=== PATIENT | male | born 1945 | race Caucasian/White ===

== ENCOUNTER 2018-01-28 20:01 | Inpatient (IN) ==
[2018-01-28 20:22] LABS: Basophils # 0.1 K/mcL (0.0-0.2); Basophils % 0.6 %; Eosinophils # 0.4 K/mcL (0.0-0.6); Hematocrit 48.1 % (37.5-50.1); Hemoglobin 16.7 g/dL (12.9-16.9); Immature Granulocytes % 0.3 % (0-4); Lymphocytes # 2.6 K/mcL (0.6-4.6); Lymphocytes % 29.5 %; Mean Corpuscular HGB Conc 34.7 g/dL (31.6-35.5); Mean Corpuscular Volume 89.4 fL (83.0-100.0); Monocytes # 0.8 K/mcL (0.0-1.3); Monocytes % 8.6 %; Platelet Count 263 K/mcL (140-400); Red Blood Count 5.38 M/mcL (4.19-5.50); Red Cell Distribution Width 12.7 % (11.5-14.5)
[2018-01-28 20:27] LABS: Prothrombin Time 11.3 Seconds (9.4-12.1)
[2018-01-28 20:29] LABS: Activated Partial Thrombo Time 32.3 Seconds (26.0-36.0)
[2018-01-28 20:47] LABS: BUN/Creatinine Ratio 16 (6-26); Blood Urea Nitrogen 20 mg/dL (8-23); Calcium 9.9 mg/dL (8.6-10.3); Carbon Dioxide 29 mEq/L (23-29); Chloride 103 mEq/L (98-107); Glucose 104 mg/dL (70-105); Osmolality,Calculated 293 (280-300); Sodium 140 mEq/L (136-145); eGFR For Non-African Americans 56 (> 60)
[2018-01-28 20:48] LABS: Troponin I < 0.03 ng/mL (< 0.04)
--- NOTE | 2018-01-28 21:14 | Emergency Department Note ---
Disposition Clinical Impression: Chest pain Qualifiers: Chest pain type: unspecified Qualified Code(s): R07.9 - Chest pain, unspecified Disposition: Admitted As Inpatient Condition: Good Time of Disposition: 21:23 Chest Pain HPI - General Chief Complaint: ED Chest Pain Stated Complaint: chest pain Time Seen by Provider: 01/28/18 20:07 Source: patient, EMS Limitations: no limitations Vital Signs Reviewed: Yes Nursing Notes Reviewed: Yes - History of Present Illness HPI Narrative: Male patient presenting to emergency department complaining of chest pain that began around 5:30 this evening. He started after he lifted a 5 gallon bucket. He does have associated shortness of breath on exertion. Whenever he tries to walk is when the pain gets worse. It does relieve completely at rest. He has a history of 2 MIs. States this feels like the second [place]. Does have 2 stents placed. He denies any fevers or chills. He did recently have a cardiac workup in expectation of a right knee surgery tomorrow. He describes the pain as a pressure in the center of his chest. Radiates to both shoulders. No associated nausea vomiting or diaphoresis. No rashes. Severity scale (1-10): 9 - Related Data Home Medications Medication Instructions Recorded Confirmed Aspirin [Adult Aspirin Regimen] 81 mg PO DAILY 12/11/17 12/11/17 Previous Rx's Medication Instructions Recorded Cephalexin [Keflex] 500 mg PO QID #28 capsule 12/23/17 Allergies Allergy/AdvReac Type Severity Reaction Status Date / Time niacin Allergy See Verified 12/23/17 16:29 Comments Clnpphq-Ime-Szj Reductase Allergy See Verified 12/23/17 16:29 Inhibitor Comments [Statins] All systems ED: reviewed and negative except as stated. Constitutional: Denies: fever, chills Cardiovascular: Reports: chest pain, dyspnea on exertion. Denies: palpitations , syncope Respiratory: Denies: cough, dyspnea, wheezes Gastrointestinal: Denies: abdominal pain, nausea, vomiting, diarrhea Genitourinary: Denies: urgency, dysuria, frequency, hematuria Musculoskeletal: Denies: back pain, neck pain Neurological: Denies: headache, weakness Chest Pain PMH - Past Medical History Medical history: Reports: CVA, hypertension, myocardial infarction Surgical history: Reports: angioplasty/stent, orthopedic, other Psychiatric history: Reports: anxiety - Social History Smoking Status: Never smoker Alcohol use: Reports: none Drug use: Reports: none Physical Exam - General Limitations: no limitations General appearance: alert, in no apparent distress - Head Head exam: atraumatic, normocephalic, normal inspection - Eye Eye exam: Present: normal appearance, PERRL, EOMI - ENT ENT exam: normal exam, normal oropharynx, mucous membranes moist - Neck Neck exam: Present: normal inspection, full ROM, trachea midline - Chest Chest inspection: Present: normal inspection, symmetric chest wall rise - Respiratory Respiratory exam: Present: normal lung sounds bilaterally. Absent: respiratory distress, accessory muscle use - Cardiovascular Cardiovascular exam: Present: regular rate, normal rhythm, normal heart sounds - Abdominal Exam Abdominal exam: Present: soft, Non-Tender. Absent: tenderness, distention, guarding, rebound, rigidity, organomegaly, Bruno's sign, Rovsing's sign, tenderness at McBurney's Point - Extremities Exam Extremities exam: Present: normal inspection, full ROM, normal capillary refill. Absent: tenderness, pedal edema - Back Exam Back exam: Present: normal inspection, full ROM. Absent: tenderness - Neurological Exam Neurological exam: Present: alert, oriented X3 - Psychiatric Psychiatric exam: Present: normal affect, normal mood - Skin Skin exam: Present: warm, dry, intact, normal color. Absent: rash, cyanosis, diaphoresis Course Course Narrative: Patient has the pain reproduced on very short ambulation. He is also still dyspneic on ambulation. EKG shows no signs of acute ischemia we will admit patient to the hospital for further ACS workup. He did just have a left-sided carotid endarterectomy less than a month ago. - Consultations Consultation #1: Dr Navarrete accepted Pt in stable condition. Time: 21:20 Vital Signs Temperature 98.0 F 01/28/18 20:05 Pulse Rate 82 01/28/18 20:05 Respiratory Rate 15 01/28/18 20:05 Blood Pressure 186/109 01/28/18 20:05 O2 Sat by Pulse Oximetry 99 01/28/18 20:05 Temperature 98.0 F 01/28/18 20:05 Pulse Rate 79 01/28/18 20:57 Respiratory Rate 20 01/28/18 20:57 Blood Pressure 166/91 01/28/18 20:57 O2 Sat by Pulse Oximetry 100 01/28/18 20:57 Oxygen Delivery Oxygen Delivery Nasal Cannula Chest Pain - Medical Records Medical records reviewed: Yes I reviewed the patient's medical records. - Lab Data Lab results reviewed: Yes I reviewed the patient's lab results. Result diagrams: 01/28/18 20:11 01/28/18 20:11 Lab Results 01/28/18 01/28/18 01/28/18 Range/Units 20:11 20:11 20:11 WBC 8.8 (4.3-11.1) K/mcL RBC 5.38 (4.19-5.50) M/mcL Hgb 16.7 (12.9-16.9) g/dL Hct 48.1 (37.5-50.1) % MCV 89.4 (83.0-100.0) fL MCH 31.0 (28.0-33.3) pg MCHC 34.7 (31.6-35.5) g/dL RDW 12.7 (11.5-14.5) % Plt Count 263 (140-400) K/mcL MPV 9.0 L (9.4-12.4) fL Immature Gran % 0.3 (0-4) % Seg Neutrophils % 57.0 % Lymphocytes % 29.5 % Monocytes % 8.6 % Eosinophils % 4.0 % Basophils % 0.6 % Neutrophils # 5.0 (1.6-8.9) K/mcL Lymphocytes # 2.6 (0.6-4.6) K/mcL Monocytes # 0.8 (0.0-1.3) K/mcL Eosinophils # 0.4 (0.0-0.6) K/mcL Basophils # 0.1 (0.0-0.2) K/mcL PT 11.3 (9.4-12.1) Seconds INR 1.0 APTT 32.3 (26.0-36.0) Seconds Sodium (136-145) mEq/L Potassium (3.5-5.1) mEq/L Chloride (98-107) mEq/L Carbon Dioxide (23-29) mEq/L BUN (8-23) mg/dL Creatinine (0.70-1.30) mg/dL Est GFR ( Amer) (> 60) Est GFR (Non-Af Amer) (> 60) BUN/Creatinine Ratio (6-26) Glucose (70-105) mg/dL Calculated Osmolality (280-300) Calcium (8.6-10.3) mg/dL Troponin I (< 0.04) ng/mL B-Natriuretic Peptide 23 (Less than 100) pg/mL 01/28/18 Range/Units 20:11 WBC (4.3-11.1) K/mcL RBC (4.19-5.50) M/mcL Hgb (12.9-16.9) g/dL Hct (37.5-50.1) % MCV (83.0-100.0) fL MCH (28.0-33.3) pg MCHC (31.6-35.5) g/dL RDW (11.5-14.5) % Plt Count (140-400) K/mcL MPV (9.4-12.4) fL Immature Gran % (0-4) % Seg Neutrophils % % Lymphocytes % % Monocytes % % Eosinophils % % Basophils % % Neutrophils # (1.6-8.9) K/mcL Lymphocytes # (0.6-4.6) K/mcL Monocytes # (0.0-1.3) K/mcL Eosinophils # (0.0-0.6) K/mcL Basophils # (0.0-0.2) K/mcL PT (9.4-12.1) Seconds INR APTT (26.0-36.0) Seconds Sodium 140 (136-145) mEq/L Potassium 4.0 (3.5-5.1) mEq/L Chloride 103 (98-107) mEq/L Carbon Dioxide 29 (23-29) mEq/L BUN 20 (8-23) mg/dL Creatinine 1.26 (0.70-1.30) mg/dL Est GFR ( Amer) > 60 (> 60) Est GFR (Non-Af Amer) 56 L (> 60) BUN/Creatinine Ratio 16 (6-26) Glucose 104 (70-105) mg/dL Calculated Osmolality 293 (280-300) Calcium 9.9 (8.6-10.3) mg/dL Troponin I < 0.03 (< 0.04) ng/mL B-Natriuretic Peptide (Less than 100) pg/mL - Radiology Data Radiology results reviewed: Yes I reviewed the patient's radiology results. - EKG Data EKG attestation: Yes I reviewed and interpreted this EKG. EKG results narrative: Normal sinus rhythm at a rate 81. NH interval is 132. QRS is in the phone is 6. QT is 341. QTC is 396. No signs of acute ischemia. Heart Score - Score History: Highly Suspicious EKG: Non Specific repolarisation Disturbance Age: Greater than 65 Risk Factors: Equal/Greater than 3 risk factor or history of atherosclerotic disease Troponin: Less than normal limit HEART Score Total: 7 Attestation Statement - Attestation Attestation: Patient was seen with resident physician. I reviewed the history, physical, assessment and plan, and agree with the findings. I also personally evaluated this patient and had [id number] time with this patient. 72-year-old male presents emergency Department with chest pain onset 5:30 PM. Describes pain is similar to second heart attack pressure sensation in the chest. Largely exertional. He says when he sits still it goes away but even a short distance couple of feet will cause chest pain and shortness of breath. Patient's here for evaluation treatment for that. He has a recent stress test which she said was okay. Of the symptoms are new. He does not typically get chest pain and though he has nitroglycerin he said he never takes them at home. He did take 4 aspirin via ambulance. Review systems as above remainder negative. Physical exam vital signs are stable. ENT is unremarkable. Heart regular rhythm and rate. Lungs clear. Abdomen soft and nontender. Extremities are unremarkable. Neurologically intact. Skin no rashes. Chest wall stable pain is not reproducible. ED course EKG showed no acute ischemic changes. Troponin was negative. Other lab testing was unremarkable. Chest x-ray did not show acute abnormalities either. We spoke with the hospitalist service to arrange for admission for rule out and additional testing as indicated. Hemodynamically the patient remained stable in the emergency department. Agree with resident physician assessment plan.
[2018-01-28] MEDS ORDERED: Nitroglycerin 0.4 MG TAB.SUBL SL STA (23:01)
[2018-01-28] MEDS ORDERED: Acetaminophen 325 MG TABLET PO PRN (23:07)
[2018-01-28] MEDS ORDERED: Naloxone 0.4 MG/ML INJ IVP PRN (23:40)
[2018-01-29] MEDS ORDERED: *HR* Heparin 5,000 UNIT/ML VIAL IVP PRN ×2 (00:01)
[2018-01-29] MEDS ORDERED: *HR* Heparin 5,000 UNIT/ML VIAL IVP ONE (00:01)
[2018-01-29] MEDS ORDERED: Heparin 25,000 UNIT/500 ML D5W 25,000 UNIT/500 ML BAG IVC SCH (00:15)
--- NOTE | 2018-01-29 00:22 | Internal Med History&Physical ---
Date of Encounter: 01/29/18 Time of Encounter: 22:00 Internal Medicine - H&P: HPI Chief complaint: Chest Pain History of present illness: Mr. Sharp is a 72 year old male patient presenting to emergency department complaining of chest pain that began around 5:30 this evening. Symptoms began shortly after carrying a 5 gallon bucket of water. He does have associated shortness of breath on exertion. Whenever he tries to walk is when the pain gets worse. It does relieve completely at rest. He has a history of 2 MIs. States this feels like the second [place]. Does have 2 stents placed. He denies any fevers or chills. He describes the pain as a pressure in the center of his chest. Radiates to both shoulders. No associated nausea vomiting or diaphoresis. No rashes. Past Med Surg Social Fam HX - Past Medical History Medical history: CVA, hypertension, myocardial infarction Additional medical history: Carotid stenosis Psychiatric history: anxiety - Past Surgical History Surgical History: angioplasty/stent, orthopedic, other Additional surgical history: LITHOTRIPSY FOR KIDNEY STONES. ORIF LEFT ANKLE - Social History Smoking Status: Never smoker Smokeless Tobacco Status: No Alcohol use: none Drug use: none - Family History Father Name: Joya Sharp Living Status: Age at : 75 Cause of : colon cancer Hx Family Cardiac Disorders: Yes (CABG) Internal Medicine - H&P: Meds Aspirin [Adult Aspirin Regimen] 81 mg PO DAILY 12/11/17 [History] Multivitamin [Multivitamins] 1 each PO DAILY 01/28/18 [History] [place]-3 Fatty Acids [Fish Oil] 300 mg PO DAILY 01/28/18 [History] Ubidecarenone [Coq10] 50 mg PO DAILY 01/28/18 [History] 3 Allergy/AdvReac Type Severity Reaction Status Date / Time niacin Allergy See Verified 01/29/18 10:24 Comments Ernndob-Bkv-Eaf Reductase Allergy See Verified 01/29/18 10:24 Inhibitor Comments [Statins] All Systems PM: A 10-system review of systems was performed and is negative for pertinent findings except as documented above in the HPI. - Constitutional Exam: General: Alert and oriented 3 lying in bed not in acute distress Skin:Normal color, no rash, no lesions. HEENT:EOM, pupils equal, round and reactive. Cardiovascular:Normal S1 & S2, no rubs, murmurs or gallops. No JVD. Pulse regular. Lungs:Normal breath sounds, no wheezes or crackles. Abdomen:Soft, non-tender, no rigidity. Extremities:No deformity, no edema or tenderness, no joint swelling or clubbing. Neurological:Normal cognition and motor skills. Pulses:Carotid and radial pulses normal +2. Rest of the physical exam is non contributory Internal Med - H&P Results - Labs CBC & Chem 7: 01/29/18 05:02 01/29/18 05:02 Labs: Cardiac Enzymes 01/28/18 Range/Units 23:14 Troponin I 0.16 H* (< 0.04) ng/mL - Assessment and plan (1) Chest pain Current Visit: Yes Status: Acute Assessment and plan: Acute chest pain rule out coronary syndrome. Patient's chest pain similar in nature and quality to previous [place]. He presents with typical chest pain, substernal and radiating to the left arm aggravated with exertion and relieved with nitroglycerin and rest. During the course of his first evening shortly after admission patient began experiencing worsening of his typical chest pain. Stat troponin and EKG was ordered showing a bump in his troponin level from less than 0.03-0.16 as well as EKG changes in the inferior leads specifically 3 and AVF. His symptoms improved after administration of nitroglycerin. Due to concern of ACS will start patient on heparin drip, beta william; transient troponin and place cardiac cardiology consultation for a.m. which has been ordered but not called in. Qualifiers: Chest pain type: unspecified Qualified Code(s): R07.9 - Chest pain, unspecified (2) Hypertension Current Visit: Yes Status: Chronic Qualifiers: Hypertension type: essential hypertension Qualified Code(s): I10 - Essential (primary) hypertension - Time Spent With Patient Total time spent is greater than 50% in coordination of care (as documented) at patient's floor/unit and/or counseling patient: - Constitutional Vitals: Temp Pulse Resp BP Pulse Ox 98.3 F 75 15 137/81 96 01/28/18 23:01 01/28/18 23:38 01/28/18 23:01 01/28/18 23:38 01/28/18 23:01
[2018-01-29 00:59] LABS: Hematocrit 45.2 % (37.5-50.1); Hemoglobin 15.6 g/dL (12.9-16.9); Mean Corpuscular HGB Conc 34.5 g/dL (31.6-35.5); Mean Corpuscular Hemoglobin 30.7 pg (28.0-33.3); Mean Platelet Volume 9.1 fL (9.4-12.4); Platelet Count 236 K/mcL (140-400); Red Blood Count 5.08 M/mcL (4.19-5.50); Red Cell Distribution Width 12.7 % (11.5-14.5)
[2018-01-29 01:04] LABS: Heparin anti-factor XA UFH 0.04 IU/mL (0.30-0.70)
[2018-01-29 01:05] LABS: Prothrombin Time 11.1 Seconds (9.4-12.1)
[2018-01-29] MEDS: Nitroglycerin 0.4 MG TAB.SUBL SL PRN ×5 (01:35→23:43)
[2018-01-29] MEDS: Acetaminophen 325 MG TABLET PO PRN ×2 (01:48→15:22)
[2018-01-29 05:21] LABS: Hematocrit 45.7 % (37.5-50.1); Hemoglobin 16.1 g/dL (12.9-16.9); Mean Corpuscular HGB Conc 35.2 g/dL (31.6-35.5); Mean Corpuscular Hemoglobin 31.2 pg (28.0-33.3); Mean Corpuscular Volume 88.6 fL (83.0-100.0); Mean Platelet Volume 9.1 fL (9.4-12.4); Platelet Count 236 K/mcL (140-400); Red Blood Count 5.16 M/mcL (4.19-5.50); Red Cell Distribution Width 12.5 % (11.5-14.5)
[2018-01-29 05:42] LABS: Alanine Aminotransferase 17 Units/L (7-52); Albumin 4.2 g/dL (3.5-5.7); Albumin/Globulin Ratio 1.8 (1.1-2.2); Alkaline Phosphatase 65 Units/L (34-104); Aspartate Amino Transferase 23 Units/L (13-39); BUN/Creatinine Ratio 20 (6-26); Bilirubin,Total 0.6 mg/dL (0.3-1.0); Blood Urea Nitrogen 20 mg/dL (8-23); Calcium 9.3 mg/dL (8.6-10.3); Carbon Dioxide 23 mEq/L (23-29); Chloride 107 mEq/L (98-107); Globulin 2.4 g/dL (2.4-3.5); Glucose 108 mg/dL (70-105); Osmolality,Calculated 291 (280-300); Sodium 139 mEq/L (136-145); Total Protein 6.6 g/dL (6.4-8.9); eGFR For Non-African Americans > 60 (> 60)
--- NOTE | 2018-01-29 08:27 | Cardiology Consult Note ---
Date of Encounter: 01/29/18 Time of Encounter: 09:30 Assessment and Plan (1) NSTEMI (non-ST elevated myocardial infarction) Current Visit: Yes Status: Acute - RADHA 5, high risk, trop max 0.3, s/p ASA 324, heparin drip - know LAD TWAN x2, accelerating angina with dyspnea - plan invasive strategy and LHC today with possible intevention, no bleeding diathesis, + elective knee surgery - c/w heparin drip - ASA 81 qd, plavix 600mg x1 now then 75mg qd from 821 am - c/w lopressor for now, switch to toprol XL before discharge - repeat TTE for EF and RWMA, then decision on ACEi/ARB - lipid panel, TSH - pt unable to tolerate statin/niacin, will need explore questran, [id number] as outpatient with Dr Ro. - cardiac rehab (2) Carotid stenosis, bilateral Current Visit: No Status: Chronic R-carotid total occlusion, L-CEA 12/2017, will benefit from lipid control (3) Mixed hyperlipidemia Current Visit: No Status: Inactive pt unable to tolerate statin/niacin, will need explore questran and PCSK9i as outpatient with Dr Ro. (4) Hypertension Current Visit: Yes Status: Chronic BP currently ok Qualifiers: Hypertension type: essential hypertension Qualified Code(s): I10 - Essential (primary) hypertension Discussion w patient/family: The assessment and plan as outlined above was discussed with the patient and/or family members who expressed understanding and agreement. All questions were answered. Thank you for involving us in the care of your patient. Please call with any questions. History of Present Illness Consult date: 01/29/18 Requesting physician: Carmelina Woods Consult reason: ACS Chief complaint: CP History of present illness: Mr. 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 CV imaging prior to L-CEA: TTE 06/2017 EF 65% Nuclear stress 06/2017 no ischemia or infarct P/w recurrent accelerating chest pain 3 hours prior to ED visit. CP triggered by lifting bottle, starting from L-shoulder, then lower mid substernal chest pressure 8/10, lasting 5 minutes, improved after rest, associated with dyspnea. Recurred several times later with minimal exertion which prompted ED visit. ASA 81x4 in ambulance. CP at rest recurred in hospital x2 which relieved by NTG. ECG NS TW abn, trop 0->max 0.3, BNP 23. Currently no complaint, no cp. No bleeding problems, elective knee surgery planned. Similar exertional CP episode 1 month ago relieved by rest w/o seeking medical attention. Stated easy fatigue in the past several months with decreased functional status , 6 flight of stairs down to 1-2 with dyspnea. No PND/orthopnea, leg edema or significant weight change. No syncope, no palpitations. Of note, only on ASA 81 at home. Unable to tolerate statins (muscle pain) and niacin (flushing) Past Med Surg Social Fam HX - Past Medical History Attestation: Yes The following information was validated with the patient. Medical history: CVA, hypertension, myocardial infarction (2010, 2012) Additional medical history: Carotid stenosis Psychiatric history: anxiety - Past Surgical History Surgical History: angioplasty/stent (LAD TWAN x2 (length 20mm and 38mm), carotid endarterectomy (L-CEA 12/2017), orthopedic, other Additional surgical history: LITHOTRIPSY FOR KIDNEY STONES. ORIF LEFT ANKLE - Social History Smoking Status: Never smoker Smokeless Tobacco Status: No Alcohol use: none Drug use: none - Family History Father Name: Joya Sharp Living Status: Age at : 75 Cause of : colon cancer Hx Family Cardiac Disorders: Yes (CABG) Medications and Allergies Aspirin [Adult Aspirin Regimen] 81 mg PO DAILY 12/11/17 [History] Multivitamin [Multivitamins] 1 each PO DAILY 01/28/18 [History] [place]-3 Fatty Acids [Fish Oil] 300 mg PO DAILY 01/28/18 [History] Ubidecarenone [Coq10] 50 mg PO DAILY 01/28/18 [History] 3 Allergy/AdvReac Type Severity Reaction Status Date / Time niacin Allergy See Verified 01/29/18 10:24 Comments Aggmhkm-Hlz-Lfi Reductase Allergy See Verified 01/29/18 10:24 Inhibitor Comments [Statins] All Systems Review: The remainder of the systems were reviewed and are negative - EENT Eyes: blurred vision - Cardiovascular Cardiovascular: as per HPI - Musculoskeletal Musculoskeletal: arthralgias (B/L knees) Physical Examination Vital Signs, Last 4 Hours Temp Pulse Resp BP Pulse Ox 01/29/18 07:09 97.8 F 59 16 132/76 97 01/29/18 06:18 97.9 F 77 13 126/79 General: Conversant, No Apparent Distress HEENT: Mucus Membranes Moist Neck: No JVD, Other (right carotid pulse absent) Cardiac: Reg Rate and Rhythm, Normal S1 and S2, No Murmur Lungs: Normal Breath Sounds, No Wheeze, Rales, Rhonchi Neuro: Alert and responsive, No focal deficits noted Abdomen: Soft, Non-Tender Skin: No rashes noted on visualized skin Musculoskeletal: No Chest Wall Tenderness Extremities: No Clubbing, No Cyanosis, No Edema, Normal Pulses Results 01/29/18 05:02 01/29/18 05:02 Lab Results BNP 23 01/28/18 01/29/18 01/29/18 23:14 00:44 00:44 WBC 9.7 Hgb 15.6 Hct 45.2 Plt Count 236 INR 1.0 Sodium Potassium Chloride Carbon Dioxide BUN Creatinine Glucose Calcium Total Bilirubin AST ALT Alkaline Phosphatase Troponin I 0.16 H* 01/29/18 01/29/18 01/29/18 05:02 05:02 05:02 WBC 9.7 Hgb 16.1 Hct 45.7 Plt Count 236 INR Sodium 139 Potassium 4.0 Chloride 107 Carbon Dioxide 23 BUN 20 Creatinine 0.98 Glucose 108 H Calcium 9.3 Total Bilirubin 0.6 AST 23 ALT 17 Alkaline Phosphatase 65 Troponin I 0.26 H* ITS Impressions Chest X-Ray 01/28/18 20:13 IMPRESSION: No acute findings. D/ / Jake Jensen MD / Jake Jensen MD Interpreting Provider: Jake Jensen MD Active Medications Acetaminophen (Tylenol) 650 mg PO Q6HR PRN PRN Reason: Fever/mild pain Stop: 07/30/18 23:08 Last Admin: 01/29/18 01:48 Dose: 650 mg Heparin Sodium (Porcine) (Heparin) 4,000 unit IVP Q6HR PRN PRN Reason: SEE COMMENTS Stop: 07/31/18 00:02 Heparin Sodium (Porcine) (Heparin) 2,000 unit IVP Q6H PRN PRN Reason: SEE COMMENTS Stop: 07/31/18 00:02 Heparin Sodium/Dextrose (Heparin 25,000 Unit/500 Ml D5w) 25,000 unit in 500 mls @ 19.752 mls/hr IVC .Q24H ANMOL; 12 UNIT/KG/HR PRN Reason: Protocol Stop: 07/31/18 00:16 Last Titration: 01/29/18 07:26 Dose: 12 unit/kg/hr, 19.752 mls/hr Metoprolol Tartrate (Lopressor) 25 mg PO Q6HR ANMOL Stop: 07/31/18 06:01 Last Admin: 01/29/18 06:21 Dose: 25 mg Naloxone HCl (Narcan) 0.4 mg IVP Q2MIN PRN PRN Reason: SEE COMMENTS Stop: 07/30/18 23:41 Nitroglycerin (Nitroglycerin) 0.4 mg SL Q5MIN PRN PRN Reason: Chest Pain Stop: 07/31/18 02:31 Last Admin: 01/29/18 01:35 Dose: 0.4 mg Omeprazole (Prilosec) 40 mg PO DAILY@0630 ANMOL PRN Reason: Protocol Stop: 07/31/18 00:31 Last Admin: 01/29/18 06:19 Dose: 40 mg - Imaging and Cardiology Chest Xray: report reviewed Stress Test: report reviewed, image reviewed Echo: report reviewed, image reviewed Cardiac cath: other (patient's PCI card reviewed) - EKG Interpretation EKG results cardiology: personally reviewed, sinus rhythm (NS TW abn) Consult Discharge Plan - Plan Referrals: Jimmy ePnaloza MD [Primary Care Provider] -
[2018-01-29] MEDS: Aspirin Enteric Coated 81 MG Tablet PO SCH (10:42)
[2018-01-29] MEDS ORDERED: ISOVUE-370 200 ML INFUS..BTL IV ONE ×2 (11:19→13:48)
[2018-01-29] MEDS ORDERED: Nitroglycerin 1,000 MCG/10 ML VIAL IV ONE (11:19)
[2018-01-29] MEDS ORDERED: 0.9 % Sodium Chloride 1,000 ML ONE ×2 (11:19)
[2018-01-29] MEDS ORDERED: *HR* Heparin 10,000 UNIT/10 ML VIAL ONE (11:19)
[2018-01-29] MEDS ORDERED: Heparin 1,000 UNITS/500 mL 500 ML ONE (11:19)
[2018-01-29] MEDS ORDERED: Verapamil 5 MG/2 ML VIAL ONE (11:19)
[2018-01-29] MEDS ORDERED: *HR* FentaNYL (PF) 100 MCG/2 ML VIAL ONE (11:44)
[2018-01-29] MEDS ORDERED: *HR* Midazolam HCl 5 MG/5 ML VIAL IVP ONE (11:45)
--- NOTE | 2018-01-29 12:29 | Pre-Sedation Evaluation ---
Pre-sedation evaluation - Pre-sedation checklist Date of procedure: 01/29/18 Procedure: [facility] Recent Vitals: Last Vital Signs Temp 97.6 F 01/29/18 11:25 Pulse 58 01/29/18 11:25 Resp 16 01/29/18 11:25 BP 122/69 01/29/18 11:25 Pulse Ox 97 01/29/18 11:25 H&P (including ROS) documented in medical record: Yes Previous reaction to sedatives/anesthetics: No Dietary Status: NPO after Midnight Airway Assessment: Patient can open mouth completely, TMJ function normal ASA Classification *see protocol: CLASS II-Mild systemic disease Plan of Care: Pt appropriate candidate for procedure/moderate/conscious sedation , Risks/benefits of procedure/sedation discussed w/ patient/family Cardiac Registry (Cardio Only) - Functional Capacity Functional Capacity: >=4 METS with symptoms - Clincal Frailty Scale Clinical Frailty Scale: Managing Well
[2018-01-29] MEDS ORDERED: Tirofiban 5 MG/100 mL 5 MG/100 ML VIAL IV ONE (12:54)
[2018-01-29] MEDS ORDERED: Ondansetron 4 MG/2 ML VIAL IVP PRN (13:16)
[2018-01-29] MEDS ORDERED: *HR* Ticagrelor 90 MG TABLET ONE (13:23)
--- NOTE | 2018-01-29 13:27 | Invasive Diagnostic Lab Proc ---
Name: Jama Sharp Date of Study: 01/29/2018 Date: 1945 Ht: 66.9in Medical Record#: [id number] Age: 72 Wt: 181.88lb Gender: Male BSA: 1.94 Order #: [id number] BMI: 28.58 Physicians Procedure Physician: Tyrell Bauman MD, [facility] Referring MD: Referring MD: Staff Name Position Time In Mercedes Delvalle RT (R) Monitor 12:07 PM AmauryJenny garcia RT (R) Scrub 12:07 PM Desiree Fernandes RN Labor Relations Teacher 12:07 PM Indications Indication Non-Stemi Procedures Performed Procedure L HRT ARTERY/VENTRICLE ANGIO PRQ CARD TWAN STENT W/ANGIO 1 VSL Pre-Procedure Checklist Pt not NPO for procedure and MD aware. Blood Pressure: 132/76 Plan of Care Patient will tolerate the procedure without complications. Adequate level of comfort will be maintained. Hemodynamics will remain stable Patient will recover from procedure without complications. Respiratory function will be maintained. Cardiac rhythm will remain stable. Patient temperature will be maintained. Patient and/or family have verbalized understanding of the procedure. Patient Education Chief Complaint/Reason for Test: Cardiac Cath Developmental Category: Geriatric (65+ years) Developmentally Appropriate for Age: Yes Learning Barriers: None Education Needs: Procedure Education Method: Verbal Information Taught: Cardiac Cath Educational Evaluation: Able to repeat information Intravenous Access Time IV Size Location DC'd Fluid/Drip Rate Units RN 20g 1 /" Patent On Arrival Rt Antecubital Allergies No Known Allergies Jddipia-Eyu-Xdh Reductase Inhibitor niacin Vital Signs Time BP (mmHg) HR (bpm) O2 Sat. RR (bpm) LOC 11:25 AM 132 / 76 59 97 % 16 5 = Fully awake and oriented or at pre-proc level 12:09 PM / % 5 = Fully awake and oriented or at pre-proc level 12:07 PM 135 / 83 62 99 % 23 12:12 PM 123 / 68 64 97 % 23 12:17 PM 114 / 66 64 97 % 16 12:22 PM 114 / 64 60 97 % 42 12:27 PM 102 / 59 64 97 % 17 12:32 PM 105 / 67 64 98 % 19 12:37 PM 93 / 53 69 97 % 7 12:41 PM 92 / 52 65 90 % 17 12:42 PM 102 / 49 62 94 % 17 12:47 PM 103 / 54 60 95 % 16 12:52 PM 109 / 48 61 94 % 29 12:57 PM 100 / 58 59 96 % 17 01:03 PM 127 / 62 65 95 % 20 01:07 PM 125 / 61 61 96 % 20 Procedural Medications Time Medication Dose Units Method Given By 12:09 PM Versed 2 mg Intravenous Desiree Fernandes RN 12:09 PM Fentanyl 50 mcg Intravenous Desiree Fernandes RN 12:32 PM Lidocaine 2% 0.5 ml Subcutaneous Tyrell Bauman MD, FAC 12:33 PM Fentanyl 25 mcg Intravenous Desiree Fernandes RN 12:34 PM Versed 1 mg Intravenous Desiree Fernandes RN 12:34 PM Heparin 2000 units Nitroglycerin 200 mcg Verapamil 2.5 mg Intraarterial Tyrell Bauman MD, [facility] 12:51 PM Oxygen 3 L/min nasal cannula Desiree Fernandes RN 12:55 PM Heparin 2000 units Intravenous Desiree Fernandes RN 12:56 PM Aggrastat Bolus: 42 ml Intravenous Desiree Fernandes RN 12:59 PM Aggrastat 12.5mg/250ml 15 ml Intravenous Desiree Fernandes RN 01:01 PM Nitroglycerin 100 mcg Intracoronary Tyrell Bauman MD 01:06 PM Brilinta 180 mg Orally Desiree Fernandes RN ASA Classification: CLASS II- Mild systemic disease (i.e. well-controlled diabetes, hypertension, asthma, cigarette smoking) Castillo Score Preprocedure Postprocedure Activity 2- Moves 4 extremities sustained head lift Activity 2- Moves 4 extremities sustained head lift Circulation 2- SBP +/= 20 points of pre-anesthetic level Circulation 2- SBP +/= 20 points of pre-anesthetic level Consciousness 2- Awake and alert oriented x 3 Consciousness 2- Awake and alert oriented x 3 O2 Saturation 2- Able to maintain O2 satruation of 92% on room air O2 Saturation 2- Able to maintain O2 satruation of 92% on room air Respiratory 2- Able to deep breathe and cough well Respiratory 2- Able to deep breathe and cough well Total Score 10 Total Score 10 Contrast Agent: Isovue Diagnostic Contrast: 115 ml Total Contrast: 115 ml Fluoro Dose: 3750 mGy Activated Clotting Time Time Seconds to Clot 12:53 PM 231 Procedure Log Time Note Enter By 12:06 PM Recorded ECG: HR=68 Condition=Condition 1 12:06 PM CathStat 12:06 PM Vitals capture started with the following parameters, Patient=Adult, Interval=5 min, Initial Syxesrvz=691 mmHg, Deflation Rate=5 mmHg, Cuff placed on Right Arm 12:07 PM Pt arrived to r and d lab technician 2 at 12:07 tsites 12:07 PM Mercedes Delvalle RT (R) Position: Monitor Time in: 12:07 tsites 12:07 PM Jenny Rebolledo RT (R) Position: Scrub Time in: 12:07 tsites 12:07 PM HR=62 bpm, XGZB=187/83 mmhg, SpO2=99.0 %, Resp=23 B/min, EtCO2=35 mmHg, Comment=NSR 12:07 PM Desiree Fernandes RN Position: Labor Relations Teacher Time in: 12:07 tsites 12:07 PM Patient charges- Angio tray pack, Navilyst 3mm J, Pulse Oximetry and ACIST tubing and transducer tsites 12:07 PM Case Delayed tsites 12:07 PM Hair removed from procedure site in holding area using clippers. Right wrist prepped with Chloraprep by Mercedes Delvalle RT (R), then patient was draped. Skin intact. tsites 12:07 PM Hair removed from procedure site in holding area using clippers. Right groin prepped with Chloraprep by Mercedes Delvalle (R), then patient was draped. Skin intact. tsites 12:07 PM Physician arrived 12:07 tsites 12:07 PM ASA Class CLASS II- Mild systemic disease (i.e. well-controlled diabetes, hypertension, asthma, cigarette smoking) tsites 12:07 PM Meet and greet completed tsites 12:08 PM Sign in performed according to hospital policy. tsites 12:08 PM Procedure start 12:08 tsites 12:09 PM Time: 12:08 Patient comfortable and pain free: Yes tsites 12:09 PM Time: 12:09LOC: 5 = Fully awake and oriented or at pre-proc level tsites 12:09 PM Time: 12:09 Versed 2 mg Intravenous Given by Desiree Fernandes RN tsites 12:09 PM Time: 12:09 Fentanyl 50 mcg Intravenous Given by Desiree Fernandes RN tsites 12:11 PM Pressure channel 1 zeroed. 12:12 PM HR=64 bpm, SCGS=887/68 mmhg, SpO2=97.0 %, Resp=23 B/min, EtCO2=36 mmHg, Comment=NSR 12:17 PM HR=64 bpm, PAAX=970/66 mmhg, SpO2=97.0 %, Resp=16 B/min, EtCO2=35 mmHg, Comment=NSR 12:22 PM HR=60 bpm, GPYN=019/64 mmhg, SpO2=97.0 %, Resp=42 B/min, EtCO2=30 mmHg, Comment=NSR 12:27 PM HR=64 bpm, TERZ=311/59 mmhg, SpO2=97.0 %, Resp=17 B/min, EtCO2=31 mmHg, Comment=NSR 12:32 PM HR=64 bpm, ONIB=415/67 mmhg, SpO2=98.0 %, Resp=19 B/min, EtCO2=30 mmHg, Comment=NSR 12:32 PM Time out performed according to hospital policy [email or web address] 12:32 PM Time: 12:32 0.5 ml Lidocaine 2% to right radial Subcutaneous Given by Tyrell Bauman MD, [facility] [email or web address] 12:33 PM Time: 12:33 Fentanyl 25 mcg Intravenous Given by Desiree Fernandes RN [email or web address] 12:34 PM Time: 12:34 Versed 1 mg Intravenous Given by Desiree Fernandes RN [email or web address] 12:34 PM Access obtained by percutaneous puncture. 6Fr 10cm Terumo Glidesheath sheath placed in right Radial artery. [id number] [email or web address] 12:34 PM Time: 12:34 Patient given 2,000 units Heparin, 200 mcg Nitroglycerin, and 2.5 mg Verapamil Intraarterial by Tyrell Bauman MD, [facility]. This is given to reduce risk of vessel spasm and thrombosis. [email or web address] 12:35 PM 0.035 260cm Navilyst 3mmJ wire [id number] [email or web address] 12:35 PM 5Fr TIG catheter inserted over the wire [facility] [email or web address] 12:36 PM LCA angiography performed in multiple views. [email or web address] 12:36 PM Recorded Pressure: Ao, HR=71, Condition=Condition 1 (Aorta) Ao 52/43/47 12:37 PM HR=69 bpm, NIBP=93/53 mmhg, SpO2=97.0 %, Resp=7 B/min, EtCO2=23 mmHg, Comment=NSR 12:37 PM Recorded Pressure: Ao, HR=71, Condition=Condition 1 (Aorta) Ao 56/44/50 12:38 PM Pressure channel 1 zeroed. 12:38 PM Recorded Pressure: Ao, HR=70, Condition=Condition 1 (Aorta) Ao 77/58/67 12:40 PM Lesion found in Proximal LAD. Pre Stenosis: 50 Pre RADHA Flow: 3: Complete and Brisk Flow/Perfusion [email or web address] 12:40 PM Catheter removed [email or web address] 12:40 PM NIBP STAT measurement started. 12:41 PM 5Fr AR 1 catheter inserted over the wire [id number] [email or web address] 12:41 PM HR=65 bpm, NIBP=92/52 mmhg, SpO2=90.0 %, Resp=17 B/min, EtCO2=35 mmHg, Comment=NSR 12:42 PM Lesion found in Mid LAD. Pre Stenosis: 60 Pre RADHA Flow: 3: Complete and Brisk Flow/Perfusion [email or web address] 12:42 PM Lesion found in Mid Circumflex. Pre Stenosis: 70 Pre RADHA Flow: 3: Complete and Brisk Flow/Perfusion [email or web address] 12:42 PM HR=62 bpm, VZCT=819/49 mmhg, SpO2=94.0 %, Resp=17 B/min, EtCO2=30 mmHg, Comment=NSR 12:42 PM Recorded Pressure: Ao, HR=62, Condition=Condition 1 (Aorta) Ao 63/49/56 12:42 PM Coronary Dominance: right [email or web address] 12:43 PM Lesion found in 1st Marginal. Pre Stenosis: 70 Pre RADHA Flow: 3: Complete and Brisk Flow/Perfusion [email or web address] 12:43 PM Lesion found in Proximal RCA. Pre Stenosis: 50 Pre RADHA Flow: 3: Complete and Brisk Flow/Perfusion [email or web address] 12:43 PM Lesion found in Distal RCA. Pre Stenosis: 80 Pre RADHA Flow: 3: Complete and Brisk Flow/Perfusion [email or web address] 12:44 PM Lesion found in Right PDA. Pre Stenosis: 60 Pre RADHA Flow: 3: Complete and Brisk Flow/Perfusion [email or web address] 12:44 PM Catheter removed [email or web address] 12:44 PM 5Fr Pigtail catheter inserted over the wire [facility] [email or web address] 12:46 PM Recorded Pressure: LV, HR=60, Condition=Condition 1 (Left Ventricle) LV 102/8/11 12:46 PM Catheter selectively placed in left ventricle [email or web address] 12:46 PM Bolus angiogram of left Ventricle complete: 8 ml/sec for a total of 24 mls [email or web address] 12:46 PM Recorded Pressure: LV, HR=61, Condition=Condition 1 (Left Ventricle) LV 101/4/11 12:47 PM HR=60 bpm, NLFH=940/54 mmhg, SpO2=95.0 %, Resp=16 B/min, EtCO2=25 mmHg, Comment=NSR 12:47 PM Recorded Pressure: LV, Ao, HR=59, Condition=Condition 1 (Left Ventricle) LV 88/6/12, (Aorta) Ao 99/56/73 12:48 PM [email or web address] 12[facility]49 PM Inflation device was opened. [email or web address] 12:49 PM .014 Fonda 190cm guide wire across target lesion- successful. reused? No [email or web address] 12:51 PM 6Fr RBR 3.5 Cordis guide catheter was used to cannulate the PCI vessel successfully. reused? No [email or web address] 12:51 PM Time: 12:51 Oxygen on at 3 L/min per nasal cannula by Desiree Fernandes RN [email or web address] 12:52 PM HR=61 bpm, MPIZ=160/48 mmhg, SpO2=94.0 %, Resp=29 B/min, EtCO2=29 mmHg, Comment=NSR 12:53 PM At 12:53 the ACT was 231 seconds. [email or web address] 12:55 PM Time: 12:55 Heparin 2000 units Intravenous Given by Desiree Fernandes RN [email or web address] 12:56 PM Recorded Pressure: Ao, HR=61, Condition=Condition 1 (Aorta) Ao 106/68/84 12:56 PM Time: 12:56 Aggrastat Bolus: 42 ml Intravenous Given by Desiree Fernandes RN [email or web address] 12:57 PM 3.0mm x 17mm Cordis EluNIR drug-eluting stent across target lesion- successful Lot [id number] [email or web address] 12[facility]57 PM HR=59 bpm, LCYT=820/58 mmhg, SpO2=96.0 %, Resp=17 B/min, EtCO2=31 mmHg, Comment=NSR 12:58 PM Stent deployed @ 14 yohannes for 36 seconds [email or web address] 12:59 PM Time: 12:59 Aggrastat 12.5mg/250ml 15 ml Intravenous Given by Desiree Fernandes RN Ruggiero pump [email or web address] 12:59 PM Stent balloon reinflated @ 16 yohannes for 12 seconds [email or web address] 01:00 PM Recorded Pressure: Ao, HR=58, Condition=Condition 1 (Aorta) Ao 125/73/96 01:00 PM Stent delivery system removed intact. [email or web address] 01:01 PM Time: 13:01 Nitroglycerin 100 mcg Intracoronary Given by Tyrell Bauman MD [email or web address] 01:02 PM Guide wire removed intact. [email or web address] 01:03 PM HR=65 bpm, WEBQ=128/62 mmhg, SpO2=95.0 %, Resp=20 B/min, EtCO2=29 mmHg, Comment=NSR 01:04 PM Guide catheter removed intact. [email or web address] 01:06 PM Time: 13:06 Brilinta 180 mg Orally Given by Desiree Fernandes RN [email or web address] 01:07 PM HR=61 bpm, LKUW=035/61 mmhg, SpO2=96.0 %, Resp=20 B/min, EtCO2=30 mmHg, Comment=NSR 01:08 PM Procedure completed at 13:08 01/29/2018 [email or web address] 01:08 PM Did you address RADHA flow and Dominance? Yes [email or web address] 01:09 PM Sign out completed: Radiation Dose 454.02 Gy, 3749.76 cGy/cm2 Fluoro Time: 6.0 Isovue 370 - 200ml contrast 115 ml given by Tyrell Bauman MD, [facility]. Complications: NoneCardiac Rehab Consult needed: YesConfirmed administered medications: Yes [email or web address] 01:09 PM Isovue 370 - 200ml,1 Bottle(s) used. [email or web address] 01:09 PM Arterial sheath pulled, Vasc Band closure device used and was Successful S/N. [email or web address] 01:09 PM 12 ml air in Vasc Band. [email or web address] 01:09 PM Estimated Blood Loss: minimal [email or web address] 01:09 PM Post ECG NSR [email or web address] 01:09 PM Post Blood Pressure 125/61 [email or web address] 01:10 PM Information taught Cardiac Cath, PCI, and Vasc Band [email or web address] 01:10 PM 13:10 Post Pulses Rt Radial 2+ [email or web address] 01:10 PM Education needs Procedure, Plan of Care, and Disease Process [email or web address] 01:10 PM Learning barriers :None [email or web address] 01:10 PM Education Methods Verbal [email or web address] 01:10 PM Education evaluation Able to repeat information [email or web address] 01:10 PM Site status No bleeding/hematoma - Rt Wrist as reported by Jenny Rebolledo RT (R) at 13:10 [email or web address] 01:10 PM Delay to floor No [email or web address] 01:10 PM Family placed in consult room. [email or web address] 01:10 PM Complications: None [email or web address] 01:20 PM Report given to Nurse RN Pt taken to 3B Room #45. 13:19 [email or web address] 01:20 PM Patient out of room: 13:20 [email or web address] Complications Complication None None Hemodynamics Pressures Site Systolic/A Wave Diastolic/V Wave Mean AO 52 43 47 AO 56 44 50 AO 77 58 67 AO 63 49 56 LV 102 8 11 LV 101 4 11 LV 88 6 12 AO 99 56 73 AO 106 68 84 AO 125 73 96 Post Procedure Information Blood Pressure: 125/61 mmHg Rhythm: NSR Post procedural instructions were given Closure Device Time Device Success/Fail 01/29/2018 1:10:00 PM Manual Compression Successful Site Checks Time Location Status Staff Sheath In? Note 01:10 PM Rt Wrist No bleeding/hematoma Jenny Rebolledo RT (R) Pulses Time Site Pre-Procedure Post-Procedure Note 01/29/2018 11:24:00 AM Bilateral radial 2+ 01/29/2018 11:24:00 AM Bilateral DP 2+ 1:10:00 PM Rt Radial 2+ Updated by Mercedes Delvalle, RT(R) on 01/29/2018 1:22:11 PM electronically signed on 01/29/2018 1:22:47 PM with status of Final
[2018-01-29] MEDS ORDERED: Tirofiban 12.5 MG/250ML 12.5 MG/250 ML BAG IVC SCH (13:30)
--- NOTE | 2018-01-29 13:39 | Event Note ---
Date of Encounter: 01/29/18
--- NOTE | 2018-01-29 15:37 | Electrocardiograph Report ---
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
--- NOTE | 2018-01-29 15:38 | Electrocardiograph Report ---
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
[2018-01-29] MEDS ORDERED: *HR* HYDROcodone/Acet 5/325 mg TABLET PO PRN (16:28)
[2018-01-29] MEDS ORDERED: *HR* OxyCODONE Immed Rel 5 MG TABLET PO PRN (17:17)
--- NOTE | 2018-01-29 17:32 | Event Note ---
Date of Encounter: 01/29/18 Time of Encounter: 17:23 Patient was seen and examined by hospitalist earlier this am - Patient has past cardiac hx with hx of CAD [place] TWAN x2 to LAD 2010 IA 2012 w/o PCI HTN CVA TTE ER 65% nuclear stress test 06/2017 no ischemia or infarct - He had CP for approx 3 hrs prior to arriving to the ED Trop elevated 0.[address] T wave abnormalities-cardiology consulted underwent LHC with stent placment. Tolerated procedure well, No bleeding at site
--- NOTE | 2018-01-29 18:18 | Event Note ---
Date of Encounter: 01/29/18 Time of Encounter: 18:13 I was notified per nursing staff that patient has 7/10 CP radiating to L shoulder-EKG obtained which did show no changes- His BP was 200 systolic He was given 2 nitro SL which did decrease his pain- and BP down to 113 systolic A few minutes later He became diaphoretic nausated and BP down 80 systolic-He was examined by Dr Gibson He was given a 500ml bolus - his BP improved Dr Portillo notified per nursing staff - advised to cont with current tx - notify him if CP returns may need to start nitro gtt.
[2018-01-29] MEDS: *HR* Ticagrelor 90 MG TABLET PO SCH (20:35)
[2018-01-30] MEDS: Nitroglycerin 0.4 MG TAB.SUBL SL PRN ×4 (02:40→07:34)
--- NOTE | 2018-01-30 05:38 | Event Note ---
Date of Encounter: 01/30/18 Time of Encounter: 05:34 The patient has continued to have severe episodes of angina through the night that recede with sublingual nitroglycerin but quickly recur with only minimal exertion such as getting up to urinate or even pulling the blanket sheets over his body. It has occurred multiple times throughout the night and associated with very high BP values that go down once the nitroglycerin is given. He states that the frequency and severity are greater now than even before he underwent the PCI. Given the severity and frequency in pain associated with very high BP values, will start and nitroglycerin drip with vitals to be monitored [id number] x 4 then q30 x 2 then hourly as per protocol. Cardiology follow up this morning is advised.
[2018-01-30] MEDS: Acetaminophen 325 MG TABLET PO PRN (06:05)
--- NOTE | 2018-01-30 09:04 | Cardiology Progress Note ---
Date of Encounter: 01/30/18 Time of Encounter: 09:00 Assessment and Plan (1) NSTEMI (non-ST elevated myocardial infarction) Current Visit: Yes Status: Acute - inferolatal. s/p TWAN x1 to distal RCA, LCx and OM1 70%, patent LAD stent, - overnight CP is consistent with angina/spasm with good response to NTG, elevated BP likely triggered by CP. Need at least 2 antianginal meds. Will start imdur 30 qd, c/w lopressor with uptitration per BP and HR and switch to toprol XL before discharge. - C/w ASA+brilinta, brilinta card given to pt and emphasized compliance. - discussed with pt in detail regarding lipid control, pt agrees a trial of questran, will start 4g qd watching tolerance. - TTE ordered - lipid panel, TSH ordered - cardiac rehab consulted - cardiology f/u, possible staged PCI or LCx (2) Hypertension Current Visit: Yes Status: Chronic SBP 120s-130s at home w/o meds per pt. Elevated BP overnight likley triggered by cp and stress/anxiety. Will watch BP/HR on imdur. Qualifiers: Hypertension type: essential hypertension Qualified Code(s): I10 - Essential (primary) hypertension (3) Mixed hyperlipidemia Current Visit: No Status: Inactive pt unable to tolerate statin/niacin, pt agrees with trial of questran 4g qd. Ordered lipid panel and TSH. (4) Carotid stenosis, bilateral Current Visit: No Status: Chronic R-carotid total occlusion, L-CEA 12/2017, will benefit from lipid control Discussion w patient/family: The assessment and plan as outlined above was discussed with the patient and/or family members who expressed understanding and agreement. All questions were answered. Thank you for involving us in the care of your patient. Please call with any questions. Subjective Principal diagnosis: NSTEMI Interval history: Had episodes of L-shoulder pain and chest pressure on mild exertion overnight similar to prior, associated with elevated BP up to 200/100. Rapid CP relief with NTG SL with flushing and BP drop. No dynamic ECG changes c/w prior to PCI ( inf-lat ischemic changes). Trop 0.26. On interview this am, pt has no more cp walking around bed. HR 70s-80s, BP 110s- 130s/70s. Objective Vital Signs, Last 4 Hours Temp Pulse Resp BP Pulse Ox 01/30/18 07:20 98.1 F 84 15 149/77 96 01/30/18 05:44 79 130/77 01/30/18 05:24 77 191/100 General: Conversant, No Apparent Distress HEENT: Mucus Membranes Moist Neck: No JVD, Other (absent R-carotid pulse (known)) Lungs: Normal Breath Sounds, No Wheeze, Rales, Rhonchi Neuro: Alert and responsive Abdomen: Soft, Non-Tender Skin: No rashes noted on visualized skin Extremities: No Edema, Other (R-wrist LHC access no bruise. Mild tenderness.raidal pulse 2+) Results 01/29/18 05:02 01/29/18 05:02 Active Medications Acetaminophen (Tylenol) 650 mg PO Q6HR PRN PRN Reason: Fever/mild pain Stop: 07/30/18 23:08 Last Admin: 01/30/18 06:05 Dose: 650 mg Hydrocodone Bitart/Acetaminophen ([place] 5-325 Mg) 1 tab PO Q6HR PRN PRN Reason: Moderate Pain Stop: 07/31/18 16:29 Aspirin (Aspirin Ec) 81 mg PO DAILY ANMOL Stop: 07/31/18 10:01 Last Admin: 01/29/18 10:42 Dose: 81 mg Nitroglycerin (Nitroglycerin Premix 25 Mg/250 Ml) 25 mg in 250 mls @ 3 mls/hr IVC .Q24H ANMOL; 5 MCG/MIN PRN Reason: Protocol Stop: 08/01/18 05:46 Metoprolol Tartrate (Lopressor) 25 mg PO BID ANMOL Stop: 08/01/18 09:01 Naloxone HCl (Narcan) 0.4 mg IVP Q2MIN PRN PRN Reason: SEE COMMENTS Stop: 07/30/18 23:41 Nitroglycerin (Nitroglycerin) 0.4 mg SL Q5MIN PRN PRN Reason: Chest Pain Stop: 07/31/18 02:31 Last Admin: 01/30/18 07:34 Dose: 0.4 mg Omeprazole (Prilosec) 40 mg PO DAILY@0630 ANMOL PRN Reason: Protocol Stop: 07/31/18 00:31 Last Admin: 01/30/18 06:32 Dose: 40 mg Ondansetron HCl (Zofran) 4 mg IVP Q6HR PRN; Protocol PRN Reason: Nausea And Vomiting Stop: 07/31/18 13:17 Oxycodone HCl (Roxicodone) 10 mg PO Q6HR PRN PRN Reason: Severe Pain Stop: 07/31/18 17:18 Ticagrelor (Brilinta) 90 mg PO BID ANMOL Stop: 07/31/18 21:01 Last Admin: 01/29/18 20:35 Dose: 90 mg - Imaging and Cardiology Echo: pending Cardiac cath: report reviewed (DESx1 to distal RCA. severe 2-v CAD. LM: nl LAD: prox LAD 50%, mid LAD 60%, patent prior LAD stent. LCx 70% mid, 70% 1st OM. RCA 50% prox, 80% distal EF 55%), image reviewed - EKG Interpretation EKG results cardiology: personally reviewed (IMP: consistent with inferior wall VA and inferolateral ischemic changes, similar to prior to PCI. Low voltage II, rS III/F with TWI, mild STD lateral) Consult Discharge Plan - Plan Referrals: Jimmy Penaloza MD [Primary Care Provider] -
[2018-01-30] MEDS: Aspirin Enteric Coated 81 MG Tablet PO SCH (10:28)
[2018-01-30] MEDS: *HR* Ticagrelor 90 MG TABLET PO SCH ×2 (10:28→20:01)
[2018-01-30] MEDS: Nitroglycerin 25 MG/250 ML INFUS..BTL IVC SCH (12:45)
[2018-01-30] MEDS: Isosorbide MONOnitrate (24 HR) 30 MG TAB.ER.24H PO SCH (12:50)
--- NOTE | 2018-01-30 14:45 | Internal Med Progress Note ---
Hospitalist Progress Note - Encounter Date of Encounter: 01/30/18 Time of Encounter: 14:43 - Subjective Interval History: pt seen and examined in the room, he has no chest pain now and did not receive any Nitro since this afternoon. He has no sob, palpitation, or syncope. - Exam Vitals: Temp Pulse Resp BP Pulse Ox 98.3 F 67 15 125/72 96 01/30/18 11:46 01/30/18 11:46 01/30/18 11:46 01/30/18 11:46 01/30/18 11:46 Exam: PHYSICAL EXAMINATION: GENERAL APPEARANCE: The patient is alert, oriented and in no acute distress. HEENT: Head is normocephalic. The sinuses are nontender. Pupils are equal and reactive. The nares are patent. Oropharynx clear without lesions. NECK: Supple without lymphadenopathy. HEART: Regular rate and rhythm. LUNGS: No crackles or wheezes are heard. ABDOMEN: Soft, nontender, nondistended with good bowel sounds heard. Inguinal area is normal. EXTREMITIES: Without cyanosis, clubbing or edema. NEUROLOGICAL: Gross nonfocal. SKIN: Warm and dry without any rash. - Assessment and Plan (1) Hypertension Current Visit: Yes Status: Chronic Assessment and Plan: BP controlled, continue current medication. (2) CAD (coronary artery disease) Current Visit: Yes Status: Acute Assessment and Plan: Patient has history of CAD with LAD stents, presented with non-STEMI, or post TWAN to RCA. Currently on aspirin and a Brilinta. Overnight had a chest pain, responsive to nitro drip. Patient currently has no chest pain, he is off nitro drip. CAD risk factor reduction discussed with patient including BP controlled , lipid medications, and active lifestyle. Continue other medications including metoprolol for CAD. (3) CVA (cerebrovascular accident due to intracerebral hemorrhage) Current Visit: No Status: Chronic Assessment and Plan: Continue medications including aspirin and Brilinta. (4) NSTEMI (non-ST elevated myocardial infarction) Current Visit: Yes Status: Acute Assessment and Plan: 72-year-old male with history of CAD, status post stents to LAD, presented with acute onset of chest pain. Underwent LHC 01/29/2018, showed critical stenosis of RCA, which was stented with TWAN, 70% stenosis of circumflex, and a patent LAD stents. - Patient currently pain-free, he is on aspirin and Brilinta. - Continue medications for CAD including metoprolol. - TTE ED ordered per cardiology. - CAD ricks factor reduction including BP controlled, lipid control, and the lifestyle modification discussed with patient. DVT Prophylaxis: SCDs - Time Spent with Patient Total time spent is greater than 50% in coordination of care (as documented) at patient's floor/unit and/or counseling patient: Greater than 35 minutes Plan of Care Discussed with: patient Internal Medicine: Result - Labs CBC & Chem 7: 01/29/18 05:02 01/29/18 05:02 - ABG Interpretation ABG results: PT/INR, D-dimer PT 11.1 Seconds (9.4-12.1) 01/29/18 00:44 Consult Discharge Plan - Plan Referrals: Jimmy Penaloza MD [Primary Care Provider] - (1) Hypertension Qualifiers: Hypertension type: essential hypertension Qualified Code(s): I10 - Essential (primary) hypertension (2) CAD (coronary artery disease) Qualifiers: Coronary Disease-Associated Artery/Lesion type: [place] artery [place] vs. transplanted heart: [place] heart Associated angina: with unstable angina Qualified Code(s): I25.110 - Atherosclerotic heart disease of [place] coronary artery with unstable angina pectoris (3) CVA (cerebrovascular accident due to intracerebral hemorrhage) Qualifiers: Intracerebral hemorrhage etiology: nontraumatic Cerebral hemorrhage location : cerebral hemisphere, subcortical portion Laterality: right Qualified Code(s) : I61.0 - Nontraumatic intracerebral hemorrhage in hemisphere, subcortical
--- NOTE | 2018-01-30 16:16 | Electrocardiograph Report ---
[place] [address] Test Date: 2018-01-29 Pat Name: Jama Sharp Department: 113 Room: 3B45 Gender: M Ophthalmologist Retina Specialist: : 1945 Requested By: [id number] Order Number: [id number] Reading MD: Naomi Ortez Measurements Intervals [place] Rate: 66 P: 48 SC: 133 QRS: -12 QRSD: 109 T: 33 QT: 401 QTc: 415 Interpretive Statements SINUS RHYTHM BORDERLINE LEFT AXIS DEVIATION IVCD Electronically Signed On 01-30-2018 16:15:19 EDT by Naomi Ortez
--- NOTE | 2018-01-30 16:22 | Electrocardiograph Report ---
[address] [place] [address] Test Date: 2018-01-30 Pat Name: Jama Sharp Department: 113 Room: 3B45 Gender: M Electronic Commerce Specialist: : 1945 Requested By: Haily Elabor Order Number: [id number] Reading MD: Naomi Ortez Measurements Intervals [place] Rate: 82 P: 64 [place]: 126 QRS: -22 QRSD: 110 T: 13 QT: 398 QTc: 437 Interpretive Statements SINUS RHYTHM BORDERLINE LEFT AXIS DEVIATION MODERATE ST DEPRESSION Electronically Signed On 01-30-2018 16:20:18 EDT by Naomi Ortez
[2018-01-31] MEDS: Nitroglycerin 25 MG/250 ML INFUS..BTL IVC SCH (05:25)
[2018-01-31 06:34] LABS: Chol/HDL Ratio 6.6 (0-4.9)
[2018-01-31 06:42] LABS: Thyroid Stimulating Hormone 5.834 mcIU/mL (0.340-5.600)
--- NOTE | 2018-01-31 08:31 | Cardiology Progress Note ---
Date of Encounter: 01/31/18 Time of Encounter: 08:30 Assessment and Plan (1) NSTEMI (non-ST elevated myocardial infarction) Current Visit: Yes Status: Acute A: inferolatal. s/p TWAN x1 to distal RCA - current anatomy: patent LAD stent, distal RCA DESx1, LCx and OM1 70% - no recurrent angina - LVEF normal, no need for ACEI - BP and HR ok P: - c/w ASA+brilinta, brilinta discount card given to pt and emphasized compliance. - c/w imdur 30 as home going - switch lopressor 25 bid to toprol XL 50 qd and as home going - c/w questran 4g qd as home going, will uptitrate in clinic - cardiac rehab consulted - cardiology f/u, possible staged PCI of LCx - cardiology consult will sign off now, call for questions (2) Hypertension Current Visit: Yes Status: Chronic BP ok. No new meds. Qualifiers: Hypertension type: essential hypertension Qualified Code(s): I10 - Essential (primary) hypertension (3) Mixed hyperlipidemia Current Visit: Yes Status: Chronic A:need better ctr, TG 195, LDL 170, HDL 37. unable to tolerate statin and niacin. Tolerating questran 4g qd, normal free T4. P: c/w questran 4g qd (4) Carotid stenosis, bilateral Current Visit: No Status: Chronic R-carotid total occlusion, L-CEA 12/2017, will benefit from lipid control Discussion w patient/family: The assessment and plan as outlined above was discussed with the patient and/or family members who expressed understanding and agreement. All questions were answered. Thank you for involving us in the care of your patient. Please call with any questions. Subjective Principal diagnosis: NSTEMI Interval history: No complaints, wants to go home. No more cp on imdur 30, BP ok, HR 70s, no GI upset to questran. TG 195, LDL 170, HDL 37. nl free T4. Objective Vital Signs, Last 4 Hours Temp Pulse Resp BP Pulse Ox 01/31/18 07:12 97.6 F 71 15 111/65 97 General: Conversant, No Apparent Distress Neck: No JVD, Normal carotid pulses Cardiac: Reg Rate and Rhythm, Normal S1 and S2, No Murmur Lungs: Normal Breath Sounds, No Wheeze, Rales, Rhonchi Neuro: Alert and responsive Abdomen: Soft, Non-Tender Skin: No rashes noted on visualized skin Extremities: No Edema, Normal Pulses Results 01/29/18 05:02 01/29/18 05:02 Lab Results 01/31/18 04:47 TSH 5.834 H Abnormal Labs 01/28/18 01/28/18 01/28/18 20:11 20:11 23:14 MPV 9.0 L Heparin Anti-Xa, Unfract Est GFR (Non-Af Amer) 56 L Glucose Troponin I 0.16 H* Triglycerides Cholesterol LDL Cholesterol, Calc VLDL Cholesterol, Calc HDL Cholesterol Cholesterol/HDL Ratio TSH 01/29/18 01/29/18 01/29/18 00:44 00:44 05:02 MPV 9.1 L Heparin Anti-Xa, Unfract 0.04 L Est GFR (Non-Af Amer) Glucose Troponin I 0.26 H* Triglycerides Cholesterol LDL Cholesterol, Calc VLDL Cholesterol, Calc HDL Cholesterol Cholesterol/HDL Ratio TSH 01/29/18 01/29/18 01/29/18 05:02 05:02 13:52 MPV 9.1 L Heparin Anti-Xa, Unfract 1.11 H* Est GFR (Non-Af Amer) Glucose 108 H Troponin I Triglycerides Cholesterol LDL Cholesterol, Calc VLDL Cholesterol, Calc HDL Cholesterol Cholesterol/HDL Ratio TSH 01/31/18 04:47 MPV Heparin Anti-Xa, Unfract Est GFR (Non-Af Amer) Glucose Troponin I Triglycerides 195 H Cholesterol 246 H LDL Cholesterol, Calc 170 H VLDL Cholesterol, Calc 39 H HDL Cholesterol 37 L Cholesterol/HDL Ratio 6.6 H TSH 5.834 H free T4 0.9 - Imaging and Cardiology Echo: image reviewed (TTE EF 55-60%, mild hypokinesis of basal-mid inferior wall , mild PI.) Other Results: Tele no events Consult Discharge Plan - Plan Referrals: Jimmy Penaloza MD [Primary Care Provider] -
[2018-01-31] MEDS: Isosorbide MONOnitrate (24 HR) 30 MG TAB.ER.24H PO SCH (09:39)
[2018-01-31] MEDS: Aspirin Enteric Coated 81 MG Tablet PO SCH (09:39)
[2018-01-31] MEDS: *HR* Ticagrelor 90 MG TABLET PO SCH (09:39)
[2018-01-31] MEDS ORDERED: Metoprolol XL (24 HR) Succ 50 MG TAB.ER.24H PO SCH (09:45)
[2018-01-31] MEDS ORDERED: Cholestyramine 4 GM POWD.PACK PO SCH (11:00)
[2018-01-31] MEDS: Acetaminophen 325 MG TABLET PO PRN (11:17)
[2018-01-31 11:26] VITALS: BP 133/72
--- NOTE | 2018-01-31 12:12 | Discharge Summary ---
- NOTES TO OUTPATIENT PROVIDER Notes to Outpatient Provider: f/u with PCP within a week,. f/u with cardiology within 2-3 week. Date of Encounter: 01/31/18 Time of Encounter: 12:08 - Discharge Diagnosis (1) Chest pain Priority: Primary Status: Acute Qualifiers: Chest pain type: unspecified Qualified Code(s): R07.9 - Chest pain, unspecified (2) Hypertension Priority: Secondary Status: Chronic Qualifiers: Hypertension type: essential hypertension Qualified Code(s): I10 - Essential (primary) hypertension Hospital course: Mr. Sharp is a 72 year old male is history of CAD status post stent placement presented with acute onset of chest pain. EKG showed inverted T wave in the inferior and lateral leads. Patient underwent left heart 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 on 2017, which showed critical stenosis at distal RCA, which was stented with TWAN, patent LAD stent, LCx and OM1 70%. TTE showed normal EF and mild LVDD. He will be discharged home today, he will continue to take ASA+brilinta, brilinta discount card given to pt and emphasized compliance. continue imdur 30 as home going, continue toprol XL 50 mg daily. continue questran 4g for hyperlipidemia qd, cardiology will uptitrate in clinic. cardiac rehab consulted. Pt will f/u with PCP within a week, f/u with cardiology within 2 weeks. Time spent discussing smoking cessation with patient: more than 10 minutes - Time Spent with Patient Total time spent providing and/or coordinating discharge services: Greater than 30 minutes - Discharge Medications Prescriptions: Cholestyramine 4 gm PO 0700 #30 powd.pack Metoprolol XL (24 HR) Succ [Toprol Xl] 50 mg PO DAILY #30 tab.er.24h Ticagrelor [Brilinta] 90 mg PO BID #60 tablet Home Medications: Aspirin [Adult Aspirin Regimen] 81 mg PO DAILY 12/11/17 [History] Multivitamin [Multivitamins] 1 each PO DAILY 01/28/18 [History] [place]-3 Fatty Acids [Fish Oil] 300 mg PO DAILY 01/28/18 [History] Ubidecarenone [Coq10] 50 mg PO DAILY 01/28/18 [History] Cholestyramine 4 gm PO 0700 #30 powd.pack 01/31/18 [Rx] Isosorbide MONOnitrate (24 HR) [Imdur] 30 mg PO DAILY tab.er.24h 01/31/18 [Rx] Metoprolol XL (24 HR) Succ [Toprol Xl] 50 mg PO DAILY #30 tab.er.24h 01/31/18 [ Rx] Ticagrelor [Brilinta] 90 mg PO BID #60 tablet 01/31/18 [Rx] Allergies/Adverse Reactions: 3 Allergy/AdvReac Type Severity Reaction Status Date / Time niacin Allergy See Verified 01/29/18 10:24 Comments Httkrzm-Sbn-Ljk Reductase Allergy See Verified 01/29/18 10:24 Inhibitor Comments [Statins] Date of admission: 01/29/18 18:18 Primary care physician: Jimmy Penaloza MD Anticipated date of discharge: 01/31/18 - Constitutional Vitals: Temp Pulse Resp BP Pulse Ox 98.0 F 73 15 133/72 98 01/31/18 11:25 01/31/18 11:25 01/31/18 11:25 01/31/18 11:25 01/31/18 11:25 General appearance: Present: cooperative, A&O X 3, answers questions appropriately Exam: PHYSICAL EXAMINATION: GENERAL APPEARANCE: The patient is alert, oriented and in no acute distress. HEENT: Head is normocephalic. The sinuses are nontender. Pupils are equal and reactive. The nares are patent. Oropharynx clear without lesions. NECK: Supple without lymphadenopathy. HEART: Regular rate and rhythm. LUNGS: No crackles or wheezes are heard. ABDOMEN: Soft, nontender, nondistended with good bowel sounds heard. Inguinal area is normal. EXTREMITIES: Without cyanosis, clubbing or edema. NEUROLOGICAL: Gross nonfocal. SKIN: Warm and dry without any rash. - Patient Status Disposition: Home, Self-Care Condition: Good Functional capacity at discharge: independent ambulation Overall status at discharge: patient is back to baseline - Discharge Instructions Follow Up With: Jimmy Penaloza MD [Primary Care Provider] - - Diet and Activity Activity: increase activity as tolerated Diet: low fat, low cholesterol, low salt diet
== END 2018-01-31 13:50 | disposition home or self-care (01) | DRG 247 ==
LOC: EMEROOARM 20:01 → 3BNU 20:01
PROVIDERS: ADMIT Internal Medicine; ATTEND Internal Medicine

== ENCOUNTER 2018-02-01 08:19 | Inpatient (IN) ==
--- NOTE | 2018-02-01 09:10 | Emergency Department Note ---
Disposition Clinical Impression: Elevated troponin Dyspnea Qualifiers: Dyspnea type: unspecified Qualified Code(s): R06.00 - Dyspnea, unspecified Hypertension Qualifiers: Hypertension type: essential hypertension Qualified Code(s): I10 - Essential ( primary) hypertension Disposition: Admitted As Inpatient Condition: Good Chest Pain HPI - General Chief Complaint: ED Chest Pain Stated Complaint: chest pain Time Seen by Provider: 02/01/18 08:22 Source: EMS Mode of arrival: EMS Limitations: no limitations Vital Signs Reviewed: Yes Nursing Notes Reviewed: Yes - History of Present Illness HPI Narrative: 72-year-old male history of CAD most recently was stenting on the of this month for an NSTEMI who presents to the ER via EMS with a complaint of shoulder and back pain. Patient was admitted 3 days ago with chest pain and ended up with an elevated troponin and a left heart catheterization with one stent placed in the RCA. He was discharged on antiplatelets. Reports he has had pain since leaving but most of it is with exertion. States that his blood pressure has been elevated in the colon sides with his pain level. He woke up this morning around 7 AM with abrupt pain. He was noted to be hypertensive over 200 systolic. He took what he says was an extended release nitroglycerin that did not really change his pain for the next half an hour. They called cardiology who encouraged him to come in. At the time of arrival the patient voices no symptoms and feels back to baseline. No complaints. Pt complaint: chest pain Onset (ago): day(s) Duration: intermittent Onset: during exertion Severity: mild Severity scale (1-10): 5 Pain Radiation: LUE Improves with: rest Worsens with: exertion Treatments prior to arrival chest pain: nitroglycerin - Related Data On Oral Contraceptives: No Home Medications Medication Instructions Recorded Confirmed Aspirin [Adult Aspirin Regimen] 81 mg PO DAILY 12/11/17 02/01/18 Multivitamin [Multivitamins] 1 each PO DAILY 01/28/18 02/01/18 [place]-3 Fatty Acids [Fish Oil] 300 mg PO DAILY 01/28/18 02/01/18 Ubidecarenone [Coq10] 50 mg PO DAILY 01/28/18 02/01/18 Previous Rx's Medication Instructions Recorded Cholestyramine 4 gm PO 0700 #30 powd.pack 01/31/18 Isosorbide MONOnitrate (24 HR) 30 mg PO DAILY #30 tab.er.24h 01/31/18 [Imdur] Metoprolol XL (24 HR) Succ [Toprol 50 mg PO DAILY #30 tab.er.24h 01/31/18 Xl] Ticagrelor [Brilinta] 90 mg PO BID #60 tablet 01/31/18 Allergies Allergy/AdvReac Type Severity Reaction Status Date / Time niacin Allergy See Verified 01/29/18 10:24 Comments Jqwfvni-Dfw-Cpk Reductase Allergy See Verified 01/29/18 10:24 Inhibitor Comments [Statins] All systems ED: reviewed and negative except as stated. Constitutional: Denies: fever Cardiovascular: Denies: chest pain Respiratory: Reports: dyspnea Gastrointestinal: Denies: abdominal pain, nausea, vomiting Musculoskeletal: Reports: back pain Chest Pain PMH - Past Medical History Medical history: Reports: CVA, hypertension, myocardial infarction Surgical history: Reports: angioplasty/stent, orthopedic, other Psychiatric history: Reports: no psych history - Social History Smoking Status: Never smoker Alcohol use: Reports: none Drug use: Reports: none Physical Exam - General Limitations: no limitations General appearance: alert, in no apparent distress - Head Head exam: atraumatic, normocephalic - Eye Eye exam: Present: normal appearance - ENT ENT exam: normal exam - Neck Neck exam: Present: normal inspection - Chest Chest inspection: Present: normal inspection, symmetric chest wall rise. Absent : tenderness - Respiratory Respiratory exam: Present: normal lung sounds bilaterally - Cardiovascular Cardiovascular exam: Present: regular rate, normal rhythm, normal heart sounds - Abdominal Exam Abdominal exam: Present: soft, Non-Tender. Absent: tenderness, distention, rigidity - Extremities Exam Extremities exam: Present: normal inspection, full ROM - Expanded Upper Extremity Exam Shoulder exam: Present: normal inspection, full ROM Arm exam: Present: normal inspection, full ROM Elbow exam: Present: normal inspection, full ROM Forearm/Wrist exam: Present: normal inspection, full ROM Hand exam: Present: normal inspection, full ROM - Expanded Lower Extremity Exam Hip/Pelvis exam: Present: normal inspection, full ROM Upper leg exam: Present: normal inspection, full ROM Knee exam: Present: normal inspection, full ROM Lower leg exam: Present: normal inspection, full ROM Ankle exam: Present: normal inspection, full ROM Foot/toe exam: Present: normal inspection, full ROM - Skin Skin exam: Present: warm, dry Course Course Narrative: Patient seen and examined. Vital signs reviewed. Plan for EKG, chest x-ray, labs. He is asymptomatic at this time. - Consultations Consultation #1: I spoke with the commissary production supervisor ring spinner Dr. Ortez. Discussed the patient's history , exam, labs and concerns. Agree to see the patient in consultation. They do not recommend to heparinize at this time. Vital Signs Temperature 98.1 F 02/01/18 08:26 Pulse Rate 93 02/01/18 08:26 Respiratory Rate 12 02/01/18 08:26 Blood Pressure 184/101 02/01/18 08:26 O2 Sat by Pulse Oximetry 99 02/01/18 08:26 Temperature 98.1 F 02/01/18 08:31 Pulse Rate 86 02/01/18 12:18 Respiratory Rate 18 02/01/18 13:07 Blood Pressure 111/81 02/01/18 13:07 O2 Sat by Pulse Oximetry 97 02/01/18 12:18 Oxygen Delivery Oxygen Delivery Room Air Chest Pain - MDM Narrative Medical decision making narrative: 72-year-old male recent stent placement presenting with concerning symptoms. EKG shows lateral ST depressions. He is pain-free at the time of examination. Troponin elevation of unknown significance whether this is trending down or a new ischemic incident. Case discussed with cardiology. No recognition for heparin at this time. Admitted to the hospitalist service with cardiology consultation. - Lab Data Lab results reviewed: Yes I reviewed the patient's lab results. Result diagrams: 02/01/18 08:54 02/01/18 08:54 Lab Results 02/01/18 02/01/18 02/01/18 Range/Units 08:54 08:54 08:54 WBC 8.1 (4.3-11.1) K/mcL RBC 5.29 (4.19-5.50) M/mcL Hgb 16.6 (12.9-16.9) g/dL Hct 46.7 (37.5-50.1) % MCV 88.3 (83.0-100.0) fL MCH 31.4 (28.0-33.3) pg MCHC 35.5 (31.6-35.5) g/dL RDW 12.7 (11.5-14.5) % Plt Count 255 (140-400) K/mcL MPV 9.3 L (9.4-12.4) fL Immature Gran % 0.2 (0-4) % Seg Neutrophils % 67.6 % Lymphocytes % 19.9 % Monocytes % 7.6 % Eosinophils % 4.2 % Basophils % 0.5 % Neutrophils # 5.5 (1.6-8.9) K/mcL Lymphocytes # 1.6 (0.6-4.6) K/mcL Monocytes # 0.6 (0.0-1.3) K/mcL Eosinophils # 0.3 (0.0-0.6) K/mcL Basophils # 0.0 (0.0-0.2) K/mcL PT 11.8 (9.4-12.1) Seconds INR 1.0 APTT 30.1 (26.0-36.0) Seconds Sodium (136-145) mEq/L Potassium (3.5-5.1) mEq/L Chloride (98-107) mEq/L Carbon Dioxide (23-29) mEq/L BUN (8-23) mg/dL Creatinine (0.70-1.30) mg/dL Est GFR ( Amer) (> 60) Est GFR (Non-Af Amer) (> 60) BUN/Creatinine Ratio (6-26) Glucose (70-105) mg/dL Calculated Osmolality (280-300) Calcium (8.6-10.3) mg/dL Troponin I (< 0.04) ng/mL B-Natriuretic Peptide 22 (Less than 100) pg/mL 02/01/18 Range/Units 08:54 WBC (4.3-11.1) K/mcL RBC (4.19-5.50) M/mcL Hgb (12.9-16.9) g/dL Hct (37.5-50.1) % MCV (83.0-100.0) fL MCH (28.0-33.3) pg MCHC (31.6-35.5) g/dL RDW (11.5-14.5) % Plt Count (140-400) K/mcL MPV (9.4-12.4) fL Immature Gran % (0-4) % Seg Neutrophils % % Lymphocytes % % Monocytes % % Eosinophils % % Basophils % % Neutrophils # (1.6-8.9) K/mcL Lymphocytes # (0.6-4.6) K/mcL Monocytes # (0.0-1.3) K/mcL Eosinophils # (0.0-0.6) K/mcL Basophils # (0.0-0.2) K/mcL PT (9.4-12.1) Seconds INR APTT (26.0-36.0) Seconds Sodium 137 (136-145) mEq/L Potassium 3.8 (3.5-5.1) mEq/L Chloride 105 (98-107) mEq/L Carbon Dioxide 22 L (23-29) mEq/L BUN 18 (8-23) mg/dL Creatinine 1.04 (0.70-1.30) mg/dL Est GFR ( Amer) > 60 (> 60) Est GFR (Non-Af Amer) > 60 (> 60) BUN/Creatinine Ratio 17 (6-26) Glucose 119 H (70-105) mg/dL Calculated Osmolality 287 (280-300) Calcium 9.4 (8.6-10.3) mg/dL Troponin I 0.07 H* (< 0.04) ng/mL B-Natriuretic Peptide (Less than 100) pg/mL - Radiology Data Radiology results reviewed: Yes I reviewed the patient's radiology results. Chest X-Ray 02/01/18 08:23 IMPRESSION: No acute findings. D/ / Jake Jensen MD / Jake Jensen MD Interpreting Provider: Jake Jensen MD - EKG Data EKG attestation: Yes I reviewed and interpreted this EKG. EKG results narrative: EKG demonstrates sinus rhythm rate 94 bpm. Left axis deviation. Normal R-wave progression. Normal intervals. ST depressions in leads 4, V5, leads 2. No gross ST elevations. Changes from prior EKG on 01/30/[address] depressions. Heart Score - Score History: Highly Suspicious EKG: Non Specific repolarisation Disturbance Age: Greater than 65 Risk Factors: Equal/Greater than 3 risk factor or history of atherosclerotic disease Troponin: 1-3x normal limit HEART Score Total: 8 S.B.A.R. - S.B.A.R. Situation: Demographics, MOA Background: Presenting Complaint, Relevant PMH, Meds, & Allergies Assessment: Vital Signs, Course and respsone to treatment, Exam Concerns, Patient/Family Expectation, Pertinant Lab Results Recommendation: Barrier(s) to disposition, Recommendation based on pending studies, treatments, or consults Jamal Report Given to: Dr. Erik Berry Repor Time: 12:17 Attestation Statement - Attestation Attestation: I examined this patient and my medical decision-making was reviewed with the Resident Physician, Dr. Herrera. I agree with the documented findings, disposition and treatment plan as described except to the extent set forth below. Patient is 72-year-old white male with history of hypertension and known coronary artery disease and recent non-STEMI who presents to emergency permit today with an episode of left-sided chest discomfort with diaphoresis and nausea this morning around 7 AM. Patient was hospitalized recently on January 29 and underwent left heart catheter with PCI to the right coronary artery. Patient was discharged home on antiplatelets and states that he has been having exertional pain that has been ongoing at home since he was discharged. Patient states this morning he awoke and was having severe pain at rest lasting approximately 20 minutes. Patient states he took his Imdur and after approximately 30-40 minutes did have eventual relief and arrived to the emergency department pain free. Patient is resting comfortably asymptomatic with elevated blood pressure on arrival. They did call their ring spinner and spoke with Dr. Hooper on the phone who recommended he come in for evaluation. I agree with patient's physical exam findings as documented. She was hypertensive on arrival. EKG with negative for any ST elevation but patient does have some lateral ST depression notable from his prior EKG. Patient's lab evaluation shows elevated troponin although decreased from his recent non-STEMI. Case was discussed with cardiology doctors Cornel was commissary production supervisor who accepted patient for admission to the hospital although requesting that we hold heparin at this time.
[2018-02-01 09:24] LABS: Basophils % 0.5 %; Eosinophils # 0.3 K/mcL (0.0-0.6); Eosinophils % 4.2 %; Hematocrit 46.7 % (37.5-50.1); Hemoglobin 16.6 g/dL (12.9-16.9); Immature Granulocytes % 0.2 % (0-4); Lymphocytes # 1.6 K/mcL (0.6-4.6); Lymphocytes % 19.9 %; Mean Corpuscular HGB Conc 35.5 g/dL (31.6-35.5); Mean Corpuscular Hemoglobin 31.4 pg (28.0-33.3); Mean Corpuscular Volume 88.3 fL (83.0-100.0); Mean Platelet Volume 9.3 fL (9.4-12.4); Monocytes # 0.6 K/mcL (0.0-1.3); Monocytes % 7.6 %; Neutrophils # 5.5 K/mcL (1.6-8.9); Platelet Count 255 K/mcL (140-400); Red Blood Count 5.29 M/mcL (4.19-5.50); Red Cell Distribution Width 12.7 % (11.5-14.5); Segmented Neutrophils % 67.6 %
[2018-02-01 09:35] LABS: Prothrombin Time 11.8 Seconds (9.4-12.1)
[2018-02-01 09:38] LABS: Activated Partial Thrombo Time 30.1 Seconds (26.0-36.0)
[2018-02-01 09:46] LABS: BUN/Creatinine Ratio 17 (6-26); Blood Urea Nitrogen 18 mg/dL (8-23); Calcium 9.4 mg/dL (8.6-10.3); Carbon Dioxide 22 mEq/L (23-29); Chloride 105 mEq/L (98-107); Glucose 119 mg/dL (70-105); Osmolality,Calculated 287 (280-300); Potassium 3.8 mEq/L (3.5-5.1); Sodium 137 mEq/L (136-145); eGFR For Non-African Americans > 60 (> 60)
[2018-02-01 09:51] LABS: Troponin I 0.07 ng/mL (< 0.04)
--- NOTE | 2018-02-01 12:20 | Cardiology Consult Note ---
Date of Encounter: 02/01/18 Time of Encounter: 12:13 Assessment and Plan (1) Unstable angina Current Visit: Yes Status: Acute Chest pain concerning for unstable angina. CP increased after last C. Known disease remaining. [facility] 01/30/18 reviewed. LAD stent patent. S/p PCI to the RCA with TWAN. There was 70% stenosis in the LCx artery and OM1 with plan for staged PCI. Denies missed medications. [facility] recommended. R/B/A of [facility] reviewed. He agrees to proceed. Trend troponin. (2) CAD (coronary artery disease) Current Visit: No Status: Acute S/p multiple ME and PCI, most recently 01/30/18. TTE 01/31/18 showed preserved LV function. LVEF 60%. Normal appearing LV wall motion. Mild left ventricular diastolic dysfunction. Normal right ventricular structure and function. Mild tricuspid regurgitation. Mild-moderate pulmonic regurgitation. No pulmonary hypertension. Continue asa, statin, brilinta, and bb. Qualifiers: Coronary Disease-Associated Artery/Lesion type: [place] artery [place] vs. transplanted heart: [place] heart Associated angina: with unstable angina Qualified Code(s): I25.110 - Atherosclerotic heart disease of [place] coronary artery with unstable angina pectoris (3) Hypertension Current Visit: No Status: Chronic Noted elevated b/p. Patient states b/p only elevated when he has a ME. B/p improved. Continue to monitor. Qualifiers: Hypertension type: essential hypertension Qualified Code(s): I10 - Essential (primary) hypertension Discussion w patient/family: The assessment and plan as outlined above was discussed with the patient and/or family members who expressed understanding and agreement. All questions were answered. Thank you for involving us in the care of your patient. Please call with any questions. History of Present Illness Consult date: 02/01/18 Requesting physician: Valentín Herrera Consult reason: Chest pain after recent PCI Chief complaint: Chest pain radiating to left shoulder, fatigue History of present illness: Mr. Sharp is a 72 year old male with past medical history of multiple ME and PCI , recent NSTEMI 01/29/18 with pCI to the RCA, CVA, HTN, HLD, and adrenal insufficiency who presents with persistent chest pain since discharge. He was reported to have chest pain after his LHC that was relieved with NTG SL. He was noted to have elevated b/p at that time. Chest pain occurs with any exertional activity and is relieved with rest. Reports blood pressure 200/90 at home when he had chest pain. He took his imdur with no immediate relief and presented to the ED. B/p now improved with no further medications. He is currently pain free. LHC also revealed patent LAD stent and 70% stenosis in the LCx artery and OM. He was recommended for staged PCI in the out patient setting. Past Med Surg Social Fam HX - Past Medical History Medical history: coronary artery disease, CVA, hypertension, myocardial infarction Additional medical history: Carotid stenosis Psychiatric history: no psych history - Past Surgical History Surgical History: angioplasty/stent, orthopedic, other Additional surgical history: LITHOTRIPSY FOR KIDNEY STONES. ORIF LEFT ANKLE. Carotid Surgery - Social History Smoking Status: Never smoker Smokeless Tobacco Status: No Alcohol use: none Drug use: none - Family History Father Living Status: Hx Family Cardiac Disorders: Yes (CABG) Medications and Allergies Aspirin [Adult Aspirin Regimen] 81 mg PO DAILY 12/11/17 [History] Multivitamin [Multivitamins] 1 each PO DAILY 01/28/18 [History] [place]-3 Fatty Acids [Fish Oil] 300 mg PO DAILY 01/28/18 [History] Ubidecarenone [Coq10] 50 mg PO DAILY 01/28/18 [History] Cholestyramine 4 gm PO 0700 #30 powd.pack 01/31/18 [Rx] Isosorbide MONOnitrate (24 HR) [Imdur] 30 mg PO DAILY #30 tab.er.24h 01/31/18 [ Rx] Metoprolol XL (24 HR) Succ [Toprol Xl] 50 mg PO DAILY #30 tab.er.24h 01/31/18 [ Rx] Ticagrelor [Brilinta] 90 mg PO BID #60 tablet 01/31/18 [Rx] 3 Allergy/AdvReac Type Severity Reaction Status Date / Time niacin Allergy See Verified 01/29/18 10:24 Comments Sxksdpa-Yba-Cxu Reductase Allergy See Verified 01/29/18 10:24 Inhibitor Comments [Statins] All Systems Review: The remainder of the systems were reviewed and are negative Physical Examination Vital Signs, Last 4 Hours Temp Pulse Resp BP Pulse Ox 02/01/18 10:20 89 18 141/84 99 08/23/18 08:31 98.1 F 93 12 184/101 99 02/01/18 08:26 98.1 F 93 12 184/101 99 General: Conversant, No Apparent Distress, Other (pale appearing) HEENT: Atraumatic, Normocephaly, Mucus Membranes Moist Neck: No JVD, Normal carotid pulses Cardiac: Reg Rate and Rhythm, Normal S1 and S2, No Murmur Lungs: Normal Breath Sounds, No Wheeze, Rales, Rhonchi Neuro: Alert and responsive, No focal deficits noted Abdomen: Soft, Non-Tender Skin: No rashes noted on visualized skin Musculoskeletal: No Chest Wall Tenderness Extremities: No Clubbing, No Cyanosis, No Edema, Normal Pulses Results 02/01/18 08:54 02/01/18 08:54 Lab Results 02/01/18 02/01/18 02/01/18 08:54 08:54 08:54 WBC 8.1 Hgb 16.6 Hct 46.7 Plt Count 255 INR 1.0 APTT 30.1 Sodium Potassium Chloride Carbon Dioxide BUN Creatinine Glucose Calcium Troponin I B-Natriuretic Peptide 22 02/01/18 08:54 WBC Hgb Hct Plt Count INR APTT Sodium 137 Potassium 3.8 Chloride 105 Carbon Dioxide 22 L BUN 18 Creatinine 1.04 Glucose 119 H Calcium 9.4 Troponin I 0.07 H* B-Natriuretic Peptide - Imaging and Cardiology Echo: report reviewed Cardiac cath: report reviewed - EKG Interpretation EKG results cardiology: personally reviewed Consult Discharge Plan - Plan Referrals: Jimmy Penaloza MD [Primary Care Provider] -
[2018-02-01] MEDS ORDERED: *HR* Ticagrelor 90 MG TABLET PO SCH (12:30)
[2018-02-01] MEDS ORDERED: Naloxone 0.4 MG/ML INJ IVP PRN (12:55)
--- NOTE | 2018-02-01 13:16 | Internal Med History&Physical ---
<Yobany Harrison P - Last Filed: 02/01/18 13:07> Date of Encounter: 02/01/18 Time of Encounter: 12:20 Internal Medicine - H&P: HPI Admitted From: Home Plans for Post Hospital Care: Home History of present illness: Mr. Sharp is a 72 year old male with past medical history significant for CAD, NSTEMI, and hypertension who presents for sharp stabbing left sided chest pain radiating to his left shoulder and to the center of his back. Was discharged yesterday following NSTEMI and stent placement on 01/29/2018. States he has had pain since yesterday but it became much worse this morning with reported home blood pressure over 200 systolic. Also reports taking nitroglycerin at home without any result. States the pain is worse with exertion and improved with rest. Also states his pain seems to be worse when his blood pressure is elevated. Contacted cardiology group who advised him to come to ER. Upon presentation to the ER, the patient reported feeling improved and back to his baseline. Currently is reporting 0/10 pain. Past Med Surg Social Fam HX - Past Medical History Medical history: coronary artery disease, CVA, hypertension, myocardial infarction Additional medical history: Carotid stenosis Psychiatric history: no psych history - Past Surgical History Surgical History: angioplasty/stent, orthopedic, other Additional surgical history: LITHOTRIPSY FOR KIDNEY STONES. ORIF LEFT ANKLE. Carotid Surgery - Social History Smoking Status: Never smoker Smokeless Tobacco Status: No Alcohol use: none Drug use: none - Family History Father Living Status: Hx Family Cardiac Disorders: Yes (CABG) Internal Medicine - H&P: Meds Aspirin [Adult Aspirin Regimen] 81 mg PO DAILY 12/11/17 [History] Multivitamin [Multivitamins] 1 each PO DAILY 01/28/18 [History] [place]-3 Fatty Acids [Fish Oil] 300 mg PO DAILY 01/28/18 [History] Ubidecarenone [Coq10] 50 mg PO DAILY 01/28/18 [History] Cholestyramine 4 gm PO 0700 #30 powd.pack 01/31/18 [Rx] Isosorbide MONOnitrate (24 HR) [Imdur] 30 mg PO DAILY #30 tab.er.24h 01/31/18 [ Rx] Metoprolol XL (24 HR) Succ [Toprol Xl] 50 mg PO DAILY #30 tab.er.24h 01/31/18 [ Rx] Ticagrelor [Brilinta] 90 mg PO BID #60 tablet 01/31/18 [Rx] 3 Allergy/AdvReac Type Severity Reaction Status Date / Time niacin Allergy See Verified 01/29/18 10:24 Comments Cxefmvo-Pit-Chd Reductase Allergy See Verified 01/29/18 10:24 Inhibitor Comments [Statins] All Systems PM: A 10-system review of systems was performed and is negative for pertinent findings except as documented above in the HPI. - Constitutional Vitals: Temp Pulse Resp BP Pulse Ox 98.1 F 86 17 118/82 97 02/01/18 08:31 02/01/18 12:18 02/01/18 12:18 02/01/18 12:18 02/01/18 12:18 Exam: General: Alert and oriented, in no acute distress. Skin:Normal color, no rash, no lesions. HEENT:EOM, pupils equal, round and reactive. Cardiovascular:Normal S1 & S2, no rubs, murmurs or gallops. No JVD. Pulse regular. Lungs:Normal breath sounds, no wheezes or crackles. Abdomen:Soft, non-tender, no rigidity, hyperactive bowel sounds. Extremities:No deformity, no edema or tenderness, no joint swelling or clubbing. Neurological:Normal cognition and motor skills. Pulses:Carotid and radial pulses normal +2. Rest of the physical exam is non contributory. Internal Med - H&P Results - Labs CBC & Chem 7: 02/01/18 08:54 02/01/18 08:54 - Assessment and plan (1) Chest pain Current Visit: No Status: Acute Assessment and plan: Cardiology consulted. Planning for heart catheterization today. Serial troponins not ordered per cardiology. Continuous quality assurance monitor final. NPO. Qualifiers: Chest pain type: unspecified Qualified Code(s): R07.9 - Chest pain, unspecified (2) Troponin level elevated Current Visit: Yes Status: Acute Assessment and plan: Troponin elevated in ER, but trending down from 01/29/2018. Serial troponins not ordered per cardiology, plan to seed analysis laboratory assistant today. - Time Spent With Patient Total time spent is greater than 50% in coordination of care (as documented) at patient's floor/unit and/or counseling patient: <Miles Valencia - Last Filed: 02/01/18 14:38> Date of Encounter: 02/01/18 Time of Encounter: 14:15 Internal Medicine - H&P: HPI History of present illness: Mr. Sharp is a 72 year old male All Systems PM: A 10-system review of systems was performed and is negative for pertinent findings except as documented above in the HPI. - Constitutional Vitals: Temp Pulse Resp BP Pulse Ox 97.8 F 84 16 106/73 96 02/01/18 14:05 02/01/18 14:05 02/01/18 14:05 02/01/18 14:05 02/01/18 14:05 Internal Med - H&P Results - Labs CBC & Chem 7: 02/01/18 08:54 02/01/18 08:54 - Assessment and plan (1) Chest pain Current Visit: No Status: Acute Qualifiers: Chest pain type: unspecified Qualified Code(s): R07.9 - Chest pain, unspecified (2) Troponin level elevated Current Visit: Yes Status: Acute - Time Spent With Patient Total time spent is greater than 50% in coordination of care (as documented) at patient's floor/unit and/or counseling patient: - Attending Attestation I saw and evaluated this patient and my medical decision-making was reviewed with the Nurse Practitioner. I agree with the documented findings, disposition and treatment plan as described except to any changes set forth below. We independently had [id number] contact with the patient. 72-year-old male patient with recent non-ST elevation CT status post PTCA/drug- eluting stent to the distal RCA 01/29/18 presented to the ER again today with complaints of chest pain that began earlier this morning. Patient took his long -acting Imdur at that time and that slowly relieved the chest pain. He is currently pain-free. He denies any nausea or vomiting. No exertional dyspnea or orthopnea. No PND. On examination, patient is awake and alert. Heart sounds are normal. Breath sounds are normal. Abdomen is soft nontender. EKG shows sinus rhythm with ST segment depression in lateral leads similar in nature to prior EKGs. Troponin 0.07 trending down from recent hospitalization. Chest pain: Precordial chest pain with recent stent. Patient had residual LAD disease with moderate in-stent restenosis from prior procedure. Cardiology consultation. Trend troponins. Patient will be taken to the catheter lab later today. Keep nothing by mouth till then. Coronary artery disease: Continue home medications including aspirin, brilinta, beta william. Patient not on statins due to adverse reaction. Essential hypertension: Controlled. Continue home medications.
[2018-02-01] MEDS ORDERED: *HR* Heparin 10,000 UNIT/10 ML VIAL ONE (14:02)
[2018-02-01] MEDS ORDERED: ISOVUE-370 200 ML INFUS..BTL IV ONE (14:02)
[2018-02-01] MEDS ORDERED: Nitroglycerin 1,000 MCG/10 ML VIAL IV ONE (14:02)
[2018-02-01] MEDS ORDERED: Heparin 1,000 UNITS/500 mL 500 ML ONE (14:02)
[2018-02-01] MEDS ORDERED: 0.9 % Sodium Chloride 1,000 ML ONE ×2 (14:02→14:03)
[2018-02-01] MEDS ORDERED: *HR* Midazolam HCl 2 MG/2 ML VIAL ONE (14:38)
--- NOTE | 2018-02-01 14:42 | Pre-Sedation Evaluation ---
Pre-sedation evaluation - Pre-sedation checklist Date of procedure: 02/01/18 Procedure: [facility] Recent Vitals: Last Vital Signs Temp 97.8 F 02/01/18 14:05 Pulse 84 02/01/18 14:05 Resp 16 02/01/18 14:05 BP 106/73 02/01/18 14:05 Pulse Ox 96 02/01/18 14:05 H&P (including ROS) documented in medical record: Yes Previous reaction to sedatives/anesthetics: No Dietary Status: NPO after Midnight Airway Assessment: Patient can open mouth completely, TMJ function normal Dentition: No loose teeth or bridges Possible difficult airway: No ASA Classification *see protocol: CLASS IV-Severe systemic disease/constant threat to pt's life Plan of Care: Pt appropriate candidate for procedure/moderate/conscious sedation , Risks/benefits of procedure/sedation discussed w/ patient/family, If not NPO; Risk of intake outweiged by necessity to perform procedure Cardiac Registry (Cardio Only) - Functional Capacity Functional Capacity: >=4 METS with symptoms - Clincal Frailty Scale Clinical Frailty Scale: Managing Well
--- NOTE | 2018-02-01 15:51 | Invasive Diagnostic Lab Proc ---
Name: Jama Sharp Date of Study: 02/01/2018 Date: 1945 Ht: 68.1in Medical Record#: [id number] Age: 72 Wt: 177.91lb Gender: Male BSA: 1.95 Order #: [id number] BMI: 26.96 Physicians Procedure Physician: Jonathon Ro DO Referring MD: Referring MD: Staff Name Position Time In Becca Tinoco RN Broadcast Technician 02:38 PM Jenny Rebolledo RT (R) Scrub 02:38 PM Emperatriz Holt RT (R) Scrub 02:38 PM Jenny Rebolledo RT (R) Monitor 02:39 PM Benjie Gomez RN Nurse 02:40 PM Artemio Holt RT (R) RT 02:40 PM Indications Indication Unstable Angina Procedures Performed Procedure L HRT ARTERY/VENTRICLE ANGIO Pre-Procedure Checklist Informed consent is complete signed and on chart. H&P is on chart. ID band is on and ID verified with patient. Patient NPO for procedure The procedure was described for the patient and questions were answered. ECG is on chart. Plan of Care Patient will tolerate the procedure without complications. Adequate level of comfort will be maintained. Hemodynamics will remain stable Patient will recover from procedure without complications. Respiratory function will be maintained. Cardiac rhythm will remain stable. Patient temperature will be maintained. Patient and/or family have verbalized understanding of the procedure. Patient Education Chief Complaint/Reason for Test: Cardiac Cath Developmental Category: Geriatric (65+ years) Developmentally Appropriate for Age: Yes Learning Barriers: None Education Needs: Procedure Education Method: Verbal Information Taught: Cardiac Cath Educational Evaluation: Able to repeat information Intravenous Access Time IV Size Location DC'd Fluid/Drip Rate Units RN 20g 1 /" Patent On Arrival Lt Wrist Allergies No Known Allergies Frtirme-Ztq-Pme Reductase Inhibitor niacin Vital Signs Time BP (mmHg) HR (bpm) O2 Sat. RR (bpm) LOC 118 / 82 86 97 % 15 02:41 PM / % 5 = Fully awake and oriented or at pre-proc level 02:41 PM / % 4 = Oriented but drowsy 02:56 PM / % 4 = Oriented but drowsy 03:12 PM / % 5 = Fully awake and oriented or at pre-proc level 02:42 PM 151 / 111 87 98 % 21 02:47 PM 118 / 79 90 96 % 37 02:53 PM 120 / 75 93 99 % 17 02:57 PM 125 / 87 85 95 % 29 03:02 PM 127 / 79 84 96 % 19 03:07 PM 146 / 88 82 98 % 21 03:12 PM 144 / 89 82 98 % 14 03:17 PM 139 / 83 84 97 % 15 03:22 PM 150 / 107 90 99 % 18 03:27 PM 150 / 89 83 93 % 18 Procedural Medications Time Medication Dose Units Method Given By 02:40 PM Oxygen 2 L/min nasal cannula Becca Tinoco RN 02:42 PM Versed 2 mg Intravenous Becca Tinoco RN 02:53 PM Lidocaine 2% 10 ml Subcutaneous Jonathon Ro DO Castillo Score Preprocedure Postprocedure Activity 2- Moves 4 extremities sustained head lift Activity Circulation 2- SBP +/= 20 points of pre-anesthetic level Circulation Consciousness 2- Awake and alert oriented x 3 Consciousness O2 Saturation 2- Able to maintain O2 satruation of 92% on room air O2 Saturation Respiratory 2- Able to deep breathe and cough well Respiratory Total Score 10 Total Score Contrast Agent: Isovue Diagnostic Contrast: 65 ml Total Contrast: 65 ml Fluoro Dose: 35 mGy Procedure Log Time Note Enter By 02:08 PM CathStat 02:37 PM Pt arrived to petroleum refinery laborer 1 at 14:37 dspell 02:37 PM Case Start 02:37 PM Physician arrived 14:37 ell 02:37 PM Meet and greet completed ell 02:37 PM Sign in performed according to hospital policy. ell 02:37 PM Procedure start 14:37 dspell 02:38 PM Becca Tinoco RN Position: Broadcast Technician Time in: 14:38 02:39 PM Emperatriz Holt RT (R) Position: Scrub Time in: 14:38 dspell 02:39 PM Jenny Rebolledo RT (R) Position: Monitor Time in: 14:39 02:40 PM Patient charges- Angio tray pack, Navilyst 3mm J, Pulse Oximetry and ACIST tubing and transducer dspell 02:40 PM Case Delayed No dspell 02:40 PM Hair removed from procedure site in procedure lab using clippers. Bilateral groin prepped with Chloraprep by Benjie Gomez RN, then patient was draped. Skin intact. dspell 02:40 PM Benjie Gomez RN Position: Nurse Time in: 14:40 02:40 PM Artemio Holt RT (R) Position: Time in: 14:40 :40 PM Time: 14:40 Oxygen on at 2 L/min per nasal cannula by Becca Tinoco RN ell 02:40 PM Time: 14:40 Patient comfortable and pain free: Yes :41 PM Time: 14:41LOC: 5 = Fully awake and oriented or at pre-proc level :41 PM Vitals capture started with the following parameters, Patient=Adult, Interval=5 min, Initial Lgvbqhfk=004 mmHg, Deflation Rate=3 mmHg, Cuff placed on Right Arm 02:42 PM Time: 14:42 Versed 2 mg Intravenous Given by Becca Tinoco RN 02:42 PM HR=87 bpm, AIIK=858/111 mmhg, SpO2=98.0 %, Resp=21 B/min, Comment=NSR 02:44 PM Recorded ECG: HR=78 Condition=Condition 1 02:47 PM HR=90 bpm, TZYS=831/79 mmhg, SpO2=96.0 %, Resp=37 B/min, Comment=NSR 02:50 PM Pressure channel 2 zeroed. 02:51 PM Clinical Presentation: Unstable angina 02:52 PM Time out performed according to hospital policy 02:53 PM HR=93 bpm, NVKE=653/75 mmhg, SpO2=99.0 %, Resp=17 B/min, Comment=NSR 02:53 PM Time: 14:53 10 ml Lidocaine 2% to right groin Subcutaneous Given by Jonathon Ro DO 02:54 PM Micro-Introducer Kit utilized for sheath placement 02:54 PM Access obtained by percutaneous puncture. 6Fr 10cm Terumo [place] sheath placed in right Femoral artery. [id number] 02:55 PM 5Fr FR 4 catheter inserted over the wire DNC 02:55 PM 0.035 145cm Navilyst 3mmJ wire [id number] 02:55 PM Catheter selectively placed in left ventricle 02:56 PM Time: 14:41LOC: 4 = Oriented but drowsy 02:56 PM Recorded Pressure: LV, HR=82, Condition=Condition 1 (Left Ventricle) LV 105/-3/2 02:56 PM Recorded Pressure: LV, Ao, HR=89, Condition=Condition 1 (Left Ventricle) LV 110/-6/-2, (Aorta) Ao 122/66/92 02:56 PM Recorded Pressure: Ao, HR=85, Condition=Condition 1 (Aorta) Ao 115/38/78 02:56 PM Time: 14:40 Patient comfortable and pain free: Yes dspcheryl 02:57 PM HR=85 bpm, TKFJ=896/87 mmhg, SpO2=95.0 %, Resp=29 B/min, Comment=NSR 02:57 PM Bolus angiogram of left Ventricle complete: 10 ml/sec for a total of 10 mls dspell 02:57 PM RCA angiography performed in multiple views. dspell 02:57 PM Catheter removed dspell 02:57 PM 5Fr FL 4 catheter inserted over the wire DNC dspell 02:58 PM LCA angiography performed in multiple views. [email or web address] 03:01 PM Recorded Pressure: Ao, HR=81, Condition=Condition 1 (Aorta) Ao 134/74/99 03:02 PM HR=84 bpm, TKVA=394/79 mmhg, SpO2=96.0 %, Resp=19 B/min, Comment=NSR 03:[address] Jerman flores 03:07 PM HR=82 bpm, RFLL=725/88 mmhg, SpO2=98.0 %, Resp=21 B/min, Comment=NSR 03:12 PM Time: 14:56 Patient comfortable and pain free: Yes sandra 03:12 PM Time: 14:56LOC: 4 = Oriented but drowsy dspcheryl 03:12 PM HR=82 bpm, SCAZ=592/89 mmhg, SpO2=98.0 %, Resp=14 B/min, Comment=NSR 03:[address] Stoll returned the call dspcheryl 03:12 PM Conversation between Interventionalist and CT Surgeon. [email or web address] 03:14 PM Procedure completed at 15:14 02/01/2018 sandra 03:17 PM HR=84 bpm, OIXO=571/83 mmhg, SpO2=97.0 %, Resp=15 B/min, Comment=NSR 03:18 PM Procedure completed at 15:14 02/01/2018 damir 03:18 PM Did you address RADHA flow and Dominance? Yes dspell 03:22 PM HR=90 bpm, ZKAD=400/107 mmhg, SpO2=99.0 %, Resp=18 B/min, Comment=NSR 03:22 PM Sign out completed: Radiation Dose 385.19 mGy, 35.42 Gy/cm2 Fluoro Time: 1.0 Isovue 370 - 200ml contrast 65 ml given by Jonathon Ro DO. Complications: NoneCardiac Rehab Consult needed: YesConfirmed administered medications: Yes 03:23 PM Isovue 370 - 200ml,1 Bottle(s) used. dspell 03:23 PM Arterial sheath pulled using manual compression and V+ Pad for 15 minutes by Becca Tinoco RN dspell 03:24 PM Estimated Blood Loss: minimal dspell:24 PM Post ECG NSR dspell 03:24 PM Recorded ECG: HR=89 Condition=Condition 1 03:25 PM Post Blood Pressure 150/107 dspell:25 PM 15:25 Post Pulses Bilateral DP 2+ dspell: PM Information taught Cardiac Cath and V+ Pad dspell 03: PM Education needs Procedure, Plan of Care, and Responsibilities of Patient in Care dspell 03: PM Learning barriers :None ell: PM Education Methods Verbal : PM Education evaluation Able to repeat information : PM Time: 15:12 Patient comfortable and pain free: Yes dspell:27 PM HR=83 bpm, TSZI=126/89 mmhg, SpO2=93.0 %, Resp=18 B/min, Comment=NSR :27 PM Time: 15:12LOC: 5 = Fully awake and oriented or at pre-proc level dspell:27 PM Family placed in consult room. dspell 03: PM Complications: None dspell:32 PM Lesion found in Proximal RCA. Pre Stenosis: 70 Pre RADHA Flow: 2: Partial Flow/Perfusion (> 1 but < 3) dspellman 03:32 PM Lesion found in Proximal LAD. Pre Stenosis: 70 Pre RADHA Flow: 3: Complete and Brisk Flow/Perfusion dspellman 03:32 PM Lesion found in Mid Circumflex. Pre Stenosis: 70 Pre RADHA Flow: 3: Complete and Brisk Flow/Perfusion dspellman 03:32 PM Lesion found in 2nd Marginal. Pre Stenosis: 70 Pre RADHA Flow: 3: Complete and Brisk Flow/Perfusion dspellman 03:33 PM Lesion found in 2nd Marginal. Pre Stenosis: 99 Pre RADHA Flow: 3: Complete and Brisk Flow/Perfusion dspellman 03:33 PM Right Coronary, Right Posterior Descending Arteries with Right Posterolateral and Acute Marginal branches with 70 % stenosis. If graft is supplying this area, 0 % stenosis dspellman 03:33 PM Mid/Distal Left Anterior Descending Coronary Artery and diagonal branches with 70% stenosis. If graft is supplying this area, 0 % stenosis dspellman 03:34 PM Circumflex, Obtuse Marginal, Left Posterior Descending, and Left Posterolateral Coronary Arteries with 70 % stenosis. If graft is supplying this area, 0 % stenosis dspellman 03:35 PM Site status No bleeding/hematoma - Rt Groin as reported by Becca Tinoco RN at 15:35 dspellman 03:35 PM Opsite applied dspellman 03:35 PM Delay to floor Bed availability dspellman Complications Complication None None Hemodynamics Pressures Site Systolic/A Wave Diastolic/V Wave Mean LV 105 -3 2 LV 110 -6 -2 AO 122 66 92 AO 115 38 78 AO 134 74 99 Post Procedure Information Blood Pressure: 150/107 mmHg Rhythm: NSR Post procedural instructions were given Surgery consult for CABG Closure Device Time Device Success/Fail 02/01/2018 3:28:00 PM Manual Compression Successful Site Checks Time Location Status Staff Sheath In? Note 03:35 PM Rt Groin No bleeding/hematoma Becca Tinoco RN Pulses Time Site Pre-Procedure Post-Procedure Note 3:25:00 PM Bilateral DP 2+ Updated by RT Andrea (R) on 02/01/2018 3:39:15 PM Jenny Rebolledo RT electronically signed on 02/01/2018 3:42:42 PM with status of Final
--- NOTE | 2018-02-01 16:32 | Cardiothoracic Consult Note ---
Date of Encounter: 02/01/18 Time of Encounter: 16:26 Assessment and Plan (1) CAD (coronary artery disease) Current Visit: No Status: Acute The assessment and plan as outlined above was discussed with the patient and/or family members who expressed understanding and agreement. All questions were answered. The patient is a candidate for coronary artery bypass grafting. I will check a carotid duplex as he has had recent carotid surgery. We will stop his Brilinta. He is okay to go on a heparin drip. We will tentatively schedule open heart surgery for next Monday. Risks of surgery include , stroke, myocardial infarction, bleeding, clots around the heart, renal or respiratory failure, acute or chronic graft closure, sternal dehiscence and phrenic nerve injury. He did increased risk of stroke because of his history of previous stroke and carotid disease. The procedure, its risks, benefits and alternatives were explained and he does wish to proceed. Qualifiers: Coronary Disease-Associated Artery/Lesion type: [place] artery [place] vs. transplanted heart: [place] heart Associated angina: with unstable angina Qualified Code(s): I25.110 - Atherosclerotic heart disease of [place] coronary artery with unstable angina pectoris - History of Present Illness History of present illness: Mr. Sharp is a 72 year old male The patient is a 72-year-old gentleman who has a history of 3 myocardial infarctions. He has had stents placed in his LAD in the past. He recently had stents placed in his right coronary artery. He presented today with chest pain and a positive troponin of 0.07. He had received Brilinta yesterday. He is allergic to statins. Echocardiogram revealed no significant valvular disease. He does have mild to moderate pulmonary valve regurgitation, but no pulmonary hypertension. Cardiac catheterization revealed triple-vessel disease. The posterior descending branch of the right coronary artery appears graftable. The LAD is small distal to the stents, but appears able to take a MONTOYA graft. The circumflex coronary artery is 70% block. Obtuse marginal branch #1 has a distal stenosis and may be too small distal to the stenosis for grafting. He should be able to get a graft to the proximal obtuse marginal branch #1 or 2 obtuse marginal branch #2. Past medical history is notable for hypertension. No diabetes. He does have a history of a stroke at age 44 with left-sided symptoms. Carotid duplex in November revealed 100% block of his right carotid artery and an 80-99% block of his left carotid artery. He is status post left carotid endarterectomy in December. He does have a history of kidney stones. He is allergic to statins and niacin. Social history. He lives in [place]. 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 Does not smoke and does not drink. Review of systems is notable for no saphenous vein varicosities or strippings. No recent neurological symptoms. He does have peripheral neuropathy. Past Med Surg Social Fam HX - Past Medical History Medical history: CVA, hypertension, myocardial infarction Additional medical history: Carotid stenosis Psychiatric history: no psych history - Past Surgical History Surgical History: angioplasty/stent, orthopedic, other Additional surgical history: LITHOTRIPSY FOR KIDNEY STONES. ORIF LEFT ANKLE. Carotid Surgery - Social History Smoking Status: Never smoker Smokeless Tobacco Status: No Alcohol use: none Drug use: none - Family History Father Living Status: Hx Family Cardiac Disorders: Yes (CABG) Medications and Allergies Aspirin [Adult Aspirin Regimen] 81 mg PO DAILY 12/11/17 [History] Multivitamin [Multivitamins] 1 each PO DAILY 01/28/18 [History] [place]-3 Fatty Acids [Fish Oil] 300 mg PO DAILY 01/28/18 [History] Ubidecarenone [Coq10] 50 mg PO DAILY 01/28/18 [History] Cholestyramine 4 gm PO 0700 #30 powd.pack 01/31/18 [Rx] Isosorbide MONOnitrate (24 HR) [Imdur] 30 mg PO DAILY #30 tab.er.24h 01/31/18 [ Rx] Metoprolol XL (24 HR) Succ [Toprol Xl] 50 mg PO DAILY #30 tab.er.24h 01/31/18 [ Rx] Ticagrelor [Brilinta] 90 mg PO BID #60 tablet 01/31/18 [Rx] 3 Allergy/AdvReac Type Severity Reaction Status Date / Time niacin Allergy See Verified 01/29/18 10:24 Comments Ymfildp-Cps-Opn Reductase Allergy See Verified 01/29/18 10:24 Inhibitor Comments [Statins] All Systems Review: The remainder of the systems were reviewed and are negative Physical Examination Vital Signs, Last 4 Hours Temp Pulse Resp BP Pulse Ox 02/01/18 14:05 97.8 F 84 16 106/73 96 02/01/18 13:07 18 111/81 Pupils are equal, round and reactive to light and accommodation. No oral lesions. Neck is supple. Trachea in the midline. He is status post left carotid endarterectomy. No bruits. Lungs are clear to percussion and auscultation. Heart is in a regular rate and rhythm. Abdomen is benign. No tenderness, rebound or guarding. He states that he does have gastroesophageal reflux. Extremities without edema. No saphenous vein varicosities or strippings. Cranial nerves, motor and sensory intact. Results 02/01/18 08:54 02/01/18 08:54 Consult Discharge Plan - Plan Referrals: Jimmy Penaloza MD [Primary Care Provider] -
--- NOTE | 2018-02-01 16:32 | Invasive Diagnostic Lab Proc ---
Name: Jama Sharp Date of Study: 02/01/2018 Date: 1945 Ht: 68.1in Medical Record#: [id number] Age: 72 Wt: 177.91lb Gender: Male BSA: 1.95 Order #: [id number] BMI: 26.96 Physicians Procedure Physician: Jonathon Ro DO Referring MD: Referring MD: Staff Name Position Time In Becca Tinoco RN Open Hearth Helper 02:38 PM Jenny Rebolledo RT (R) Scrub 02:38 PM Emperatriz Holt RT (R) Scrub 02:38 PM Jenny Rebolledo RT (R) Monitor 02:39 PM Benjie Gomez RN Nurse 02:40 PM Artemio Holt RT (R) RT 02:40 PM Indications Indication Unstable Angina Procedures Performed Procedure L HRT ARTERY/VENTRICLE ANGIO Pre-Procedure Checklist Informed consent is complete signed and on chart. H&P is on chart. ID band is on and ID verified with patient. Patient NPO for procedure The procedure was described for the patient and questions were answered. Blood Pressure: 118/82 ECG is on chart. Rhythm: NSR Plan of Care Patient will tolerate the procedure without complications. Adequate level of comfort will be maintained. Hemodynamics will remain stable Patient will recover from procedure without complications. Respiratory function will be maintained. Cardiac rhythm will remain stable. Patient temperature will be maintained. Patient and/or family have verbalized understanding of the procedure. Patient Education Chief Complaint/Reason for Test: Cardiac Cath Developmental Category: Geriatric (65+ years) Developmentally Appropriate for Age: Yes Learning Barriers: None Education Needs: Procedure Education Method: Verbal Information Taught: Cardiac Cath Educational Evaluation: Able to repeat information Intravenous Access Time IV Size Location DC'd Fluid/Drip Rate Units RN 02:40 PM 20g 1 1/4" Patent On Arrival Lt Wrist 0.9NaCl 25 ml/hr Becca Tinoco RN Allergies No Known Allergies Ctvlhfi-Udj-Qif Reductase Inhibitor niacin Vital Signs Time BP (mmHg) HR (bpm) O2 Sat. RR (bpm) LOC 118 / 82 86 97 % 15 02:41 PM / % 5 = Fully awake and oriented or at pre-proc level 02:41 PM / % 4 = Oriented but drowsy 02:56 PM / % 4 = Oriented but drowsy 03:12 PM / % 5 = Fully awake and oriented or at pre-proc level 02:42 PM 151 / 111 87 98 % 21 02:47 PM 118 / 79 90 96 % 37 02:53 PM 120 / 75 93 99 % 17 02:57 PM 125 / 87 85 95 % 29 03:02 PM 127 / 79 84 96 % 19 03:07 PM 146 / 88 82 98 % 21 03:12 PM 144 / 89 82 98 % 14 03:17 PM 139 / 83 84 97 % 15 03:22 PM 150 / 107 90 99 % 18 03:27 PM 150 / 89 83 93 % 18 03:44 PM 148 / 91 86 97 % 18 04:00 PM 136 / 80 85 97 % 16 5 = Fully awake and oriented or at pre-proc level 04:15 PM 144 / 102 86 97 % 18 5 = Fully awake and oriented or at pre-proc level Procedural Medications Time Medication Dose Units Method Given By 02:40 PM Oxygen 2 L/min nasal cannula Becca Tinoco RN 02:42 PM Versed 2 mg Intravenous Becca Tinoco RN 02:53 PM Lidocaine 2% 10 ml Subcutaneous Jonathon Ro DO ASA Classification: CLASS II- Mild systemic disease (i.e. well-controlled diabetes, hypertension, asthma, cigarette smoking) Castillo Score Preprocedure Postprocedure Activity 2- Moves 4 extremities sustained head lift Activity 2- Moves 4 extremities sustained head lift Circulation 2- SBP +/= 20 points of pre-anesthetic level Circulation 2- SBP +/= 20 points of pre-anesthetic level Consciousness 2- Awake and alert oriented x 3 Consciousness 2- Awake and alert oriented x 3 O2 Saturation 2- Able to maintain O2 satruation of 92% on room air O2 Saturation 2- Able to maintain O2 satruation of 92% on room air Respiratory 2- Able to deep breathe and cough well Respiratory 2- Able to deep breathe and cough well Total Score 10 Total Score 10 Contrast Agent: Isovue Diagnostic Contrast: 65 ml Total Contrast: 65 ml Fluoro Dose: 35 mGy Procedure Log Time Note Enter By 02:08 PM CathStat 02:37 PM Pt arrived to hospital laboratory technician 1 at 14:37 [facility] 02:37 PM Case Start 02:37 PM [facility] PM Meet and greet completed [facility] 02:37 PM Sign in performed according to hospital policy. dspell 02:37 PM Procedure start 14:37 dspellman 02:38 PM Becca Tinoco RN Position: Open Hearth Helper Time in: 14:38 02:39 PM Emperatriz Holt RT (R) Position: Scrub Time in: 14: 02:39 PM Jenny Rebolledo RT (R) Position: Monitor Time in: 14:39 02:40 PM Patient charges- Angio tray pack, Navilyst 3mm J, Pulse Oximetry and ACIST tubing and transducer 02:40 PM Case Delayed No :40 PM Hair removed from procedure site in procedure lab using clippers. Bilateral groin prepped with Chloraprep by Benjie Gomez RN, then patient was draped. Skin intact. :40 PM Benjie Gomez RN Position: Nurse Time in: : 02:40 PM Artemio Holt RT (R) Position: Time in: ::40 PM Time: 14:40 Oxygen on at 2 L/min per nasal cannula by Becca Tinoco RN :40 PM Time: 14:40 Patient comfortable and pain free: Yes : PM Time: 14:41LOC: 5 = Fully awake and oriented or at pre-proc level :41 PM Vitals capture started with the following parameters, Patient=Adult, Interval=5 min, Initial Kllfeodq=404 mmHg, Deflation Rate=3 mmHg, Cuff placed on Right Arm 02:42 PM Time: 14:42 Versed 2 mg Intravenous Given by Becca Tinoco RN 02:42 PM HR=87 bpm, EDWP=023/111 mmhg, SpO2=98.0 %, Resp=21 B/min, Comment=NSR 02:44 PM Recorded ECG: HR=78 Condition=Condition 1 02:47 PM HR=90 bpm, QHGH=939/79 mmhg, SpO2=96.0 %, Resp=37 B/min, Comment=NSR 02:50 PM Pressure channel 2 zeroed. 02:51 PM Clinical Presentation: Unstable angina 02:52 PM Time out performed according to hospital policy 02:53 PM HR=93 bpm, OAJE=836/75 mmhg, SpO2=99.0 %, Resp=17 B/min, Comment=NSR 02:53 PM Time: 14:53 10 ml Lidocaine 2% to right groin Subcutaneous Given by Jonathon Ro DO 02:54 PM Micro-Introducer Kit utilized for sheath placement dsp 02:54 PM Access obtained by percutaneous puncture. 6Fr 10cm Terumo [place] sheath placed in right Femoral artery. [id number] ell 02:55 PM 5Fr FR 4 catheter inserted over the wire DN :55 PM 0.035 145cm Navilyst 3mmJ wire [id number] 02:55 PM Catheter selectively placed in left ventricle :56 PM Time: 14:41LOC: 4 = Oriented but drowsy dspell:56 PM Recorded Pressure: LV, HR=82, Condition=Condition 1 (Left Ventricle) LV 105/-3/2 02:56 PM Recorded Pressure: LV, Ao, HR=89, Condition=Condition 1 (Left Ventricle) LV 110/-6/-2, (Aorta) Ao 122/66/92 02:56 PM Recorded Pressure: Ao, HR=85, Condition=Condition 1 (Aorta) Ao 115/38/78 02:56 PM Time: 14:40 Patient comfortable and pain free: Yes :57 PM HR=85 bpm, BMCV=339/87 mmhg, SpO2=95.0 %, Resp=29 B/min, Comment=NSR 02:57 PM Bolus angiogram of left Ventricle complete: 10 ml/sec for a total of 10 mls :57 PM RCA angiography performed in multiple views. :57 PM Catheter removed :57 PM 5Fr FL 4 catheter inserted over the wire [facility] 02:58 PM LCA angiography performed in multiple views. 03:01 PM Recorded Pressure: Ao, HR=81, Condition=Condition 1 (Aorta) Ao 134/74/99 03:02 PM HR=84 bpm, UQTL=405/79 mmhg, SpO2=96.0 %, Resp=19 B/min, Comment=NSR 03:[address] Stoll [facility] 03:07 PM HR=82 bpm, UZYG=260/88 mmhg, SpO2=98.0 %, Resp=21 B/min, Comment=NSR 03:12 PM Time: 14:56 Patient comfortable and pain free: Yes dspell 03:12 PM Time: 14:56LOC: 4 = Oriented but drowsy dspell 03:12 PM HR=82 bpm, ZPNJ=175/89 mmhg, SpO2=98.0 %, Resp=14 B/min, Comment=NSR 03:[address] Stoll returned the call dspell 03:12 PM Conversation between Interventionalist and CT Surgeon. dspell 03:14 PM Procedure completed at 15:14 02/01/2018 dspell 03:17 PM HR=84 bpm, VBSU=014/83 mmhg, SpO2=97.0 %, Resp=15 B/min, Comment=NSR 03:18 PM Procedure completed at 15:14 02/01/2018 dspell 03:18 PM Did you address RADHA flow and Dominance? Yes dspell 03:22 PM HR=90 bpm, TSIC=524/107 mmhg, SpO2=99.0 %, Resp=18 B/min, Comment=NSR 03:22 PM Sign out completed: Radiation Dose 385.19 mGy, 35.42 Gy/cm2 Fluoro Time: 1.0 Isovue 370 - 200ml contrast 65 ml given by Jonathon Ro DO. Complications: NoneCardiac Rehab Consult needed: YesConfirmed administered medications: Yes 03:23 PM Isovue 370 - 200ml,1 Bottle(s) used. ell 03:23 PM Arterial sheath pulled using manual compression and V+ Pad for 15 minutes by Becca Tinoco RN ell 03:24 PM Estimated Blood Loss: minimal dspell 03:24 PM Post ECG NSR dspell 03:24 PM Recorded ECG: HR=89 Condition=Condition 1 03:25 PM Post Blood Pressure 150/107 dspell 03:25 PM 15:25 Post Pulses Bilateral DP 2+ dspell 03:26 PM Information taught Cardiac Cath and V+ Pad dspell:26 PM Education needs Procedure, Plan of Care, and Responsibilities of Patient in Care dspell 03:26 PM Learning barriers :None dspell 03:26 PM Education Methods Verbal dspell 03:26 PM Education evaluation Able to repeat information dspell:27 PM Time: 15:12 Patient comfortable and pain free: Yes dspellman 03:27 PM HR=83 bpm, QDCF=140/89 mmhg, SpO2=93.0 %, Resp=18 B/min, Comment=NSR 03:27 PM Time: 15:12LOC: 5 = Fully awake and oriented or at pre-proc level dspell 03:27 PM Family placed in consult room. dspell 03:27 PM Complications: None dspellman 03:32 PM Lesion found in Proximal RCA. Pre Stenosis: 70 Pre RADHA Flow: 2: Partial Flow/Perfusion (> 1 but < 3) dspellman 03:32 PM Lesion found in Proximal LAD. Pre Stenosis: 70 Pre RADHA Flow: 3: Complete and Brisk Flow/Perfusion dspellman 03:32 PM Lesion found in Mid Circumflex. Pre Stenosis: 70 Pre RADHA Flow: 3: Complete and Brisk Flow/Perfusion dspellman 03:32 PM Lesion found in 2nd Marginal. Pre Stenosis: 70 Pre RADHA Flow: 3: Complete and Brisk Flow/Perfusion dspellman 03:33 PM Lesion found in 2nd Marginal. Pre Stenosis: 99 Pre RADHA Flow: 3: Complete and Brisk Flow/Perfusion dspellman 03:33 PM Right Coronary, Right Posterior Descending Arteries with Right Posterolateral and Acute Marginal branches with 70 % stenosis. If graft is supplying this area, 0 % stenosis dspellman 03:33 PM Mid/Distal Left Anterior Descending Coronary Artery and diagonal branches with 70% stenosis. If graft is supplying this area, 0 % stenosis dspellman 03:34 PM Circumflex, Obtuse Marginal, Left Posterior Descending, and Left Posterolateral Coronary Arteries with 70 % stenosis. If graft is supplying this area, 0 % stenosis dspell 03:35 PM Site status No bleeding/hematoma - Rt Groin as reported by Becca Tinoco RN at 15:35 dspell 03:35 PM Opsite applied dspell 03:35 PM Delay to floor Bed availability dspell 03:44 PM Received patient to holding area. Monitors applied, [facility] Stoll at bedside to speak to patient and [facility] 04:20 PM Report given to Gifty CHAVEZ Pt taken to E Room #34. 16:20 [email or web address] 04:23 PM Patient out of room: 16:23 miriam Complications Complication None Hemodynamics Pressures Site Systolic/A Wave Diastolic/V Wave Mean LV 105 -3 2 LV 110 -6 -2 AO 122 66 92 AO 115 38 78 AO 134 74 99 Post Procedure Information Blood Pressure: 150/107 mmHg Rhythm: NSR Post procedural instructions were given Surgery consult for CABG Closure Device Time Device Success/Fail 02/01/2018 3:28:00 PM Manual Compression Successful Site Checks Time Location Status Staff Sheath In? Note 03:35 PM Rt Groin No bleeding/hematoma Becca Tinoco RN 03:43 PM Rt Groin No bleeding/ No Hematoma Emperatriz Holt RT (R) 04:00 PM Rt Groin No bleeding/ No Hematoma Carrie Veronica RN 04:15 PM Rt Groin No bleeding/ No Hematoma Benjie Gomez RN Pulses Time Site Pre-Procedure Post-Procedure Note 3:25:00 PM Bilateral DP 2+ 02/01/2018 3:44:00 PM Bilateral DP 2+ 02/01/2018 4:00:00 PM Bilateral DP 2+ 02/01/2018 4:15:00 PM Bilateral DP 2+ Updated by Carrie Veronica RN on 02/01/2018 4:25:51 PM electronically signed on 02/01/2018 4:26:19 PM with status of Final
[2018-02-01] MEDS: Metoprolol XL (24 HR) Succ 50 MG TAB.ER.24H PO SCH (17:20)
[2018-02-01] MEDS ORDERED: *HR* Heparin 5,000 UNIT/ML VIAL IVP PRN (17:35)
[2018-02-01] MEDS ORDERED: *HR* Heparin 5,000 UNIT/ML VIAL IVP ONE (17:35)
[2018-02-01] MEDS: Aspirin Enteric Coated 81 MG Tablet PO SCH (18:26)
[2018-02-01] MEDS: Heparin 25,000 UNIT/500 ML D5W 25,000 UNIT/500 ML BAG IVC SCH (18:27)
[2018-02-01 18:28] LABS: Hematocrit 46.8 % (37.5-50.1); Hemoglobin 16.3 g/dL (12.9-16.9); Mean Corpuscular HGB Conc 34.8 g/dL (31.6-35.5); Mean Corpuscular Volume 89.1 fL (83.0-100.0); Mean Platelet Volume 9.2 fL (9.4-12.4); Platelet Count 242 K/mcL (140-400); Red Blood Count 5.25 M/mcL (4.19-5.50); Red Cell Distribution Width 12.8 % (11.5-14.5)
[2018-02-01 18:32] LABS: Heparin anti-factor XA UFH 0.01 IU/mL (0.30-0.70)
[2018-02-01 18:33] LABS: INR 1.1; Prothrombin Time 11.9 Seconds (9.4-12.1)
[2018-02-02 00:44] LABS: Basophils # 0.1 K/mcL (0.0-0.2); Basophils % 0.7 %; Eosinophils # 0.3 K/mcL (0.0-0.6); Eosinophils % 4.6 %; Hematocrit 42.5 % (37.5-50.1); Immature Granulocytes % 0.4 % (0-4); Lymphocytes # 2.2 K/mcL (0.6-4.6); Lymphocytes % 29.6 %; Mean Corpuscular HGB Conc 35.3 g/dL (31.6-35.5); Mean Corpuscular Hemoglobin 30.9 pg (28.0-33.3); Mean Corpuscular Volume 87.4 fL (83.0-100.0); Mean Platelet Volume 9.3 fL (9.4-12.4); Monocytes # 0.7 K/mcL (0.0-1.3); Monocytes % 8.9 %; Neutrophils # 4.1 K/mcL (1.6-8.9); Platelet Count 239 K/mcL (140-400); Red Blood Count 4.86 M/mcL (4.19-5.50); Red Cell Distribution Width 13.1 % (11.5-14.5); Segmented Neutrophils % 55.8 %
[2018-02-02 01:01] LABS: BUN/Creatinine Ratio 20 (6-26); Blood Urea Nitrogen 19 mg/dL (8-23); Calcium 9.1 mg/dL (8.6-10.3); Carbon Dioxide 22 mEq/L (23-29); Chloride 107 mEq/L (98-107); Glucose 114 mg/dL (70-105); Osmolality,Calculated 285 (280-300); Potassium 4.2 mEq/L (3.5-5.1); Sodium 136 mEq/L (136-145); eGFR For Non-African Americans > 60 (> 60)
[2018-02-02] MEDS: Cholestyramine 4 GM POWD.PACK PO SCH (08:33)
[2018-02-02] MEDS: Aspirin Enteric Coated 81 MG Tablet PO SCH (08:33)
[2018-02-02] MEDS: Isosorbide MONOnitrate (24 HR) 30 MG TAB.ER.24H PO SCH (08:34)
[2018-02-02] MEDS: Multivit/Ca/Min/Fe/FA 1 TAB TABLET PO SCH (08:34)
[2018-02-02] MEDS: Metoprolol XL (24 HR) Succ 50 MG TAB.ER.24H PO SCH (08:35)
--- NOTE | 2018-02-02 08:49 | Anesthesia Evaluation PreOp ---
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), Other (neuropathy bilateral feet) Other Medical History: Denies Any Significant HX Anesthesia History: No Prior Anesthetic Complications, Past Anesthesia (CEA, ortho) Alcohol Use: none Drug use: none Medications and Allergies Aspirin [Adult Aspirin Regimen] 81 mg PO DAILY 12/11/17 [History] Multivitamin [Multivitamins] 1 each PO DAILY 01/28/18 [History] [place]-3 Fatty Acids [Fish Oil] 300 mg PO DAILY 01/28/18 [History] Ubidecarenone [Coq10] 50 mg PO DAILY 01/28/18 [History] Cholestyramine 4 gm PO 0700 #30 powd.pack 01/31/18 [Rx] Isosorbide MONOnitrate (24 HR) [Imdur] 30 mg PO DAILY #30 tab.er.24h 01/31/18 [ Rx] Metoprolol XL (24 HR) Succ [Toprol Xl] 50 mg PO DAILY #30 tab.er.24h 01/31/18 [ Rx] Ticagrelor [Brilinta] 90 mg PO BID #60 tablet 01/31/18 [Rx] 3 Allergy/AdvReac Type Severity Reaction Status Date / Time niacin Allergy See Verified 01/29/18 10:24 Comments Xakhgzk-Mkw-Rgr Reductase Allergy See Verified 01/29/18 10:24 Inhibitor Comments [Statins] - Meds/Allergy Pre-op Review Medications Reviewed: Yes Allergies Reviewed: Yes Beta Blockers on Current Med List: Yes If Beta Blockers taken, Date/Time (Last Dose taken): today 614 Anesthesia Results - Labs 02/05/18 03:55 02/05/18 03:55 - Imaging EKG: report reviewed (SINUS RHYTHM MODERATE ST DEPRESSION [0.05+ mV ST DEPRESSION] WARNING: DATA QUALITY MAY AFFECT INTERPRETATION) Additional studies: cath: Impressions: There is severe three vessel coronary artery disease. The left ventricle is normal and has normal contractility EF 45% echo: LVEF 60%. Normal appearing LV wall motion. Mild left ventricular diastolic dysfunction. Normal right ventricular structure and function. Mild tricuspid regurgitation. Mild-moderate pulmonic regurgitation. No pulmonary hypertension. 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
[2018-02-02] MEDS ORDERED: (Ubidecarenone [Coq10] 50 MG) PO SCH (09:00)
[2018-02-02] MEDS ORDERED: (Omega-3 Fatty Acids [Fish Oil] 300 MG) PO SCH (09:00)
--- NOTE | 2018-02-02 09:04 | Electrocardiograph Report ---
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
--- NOTE | 2018-02-02 09:10 | Cardiothoracic Progress Note ---
Date of Encounter: 02/02/18 Time of Encounter: 09:09 - Assessment and plan (1) CAD (coronary artery disease) Current Visit: No Status: Acute We will schedule open heart surgery for next Monday. Carotid duplex results are pending. At this point, the patient and his have no questions. Qualifiers: Coronary Disease-Associated Artery/Lesion type: [place] artery [place] vs. transplanted heart: [place] heart Associated angina: with unstable angina Qualified Code(s): I25.110 - Atherosclerotic heart disease of [place] coronary artery with unstable angina pectoris - Subjective Interval history: The patient had some brief episodes of chest pain last night. These were well controlled with long-acting nitrates and a heparin drip. Vital Signs, Last 4 Hours Temp Pulse Resp BP Pulse Ox 02/02/18 06:30 98.5 F 62 16 146/72 97 Clinical Data, last 8 Hours Output, Urine Amount 100 Output, Urine Amount 0 Weight 01/31/18 02/01/18 02/02/18 23:59 23:59 23:59 Weight 80.8 kg 80 kg Lungs are clear to percussion and auscultation. Heart is in a regular rate and rhythm. - Labs 02/02/18 00:27 02/02/18 00:27 Lab Results, Last 24 hours 02/01/18 02/01/18 02/02/18 18:16 18:16 00:27 WBC 7.1 7.3 Hgb 16.3 15.0 Hct 46.8 42.5 Plt Count 242 239 INR 1.1 Sodium Potassium Chloride Carbon Dioxide BUN Creatinine Glucose Calcium 02/02/18 00:27 WBC Hgb Hct Plt Count INR Sodium 136 Potassium 4.2 Chloride 107 Carbon Dioxide 22 L BUN 19 Creatinine 0.96 Glucose 114 H Calcium 9.1 Consult Discharge Plan - Plan Referrals: Jimmy Penaloza MD [Primary Care Provider] -
--- NOTE | 2018-02-02 12:10 | Cardiology Progress Note ---
Date of Encounter: 02/02/18 Time of Encounter: 12:13 Assessment and Plan (1) Unstable angina Current Visit: Yes Status: Acute Chest pain concerning for unstable angina. CP increased after recent LHC with PCI to the RCA. Troponin down from last admit at 0.07. Repeat LHC shows severe three vessel CAD. Cardiothoracic surgery was consulted at recommends CABG after brilinta wash-out. Patient is agreeable to surgery. Reports chest pain with activity but was able to do activity without symptoms this morning. Continue imdur. I will not increase at this time due to dull headache. Continue heparin gtt. Continue Asa and bb. Reports allergy to statin. Blood pressure improved. Last TTE 01/31/18 reviewed with patient. EF 60%. Mild TR. Mild to moderate [place]. No pulmonary hypertension. No complication from right femoral access site. Dressing removed. 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 CT surgery now following. Cardiology will sign off. Please call with questions or concerns. (2) CAD (coronary artery disease) Current Visit: No Status: Acute S/p multiple IL and PCI, most recently 01/30/18. LHC 02/01/18 for unstable angina shows severe three vessel CAD and CABG is now recommended. TTE 01/31/18 showed preserved LV function. LVEF 60%. Normal appearing LV wall motion. Mild left ventricular diastolic dysfunction. Normal right ventricular structure and function. Mild tricuspid regurgitation. Mild-moderate pulmonic regurgitation. No pulmonary hypertension. Continue asa, statin, brilinta, and bb. Qualifiers: Coronary Disease-Associated Artery/Lesion type: [place] artery [place] vs. transplanted heart: [place] heart Associated angina: with unstable angina Qualified Code(s): I25.110 - Atherosclerotic heart disease of [place] coronary artery with unstable angina pectoris (3) Hypertension Current Visit: Yes Status: Chronic Noted elevated b/p. Patient states b/p only elevated when he has a IL. B/p improved. Continue to monitor. Qualifiers: Hypertension type: essential hypertension Qualified Code(s): I10 - Essential (primary) hypertension Discussion w patient/family: The assessment and plan as outlined above was discussed with the patient and/or family members who expressed understanding and agreement. All questions were answered. Thank you for involving us in the care of your patient. Please call with any questions. Subjective Principal diagnosis: recurrent chest pain s/p recent IL and PCI. Severe three vessel CAD Interval history: Mr. Sharp reports having chest pain x2 when ambulating to the bathroom and resolving when he sat down last night. He did give himself a bath and move around his room with no symptoms this morning. Reports headache is improving. Objective Vital Signs, Last 4 Hours Temp Pulse Resp BP Pulse Ox 02/02/18 11:18 97.8 F 72 16 112/78 94 General: Conversant, No Apparent Distress HEENT: Atraumatic, Normocephaly, Mucus Membranes Moist Neck: No JVD, Normal carotid pulses Cardiac: Reg Rate and Rhythm, Normal S1 and S2, No Murmur Lungs: Normal Breath Sounds, No Wheeze, Rales, Rhonchi Neuro: Alert and responsive, No focal deficits noted Abdomen: Soft, Non-Tender Skin: No rashes noted on visualized skin Musculoskeletal: No Chest Wall Tenderness Extremities: No Clubbing, No Cyanosis, No Edema, Normal Pulses, Other (right femoral dressing removed) Results 02/02/18 00:27 02/02/18 00:27 - Imaging and Cardiology Echo: report reviewed Cardiac cath: report reviewed - EKG Interpretation EKG results cardiology: personally reviewed Consult Discharge Plan - Plan Referrals: Jimmy Penaloza MD [Primary Care Provider] -
--- NOTE | 2018-02-02 18:59 | Internal Med Progress Note ---
<Mitchel Kellogg - Last Filed: 02/02/18 18:41> Hospitalist Progress Note - Encounter Date of Encounter: 02/02/18 Time of Encounter: 09:30 - Subjective Interval History: 72 M with PMHx of HTN, OR, CVA, s/p RCA stent on 01/29 for NSTEMI here for recurrent chest pain. Patient had heart cath that showed 3 vessel disease and will likely have CABG on Monday after Brilinta washout. Patient doing well this AM. He had some chest pain overnight and earlier this morning that was relieved with nitro. He also complains of mild SOB on exertion. He denies MESSINA, fevers, chills, abdominal pain, n/v/d, numbness/tingling. - Exam Vitals: Temp Pulse Resp BP Pulse Ox 97.9 F 75 16 103/64 97 02/02/18 15:12 02/02/18 15:12 02/02/18 15:12 02/02/18 15:12 02/02/18 15:12 Exam: Gen: no acute distress, A&O x3 Heart: RRR, no murmurs Lungs: clear to auscultation bilaterally Abdomen: soft, non-tender Extremities: no edema Vascular: pulses +2 throughout all extremities - Assessment and Plan (1) Chest pain Current Visit: No Status: Acute Assessment and Plan: Cardiology consulted Cardiothoracic surgery consulted Heart cath showed 3 vessel disease No serial trops per cards Brilinta was stopped Started on heparin CABG on Monday after Brilinta washout Continuous telemetry monitor (2) Troponin level elevated Current Visit: Yes Status: Acute Assessment and Plan: Decreased from previous visit No serial trops ordered per cardiology DVT Prophylaxis: Heparin - Time Spent with Patient Total time spent is greater than 50% in coordination of care (as documented) at patient's floor/unit and/or counseling patient: 25 - 35 minutes Plan of Care Discussed with: patient Internal Medicine: Result - Labs CBC & Chem 7: 02/02/18 00:27 02/02/18 00:27 - ABG Interpretation ABG results: PT/INR, D-dimer PT 11.9 Seconds (9.4-12.1) 02/01/18 18:16 Consult Discharge Plan - Plan Referrals: Jimmy Penaloza MD [Primary Care Provider] - <Vandana Sinha - Last Filed: 02/03/18 08:30> Hospitalist Progress Note - Encounter Date of Encounter: 02/02/18 - Exam Vitals: Temp Pulse Resp BP Pulse Ox 97.8 F 70 16 136/72 97 02/03/18 06:55 02/03/18 06:55 02/03/18 06:55 02/03/18 06:55 02/03/18 06:55 - Assessment and Plan (1) Chest pain Current Visit: No Status: Acute (2) Troponin level elevated Current Visit: Yes Status: Acute - Time Spent with Patient Total time spent is greater than 50% in coordination of care (as documented) at patient's floor/unit and/or counseling patient: Internal Medicine: Result - Labs CBC & Chem 7: 02/03/18 04:25 02/03/18 04:25 Labs: Short CBC 02/03/18 Range/Units 04:25 WBC 8.2 (4.3-11.1) K/mcL Hgb 14.6 (12.9-16.9) g/dL Hct 42.2 (37.5-50.1) % Plt Count 246 (140-400) K/mcL Neutrophils # 4.8 (1.6-8.9) K/mcL BMP 02/03/18 04:25 Sodium 137 Potassium 4.0 Chloride 106 Carbon Dioxide 20 L BUN 22 Creatinine 1.07 Glucose 184 H Calcium 8.7 - ABG Interpretation ABG results: PT/INR, D-dimer PT 11.9 Seconds (9.4-12.1) 02/01/18 18:16 - Attending Attestation I examined this patient and my medical decision-making was reviewed with the Resident Physician Dr. Kellogg on 02/02/18. I agree with the documented findings, disposition and treatment plan as described except to the extent set forth below. Mr. Shrap is a 72 y/o M with known PMH of multiple OR and PCI, recent NSTEMI with pCI to the RCA, CVA, HTN and HLD admitted here for CP. His LHC showed severe tripple vessel disease. CTS was consulted for CABG. Pt was on Brilinta, so he is scheduled for CABG on Monday after Brilinta wash out. He denied any CP today. No SOB. Gen: A, A< O x3 Chest: Diminished BS B/l <Mitchel Kellogg S - Last Filed: 02/02/18 18:41> (1) Chest pain Qualifiers: Chest pain type: unspecified Qualified Code(s): R07.9 - Chest pain, unspecified <Vandana Sinha - Last Filed: 02/03/18 08:30> (1) Chest pain Qualifiers: Chest pain type: unspecified Qualified Code(s): R07.9 - Chest pain, unspecified
[2018-02-03] MEDS: Nitroglycerin 0.4 MG TAB.SUBL SL PRN ×4 (00:55→09:23)
[2018-02-03] MEDS: Heparin 25,000 UNIT/500 ML D5W 25,000 UNIT/500 ML BAG IVC SCH (04:07)
[2018-02-03 05:08] LABS: Basophils # 0.1 K/mcL (0.0-0.2); Basophils % 0.6 %; Eosinophils # 0.4 K/mcL (0.0-0.6); Eosinophils % 4.9 %; Hematocrit 42.2 % (37.5-50.1); Hemoglobin 14.6 g/dL (12.9-16.9); Immature Granulocytes % 0.4 % (0-4); Lymphocytes # 2.3 K/mcL (0.6-4.6); Lymphocytes % 28.1 %; Mean Corpuscular HGB Conc 34.6 g/dL (31.6-35.5); Mean Corpuscular Volume 89.6 fL (83.0-100.0); Mean Platelet Volume 9.8 fL (9.4-12.4); Monocytes # 0.6 K/mcL (0.0-1.3); Monocytes % 7.8 %; Neutrophils # 4.8 K/mcL (1.6-8.9); Platelet Count 246 K/mcL (140-400); Red Blood Count 4.71 M/mcL (4.19-5.50); Red Cell Distribution Width 12.8 % (11.5-14.5); Segmented Neutrophils % 58.2 %
[2018-02-03 05:29] LABS: BUN/Creatinine Ratio 21 (6-26); Blood Urea Nitrogen 22 mg/dL (8-23); Calcium 8.7 mg/dL (8.6-10.3); Carbon Dioxide 20 mEq/L (23-29); Chloride 106 mEq/L (98-107); Glucose 184 mg/dL (70-105); Osmolality,Calculated 292 (280-300); Sodium 137 mEq/L (136-145); eGFR For Non-African Americans > 60 (> 60)
[2018-02-03] MEDS ORDERED: Nitroglycerin 1 INCH/GM PACKET TP ONE (06:03)
[2018-02-03] MEDS ORDERED: *HR* Metoprolol 5 MG/5 ML VIAL IVP ONE (06:04)
[2018-02-03] MEDS: Cholestyramine 4 GM POWD.PACK PO SCH (06:39)
[2018-02-03] MEDS ORDERED: Nitroprusside 50 MG in D5% in Water 250 ML IVC SCH (08:15)
--- NOTE | 2018-02-03 08:31 | Cardiothoracic Progress Note ---
Date of Encounter: 02/03/18 Time of Encounter: 08:29 - Assessment and plan (1) CAD (coronary artery disease) Current Visit: No Status: Acute I agree with starting a nitroglycerin drip. I will start by mouth Flomax. The patient is scheduled for open heart surgery on Monday to allow his Brilinta to wear off. Qualifiers: Qualified Code(s): I25.110 - Atherosclerotic heart disease of [place] coronary artery with unstable angina pectoris - Subjective Interval history: The patient complains of some brief, shooting chest pains. These are related to motion and coughing and may be secondary to his recent myocardial infarctions. They seem to represent pleurisy or pericarditis. He also complains of some urinary difficulty and requests Flomax. Vital Signs, Last 4 Hours Temp Pulse Resp BP Pulse Ox 02/03/18 06:55 97.8 F 70 16 136/72 97 02/03/18 06:08 144/78 02/03/18 05:55 83 209/108 Clinical Data, last 8 Hours Output, Urine Amount 100 Output, Urine Amount 200 Weight 02/01/18 02/02/18 02/03/18 23:59 23:59 23:59 Weight 81.2 kg Lungs are clear to percussion and auscultation. Heart is in a regular rate and rhythm. - Labs 02/03/18 04:25 02/03/18 04:25 Lab Results, Last 24 hours 02/03/18 02/03/18 04:25 04:25 WBC 8.2 Hgb 14.6 Hct 42.2 Plt Count 246 Sodium 137 Potassium 4.0 Chloride 106 Carbon Dioxide 20 L BUN 22 Creatinine 1.07 Glucose 184 H Calcium 8.7 Consult Discharge Plan - Plan Referrals: Jimmy Penaloza MD [Primary Care Provider] -
[2018-02-03] MEDS: Multivit/Ca/Min/Fe/FA 1 TAB TABLET PO SCH (09:05)
[2018-02-03] MEDS: Isosorbide MONOnitrate (24 HR) 30 MG TAB.ER.24H PO SCH (09:05)
[2018-02-03] MEDS: Aspirin Enteric Coated 81 MG Tablet PO SCH (09:05)
[2018-02-03] MEDS: Metoprolol XL (24 HR) Succ 50 MG TAB.ER.24H PO SCH (09:05)
--- NOTE | 2018-02-03 10:52 | Internal Med Progress Note ---
<Mitchel Kellogg - Last Filed: 02/03/18 17:02> Hospitalist Progress Note - Encounter Date of Encounter: 02/03/18 Time of Encounter: 09:00 - Subjective Interval History: 72 M with PMHx of HTN, NH, CVA, s/p RCA stent on 01/29 for NSTEMI here for recurrent chest pain. Patient had heart cath that showed 3 vessel disease and will likely have CABG on Monday after Brilinta washout. Patient doing well this AM. He had some chest pain overnight and earlier this morning that was relieved with nitro. He also complains of mild SOB on exertion. He denies MESSINA, fevers, chills, abdominal pain, n/v/d, numbness/tingling. - Exam Vitals: Temp Pulse Resp BP Pulse Ox 97.8 F 86 16 119/83 97 02/03/18 06:55 02/03/18 09:29 02/03/18 06:55 02/03/18 09:29 02/03/18 06:55 Exam: Gen: no acute distress, A&O x3 Heart: RRR, no murmurs Lungs: clear to auscultation bilaterally Abdomen: soft, non-tender Extremities: no edema Vascular: pulses +2 throughout all extremities - Assessment and Plan (1) Chest pain Current Visit: No Status: Acute Assessment and Plan: Cardiology consulted - signed off Cardiothoracic surgery consulted Heart cath showed 3 vessel disease No serial trops per cards Brilinta was stopped Started on heparin Started on nitroglycerin drip, hold if BP drops below 100 systolic Started on flomax to decrease urinary frequency CABG on Monday after Brilinta washout Continuous 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 technician (2) Troponin level elevated Current Visit: Yes Status: Acute Assessment and Plan: Decreased from previous visit No serial trops ordered per cardiology DVT Prophylaxis: Heparin - Time Spent with Patient Total time spent is greater than 50% in coordination of care (as documented) at patient's floor/unit and/or counseling patient: less than 15 minutes Plan of Care Discussed with: patient Internal Medicine: Result - Labs CBC & Chem 7: 02/03/18 04:25 02/03/18 04:25 Labs: Short CBC 02/03/18 Range/Units 04:25 WBC 8.2 (4.3-11.1) K/mcL Hgb 14.6 (12.9-16.9) g/dL Hct 42.2 (37.5-50.1) % Plt Count 246 (140-400) K/mcL Neutrophils # 4.8 (1.6-8.9) K/mcL BMP 02/03/18 04:25 Sodium 137 Potassium 4.0 Chloride 106 Carbon Dioxide 20 L BUN 22 Creatinine 1.07 Glucose 184 H Calcium 8.7 - ABG Interpretation ABG results: PT/INR, D-dimer PT 11.9 Seconds (9.4-12.1) 02/01/18 18:16 Consult Discharge Plan - Plan Referrals: Jimmy Penaloza MD [Primary Care Provider] - <Vandana Sinha - Last Filed: 02/03/18 18:44> Hospitalist Progress Note - Encounter Date of Encounter: 02/03/18 - Exam Vitals: Temp Pulse Resp BP Pulse Ox 98.3 F 66 16 126/75 97 02/03/18 15:05 02/03/18 16:02 02/03/18 15:05 02/03/18 18:04 02/03/18 15:05 - Assessment and Plan (1) Chest pain Current Visit: No Status: Acute (2) Troponin level elevated Current Visit: Yes Status: Acute - Time Spent with Patient Total time spent is greater than 50% in coordination of care (as documented) at patient's floor/unit and/or counseling patient: Internal Medicine: Result - Labs CBC & Chem 7: 02/03/18 04:25 02/03/18 04:25 Labs: Short CBC 02/03/18 Range/Units 04:25 WBC 8.2 (4.3-11.1) K/mcL Hgb 14.6 (12.9-16.9) g/dL Hct 42.2 (37.5-50.1) % Plt Count 246 (140-400) K/mcL Neutrophils # 4.8 (1.6-8.9) K/mcL BMP 02/03/18 04:25 Sodium 137 Potassium 4.0 Chloride 106 Carbon Dioxide 20 L BUN 22 Creatinine 1.07 Glucose 184 H Calcium 8.7 Urine 02/03/18 Range/Units 10:45 Urine Color Yellow (Yellow) Urine Clarity Clear (Clear) Urine pH 6.0 (5.0-8.0) pH Units Ur Specific [place] 1.017 (1.010-1.025) Urine Protein Negative (Neg-Trace) mg/dL Urine Glucose (UA) Normal (Normal) mg/dL - ABG Interpretation ABG results: PT/INR, D-dimer PT 11.9 Seconds (9.4-12.1) 02/01/18 18:16 - Attending Attestation I examined this patient and my medical decision-making was reviewed with the Resident Physician Dr. Kellogg. I agree with the documented findings, disposition and treatment plan as described except to the extent set forth below. Mr. Sharp is a 72 y/o M with known PMH of multiple NH and PCI, recent NSTEMI with pCI to the RCA, CVA, HTN and HLD admitted here for CP. His LHC showed severe tripple vessel disease. CTS was consulted for CABG. Pt was on Brilinta, so he is scheduled for CABG on Monday after Brilinta wash out. Pt c/ o CP last night and this morning also had some intermittent chest pain. Gen: A, A< O x3 Chest: Diminished BS B/l Heart: S1S2+ RRR No mumurs a/p 1. Acute CP / Unstable angina 2. Severe triple vessel CAD started him Nitro gtt cont ASA and Heparin gtt hold of Brilinta <Mitchel Kellogg S - Last Filed: 02/03/18 17:02> (1) Chest pain Qualifiers: Chest pain type: unspecified Qualified Code(s): R07.9 - Chest pain, unspecified <Vandana Sinha - Last Filed: 02/03/18 18:44> (1) Chest pain Qualifiers: Chest pain type: unspecified Qualified Code(s): R07.9 - Chest pain, unspecified
[2018-02-03 10:55] LABS: Bilirubin,Urine Negative (Negative); Blood,Urine Negative (Negative); Clarity,Urine Clear (Clear); Color,Urine Yellow (Yellow); Glucose,Urine (UA) Normal (Normal); Ketones,Urine Negative (Negative); Leukocyte Esterase,Urine Negative (Negative); Nitrite,Urine Negative (Negative); Protein,Urine Negative (Neg-Trace); Specific Gravity,Urine 1.017 (1.010-1.025); Urobilinogen,Urine Normal (Normal)
[2018-02-03] MEDS: Nitroglycerin 25 MG/250 ML INFUS..BTL IVC SCH (11:10)
[2018-02-03] MEDS: *HR* Heparin 5,000 UNIT/ML VIAL IVP PRN (16:14)
[2018-02-03 21:40] LABS: Estimated Average Glucose 120 mg/dl; Hemoglobin A1C 5.8 %
[2018-02-03 21:50] LABS: Chol/HDL Ratio 6.2 (0-4.9)
[2018-02-04] MEDS: Nitroglycerin 0.4 MG TAB.SUBL SL PRN (03:31)
[2018-02-04 04:02] LABS: Basophils # 0.1 K/mcL (0.0-0.2); Basophils % 0.8 %; Eosinophils # 0.4 K/mcL (0.0-0.6); Eosinophils % 5.7 %; Hematocrit 38.6 % (37.5-50.1); Hemoglobin 13.4 g/dL (12.9-16.9); Immature Granulocytes % 0.5 % (0-4); Lymphocytes % 30.6 %; Mean Corpuscular HGB Conc 34.7 g/dL (31.6-35.5); Mean Corpuscular Hemoglobin 30.5 pg (28.0-33.3); Mean Corpuscular Volume 87.7 fL (83.0-100.0); Mean Platelet Volume 9.1 fL (9.4-12.4); Monocytes # 0.6 K/mcL (0.0-1.3); Monocytes % 8.6 %; Neutrophils # 3.6 K/mcL (1.6-8.9); Platelet Count 233 K/mcL (140-400); Segmented Neutrophils % 53.8 %
[2018-02-04 04:26] LABS: BUN/Creatinine Ratio 18 (6-26); Blood Urea Nitrogen 18 mg/dL (8-23); Calcium 8.7 mg/dL (8.6-10.3); Carbon Dioxide 22 mEq/L (23-29); Chloride 107 mEq/L (98-107); Glucose 153 mg/dL (70-105); Osmolality,Calculated 289 (280-300); Potassium 3.9 mEq/L (3.5-5.1); Sodium 137 mEq/L (136-145); eGFR For Non-African Americans > 60 (> 60)
[2018-02-04] MEDS ORDERED: *HR* Morphine 2 MG/ML SYRINGE IVP ONE (07:17)
[2018-02-04] MEDS ORDERED: *HR* Labetalol 20 MG/4 ML SYRINGE IVP ONE ×2 (07:42→07:45)
[2018-02-04] MEDS ORDERED: *HR* Labetalol 20 MG/4 ML SYRINGE IVP STA (07:43)
[2018-02-04] MEDS: Cholestyramine 4 GM POWD.PACK PO SCH (08:03)
[2018-02-04] MEDS: Metoprolol XL (24 HR) Succ 50 MG TAB.ER.24H PO SCH (08:12)
[2018-02-04] MEDS: Isosorbide MONOnitrate (24 HR) 30 MG TAB.ER.24H PO SCH (08:12)
[2018-02-04] MEDS: Aspirin Enteric Coated 81 MG Tablet PO SCH (08:12)
[2018-02-04] MEDS: Multivit/Ca/Min/Fe/FA 1 TAB TABLET PO SCH (08:12)
--- NOTE | 2018-02-04 09:07 | Cardiothoracic Progress Note ---
Date of Encounter: 02/04/18 Time of Encounter: 09:05 - Assessment and plan (1) CAD (coronary artery disease) Current Visit: No Status: Acute We will increase the nitroglycerin drip as necessary. He is also on a heparin drip. We will order when necessary morphine. He is scheduled for open heart surgery on Monday to allow his blood thinner to wear off. Qualifiers: Qualified Code(s): I25.110 - Atherosclerotic heart disease of [place] coronary artery with unstable angina pectoris - Subjective Interval history: The patient had an episode of chest pain this morning that was associated with hypertension. EKG was unchanged. He was transferred to [facility] so that we could give him an increased dose of nitroglycerin. He also received morphine. Presently, he is chest pain-free and blood pressure is in the 120s systolic. Vital Signs, Last 4 Hours Temp Pulse Resp BP Pulse Ox 02/04/18 08:28 97.9 F 80 16 116/71 95 02/04/18 08:25 82 240/130 02/04/18 06:45 97.8 F 73 16 207/106 97 02/04/18 05:41 134/88 [place] Flow Rate Oxygen Flow Rate (LPM) 2 Clinical Data, last 8 Hours Output, Urine Amount 250 Output, Urine Amount 100 Output, Urine Amount 100 Weight 02/02/18 02/03/18 02/04/18 23:59 23:59 23:59 Weight 81.3 kg Lungs are clear to percussion and auscultation. Heart is in a normal sinus rhythm. - Labs 02/04/18 03:45 02/04/18 03:45 Lab Results, Last 24 hours 02/04/18 02/04/18 03:45 03:45 WBC 6.6 Hgb 13.4 Hct 38.6 Plt Count 233 Sodium 137 Potassium 3.9 Chloride 107 Carbon Dioxide 22 L BUN 18 Creatinine 1.02 Glucose 153 H Calcium 8.7 Consult Discharge Plan - Plan Referrals: Jimmy Penaloza MD [Primary Care Provider] -
--- NOTE | 2018-02-04 09:08 | Internal Med Progress Note ---
<Mitchel Kellogg S - Last Filed: 02/04/18 11:59> Hospitalist Progress Note - Encounter Date of Encounter: 02/04/18 Time of Encounter: 09:00 - Subjective Interval History: 72 M with PMHx of HTN, [place], CVA, s/p RCA stent on 01/29 for NSTEMI here for recurrent chest pain. Patient had heart cath that showed 3 vessel disease and will likely have CABG on Monday after Brilinta washout. Patient started on nitroglycerin drip and flomax yesterday. He had elevated BP of 240/130 this AM and was given IVP labetalol which dropped his pressure to 126/90. Patient states he has mild chest pain this morning. He also complains of mild SOB on exertion. He denies MESSINA, fevers, chills, abdominal pain, n/v/d, numbness/ tingling. Will be transferred to for continuous BP monitoring and possible nicardipine drip. - Exam Vitals: Temp Pulse Resp BP Pulse Ox 97.9 F 80 16 116/71 95 02/04/18 08:28 02/04/18 08:28 02/04/18 08:28 02/04/18 08:28 02/04/18 08:28 Exam: Gen: no acute distress, A&O x3 Heart: RRR, no murmurs Lungs: clear to auscultation bilaterally Abdomen: soft, non-tender Extremities: no edema Vascular: pulses +2 throughout all extremities - Assessment and Plan (1) Chest pain Current Visit: No Status: Acute Assessment and Plan: Cardiology consulted - signed off Cardiothoracic surgery consulted Heart cath showed 3 vessel disease No serial trops per cards Brilinta was stopped CABG on Monday after Brilinta washout Started on heparin Started on nitroglycerin drip, hold if BP drops below 100 systolic Started on flomax to decrease urinary frequency, has bedside urinal, may place urinary catheter Given IVP labetalol this AM for BP of 240/130, pressures decreased to 126/90 Transferred to for continuous BP monitoring and possible nicardipine drip Continuous radiation monitor (2) Troponin level elevated Current Visit: Yes Status: Acute Assessment and Plan: Decreased from previous visit No serial trops ordered per cardiology DVT Prophylaxis: Heparin - Time Spent with Patient Total time spent is greater than 50% in coordination of care (as documented) at patient's floor/unit and/or counseling patient: less than 15 minutes Plan of Care Discussed with: patient Internal Medicine: Result - Labs CBC & Chem 7: 02/04/18 03:45 02/04/18 03:45 Labs: Short CBC 02/04/18 Range/Units 03:45 WBC 6.6 (4.3-11.1) K/mcL Hgb 13.4 (12.9-16.9) g/dL Hct 38.6 (37.5-50.1) % Plt Count 233 (140-400) K/mcL Neutrophils # 3.6 (1.6-8.9) K/mcL BMP 02/04/18 03:45 Sodium 137 Potassium 3.9 Chloride 107 Carbon Dioxide 22 L BUN 18 Creatinine 1.02 Glucose 153 H Calcium 8.7 Urine 02/03/18 Range/Units 10:45 Urine Color Yellow (Yellow) Urine Clarity Clear (Clear) Urine pH 6.0 (5.0-8.0) pH Units Ur Specific [place] 1.017 (1.010-1.025) Urine Protein Negative (Neg-Trace) mg/dL Urine Glucose (UA) Normal (Normal) mg/dL - ABG Interpretation ABG results: PT/INR, D-dimer PT 11.9 Seconds (9.4-12.1) 02/01/18 18:16 Consult Discharge Plan - Plan Referrals: Jimmy Penaloza MD [Primary Care Provider] - <Vandana Sinha - Last Filed: 02/04/18 12:37> Hospitalist Progress Note - Encounter Date of Encounter: 02/04/18 - Exam Vitals: Temp Pulse Resp BP Pulse Ox 97.9 F 80 16 94/72 92 02/04/18 12:05 02/04/18 12:05 02/04/18 12:05 02/04/18 12:05 02/04/18 12:05 - Assessment and Plan (1) Chest pain Current Visit: No Status: Acute (2) Troponin level elevated Current Visit: Yes Status: Acute - Time Spent with Patient Total time spent is greater than 50% in coordination of care (as documented) at patient's floor/unit and/or counseling patient: Internal Medicine: Result - Labs CBC & Chem 7: 02/04/18 03:45 02/04/18 03:45 Labs: Short CBC 02/04/18 Range/Units 03:45 WBC 6.6 (4.3-11.1) K/mcL Hgb 13.4 (12.9-16.9) g/dL Hct 38.6 (37.5-50.1) % Plt Count 233 (140-400) K/mcL Neutrophils # 3.6 (1.6-8.9) K/mcL BMP 02/04/18 03:45 Sodium 137 Potassium 3.9 Chloride 107 Carbon Dioxide 22 L BUN 18 Creatinine 1.02 Glucose 153 H Calcium 8.7 - ABG Interpretation ABG results: PT/INR, D-dimer PT 11.9 Seconds (9.4-12.1) 02/01/18 18:16 - Attending Attestation I examined this patient and my medical decision-making was reviewed with the Resident Physician Dr. Kellogg. I agree with the documented findings, disposition and treatment plan as described except to the extent set forth below. Mr. Sharp is a 72 y/o M with known PMH of multiple [place] and PCI, recent NSTEMI with pCI to the RCA, CVA, HTN and HLD admitted here for CP. His LHC showed severe tripple vessel disease. CTS was consulted for CABG. Pt was on Brilinta, so he is scheduled for CABG on Monday after Brilinta wash out. Since pt c/o CP y/d, started him on Nitro gtt, now he denied any CP. However this morning his BP went upto 230's, however he denied any CP. Gen: A, A< O x3 Chest: Diminished BS B/l Heart: S1S2+ RRR No mumurs a/p 1. Acute CP / Unstable angina 2. Severe triple vessel CAD 3. Severe HTN Urgency His BP still fluctuating Earlier gave him Labetaolol 20mg IV x 1 dose now his BP dropped down 120 transferred the pt to 2N ( step down unit ) for close monitoring and to provide critical care Held Nicradipine gtt fow now Try to wean him off the Nitro gtt cont ASA and Heparin gtt Cont holding Brilinta <Mitchel Kellogg - Last Filed: 02/04/18 11:59> (1) Chest pain Qualifiers: Chest pain type: unspecified Qualified Code(s): R07.9 - Chest pain, unspecified <Vandana Sinha - Last Filed: 02/04/18 12:37> (1) Chest pain Qualifiers: Chest pain type: unspecified Qualified Code(s): R07.9 - Chest pain, unspecified
[2018-02-04] MEDS: Heparin 25,000 UNIT/500 ML D5W 25,000 UNIT/500 ML BAG IVC SCH ×2 (10:28→10:29)
[2018-02-04] MEDS: niCARdipine 40 MG/200 ML MLS IVC SCH ×3 (12:42→23:45)
[2018-02-05] MEDS: Nitroglycerin 0.4 MG TAB.SUBL SL PRN ×6 (02:07→20:32)
[2018-02-05 04:32] LABS: Basophils # 0.1 K/mcL (0.0-0.2); Basophils % 0.7 %; Eosinophils # 0.4 K/mcL (0.0-0.6); Hematocrit 41.7 % (37.5-50.1); Hemoglobin 14.5 g/dL (12.9-16.9); Immature Granulocytes % 0.3 % (0-4); Lymphocytes # 2.2 K/mcL (0.6-4.6); Lymphocytes % 28.8 %; Mean Corpuscular HGB Conc 34.8 g/dL (31.6-35.5); Mean Corpuscular Hemoglobin 31.4 pg (28.0-33.3); Mean Corpuscular Volume 90.3 fL (83.0-100.0); Mean Platelet Volume 9.6 fL (9.4-12.4); Monocytes # 0.6 K/mcL (0.0-1.3); Monocytes % 7.9 %; Neutrophils # 4.4 K/mcL (1.6-8.9); Platelet Count 246 K/mcL (140-400); Red Blood Count 4.62 M/mcL (4.19-5.50); Segmented Neutrophils % 57.3 %
[2018-02-05 04:55] LABS: BUN/Creatinine Ratio 16 (6-26); Blood Urea Nitrogen 16 mg/dL (8-23); Calcium 8.9 mg/dL (8.6-10.3); Carbon Dioxide 24 mEq/L (23-29); Chloride 104 mEq/L (98-107); Glucose 148 mg/dL (70-105); Osmolality,Calculated 288 (280-300); Potassium 4.2 mEq/L (3.5-5.1); Sodium 137 mEq/L (136-145); eGFR For Non-African Americans > 60 (> 60)
[2018-02-05] MEDS: Nitroglycerin 25 MG/250 ML INFUS..BTL IVC SCH ×2 (07:28→08:38)
--- NOTE | 2018-02-05 09:05 | Internal Med Progress Note ---
Hospitalist Progress Note - Encounter Date of Encounter: 02/05/18 Time of Encounter: 08:40 - Subjective Interval History: 72 M with PMHx of HTN, CT, CVA, s/p RCA stent on 01/29 for NSTEMI here for recurrent chest pain. Patient had heart cath that showed 3 vessel disease and will likely have CABG on Monday after Brilinta washout. Patient started on nitroglycerin drip and flomax yesterday. He had elevated BP of 240/130 this AM and was given IVP labetalol which dropped his pressure to 126/90. Pt given 4 doses sublingual nitro last night, much better today, minimal chest pain with movement. No SOB. Pt BP was elevated 183/98, started on nitro drip BP dropped 137/89. CABG scheduled for Monday02/06/18 745am. - Exam Vitals: Temp Pulse Resp BP Pulse Ox 97.9 F 74 18 183/98 96 02/05/18 06:09 02/05/18 07:31 02/05/18 07:31 02/05/18 07:31 02/05/18 06:09 Exam: Gen: no acute distress, A&O x3 Heart: RRR, no murmurs Lungs: clear to auscultation bilaterally Abdomen: soft, non-tender Extremities: no edema Vascular: pulses +2 throughout all extremities - Assessment and Plan (1) Chest pain Current Visit: No Status: Acute Assessment and Plan: Pt has 3 vessel disease, scheduled for CABG 02/06/18. Brilinta stopped, pt still on heparin. Pt on nitroglycerin drop to maintain BP, on continuous 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eterization technician. DVT Prophylaxis: Heparin - Time Spent with Patient Total time spent is greater than 50% in coordination of care (as documented) at patient's floor/unit and/or counseling patient: less than 15 minutes Plan of Care Discussed with: patient Internal Medicine: Result - Labs CBC & Chem 7: 02/05/18 03:55 02/05/18 03:55 Labs: Short CBC 02/05/18 Range/Units 03:55 WBC 7.6 (4.3-11.1) K/mcL Hgb 14.5 (12.9-16.9) g/dL Hct 41.7 (37.5-50.1) % Plt Count 246 (140-400) K/mcL Neutrophils # 4.4 (1.6-8.9) K/mcL BMP 02/05/18 03:55 Sodium 137 Potassium 4.2 Chloride 104 Carbon Dioxide 24 BUN 16 Creatinine 1.02 Glucose 148 H Calcium 8.9 - ABG Interpretation ABG results: PT/INR, D-dimer PT 11.9 Seconds (9.4-12.1) 02/01/18 18:16 Consult Discharge Plan - Plan Referrals: Jimmy Penaloza MD [Primary Care Provider] - (1) Chest pain Qualifiers: Chest pain type: unspecified Qualified Code(s): R07.9 - Chest pain, unspecified
[2018-02-05] MEDS: Metoprolol XL (24 HR) Succ 50 MG TAB.ER.24H PO SCH (09:09)
[2018-02-05] MEDS: Isosorbide MONOnitrate (24 HR) 30 MG TAB.ER.24H PO SCH (09:09)
[2018-02-05] MEDS: Multivit/Ca/Min/Fe/FA 1 TAB TABLET PO SCH (09:09)
[2018-02-05] MEDS: Aspirin Enteric Coated 81 MG Tablet PO SCH (09:09)
[2018-02-05] MEDS: Chlorhexidine Rinse 15 ML MOUTHWASH MM SCH ×2 (09:09→20:14)
[2018-02-05] MEDS: niCARdipine 40 MG/200 ML MLS IVC SCH (09:10)
[2018-02-05] MEDS: *HR* Morphine 2 MG/ML SYRINGE IVP PRN (09:12)
--- NOTE | 2018-02-05 09:19 | Internal Med Progress Note ---
<aKin Stoll S - Last Filed: 02/05/18 12:10> Hospitalist Progress Note - Encounter Date of Encounter: 02/05/18 Time of Encounter: 09:15 - Subjective Interval History: Pt is seen at the bedside. He has a PMH of HTN, [place], CVA x 1, s/p RCA stent on 01/11- for NSTEMI and then came back for recurrent chest pain. Cath at the readmission showed severe 3 vessel dz with an EF of 45%. He is planned to have CABG tomorrow with Dr Stoll, post Brilennta washout. Pt currently has no complains. He states he has chest pain only with exertion but that the nitro drip is controlling his pain. Pt has no SOB at rest but has SOB on exertion. He denies abd pain, N/V/D, numbness/tingling, edema today. Pt had elevated BP all night systolic in the 150's, controlled with Nicardipine drip. Current BP is 183/98. He denies headache, visual changes, seeing spots, or dizziness. Fluids - none Electrolytes - all WNL Nutrition - cardiac diet, NPO at midnight DVT prophylaxis - on heparin drip as per protocol GI prophylaxis - not indicated - Exam Vitals: Temp Pulse Resp BP Pulse Ox 97.9 F 74 18 183/98 96 02/05/18 06:09 02/05/18 07:31 02/05/18 07:31 02/05/18 07:31 02/05/18 06:09 Exam: Gen: no acute distress, A&O x3 Heart: RRR, no murmurs Lungs: clear to auscultation bilaterally Abdomen: soft, non-tender Extremities: no edema Skin - no open wound - Assessment and Plan (1) Unstable angina Current Visit: Yes Status: Acute Assessment and Plan: The patient was admitted 01/29 for unstable angina -he was brought to the cath lab manager on 01/30 and had an LAD stent, PCI to the RCA and was found to have 70% stenosis The pt went home and came back with recurrent chest pain on the -repeat LHC showed severe three vessel disease with an EF of 45% Currently the patient has no chest pain, no complaints of any N/V/D, no abd pain , no SOB, no numbness/tingling Plan: -NPO at midnight for CABG with Dr Stoll -check PT/INR in the morning -brillenta is held -nitro drip for chest pain, 0.4mg SL nitro q5min for chest pain, nicardipine for BP control -continue heparin as per protocol, until cardiothoracic changes -telemtry monitoring (2) Hypertension Current Visit: Yes Status: Chronic Assessment and Plan: Pt has a hx of HTN -BP this morning was systolic in the 180's -currently BP is 137/89 -difficult to control Plan: -Nitro drip 1.5mls/hr -nitroglycerin 0.4mg SL q5min prn chest pain -nicardipine 25mls/hr -tamsulosin 0.4mg PO daily (3) CAD (coronary artery disease) Current Visit: No Status: Chronic Assessment and Plan: Pt has [place] x3 -PCI to RCA on 01/30, RCA had 70% stenosis -repeat PCI showed severe 3 vessel disease with an EF 45% Pt has multiple risk factors for CAD including HTN, HDL, age, and he is male Plan: -pt is going to go for CABG tomorrow with Dr Stoll -NPO at midnight -brillenta held -encourage modification of risk factors, encourage cardiac diet (4) Hyperlipidemia Current Visit: No Status: Chronic Assessment and Plan: Pt has a hx of chronic HDL TG 190, CHolesterol 243, LDL 166, VLDL 38, HDL 39 -pt is on Cholestyramine Plan: -continue home meds DVT Prophylaxis: Heparin drip as per protocol - Time Spent with Patient Total time spent is greater than 50% in coordination of care (as documented) at patient's floor/unit and/or counseling patient: less than 15 minutes Plan of Care Discussed with: patient Internal Medicine: Result - Labs CBC & Chem 7: 02/05/18 03:55 02/05/18 03:55 Labs: Short CBC 02/05/18 Range/Units 03:55 WBC 7.6 (4.3-11.1) K/mcL Hgb 14.5 (12.9-16.9) g/dL Hct 41.7 (37.5-50.1) % Plt Count 246 (140-400) K/mcL Neutrophils # 4.4 (1.6-8.9) K/mcL BMP 02/05/18 03:55 Sodium 137 Potassium 4.2 Chloride 104 Carbon Dioxide 24 BUN 16 Creatinine 1.02 Glucose 148 H Calcium 8.9 - ABG Interpretation ABG results: PT/INR, D-dimer PT 11.9 Seconds (9.4-12.1) 02/01/18 18:16 Consult Discharge Plan - Plan Referrals: Jimmy Penaloza MD [Primary Care Provider] - <Vandana Sinha - Last Filed: 02/05/18 17:05> Hospitalist Progress Note - Encounter Date of Encounter: 02/05/18 - Exam Vitals: Temp Pulse Resp BP Pulse Ox 98.0 F 75 18 107/73 97 02/05/18 15:51 02/05/18 16:00 02/05/18 15:51 02/05/18 16:00 02/05/18 15:51 - Assessment and Plan (1) Hypertension Current Visit: Yes Status: Chronic (2) CAD (coronary artery disease) Current Visit: No Status: Chronic (3) Unstable angina Current Visit: Yes Status: Acute (4) Hyperlipidemia Current Visit: No Status: Chronic - Time Spent with Patient Total time spent is greater than 50% in coordination of care (as documented) at patient's floor/unit and/or counseling patient: Internal Medicine: Result - Labs CBC & Chem 7: 02/05/18 03:55 02/05/18 03:55 Labs: Short CBC 02/05/18 Range/Units 03:55 WBC 7.6 (4.3-11.1) K/mcL Hgb 14.5 (12.9-16.9) g/dL Hct 41.7 (37.5-50.1) % Plt Count 246 (140-400) K/mcL Neutrophils # 4.4 (1.6-8.9) K/mcL BMP 02/05/18 03:55 Sodium 137 Potassium 4.2 Chloride 104 Carbon Dioxide 24 BUN 16 Creatinine 1.02 Glucose 148 H Calcium 8.9 - ABG Interpretation ABG results: PT/INR, D-dimer PT 11.9 Seconds (9.4-12.1) 02/01/18 18:16 - Attending Attestation I examined this patient and my medical decision-making was reviewed with the Resident Physician Dr. Stoll. I agree with the documented findings, disposition and treatment plan as described except to the extent set forth below. Mr. Sharp is a 72 y/o M with known PMH of multiple [place] and PCI, recent NSTEMI with pCI to the RCA, CVA, HTN and HLD admitted here for CP. His LHC showed severe tripple vessel disease. CTS was consulted for CABG. Pt was on Brilinta, so he is scheduled for CABG on Monday after Brilinta wash out. Pt CP is better today.. Still has some intermittent CP, which leasing into uncontrolled HTN Gen: A, A< O x3 Chest: Diminished BS B/l Heart: S1S2+ RRR No mumurs a/p 1. Acute CP / Unstable angina 2. Severe triple vessel CAD 3. Severe HTN Urgency His BP still fluctuating Try to wean him off the Nitro gtt as he tolerates cont ASA and Heparin gtt Cont holding Brilinta scheduled for CABG in AM <Kain Stoll - Last Filed: 02/05/18 12:10> (2) Hypertension Qualifiers: Hypertension type: essential hypertension Qualified Code(s): I10 - Essential (primary) hypertension (3) CAD (coronary artery disease) Qualifiers: Coronary Disease-Associated Artery/Lesion type: [place] artery [place] vs. transplanted heart: [place] heart Associated angina: with unstable angina Qualified Code(s): I25.110 - Atherosclerotic heart disease of [place] coronary artery with unstable angina pectoris (4) Hyperlipidemia Qualifiers: Hyperlipidemia type: unspecified Qualified Code(s): E78.5 - Hyperlipidemia, unspecified <Vandana Sinha - Last Filed: 02/05/18 17:05> (1) Hypertension Qualifiers: Hypertension type: essential hypertension Qualified Code(s): I10 - Essential (primary) hypertension (2) CAD (coronary artery disease) Qualifiers: Coronary Disease-Associated Artery/Lesion type: [place] artery [place] vs. transplanted heart: [place] heart Associated angina: with unstable angina Qualified Code(s): I25.110 - Atherosclerotic heart disease of [place] coronary artery with unstable angina pectoris (4) Hyperlipidemia Qualifiers: Hyperlipidemia type: unspecified Qualified Code(s): E78.5 - Hyperlipidemia, unspecified
[2018-02-05] MEDS: Cholestyramine 4 GM POWD.PACK PO SCH (09:46)
--- NOTE | 2018-02-05 10:43 | Cardiothoracic Progress Note ---
Date of Encounter: 02/05/18 Time of Encounter: 07:36 - Assessment and plan (1) Chest pain Current Visit: No Status: Acute The patient is scheduled for CABG by Dr. Hao Stoll in the morning. The assessment and plan as outlined above was discussed with the patient and/or family members who expressed understanding and agreement. All questions were answered. Qualifiers: Chest pain type: unspecified Qualified Code(s): R07.9 - Chest pain, unspecified - Subjective Interval history: The patient is resting comfortably in his hospital bed. He had an episode of chest pain yesterday; however, this has resolved. Vital Signs, Last 4 Hours Pulse Resp BP 02/05/18 07:31 74 18 183/98 Oxgyen Flow Rate Oxygen Flow Rate (LPM) 2 Clinical Data, last 8 Hours Output, Urine Amount 100 Output, Urine Amount 200 Output, Urine Amount 350 Weight 02/03/18 02/04/18 02/05/18 23:59 23:59 23:59 Weight 81.3 kg - Physical Examination General: Conversant, No Apparent Distress Neck: No JVD, Normal carotid pulses Cardiac: Reg Rate and Rhythm, Normal S1 and S2, No Murmur Lungs: Normal Breath Sounds, No Wheeze, Rales, Rhonchi Neuro: Alert and responsive, No focal deficits noted Vascular: Normal capillary refill Extremities: No Clubbing, No Cyanosis, No Edema - Labs 02/05/18 03:55 02/05/18 03:55 Lab Results, Last 24 hours 02/05/18 02/05/18 03:55 03:55 WBC 7.6 Hgb 14.5 Hct 41.7 Plt Count 246 Sodium 137 Potassium 4.2 Chloride 104 Carbon Dioxide 24 BUN 16 Creatinine 1.02 Glucose 148 H Calcium 8.9 Consult Discharge Plan - Plan Referrals: Jimmy Penaloza MD [Primary Care Provider] -
[2018-02-05] MEDS: *HR* Heparin 5,000 UNIT/ML VIAL IVP PRN (14:15)
[2018-02-05] MEDS: Heparin 25,000 UNIT/500 ML D5W 25,000 UNIT/500 ML BAG IVC SCH (20:12)
[2018-02-05] MEDS: *HR* LORazepam 0.5 MG TABLET PO PRN (20:31)
[2018-02-06 02:22] LABS: INR 1.1; Prothrombin Time 11.9 Seconds (9.4-12.1)
[2018-02-06] MEDS: *HR* Morphine 2 MG/ML SYRINGE IVP PRN (04:53)
[2018-02-06] MEDS ORDERED: 0.9 % Sodium Chloride 250 ML ONE ×2 (05:13→18:35)
[2018-02-06] MEDS: Nitroglycerin 0.4 MG TAB.SUBL SL PRN (05:15)
[2018-02-06] MEDS: Nitroglycerin 25 MG/250 ML INFUS..BTL IVC SCH ×2 (05:22→19:00)
[2018-02-06] MEDS ORDERED: CeFAZolin Syr 2,000MG/20 ML 2,000 MG/20 ML SYRINGE IVPB ONE (06:00)
[2018-02-06] MEDS ORDERED: Chlorhexidine Rinse 15 ML MOUTHWASH MM SCH (06:00)
[2018-02-06] MEDS: Metoprolol XL (24 HR) Succ 50 MG TAB.ER.24H PO SCH ×2 (06:19→06:20)
[2018-02-06] MEDS ORDERED: Verapamil 5 MG/2 ML VIAL ONE (06:40)
[2018-02-06] MEDS ORDERED: *HR* Etomidate 20 MG/10 ML AMPUL IVP ONE (06:41)
[2018-02-06] MEDS ORDERED: *HR* Rocuronium Bromide 50 MG/5 ML VIAL ONE (06:41)
[2018-02-06] MEDS ORDERED: Famotidine 20 MG/2 ML VIAL ONE (06:41)
[2018-02-06] MEDS ORDERED: Tranexamic Acid 1,000 MG/10 ML VIAL ONE ×2 (06:42→09:28)
[2018-02-06] MEDS ORDERED: Protamine Sulfate 250 MG/25 ML VIAL IVP ONE (06:42)
[2018-02-06] MEDS ORDERED: *HR* Midazolam HCl 5 MG/5 ML VIAL IVP ONE (06:47)
[2018-02-06] MEDS ORDERED: *HR* FentaNYL (PF) 1,000 MCG/20 ML VIAL ONE (06:47)
[2018-02-06] MEDS ORDERED: NiCARdipine 2.5 MG/10 ML Syringe IVPB ONE (06:50)
[2018-02-06] MEDS ORDERED: Nitroglycerin 25 MG/250 ML INFUS..BTL IVC ONE (06:50)
[2018-02-06] MEDS ORDERED: Insulin Human Regular 100 UNIT in 0.9 % Sodium Chloride 100 ML IV PRN (07:45)
[2018-02-06] MEDS ORDERED: Dextrose 50 % in Water (Vial) 30 ML, Sodium Bicarbonate 20 MEQ, Potassium Chloride 15 M... TH ONE (07:45)
[2018-02-06] MEDS ORDERED: Norepinephrine 4 MG in D5% in Water 250 ML IVC PRN (07:45)
[2018-02-06] MEDS ORDERED: Dextrose 50 % in Water (Vial) 30 ML, Sodium Bicarbonate 20 MEQ, Lidocaine 1% 5 ML, Insu... TH ONE ×3 (07:45)
[2018-02-06] MEDS ORDERED: Heparin 15,000 UNIT in 0.9 % Sodium Chloride 500 ML IV ONE (07:45)
--- NOTE | 2018-02-06 08:14 | Internal Med Progress Note ---
<Kain Stoll S - Last Filed: 02/06/18 13:21> Hospitalist Progress Note - Encounter Date of Encounter: 02/06/18 Time of Encounter: 06:35 - Subjective Interval History: Pt is seen at the bedside. He has a PMH of HTN, [place], CVA x 1, s/p RCA stent on 01/11- for NSTEMI and then came back for recurrent chest pain. Cath at the readmission showed severe 3 vessel dz with an EF of 45%. He is planned to have CABG today with Dr Stoll. Pt was being moved to the transfer bed while I was in room. Pt currently has no complains. He states he has chest pain only with exertion but that the nitro drip is controlling his pain. Had one episode of chest pain last night when he got up to bathroom. Pt has no SOB at rest but has SOB on exertion. He denies abd pain, N/V/D, numbness/tingling, edema today. Current BP is 120/81. He denies headache, visual changes, seeing spots, or dizziness. - Exam Vitals: Temp Pulse Resp BP Pulse Ox 97.7 F 71 16 120/81 93 02/06/18 03:30 02/06/18 03:30 02/06/18 03:30 02/06/18 03:30 02/06/18 03:30 Exam: Gen: no acute distress, A&O x3 Heart: RRR, no murmurs Lungs: clear to auscultation bilaterally Abdomen: soft, non-tender Extremities: no edema Skin - no open wound - Assessment and Plan (1) Unstable angina Current Visit: Yes Status: Acute Assessment and Plan: The patient was admitted 01/29 for unstable angina -he was brought to the phlebotomist medical lab assistant on 01/30 and had an LAD stent, PCI to the RCA and was found to have 70% stenosis The pt went home and came back with recurrent chest pain on the -repeat C showed severe three vessel disease with an EF of 45% Currently the patient has no chest pain, no complaints of any N/V/D, no abd pain , no SOB, no numbness/tingling PT 11.9 INR 1.1 Plan: -NPO -CABG today with Dr. Stoll -brillenta is held -nitro drip for chest pain, 0.4mg SL nitro q5min for chest pain, nicardipine for BP control -heparin d/c -telemtry monitoring -pain control as per cardiothoracic sx -check CBC/CMP in AM (2) Hypertension Current Visit: Yes Status: Chronic Assessment and Plan: Pt has a hx of HTN -currently BP is 120/81 -difficult to control Plan: -Nitro drip 1.5mls/hr -nitroglycerin 0.4mg SL q5min prn chest pain -nicardipine 25mls/hr -tamsulosin 0.4mg PO daily (3) CAD (coronary artery disease) Current Visit: No Status: Chronic Assessment and Plan: Pt has [place] x3 -PCI to RCA on 01/30, RCA had 70% stenosis -repeat PCI showed severe 3 vessel disease with an EF 45% Pt has multiple risk factors for CAD including HTN, HDL, age, and he is male Plan: -pt is going to go for CABG today with Dr Stoll -NPO currently -gypsy simeon -encourage modification of risk factors, encourage cardiac diet (4) Hyperlipidemia Current Visit: No Status: Chronic Assessment and Plan: Pt has a hx of chronic HDL TG 190, CHolesterol 243, LDL 166, VLDL 38, HDL 39 -pt is on Cholestyramine Plan: -continue home meds - Time Spent with Patient Total time spent is greater than 50% in coordination of care (as documented) at patient's floor/unit and/or counseling patient: Internal Medicine: Result - Labs CBC & Chem 7: 02/06/18 12:17 02/06/18 12:17 - ABG Interpretation ABG results: PT/INR, D-dimer PT 11.9 Seconds (9.4-12.1) 02/06/18 01:55 Consult Discharge Plan - Plan Referrals: Jimmy Penaloza MD [Primary Care Provider] - <Kishor Lorenzo - Last Filed: 02/06/18 14:01> Hospitalist Progress Note - Encounter Date of Encounter: 02/06/18 - Exam Vitals: Temp Pulse Resp BP Pulse Ox 97.7 F 71 16 120/81 93 02/06/18 03:30 02/06/18 03:30 02/06/18 03:30 02/06/18 03:30 02/06/18 03:30 - Assessment and Plan (1) Hypertension Current Visit: Yes Status: Chronic (2) CAD (coronary artery disease) Current Visit: No Status: Chronic (3) Unstable angina Current Visit: Yes Status: Acute (4) Hyperlipidemia Current Visit: No Status: Chronic - Time Spent with Patient Total time spent is greater than 50% in coordination of care (as documented) at patient's floor/unit and/or counseling patient: Internal Medicine: Result - Labs CBC & Chem 7: 02/06/18 12:17 02/06/18 12:17 Labs: Short CBC 02/06/18 Range/Units 12:17 WBC 12.6 H D (4.3-11.1) K/mcL Hgb 12.2 L D (12.9-16.9) g/dL Hct 34.7 L (37.5-50.1) % Plt Count 100 L D (140-400) K/mcL Neutrophils # 9.7 H (1.6-8.9) K/mcL BMP 02/06/18 12:17 Sodium 139 Potassium 3.4 L Chloride 106 Carbon Dioxide 25 BUN 15 Creatinine 0.97 Glucose 68 L Calcium 8.4 L - ABG Interpretation ABG results: ABG ABG pH 7.47 pH Units (7.32-7.45) H D 02/06/18 12:22 ABG pCO2 32 mmHg (35-45) L 02/06/18 12:22 ABG pO2 102 mmHg (85-104) D 02/06/18 12:22 ABG O2 Saturation 98 % (95-98) 02/06/18 12:22 PT/INR, D-dimer PT 15.2 Seconds (9.4-12.1) H 02/06/18 12:17 - Impressions Impressions Chest X-Ray 02/06/18 11:54 IMPRESSION: 1. Lines, tubes, and support devices as described. 2. Expected postsurgical changes of the chest status post open heart surgery. D/ / 02/06/2018 13:40:08 Shahana Delgado MD / Linda Ashraf Interpreting Provider: Shahana Delgado MD KUB X-Ray 02/06/18 11:54 IMPRESSION: 1. Lines, tubes, and support devices as described. 2. Expected postsurgical changes of the chest status post open heart surgery. D/ / 02/06/2018 13:40:08 Shahana Delgado MD / Linda Ashraf Interpreting Provider: Shahana Delgado MD - Attending Attestation I have seen and examined this pt independently. I have discussed with resident physician Dr Stoll regarding the management plan. Agree with the documentation. <Kain Stoll S - Last Filed: 02/06/18 13:21> (2) Hypertension Qualifiers: Hypertension type: essential hypertension Qualified Code(s): I10 - Essential (primary) hypertension (3) CAD (coronary artery disease) Qualifiers: Coronary Disease-Associated Artery/Lesion type: [place] artery [place] vs. transplanted heart: [place] heart Associated angina: with unstable angina Qualified Code(s): I25.110 - Atherosclerotic heart disease of [place] coronary artery with unstable angina pectoris (4) Hyperlipidemia Qualifiers: Hyperlipidemia type: unspecified Qualified Code(s): E78.5 - Hyperlipidemia, unspecified <Kishor Lorenzo - Last Filed: 02/06/18 14:01> (1) Hypertension Qualifiers: Hypertension type: essential hypertension Qualified Code(s): I10 - Essential (primary) hypertension (2) CAD (coronary artery disease) Qualifiers: Coronary Disease-Associated Artery/Lesion type: [place] artery [place] vs. transplanted heart: [place] heart Associated angina: with unstable angina Qualified Code(s): I25.110 - Atherosclerotic heart disease of [place] coronary artery with unstable angina pectoris (4) Hyperlipidemia Qualifiers: Hyperlipidemia type: unspecified Qualified Code(s): E78.5 - Hyperlipidemia, unspecified
[2018-02-06 08:23] LABS: ABG Base Excess -3 mEq/L (-2 to 3); ABG Chloride 104 mEq/L (98-107); ABG Glucose 111 mg/dL (60-95); ABG HCO3 26 mEq/L (21-27); ABG Ionized Calcium 1.27 mmol/L (1.15-1.35); ABG Oxygen Saturation 100 % (95-98); ABG PCO2 56 mmHg (35-45); ABG PH 7.27 pH Units (7.32-7.45); ABG PO2 354 mmHg (85-104); ABG TCO2 27 mEq/L (20-26)
[2018-02-06] MEDS ORDERED: Lidocaine 2% Syringe 100 MG/5 ML IV ONE (08:40)
[2018-02-06] MEDS ORDERED: Tranexamic Acid 1,000 MG/10 ML VIAL IVPB ONE (08:40)
[2018-02-06] MEDS ORDERED: *HR* Heparin 10,000 UNIT/10 ML VIAL IV ONE (08:40)
[2018-02-06] MEDS ORDERED: *HR* Magnesium Sulfate 2 GM/50 ML PIGGYBACK IVPB ONE (08:40)
[2018-02-06] MEDS ORDERED: *HR* Phenylephrine 10 MG/ML VIAL IVC ONE (08:40)
[2018-02-06] MEDS ORDERED: Sodium Bicarbonate 50 MEQ/50 ML VIAL IVC ONE (08:40)
[2018-02-06] MEDS ORDERED: Albumin Human 25% 25 GM/100 ML IV.SOLN IV ONE (08:40)
[2018-02-06] MEDS ORDERED: Mannitol 25% vial 12.5 GM/50 ML VIAL IVP ONE (08:40)
--- NOTE | 2018-02-06 09:12 | Anesthesia Procedures ---
Date of Encounter: 02/06/18 Time of Encounter: 07:45 Procedures: Anesthesia - Arterial Line Consent obtained: written consent Time out performed: Yes Sedation: Versed (mg): 2 Sedation: Fentanyl (mcg): 100 Local Anesthetic: Lidocaine 1% (1) Amount of Anesthetic used (mls): 1 Size (Gauge): 20 Length (inches): 5 Technique Used: sterile prep, guide wire technique, direct puncture technique Post-Procedure: line taped into place, dry sterile dressing placed Patient tolerated procedure: well, no complications Complications: none Site: Radial R - Central Line Placement Left SC Consent obtained: written consent Time out performed: Yes Patient placed on monitor/pulse ox: Yes Sedation: Versed (mg): 2 Sedation: Fentanyl (mcg): 100 Supplemental Oxygen via Nasal Cannula (L/min): 2 MD prep: mask, gown, gloves Central line prep: Chlorhexidine scrub Local Anesthetic Used: Lidocaine 1% Amount of Anesthetics Used (mls): 5 Ultrasound used for placement: No Technique: Seldinger Lumen Inserted: triple Size / Length: 7 Fr / 16 cm Post procedure: sutured in place, good blood return, all ports aspirated, flushed, capped Patient tolerated procedure: well, no complications Complications: none Comments: Patient had poor peripheral access so required central access for CABG Right IJ Consent obtained: written consent Time out performed: Yes Patient placed on monitor/pulse ox: Yes MD prep: mask, gown, gloves Central line prep: Chlorhexidine scrub Ultrasound used for placement: Yes Technique: Seldinger Lumen Inserted: Introducer Post procedure: sutured in place, good blood return, all ports aspirated, flushed, capped Patient tolerated procedure: well, no complications Complications: none Comments: introducer placed easily, swan placed without arrythmia, wedge approx 56cm
[2018-02-06] MEDS ORDERED: *HR* PHENYLEPHRINE 1,000 MCG/10 ML SYRINGE IVP ONE (09:27)
[2018-02-06 09:28] LABS: ABG Base Excess -3 mEq/L (-2 to 3); ABG Chloride 107 mEq/L (98-107); ABG Glucose 122 mg/dL (60-95); ABG HCO3 22 mEq/L (21-27); ABG Ionized Calcium 1.13 mmol/L (1.15-1.35); ABG Oxygen Saturation 99 % (95-98); ABG PCO2 41 mmHg (35-45); ABG PH 7.34 pH Units (7.32-7.45); ABG PO2 159 mmHg (85-104); ABG TCO2 24 mEq/L (20-26)
[2018-02-06 10:18] LABS: ABG Base Excess 6 mEq/L (-2 to 3); ABG Chloride 97 mEq/L (98-107); ABG Glucose 208 mg/dL (60-95); ABG HCO3 30 mEq/L (21-27); ABG Ionized Calcium 0.88 mmol/L (1.15-1.35); ABG Oxygen Saturation 100 % (95-98); ABG PCO2 39 mmHg (35-45); ABG PO2 542 mmHg (85-104); ABG TCO2 31 mEq/L (20-26)
[2018-02-06 10:57] LABS: ABG Base Excess 2 mEq/L (-2 to 3); ABG Chloride 97 mEq/L (98-107); ABG Glucose 141 mg/dL (60-95); ABG HCO3 27 mEq/L (21-27); ABG Ionized Calcium 0.99 mmol/L (1.15-1.35); ABG Oxygen Saturation 100 % (95-98); ABG PCO2 39 mmHg (35-45); ABG PH 7.44 pH Units (7.32-7.45); ABG PO2 434 mmHg (85-104); ABG TCO2 28 mEq/L (20-26)
[2018-02-06 11:28] LABS: ABG Base Excess -1 mEq/L (-2 to 3); ABG Chloride 103 mEq/L (98-107); ABG Glucose 102 mg/dL (60-95); ABG HCO3 23 mEq/L (21-27); ABG Oxygen Saturation 97 % (95-98); ABG PCO2 37 mmHg (35-45); ABG PH 7.41 pH Units (7.32-7.45); ABG PO2 93 mmHg (85-104); ABG TCO2 24 mEq/L (20-26)
[2018-02-06 11:37] LABS: ABG Chloride 118 mEq/L (98-107); ABG Glucose 132 mg/dL (60-95); ABG Ionized Calcium 0.58 mmol/L (1.15-1.35); ABG PCO2 < 13 mmHg (35-45); ABG PO2 247 mmHg (85-104)
[2018-02-06] MEDS ORDERED: Albumin Human 5% 50.0 GM/1,000 ML VIAL ONE (11:44)
[2018-02-06 11:47] LABS: ABG Chloride 128 mEq/L (98-107); ABG Glucose 41 mg/dL (60-95); ABG Ionized Calcium 0.32 mmol/L (1.15-1.35); ABG PCO2 < 13 mmHg (35-45); ABG PH 7.76 pH Units (7.32-7.45); ABG PO2 248 mmHg (85-104)
[2018-02-06] MEDS ORDERED: Potassium Chloride 40 MEQ/200 ML BAG IVPB PRN (11:54)
[2018-02-06] MEDS ORDERED: Acetaminophen 325 MG TABLET PO PRN (11:54)
[2018-02-06] MEDS ORDERED: *HR* Dextrose 50 % in Water (Syg) 50 ML SYRINGE IVP PRN (11:54)
[2018-02-06] MEDS ORDERED: Ondansetron 4 MG/2 ML VIAL IVP PRN (11:54)
[2018-02-06] MEDS ORDERED: *HR* Promethazine 25 MG/ML VIAL IVP PRN (11:54)
[2018-02-06] MEDS ORDERED: Insulin Regular, Human 100 UNIT/ML IV PRN (11:54)
[2018-02-06] MEDS ORDERED: Norepinephrine 4 MG in D5% in Water 250 ML IVC SCH (12:00)
[2018-02-06] MEDS ORDERED: 0.9 % Sodium Chloride w KCl 20 MEQ/1,000 ML MLS IVC SCH (12:00)
[2018-02-06] MEDS ORDERED: Insulin Human Regular 100 UNIT in 0.9 % Sodium Chloride 100 ML IVC SCH (12:00)
[2018-02-06] MEDS ORDERED: *HR* Dextrose 50 % in Water (Syg) 50 ML SYRINGE ONE (12:12)
[2018-02-06 12:26] LABS: ABG Base Excess 0 mEq/L (-2 to 3); ABG HCO3 23 mEq/L (21-27); ABG Oxygen Saturation 98 % (95-98); ABG PCO2 32 mmHg (35-45); ABG PH 7.47 pH Units (7.32-7.45); ABG PO2 102 mmHg (85-104); ABG TCO2 24 mEq/L (20-26); Blood Gas Modality VC; Blood Gas PEEP 5 cm H2O; Blood Gas Respiration Rate 14; Blood Gas VT 500 cc
[2018-02-06 12:36] LABS: Mean Corpuscular Hemoglobin 31.3 pg (28.0-33.3); Mean Platelet Volume 9.3 fL (9.4-12.4)
[2018-02-06 12:38] LABS: Basophils # 0.1 K/mcL (0.0-0.2); Basophils % 0.4 %; Eosinophils # 0.3 K/mcL (0.0-0.6); Hematocrit 34.7 % (37.5-50.1); Immature Granulocytes % 0.7 % (0-4); Immature Platelets 3.1 % (1.1-6.1); Lymphocytes % 15.5 %; Mean Corpuscular HGB Conc 35.2 g/dL (31.6-35.5); Monocytes # 0.6 K/mcL (0.0-1.3); Monocytes % 4.6 %; Neutrophils # 9.7 K/mcL (1.6-8.9); Platelet Count 100 K/mcL (140-400); Red Cell Distribution Width 12.8 % (11.5-14.5); Segmented Neutrophils % 76.8 %
[2018-02-06 12:41] LABS: INR 1.4
[2018-02-06 12:44] LABS: Activated Partial Thrombo Time 31.9 Seconds (26.0-36.0)
[2018-02-06 12:48] LABS: Hemoglobin 12.2 g/dL (12.9-16.9); Prothrombin Time 15.2 Seconds (9.4-12.1)
[2018-02-06 12:52] LABS: BUN/Creatinine Ratio 15 (6-26); Blood Urea Nitrogen 15 mg/dL (8-23); Calcium 8.4 mg/dL (8.6-10.3); Carbon Dioxide 25 mEq/L (23-29); Chloride 106 mEq/L (98-107); Glucose 68 mg/dL (70-105); Magnesium 2.8 mg/dL (1.6-2.6); Osmolality,Calculated 287 (280-300); Potassium 3.4 mEq/L (3.5-5.1); Sodium 139 mEq/L (136-145); eGFR For Non-African Americans > 60 (> 60)
[2018-02-06] MEDS ORDERED: niCARdipine 40 MG/200 ML MLS IVC ONE (13:02)
--- NOTE | 2018-02-06 14:13 | Operative Note ---
Date of procedure: 02/06/18 Was there an stores assistant present: Yes Public Works Technician: Ramsey Daniel Estimated blood loss (cc): 750 Specimen: none Condition: critical Disposition: ICU Procedure in Detail: Preoperative diagnosis. Coronary artery disease. Postoperative diagnosis. Same. Procedures. Coronary artery bypass grafting 3 with the left internal mammary artery to the LAD and saphenous vein grafts to the posterior descending branch of the right and obtuse marginal branch #1 of the circumflex. Surgeon. Dr. Hao Stoll. 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 He also had an 80-99% occlusion of his left carotid artery and underwent endarterectomy on the left in December of this year. He has had 2 non-ST elevation MIs in the last 2 weeks and has had angioplasty with stents. He was referred for surgery. He was brought to the operating room where he was prepped and draped in standard fashion. The right greater saphenous vein was harvested from below the right knee to the right groin. This was done through 2 small incisions using the scope. These incisions were subsequently closed using a deep layer of 2-0 Vicryl and a 3-0 Vicryl subcuticular stitch. Standard median sternotomy was performed. The left internal mammary artery retractor was inserted and the left internal mammary artery was harvested in standard fashion using the [place] electrocoagulation. Following this, the mammary retractor was removed. The standard sternal lasting machine operator was inserted. Pericardium was opened in the midline and suspended with 2-0 silk stay sutures. A double pursestring of 200 [place] was placed in the aorta for the aortic cannulation site. A pursestring of 20 [place] was placed in the right atrial appendage for the venous uptake. The patient was heparinized. The aorta was cannulated without difficulty. 2 stage venous uptake cannula was inserted through the right atrial appendage. A pursestring of 3-0 silk was placed in the aorta and the cardioplegia needle was inserted through here. The patient was placed on cardial pony bypass and cooled to 34.4 degrees. At this point, the aorta was crossclamped and a liter of antegrade cardioplegia was given. Topical cooling with iced saline slush was also done. Attention was first turned to the posterior descending branch of the right coronary artery. This was dissected free with the [place] blade and opened with the [place] blade and the [place] scissors. This had a lumen of 1- 1/2 mm with mild diffuse disease. A standard end-to-side anastomosis was constructed using the saphenous vein and a 7-0 Prolene. When this was completed , the patient received an additional dose of antegrade cardioplegia. Attention was turned to the circumflex. Obtuse marginal branch #2 was too small for grafting. Obtuse marginal branch #1 had distal disease with a small diffusely diseased vessel in the distal third. The proximal circumflex was dissected free with the [place] blade and opened with a [place] blade and the [place] scissors. This had a lumen of 1-1/2 mm with moderate diffuse disease. A standard end-to-side anastomosis was constructed using the saphenous vein and a 7-0 Prolene. When this was completed, the patient received her last dose of antegrade cardioplegia. Mammary pedicle was harvested. The proximal end was trimmed and brought into the wound. The LAD was dissected free with the [place] blade. Proximally, it had numerous stents. We had to go quite distal and opened with the [place] blade and the [place] scissors. It had a lumen of 1 mm with moderate diffuse disease. A standard end-to-side anastomosis was constructed using the mammary artery and a 7-0 Prolene. When this is completed , the previously placed bulldog clamp was removed and the hemostasis was good. I did place some FloSeal and fibrillar along the anastomosis. Pedicle was tacked the surface of the heart using 2 interrupted 5-0 silk sutures. Cross- clamp was removed and rewarming was begun. Total cross-clamp time was 44 minutes. A side-biting clamp was placed on the aorta and the cardioplegia needle was removed. 2 holes were made in the aorta using the [place] blade and the 4.4 mm aortic punch. 2 proximal anastomoses were constructed in standard fashion using the saphenous veins and 5-0 Prolene's. When this is completed, the side-biting clamp was removed. Grafts were de-aired using #25-gauge needle and the previously placed bulldog clamps were removed. Distal anastomoses were inspected and found to be hemostatic. Proximal anastomoses were marked with a marker from [employer]. A pair of atrial and ventricular pacing wires were left. The patient was initially paced in the AAI mode. A total of 4 chest tubes were left. A 32 right angle chest tube in the left pleural space. A 32 angle chest tube into the pericardial well. A 42 mediastinal chest tube. A 32 right angle chest tube into the right pleural space. The patient was weaned from bypass and decannulated. Hemostasis was good and hemodynamics were good. Pericardium was loosely closed with interrupted 2-0 silk sutures. We did use platelet rich and platelet poor plasma on the sternum and tissues above the sternum. Sternum was closed with #7 sternal wires in simple and figure-of- eight fashion. Fascia was run with #1 Vicryl. Subcutaneous tissues with a 2-0 Vicryl. Skin was closed with 3-0 Vicryl subcuticular stitch. The patient tolerated the procedure well and was returned intensive care unit in satisfactory and stable condition. Total bypass time was 78 minutes. Total cross-clamp time was 44 minutes. He been cooled to 34.4 degrees.
[2018-02-06] MEDS: *HR* FentaNYL (PF) 100 MCG/2 ML VIAL IVP PRN ×3 (15:35→21:18)
[2018-02-06 16:32] LABS: ABG Base Excess -2 mEq/L (-2 to 3); ABG HCO3 22 mEq/L (21-27); ABG Oxygen Saturation 99 % (95-98); ABG PCO2 35 mmHg (35-45); ABG PH 7.41 pH Units (7.32-7.45); ABG PO2 133 mmHg (85-104); ABG TCO2 23 mEq/L (20-26); Blood Gas Modality VC; Blood Gas PEEP 5 cm H2O; Blood Gas Respiration Rate 14; Blood Gas VT 500 cc
[2018-02-06 16:45] LABS: Hematocrit 23.7 % (37.5-50.1)
[2018-02-06 16:48] LABS: Hemoglobin 8.3 g/dL (12.9-16.9)
[2018-02-06 16:54] LABS: BUN/Creatinine Ratio 15 (6-26); Blood Urea Nitrogen 14 mg/dL (8-23); Calcium 7.7 mg/dL (8.6-10.3); Carbon Dioxide 22 mEq/L (23-29); Chloride 108 mEq/L (98-107); Glucose 177 mg/dL (70-105); Osmolality,Calculated 297 (280-300); Potassium 4.1 mEq/L (3.5-5.1); Sodium 141 mEq/L (136-145); eGFR For Non-African Americans > 60 (> 60)
[2018-02-06] MEDS: *HR* OxyCODONE/APAP 5/325 TABLET PO PRN (17:30)
[2018-02-06] MEDS: *HR* LORazepam 0.5 MG TABLET PO PRN (17:30)
[2018-02-06 17:57] LABS: ABG Base Excess -1 mEq/L (-2 to 3); ABG HCO3 23 mEq/L (21-27); ABG Oxygen Saturation 99 % (95-98); ABG PCO2 35 mmHg (35-45); ABG PH 7.43 pH Units (7.32-7.45); ABG PO2 111 mmHg (85-104); ABG TCO2 24 mEq/L (20-26); Blood Gas Modality CPAP/PS; Blood Gas PEEP 5 cm H2O; Blood Gas Pressure Support 8 cm H2O
[2018-02-06] MEDS: 0.9 % Sodium Chloride w KCl 20 MEQ/1,000 ML MLS IVC SCH ×2 (19:00→21:21)
[2018-02-06] MEDS: Heparin 25,000 UNIT/500 ML D5W 25,000 UNIT/500 ML BAG IVC SCH (19:39)
[2018-02-06] MEDS: Cholestyramine 4 GM POWD.PACK PO SCH (19:40)
[2018-02-06] MEDS: Multivit/Ca/Min/Fe/FA 1 TAB TABLET PO SCH (19:41)
[2018-02-06] MEDS: Isosorbide MONOnitrate (24 HR) 30 MG TAB.ER.24H PO SCH (19:41)
[2018-02-06] MEDS: Aspirin Enteric Coated 81 MG Tablet PO SCH (19:41)
[2018-02-06 20:19] LABS: ABG Base Excess -1 mEq/L (-2 to 3); ABG HCO3 23 mEq/L (21-27); ABG Oxygen Saturation 96 % (95-98); ABG PCO2 35 mmHg (35-45); ABG PH 7.42 pH Units (7.32-7.45); ABG PO2 79 mmHg (85-104); ABG TCO2 24 mEq/L (20-26); Blood Gas Modality CPAP/PS; Blood Gas PEEP 5 cm H2O; Blood Gas Pressure Support 5 cm H2O
[2018-02-06] MEDS: Chlorhexidine Rinse 15 ML MOUTHWASH MM SCH (21:20)
[2018-02-06 21:55] LABS: ABG Base Excess -1 mEq/L (-2 to 3); ABG HCO3 24 mEq/L (21-27); ABG Oxygen Saturation 97 % (95-98); ABG PCO2 38 mmHg (35-45); ABG PH 7.41 pH Units (7.32-7.45); ABG PO2 86 mmHg (85-104); ABG TCO2 25 mEq/L (20-26)
[2018-02-07] MEDS: *HR* OxyCODONE/APAP 5/325 TABLET PO PRN ×4 (00:55→20:30)
[2018-02-07] MEDS: *HR* FentaNYL (PF) 100 MCG/2 ML VIAL IVP PRN ×2 (02:06→04:20)
[2018-02-07 03:13] LABS: Basophils % 0.2 %; Hematocrit 34.2 % (37.5-50.1); Hemoglobin 11.8 g/dL (12.9-16.9); Immature Granulocytes % 0.4 % (0-4); Lymphocytes # 0.6 K/mcL (0.6-4.6); Mean Corpuscular HGB Conc 34.5 g/dL (31.6-35.5); Mean Corpuscular Volume 89.8 fL (83.0-100.0); Mean Platelet Volume 9.4 fL (9.4-12.4); Monocytes # 1.1 K/mcL (0.0-1.3); Monocytes % 9.5 %; Neutrophils # 9.7 K/mcL (1.6-8.9); Platelet Count 133 K/mcL (140-400); Red Blood Count 3.81 M/mcL (4.19-5.50); Red Cell Distribution Width 13.8 % (11.5-14.5); Segmented Neutrophils % 84.9 %
[2018-02-07 03:21] LABS: INR 1.2; Prothrombin Time 13.9 Seconds (9.4-12.1)
[2018-02-07 03:24] LABS: Activated Partial Thrombo Time 30.9 Seconds (26.0-36.0)
[2018-02-07 03:45] LABS: BUN/Creatinine Ratio 13 (6-26); Blood Urea Nitrogen 16 mg/dL (8-23); Calcium 7.8 mg/dL (8.6-10.3); Carbon Dioxide 22 mEq/L (23-29); Chloride 111 mEq/L (98-107); Glucose 155 mg/dL (70-105); Osmolality,Calculated 292 (280-300); Potassium 5.1 mEq/L (3.5-5.1); Sodium 139 mEq/L (136-145); eGFR For Non-African Americans 57 (> 60)
[2018-02-07] MEDS: Nitroglycerin 25 MG/250 ML INFUS..BTL IVC SCH (04:23)
[2018-02-07] MEDS: 0.9 % Sodium Chloride w KCl 20 MEQ/1,000 ML MLS IVC SCH (04:24)
--- NOTE | 2018-02-07 07:24 | Cardiothoracic Progress Note ---
Date of Encounter: 02/07/18 Time of Encounter: 07:21 - Assessment and plan (1) CAD (coronary artery disease) Current Visit: No Status: Chronic We will leave the patient in the ICU today. We will leave his Chandler until the chest tubes are out per the patient's request. We will discontinue his IV fluids, arterial line and [place] catheter. Qualifiers: Coronary Disease-Associated Artery/Lesion type: [place] artery [place] vs. transplanted heart: [place] heart Associated angina: with unstable angina Qualified Code(s): I25.110 - Atherosclerotic heart disease of [place] coronary artery with unstable angina pectoris - Subjective Interval history: The patient is extubated and doing well. He has mild to moderate postoperative pain. He is on and off pressors. Vital Signs, Last 4 Hours Pulse Resp BP Pulse Ox 02/07/18 07:00 90 20 110/53 96 02/07/18 06:00 110 20 109/57 96 02/07/18 05:00 98 14 101/56 96 02/07/18 04:00 98 14 141/60 96 02/07/18 03:35 14 127/60 96 Oxgyen Flow Rate Oxygen Flow Rate (LPM) 3 Clinical Data, last 8 Hours Output, Chest Tube Drainage 0 Amount [Mediastinal #4] Output, Chest Tube Drainage 20 Amount [Mediastinal #4] Output, Chest Tube Drainage 5 Amount [Mediastinal #4] Output, Chest Tube Drainage 0 Amount [Mediastinal #4] Output, Chest Tube Drainage 5 Amount [Mediastinal #4] Output, Chest Tube Drainage 5 Amount [Mediastinal #4] Output, Chest Tube Drainage 0 Amount [Mediastinal #4] Output, Chest Tube Drainage 0 Amount [Mediastinal #4] Output, Chest Tube Drainage 0 Amount [Mediastinal #3] Output, Chest Tube Drainage 20 Amount [Mediastinal #3] Output, Chest Tube Drainage 20 Amount [Mediastinal #3] Output, Chest Tube Drainage 0 Amount [Mediastinal #3] Output, Chest Tube Drainage 0 Amount [Mediastinal #3] Output, Chest Tube Drainage 10 Amount [Mediastinal #3] Output, Chest Tube Drainage 0 Amount [Mediastinal #3] Output, Chest Tube Drainage 20 Amount [Mediastinal #3] Output, Chest Tube Drainage 0 Amount [Mediastinal #2] Output, Chest Tube Drainage 10 Amount [Mediastinal #2] Output, Chest Tube Drainage 20 Amount [Mediastinal #2] Output, Chest Tube Drainage 0 Amount [Mediastinal #2] Output, Chest Tube Drainage 10 Amount [Mediastinal #2] Output, Chest Tube Drainage 20 Amount [Mediastinal #2] Output, Chest Tube Drainage 0 Amount [Mediastinal #2] Output, Chest Tube Drainage 10 Amount [Mediastinal #2] Output, Chest Tube Drainage 0 Amount [Mediastinal #1] Output, Chest Tube Drainage 20 Amount [Mediastinal #1] Output, Chest Tube Drainage 20 Amount [Mediastinal #1] Output, Chest Tube Drainage 0 Amount [Mediastinal #1] Output, Chest Tube Drainage 25 Amount [Mediastinal #1] Output, Chest Tube Drainage 20 Amount [Mediastinal #1] Output, Chest Tube Drainage 0 Amount [Mediastinal #1] Output, Chest Tube Drainage 10 Amount [Mediastinal #1] Weight 02/05/18 02/06/18 02/07/18 23:59 23:59 23:59 Weight 82.1 kg Lungs are clear to percussion and auscultation. Heart is in a normal sinus rhythm. All incisions are healing well without signs of infection and the sternum is stable. Chest tube drainage is minimal and there is no air leak. - Labs 02/07/18 03:14 02/07/18 03:14 Lab Results, Last 24 hours 02/06/18 02/06/18 02/06/18 12:17 12:17 12:17 WBC 12.6 H D Hgb 12.2 L D Hct 34.7 L Plt Count 100 L D INR 1.4 APTT 31.9 Sodium 139 Potassium 3.4 L Chloride 106 Carbon Dioxide 25 BUN 15 Creatinine 0.97 Glucose 68 L Calcium 8.4 L Magnesium 2.8 H 02/06/18 02/06/18 02/07/18 16:20 16:20 03:14 WBC 11.4 H Hgb 8.3 L D 11.8 L D Hct 23.7 L 34.2 L Plt Count 133 L INR APTT Sodium 141 Potassium 4.1 Chloride 108 H Carbon Dioxide 22 L BUN 14 Creatinine 0.96 Glucose 177 H Calcium 7.7 L Magnesium 02/07/18 02/07/18 03:14 03:15 WBC Hgb Hct Plt Count INR 1.2 APTT 30.9 Sodium 139 Potassium 5.1 Chloride 111 H Carbon Dioxide 22 L BUN 16 Creatinine 1.25 Glucose 155 H Calcium 7.8 L Magnesium 2.0 - VTE Documentation of Mechanical Device: Graduated compression elastic hosiery Consult Discharge Plan - Plan Referrals: Jimmy Penaloza MD [Primary Care Provider] -
--- NOTE | 2018-02-07 07:38 | Electrocardiograph Report ---
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
[2018-02-07] MEDS: Multivit/Ca/Min/Fe/FA 1 TAB TABLET PO SCH (07:54)
[2018-02-07] MEDS: Metoprolol XL (24 HR) Succ 50 MG TAB.ER.24H PO SCH (07:54)
[2018-02-07] MEDS: Chlorhexidine Rinse 15 ML MOUTHWASH MM SCH (07:54)
[2018-02-07] MEDS: Cholestyramine 4 GM POWD.PACK PO SCH (07:55)
[2018-02-07] MEDS: Aspirin Enteric Coated 81 MG Tablet PO SCH (07:55)
[2018-02-07] MEDS ORDERED: Heparin 1,000 UNITS/500 mL 500 ML ONE (08:17)
--- NOTE | 2018-02-07 09:44 | Internal Med Progress Note ---
<Kain Stoll S - Last Filed: 02/07/18 10:47> Hospitalist Progress Note - Encounter Date of Encounter: 02/07/18 Time of Encounter: 06:50 - Subjective Interval History: Pt is seen at the bedside. He has a PMH of HTN, CT, CVA x 1, s/p RCA stent on 01/11- for NSTEMI and then came back for recurrent chest pain. Cath at the readmission showed severe 3 vessel dz with an EF of 45%. He had CABG yesterday with Dr Stoll, tolerated procedure well. Pt currently has no complains. -states pain is well controlled -dyspnea with deep breathing -chest discomfort secondary to surgery He denies abd pain, N/V/D, numbness/tingling, edema today. Current BP is 137/59 . He denies headache, visual changes, seeing spots, or dizziness. - Exam Vitals: Temp Pulse Resp BP Pulse Ox 100.1 F H 96 16 137/59 96 02/07/18 08:00 02/07/18 09:00 02/07/18 09:00 02/07/18 09:00 02/07/18 09:00 Exam: Gen: no acute distress, A&O x3 Heart: RRR, no murmurs Lungs: clear to auscultation bilaterally Abdomen: soft, non-tender Extremities: no edema Skin - no open wound - Assessment and Plan (1) Unstable angina Current Visit: Yes Status: Acute Assessment and Plan: The patient was admitted 01/29 for unstable angina -he was brought to the [facility] on 01/30 and had an LAD stent, PCI to the RCA and was found to have 70% stenosis The pt went home and came back with recurrent chest pain on the -repeat C showed severe three vessel disease with an EF of 45% Currently the patient has no chest pain, no complaints of any N/V/D, no abd pain , no SOB, no numbness/tingling PT 13.9 INR 1.2 s/p CABG POD #[address] Stoll -tolerated procedure well Plan: -brillenta is held -nitro drip for chest pain, 0.4mg SL nitro q5min for chest pain -Norepinephrine drip as per cardio -heparin d/c -telemtry monitoring -pain control as per cardiothoracic sx -check CBC/CMP in AM -swanz marilin cath and A-line to be removed today (2) Hypertension Current Visit: Yes Status: Suspected Assessment and Plan: Pt has a hx of HTN -currently BP is 137/59 -difficult to control Plan: -Nitro drip 1.5mls/hr -nitroglycerin 0.4mg SL q5min prn chest pain -tamsulosin 0.4mg PO daily (3) CAD (coronary artery disease) Current Visit: No Status: Chronic Assessment and Plan: Pt has CT x3 -PCI to RCA on 01/30, RCA had 70% stenosis -repeat PCI showed severe 3 vessel disease with an EF 45% Pt has multiple risk factors for CAD including HTN, HDL, age, and he is male Plan: -s/p POD #[address] Jerman simeon -encourage modification of risk factors, encourage cardiac diet (4) Hyperlipidemia Current Visit: No Status: Chronic Assessment and Plan: Pt has a hx of chronic HDL TG 190, CHolesterol 243, LDL 166, VLDL 38, HDL 39 -pt is on Cholestyramine Plan: -continue home meds - Time Spent with Patient Total time spent is greater than 50% in coordination of care (as documented) at patient's floor/unit and/or counseling patient: less than 15 minutes Plan of Care Discussed with: patient Internal Medicine: Result - Labs CBC & Chem 7: 02/07/18 03:14 02/07/18 03:14 Labs: Short CBC 02/06/18 02/06/18 02/07/18 Range/Units 12:17 16:20 03:14 WBC 12.6 H D 11.4 H (4.3-11.1) K/mcL Hgb 12.2 L D 8.3 L D 11.8 L D (12.9-16.9) g/dL Hct 34.7 L 23.7 L 34.2 L (37.5-50.1) % Plt Count 100 L D 133 L (140-400) K/mcL Neutrophils # 9.7 H 9.7 H (1.6-8.9) K/mcL BMP 02/06/18 02/06/18 02/07/18 12:17 16:20 03:14 Sodium 139 141 139 Potassium 3.4 L 4.1 5.1 Chloride 106 108 H 111 H Carbon Dioxide 25 22 L 22 L BUN 15 14 16 Creatinine 0.97 0.96 1.25 Glucose 68 L 177 H 155 H Calcium 8.4 L 7.7 L 7.8 L - ABG Interpretation ABG results: ABG ABG pH 7.41 pH Units (7.32-7.45) 02/06/18 21:51 ABG pCO2 38 mmHg (35-45) 02/06/18 21:51 ABG pO2 86 mmHg (85-104) 02/06/18 21:51 ABG O2 Saturation 97 % (95-98) 02/06/18 21:51 PT/INR, D-dimer PT 13.9 Seconds (9.4-12.1) H 02/07/18 03:15 - Impressions Impressions Chest X-Ray 02/06/18 11:54 IMPRESSION: 1. Lines, tubes, and support devices as described. 2. Expected postsurgical changes of the chest status post open heart surgery. D/ / 02/06/2018 13:40:08 Shahana Delgado MD / Linda Ashraf Interpreting Provider: Shahana Delgado MD X-Ray 02/06/18 11:54 IMPRESSION: 1. Lines, tubes, and support devices as described. 2. Expected postsurgical changes of the chest status post open heart surgery. D/ / 02/06/2018 13:40:08 Shahana Delgado MD / Linda Ashraf Interpreting Provider: Shahana Delgado MD Chest X-Ray 02/07/18 04:00 IMPRESSION: 1. Interval extubation. 2. Question of a small left apical pneumothorax with bilateral chest tubes in place. 3. Low lung volumes with bibasilar atelectasis and small left pleural effusion. 4. Improved pulmonary vascular congestion. D/ / 02/07/2018 07:44:15 Ash Stroud MD / [email or web address] Interpreting Provider: Ash Stroud MD - VTE Documentation of Mechanical Device: Graduated compression elastic hosiery Consult Discharge Plan - Plan Referrals: Jimmy Penaloza MD [Primary Care Provider] - <Kishor Lorenzo - Last Filed: 02/07/18 12:54> Hospitalist Progress Note - Encounter Date of Encounter: 02/07/18 - Exam Vitals: Temp Pulse Resp BP Pulse Ox 98.1 F 86 16 121/64 96 02/07/18 12:00 02/07/18 12:00 02/07/18 12:00 02/07/18 12:00 02/07/18 12:00 - Assessment and Plan (1) Hypertension Current Visit: Yes Status: Suspected (2) CAD (coronary artery disease) Current Visit: No Status: Chronic (3) Unstable angina Current Visit: Yes Status: Acute (4) Hyperlipidemia Current Visit: No Status: Chronic - Time Spent with Patient Total time spent is greater than 50% in coordination of care (as documented) at patient's floor/unit and/or counseling patient: Internal Medicine: Result - Labs CBC & Chem 7: 02/07/18 03:14 02/07/18 03:14 Labs: Short CBC 02/06/18 02/06/18 02/07/18 Range/Units 12:17 16:20 03:14 WBC 12.6 H D 11.4 H (4.3-11.1) K/mcL Hgb 12.2 L D 8.3 L D 11.8 L D (12.9-16.9) g/dL Hct 34.7 L 23.7 L 34.2 L (37.5-50.1) % Plt Count 100 L D 133 L (140-400) K/mcL Neutrophils # 9.7 H 9.7 H (1.6-8.9) K/mcL BMP 02/06/18 02/07/18 16:20 03:14 Sodium 141 139 Potassium 4.1 5.1 Chloride 108 H 111 H Carbon Dioxide 22 L 22 L BUN 14 16 Creatinine 0.96 1.25 Glucose 177 H 155 H Calcium 7.7 L 7.8 L - ABG Interpretation ABG results: ABG ABG pH 7.41 pH Units (7.32-7.45) 02/06/18 21:51 ABG pCO2 38 mmHg (35-45) 02/06/18 21:51 ABG pO2 86 mmHg (85-104) 02/06/18 21:51 ABG O2 Saturation 97 % (95-98) 02/06/18 21:51 PT/INR, D-dimer PT 13.9 Seconds (9.4-12.1) H 02/07/18 03:15 - Impressions Impressions Chest X-Ray 02/06/18 11:54 IMPRESSION: 1. Lines, tubes, and support devices as described. 2. Expected postsurgical changes of the chest status post open heart surgery. D/ / 02/06/2018 13:40:08 Shahana Delgado MD / Linda Ashraf Interpreting Provider: Shahana Delgado MD X-Ray 02/06/18 11:54 IMPRESSION: 1. Lines, tubes, and support devices as described. 2. Expected postsurgical changes of the chest status post open heart surgery. D/ / 02/06/2018 13:40:08 Shahana Delgado MD / Linda Ashraf Interpreting Provider: Shahana Delgado MD Chest X-Ray 02/07/18 04:00 IMPRESSION: 1. Interval extubation. 2. Question of a small left apical pneumothorax with bilateral chest tubes in place. 3. Low lung volumes with bibasilar atelectasis and small left pleural effusion. 4. Improved pulmonary vascular congestion. D/ / 02/07/2018 07:44:15 Ash Stroud MD / [email or web address] Interpreting Provider: Ash Stroud MD - Attending Attestation I have seen and examined this patient independently. I have discussed with resident physician Dr. Stoll regarding the management plan. Agree with the documentation. <Kain Stoll S - Last Filed: 02/07/18 10:47> (2) Hypertension Qualifiers: Hypertension type: essential hypertension Qualified Code(s): I10 - Essential (primary) hypertension (3) CAD (coronary artery disease) Qualifiers: Coronary Disease-Associated Artery/Lesion type: [place] artery [place] vs. transplanted heart: [place] heart Associated angina: with unstable angina Qualified Code(s): I25.110 - Atherosclerotic heart disease of [place] coronary artery with unstable angina pectoris (4) Hyperlipidemia Qualifiers: Hyperlipidemia type: unspecified Qualified Code(s): E78.5 - Hyperlipidemia, unspecified <Kishor Lorenzo - Last Filed: 02/07/18 12:54> (1) Hypertension Qualifiers: Hypertension type: essential hypertension Qualified Code(s): I10 - Essential (primary) hypertension (2) CAD (coronary artery disease) Qualifiers: Coronary Disease-Associated Artery/Lesion type: [place] artery [place] vs. transplanted heart: [place] heart Associated angina: with unstable angina Qualified Code(s): I25.110 - Atherosclerotic heart disease of [place] coronary artery with unstable angina pectoris (4) Hyperlipidemia Qualifiers: Hyperlipidemia type: unspecified Qualified Code(s): E78.5 - Hyperlipidemia, unspecified
[2018-02-07] MEDS ORDERED: Dextrose Gel 15 GM/37.5 ML TUBE PO PRN ×4 (12:05→15:09)
[2018-02-07] MEDS ORDERED: D5% in Water 1,000 ML IVC PRN ×2 (12:05→15:09)
[2018-02-07] MEDS ORDERED: Naloxone 0.4 MG/ML INJ IVP PRN (15:09)
[2018-02-07] MEDS ORDERED: Insulin Regular, Human 100 UNIT/ML IV PRN (15:09)
[2018-02-07] MEDS ORDERED: Nitroglycerin 0.4 MG TAB.SUBL SL PRN (15:09)
[2018-02-07] MEDS ORDERED: *HR* Dextrose 50 % in Water (Syg) 50 ML SYRINGE IVP PRN (15:09)
[2018-02-07] MEDS ORDERED: *HR* Promethazine 25 MG/ML VIAL IVP PRN (15:09)
[2018-02-07] MEDS ORDERED: Ondansetron 4 MG/2 ML VIAL IVP PRN (15:09)
[2018-02-07] MEDS: Insulin LISPRO 300 UNITS/3 ML VIAL SQ SCH ×2 (16:09→23:31)
[2018-02-07] MEDS ORDERED: Insulin LISPRO 300 UNITS/3 ML VIAL SQ SCH ×2 (16:30→21:00)
[2018-02-07] MEDS: *HR* Heparin 5,000 UNIT/ML VIAL SQ SCH (18:34)
[2018-02-07] MEDS: Acetaminophen 325 MG TABLET PO PRN (18:48)
[2018-02-07] MEDS: *HR* LORazepam 0.5 MG TABLET PO PRN (20:34)
[2018-02-08] MEDS: *HR* Morphine 2 MG/ML SYRINGE IVP PRN ×6 (00:22→22:25)
[2018-02-08] MEDS: *HR* OxyCODONE/APAP 5/325 TABLET PO PRN ×4 (01:56→19:56)
[2018-02-08] MEDS: *HR* LORazepam 0.5 MG TABLET PO PRN (03:07)
[2018-02-08 03:25] LABS: Basophils % 0.1 %; Eosinophils # 0.1 K/mcL (0.0-0.6); Eosinophils % 0.5 %; Hematocrit 33.7 % (37.5-50.1); Immature Granulocytes % 0.4 % (0-4); Lymphocytes # 1.2 K/mcL (0.6-4.6); Lymphocytes % 8.5 %; Mean Corpuscular HGB Conc 34.1 g/dL (31.6-35.5); Mean Corpuscular Hemoglobin 31.3 pg (28.0-33.3); Mean Corpuscular Volume 91.6 fL (83.0-100.0); Mean Platelet Volume 9.8 fL (9.4-12.4); Monocytes # 1.3 K/mcL (0.0-1.3); Monocytes % 8.9 %; Neutrophils # 11.6 K/mcL (1.6-8.9); Platelet Count 139 K/mcL (140-400); Red Blood Count 3.68 M/mcL (4.19-5.50); Red Cell Distribution Width 13.9 % (11.5-14.5); Segmented Neutrophils % 81.6 %
[2018-02-08 03:26] LABS: Hemoglobin 11.5 g/dL (12.9-16.9)
[2018-02-08 03:53] LABS: Alanine Aminotransferase 16 Units/L (7-52); Albumin 3.7 g/dL (3.5-5.7); Albumin/Globulin Ratio 1.7 (1.1-2.2); Alkaline Phosphatase 52 Units/L (34-104); Aspartate Amino Transferase 56 Units/L (13-39); BUN/Creatinine Ratio 19 (6-26); Bilirubin,Total 0.9 mg/dL (0.3-1.0); Blood Urea Nitrogen 21 mg/dL (8-23); Calcium 8.6 mg/dL (8.6-10.3); Carbon Dioxide 24 mEq/L (23-29); Chloride 108 mEq/L (98-107); Globulin 2.2 g/dL (2.4-3.5); Glucose 155 mg/dL (70-105); Osmolality,Calculated 292 (280-300); Potassium 4.5 mEq/L (3.5-5.1); Sodium 138 mEq/L (136-145); Total Protein 5.9 g/dL (6.4-8.9); eGFR For Non-African Americans > 60 (> 60)
[2018-02-08] MEDS: Cholestyramine 4 GM POWD.PACK PO SCH (06:39)
[2018-02-08] MEDS: *HR* Heparin 5,000 UNIT/ML VIAL SQ SCH ×2 (06:39→16:07)
--- NOTE | 2018-02-08 07:42 | Cardiothoracic Progress Note ---
Date of Encounter: 02/08/18 Time of Encounter: 07:40 - Assessment and plan (1) CAD (coronary artery disease) Current Visit: No Status: Chronic The chest tubes and pacing wires were removed. We will discontinue the [place] catheter. Qualifiers: Coronary Disease-Associated Artery/Lesion type: [place] artery [place] vs. transplanted heart: [place] heart Associated angina: with unstable angina Qualified Code(s): I25.110 - Atherosclerotic heart disease of [place] coronary artery with unstable angina pectoris - Subjective Interval history: The patient has moderate postoperative pain. Vital Signs, Last 4 Hours Temp Pulse Resp BP Pulse Ox 02/08/18 06:52 98.1 F 99 18 129/70 90 02/08/18 04:14 18 93 Oxgyen Flow Rate Oxygen Flow Rate (LPM) 3 Clinical Data, last 8 Hours Output, Chest Tube Drainage 40 Amount [Mediastinal #4] Output, Chest Tube Drainage 30 Amount [Mediastinal #3] Output, Chest Tube Drainage 30 Amount [Mediastinal #2] Output, Chest Tube Drainage 60 Amount [Mediastinal #1] Weight 02/06/18 02/07/18 02/08/18 23:59 23:59 23:59 Weight 82.1 kg Lungs are clear to percussion and auscultation. Heart is in a normal sinus rhythm. All incisions are healing well without signs of infection and the sternum is stable. Chest tube drainage is minimal and there is no air leak. - Labs 02/08/18 03:00 02/08/18 03:00 Lab Results, Last 24 hours 02/08/18 02/08/18 03:00 03:00 WBC 14.2 H Hgb 11.5 L Hct 33.7 L Plt Count 139 L Sodium 138 Potassium 4.5 Chloride 108 H Carbon Dioxide 24 BUN 21 Creatinine 1.13 Glucose 155 H Calcium 8.6 Total Bilirubin 0.9 AST 56 H ALT 16 Alkaline Phosphatase 52 - VTE Documentation of Mechanical Device: Graduated compression elastic hosiery Consult Discharge Plan - Plan Referrals: Jimmy Penaloza MD [Primary Care Provider] - Chela Portillo MD [Partnered Physician] - (Office will call patient at home with follow up appointment) Hao Stoll MD [Partnered Physician] - 03/01/18 1:15 pm
[2018-02-08] MEDS: Aspirin Enteric Coated 81 MG Tablet PO SCH (07:43)
[2018-02-08] MEDS: Multivit/Ca/Min/Fe/FA 1 TAB TABLET PO SCH (07:43)
[2018-02-08] MEDS: Metoprolol XL (24 HR) Succ 50 MG TAB.ER.24H PO SCH (07:44)
[2018-02-08] MEDS: Insulin LISPRO 300 UNITS/3 ML VIAL SQ SCH ×4 (07:44→20:06)
--- NOTE | 2018-02-08 09:19 | Internal Med Progress Note ---
<Nick Dinh U - Last Filed: 02/08/18 11:22> Hospitalist Progress Note - Encounter Date of Encounter: 02/08/18 Time of Encounter: 08:55 - Subjective Interval History: 72 y/o male Pt is seen at the bedside. He has a PMH of HTN, CO, CVA x 1, s/p RCA stent on 01/11- for NSTEMI and then came back for recurrent chest pain. Cath at the readmission showed severe 3 vessel dz with an EF of 45%. He had CABG 02/[address] Stoll, tolerated procedure well. -D/C IV fluids, arterial line, swan surjit cath, yin cath, chest tubes Pt currently has no complains. -no chest pain -no SOB He denies abd pain, N/V/D, numbness/tingling, edema today. Current BP is 129/70 . He denies headache, visual changes, seeing spots, or dizziness. - Exam Vitals: Temp Pulse Resp BP Pulse Ox 98.1 F 99 18 129/70 90 02/08/18 06:52 02/08/18 06:52 02/08/18 07:43 02/08/18 06:52 02/08/18 07:43 Exam: Gen: no acute distress, A&O x3 Heart: RRR, heart beat faint, no murmurs, no chest pain Lungs: clear to auscultation bilaterally, no SOB Abdomen: soft, non-tender, chest tubes removed Extremities: Slight leg swelling - Leg neuropathy diminished (pt is sensitive to gluten, controlling diet better) . Skin - no open wound - Assessment and Plan (1) Unstable angina Current Visit: Yes Status: Resolved Assessment and Plan: The patient was admitted 01/29 for unstable angina -he was brought to the [facility] on 01/30 and had an LAD stent, PCI to the RCA and was found to have 70% stenosis The pt went home and came back with recurrent chest pain on the -repeat C showed severe three vessel disease with an EF of 45% Currently the patient has no chest pain, no complaints of any N/V/D, no abd pain , no SOB, no numbness/tingling PT 13.9 yesterday INR 1.2 yesterday CABG POD #[address] Stoll -tolerated procedure well Plan: -restart brillenta 90 mg PO BID -nitro drip for chest pain d/c -Norepinephrine drip as per cardio d/c -heparin d/c -telemtry monitoring -pain control as per cardiothoracic sx -WBC count 14.2 (H) -check CBC/BMP tomorrow -swanz marilin cath and A-line removed 02/07 -yin cath removed 02/08 (2) Pneumothorax, acute Current Visit: Yes Status: Acute Assessment and Plan: Chest x-ray shows small left apical pneumothorax & bilateral linear atelectasis. -less than 20% Plan: -supportive care since small pneumothorax -oxygen -repeat chest x-ray as per cardiothoracic suggestion (3) Hypertension Current Visit: Yes Status: Suspected Assessment and Plan: Pt has a hx of HTN -currently BP is 129/70 -difficult to control Plan: -Nitro drip 1.5mls/hr D/C -nitroglycerin 0.4mg SL q5min prn chest pain -tamsulosin 0.4mg PO daily -toprol 50 mg PO daily (4) CAD (coronary artery disease) Current Visit: No Status: Chronic Assessment and Plan: Pt has CO x3 -PCI to RCA on 01/30, RCA had 70% stenosis -repeat PCI showed severe 3 vessel disease with an EF 45% Pt has multiple risk factors for CAD including HTN, HDL, age, and he is male Plan: -s/p POD #[address] Stoll -continue home meds: brilinta, toprol, Imdur, cholestyramine, aspirin -encourage modification of risk factors, encourage cardiac diet (5) Chest pain Current Visit: No Status: Acute (6) Hyperlipidemia Current Visit: No Status: Chronic Assessment and Plan: Pt has a hx of chronic HDL TG 190, CHolesterol 243, LDL 166, VLDL 38, HDL 39 as of 02/03 -pt is on Cholestyramine Plan: -continue home meds - Time Spent with Patient Total time spent is greater than 50% in coordination of care (as documented) at patient's floor/unit and/or counseling patient: Plan of Care Discussed with: patient Internal Medicine: Result - Labs CBC & Chem 7: 02/08/18 03:00 02/08/18 03:00 Labs: Short CBC 02/08/18 Range/Units 03:00 WBC 14.2 H (4.3-11.1) K/mcL Hgb 11.5 L (12.9-16.9) g/dL Hct 33.7 L (37.5-50.1) % Plt Count 139 L (140-400) K/mcL Neutrophils # 11.6 H (1.6-8.9) K/mcL BMP 02/08/18 03:00 Sodium 138 Potassium 4.5 Chloride 108 H Carbon Dioxide 24 BUN 21 Creatinine 1.13 Glucose 155 H Calcium 8.6 Liver Function 02/08/18 Range/Units 03:00 Total Bilirubin 0.9 (0.3-1.0) mg/dL AST 56 H (13-39) Units/L ALT 16 (7-52) Units/L Alkaline Phosphatase 52 (34-104) Units/L Albumin 3.7 (3.5-5.7) g/dL - ABG Interpretation ABG results: ABG ABG pH 7.41 pH Units (7.32-7.45) 02/06/18 21:51 ABG pCO2 38 mmHg (35-45) 02/06/18 21:51 ABG pO2 86 mmHg (85-104) 02/06/18 21:51 ABG O2 Saturation 97 % (95-98) 02/06/18 21:51 PT/INR, D-dimer PT 13.9 Seconds (9.4-12.1) H 02/07/18 03:15 - Impressions Impressions Chest X-Ray 02/07/18 04:00 IMPRESSION: 1. Interval extubation. 2. Question of a small left apical pneumothorax with bilateral chest tubes in place. 3. Low lung volumes with bibasilar atelectasis and small left pleural effusion. 4. Improved pulmonary vascular congestion. Results of this examination were communicated to the patient's nurse, Ganga Eisenberg, at 7:17 a.m. on 02/07/2018 by the [facility]. D/ / 02/07/2018 07:44:15 Ash Stroud MD / santosh Interpreting Provider: Ash Stroud MD Chest X-Ray 02/08/18 07:43 IMPRESSION: Interval removal of pulmonary arterial catheter, left subclavian central venous catheter, bilateral chest tubes, and mediastinal drain. Lucency adjacent to trachea likely represents esophageal air. Small left apical pneumothorax. Bilateral linear atelectasis. D/ / Pankaj Tubbs / Pankaj Tubbs Interpreting Provider: Pankaj Tubbs - VTE Documentation of Mechanical Device: Graduated compression elastic hosiery Consult Discharge Plan - Plan Referrals: Jimmy Penaloza MD [Primary Care Provider] - 02/16/18 9:45 am Chela Portillo MD [Partnered Physician] - (Office will call patient at home with follow up appointment) Hao Stoll MD [Partnered Physician] - 03/01/18 1:15 pm <Kishor Lorenzo - Last Filed: 02/08/18 12:01> Hospitalist Progress Note - Encounter Date of Encounter: 02/08/18 - Exam Vitals: Temp Pulse Resp BP Pulse Ox 98.5 F 88 16 111/62 94 02/08/18 09:53 02/08/18 09:53 02/08/18 10:48 02/08/18 09:53 02/08/18 10:48 - Assessment and Plan (1) Hypertension Current Visit: Yes Status: Suspected (2) CAD (coronary artery disease) Current Visit: No Status: Chronic (3) Unstable angina Current Visit: Yes Status: Resolved (4) Hyperlipidemia Current Visit: No Status: Chronic - Time Spent with Patient Total time spent is greater than 50% in coordination of care (as documented) at patient's floor/unit and/or counseling patient: Internal Medicine: Result - Labs CBC & Chem 7: 02/08/18 03:00 02/08/18 03:00 Labs: Short CBC 02/08/18 Range/Units 03:00 WBC 14.2 H (4.3-11.1) K/mcL Hgb 11.5 L (12.9-16.9) g/dL Hct 33.7 L (37.5-50.1) % Plt Count 139 L (140-400) K/mcL Neutrophils # 11.6 H (1.6-8.9) K/mcL BMP 02/08/18 03:00 Sodium 138 Potassium 4.5 Chloride 108 H Carbon Dioxide 24 BUN 21 Creatinine 1.13 Glucose 155 H Calcium 8.6 Liver Function 02/08/18 Range/Units 03:00 Total Bilirubin 0.9 (0.3-1.0) mg/dL AST 56 H (13-39) Units/L ALT 16 (7-52) Units/L Alkaline Phosphatase 52 (34-104) Units/L Albumin 3.7 (3.5-5.7) g/dL - ABG Interpretation ABG results: ABG ABG pH 7.41 pH Units (7.32-7.45) 02/06/18 21:51 ABG pCO2 38 mmHg (35-45) 02/06/18 21:51 ABG pO2 86 mmHg (85-104) 02/06/18 21:51 ABG O2 Saturation 97 % (95-98) 02/06/18 21:51 PT/INR, D-dimer PT 13.9 Seconds (9.4-12.1) H 02/07/18 03:15 - Impressions Impressions Chest X-Ray 02/07/18 04:00 IMPRESSION: 1. Interval extubation. 2. Question of a small left apical pneumothorax with bilateral chest tubes in place. 3. Low lung volumes with bibasilar atelectasis and small left pleural effusion. 4. Improved pulmonary vascular congestion. Results of this examination were communicated to the patient's nurse, Ganga Eisenberg, at 7:17 a.m. on 02/07/2018 by the [facility]. D/ / 02/07/2018 07:44:15 Ash Stroud MD / santosh Interpreting Provider: Ash Stroud MD Chest X-Ray 02/08/18 07:43 IMPRESSION: Interval removal of pulmonary arterial catheter, left subclavian central venous catheter, bilateral chest tubes, and mediastinal drain. Lucency adjacent to trachea likely represents esophageal air. Small left apical pneumothorax. Bilateral linear atelectasis. D/ / Pankaj Tubbs / Pankaj Tubbs Interpreting Provider: Pankaj Tubbs - Attending Attestation I have seen and examined this pt independently. I have discussed with resident physician Dr. Leach and medical student regarding the management plan. Agree with the documentation. <Nick Dinh U - Last Filed: 02/08/18 11:22> (3) Hypertension Qualifiers: Hypertension type: essential hypertension Qualified Code(s): I10 - Essential (primary) hypertension (4) CAD (coronary artery disease) Qualifiers: Coronary Disease-Associated Artery/Lesion type: [place] artery [place] vs. transplanted heart: [place] heart Associated angina: with unstable angina Qualified Code(s): I25.110 - Atherosclerotic heart disease of [place] coronary artery with unstable angina pectoris (5) Chest pain Qualifiers: Chest pain type: unspecified Qualified Code(s): R07.9 - Chest pain, unspecified (6) Hyperlipidemia Qualifiers: Hyperlipidemia type: unspecified Qualified Code(s): E78.5 - Hyperlipidemia, unspecified <Kishor Lorenzo - Last Filed: 02/08/18 12:01> (1) Hypertension Qualifiers: Hypertension type: essential hypertension Qualified Code(s): I10 - Essential (primary) hypertension (2) CAD (coronary artery disease) Qualifiers: Coronary Disease-Associated Artery/Lesion type: [place] artery [place] vs. transplanted heart: [place] heart Associated angina: with unstable angina Qualified Code(s): I25.110 - Atherosclerotic heart disease of [place] coronary artery with unstable angina pectoris (4) Hyperlipidemia Qualifiers: Hyperlipidemia type: unspecified Qualified Code(s): E78.5 - Hyperlipidemia, unspecified
[2018-02-08] MEDS: *HR* Ticagrelor 90 MG TABLET PO SCH ×2 (13:37→19:57)
[2018-02-09] MEDS: *HR* Morphine 2 MG/ML SYRINGE IVP PRN ×3 (03:48→21:52)
[2018-02-09 04:49] LABS: Basophils % 0.1 %; Eosinophils # 0.1 K/mcL (0.0-0.6); Hematocrit 31.8 % (37.5-50.1); Hemoglobin 10.7 g/dL (12.9-16.9); Immature Granulocytes % 0.4 % (0-4); Lymphocytes # 1.1 K/mcL (0.6-4.6); Lymphocytes % 9.3 %; Mean Corpuscular HGB Conc 33.6 g/dL (31.6-35.5); Mean Corpuscular Hemoglobin 31.1 pg (28.0-33.3); Mean Corpuscular Volume 92.4 fL (83.0-100.0); Mean Platelet Volume 10.1 fL (9.4-12.4); Monocytes # 0.9 K/mcL (0.0-1.3); Monocytes % 7.5 %; Neutrophils # 9.8 K/mcL (1.6-8.9); Platelet Count 141 K/mcL (140-400); Red Blood Count 3.44 M/mcL (4.19-5.50); Red Cell Distribution Width 13.8 % (11.5-14.5); Segmented Neutrophils % 81.7 %
[2018-02-09 05:00] LABS: BUN/Creatinine Ratio 22 (6-26); Blood Urea Nitrogen 20 mg/dL (8-23); Calcium 8.6 mg/dL (8.6-10.3); Carbon Dioxide 27 mEq/L (23-29); Chloride 104 mEq/L (98-107); Glucose 137 mg/dL (70-105); Osmolality,Calculated 289 (280-300); Potassium 4.4 mEq/L (3.5-5.1); Sodium 137 mEq/L (136-145); eGFR For Non-African Americans > 60 (> 60)
[2018-02-09] MEDS: *HR* Heparin 5,000 UNIT/ML VIAL SQ SCH ×2 (05:47→16:48)
[2018-02-09] MEDS: Cholestyramine 4 GM POWD.PACK PO SCH (05:49)
[2018-02-09] MEDS: *HR* OxyCODONE/APAP 5/325 TABLET PO PRN (05:52)
--- NOTE | 2018-02-09 06:58 | Cardiothoracic Progress Note ---
Date of Encounter: 02/09/18 Time of Encounter: 06:55 - Assessment and plan (1) CAD (coronary artery disease) Current Visit: No Status: Chronic The patient had a significant stroke at age 44. He will most probably need to be discharged to an extended care facility for further rehabilitation. He is making good progress. Qualifiers: Coronary Disease-Associated Artery/Lesion type: [place] artery [place] vs. transplanted heart: [place] heart Associated angina: with unstable angina Qualified Code(s): I25.110 - Atherosclerotic heart disease of [place] coronary artery with unstable angina pectoris - Subjective Interval history: The patient is beginning to ambulate and has mild postoperative pain. He is urinating without difficulty after removal of his [place] catheter. Vital Signs, Last 4 Hours Temp Pulse Resp BP Pulse Ox 02/09/18 04:16 14 93 02/09/18 03:39 99.5 F 103 19 143/89 93 Oxgyen Flow Rate Oxygen Flow Rate (LPM) 3 Clinical Data, last 8 Hours Output, Urine Amount 150 Weight 02/07/18 02/08/18 02/09/18 23:59 23:59 23:59 Weight 81.6 kg Lungs are clear to percussion and auscultation. Heart is in a normal sinus rhythm. All incisions are healing well without signs of infection and the sternum is stable. Chest x-ray reveals improving atelectasis and no pneumothorax. - Labs 02/09/18 00:01 02/09/18 00:01 Lab Results, Last 24 hours 02/09/18 02/09/18 00:01 00:01 WBC 12.0 H Hgb 10.7 L Hct 31.8 L Plt Count 141 Sodium 137 Potassium 4.4 Chloride 104 Carbon Dioxide 27 BUN 20 Creatinine 0.90 Glucose 137 H Calcium 8.6 - VTE Documentation of Mechanical Device: Graduated compression elastic hosiery Consult Discharge Plan - Plan Referrals: Jimmy Penaloza MD [Primary Care Provider] - 02/16/18 9:45 am Chela Portillo MD [Partnered Physician] - (Office will call patient at home with follow up appointment) Hao Stoll MD [Partnered Physician] - 03/01/18 1:15 pm
[2018-02-09] MEDS: *HR* LORazepam 0.5 MG TABLET PO PRN ×2 (09:23→15:17)
[2018-02-09] MEDS: *HR* Ticagrelor 90 MG TABLET PO SCH ×2 (09:24→21:47)
[2018-02-09] MEDS: Insulin LISPRO 300 UNITS/3 ML VIAL SQ SCH ×4 (09:24→21:45)
[2018-02-09] MEDS: Aspirin Enteric Coated 81 MG Tablet PO SCH (09:24)
[2018-02-09] MEDS: Multivit/Ca/Min/Fe/FA 1 TAB TABLET PO SCH (09:24)
[2018-02-09] MEDS: Metoprolol XL (24 HR) Succ 50 MG TAB.ER.24H PO SCH (09:25)
--- NOTE | 2018-02-09 10:42 | Internal Med Progress Note ---
<Kain Stoll S - Last Filed: 02/09/18 10:40> Hospitalist Progress Note - Encounter Date of Encounter: 02/09/18 Time of Encounter: 08:15 - Subjective Interval History: Pt is seen at the bedside. He has a PMH of HTN, MA, CVA x 1, s/p RCA stent on 01/11- for NSTEMI and then came back for recurrent chest pain. Cath at the readmission showed severe 3 vessel dz with an EF of 45%. He is s/p CABG POD#[address] Stoll, tolerated procedure well. [facility] for [facility]. Pt currently has no complains. -states pain is well controlled -dyspnea with deep breathing -chest discomfort secondary to surgery -feeling very anxious this morning He denies abd pain, N/V/D, numbness/tingling, edema today. Current BP is 125/82 . He denies headache, visual changes, seeing spots, or dizziness. - Exam Vitals: Temp Pulse Resp BP Pulse Ox 98.9 F 100 16 125/82 96 02/09/18 07:14 02/09/18 07:14 02/09/18 08:19 02/09/18 07:14 02/09/18 08:19 Exam: Gen: no acute distress, A&O x3 Heart: RRR, no murmurs Lungs: decreased breath sounds B/L, no wheeze Abdomen: soft, non-tender, chest tubes removed Extremities: no edema B/L Skin - no open wound - Assessment and Plan (1) Unstable angina Current Visit: Yes Status: Resolved Assessment and Plan: The patient was admitted 01/29 for unstable angina -he was brought to the dental lab [facility] on 01/30 and had an LAD stent, PCI to the RCA and was found to have 70% stenosis The pt went home and came back with recurrent chest pain on the -repeat LHC showed severe three vessel disease with an EF of 45% Currently the patient has no chest pain, no complaints of any N/V/D, no abd pain , no SOB, no numbness/tingling -has c/o anxiety CABG POD #[address] Stoll -tolerated procedure well Plan: -restarted brillenta 90 mg PO BID -nitro drip for chest pain d/c -Norepinephrine drip as per cardio d/c -heparin d/c -telemtry monitoring -pain control as per cardiothoracic sx -check CBC/BMP tomorrow -swanz marilin cath and A-line removed 02/07 -yin cath removed 02/08 -chest tubes removed 02/08 -ativan 0.5mg PO TID prn anxiety -when pt is stable for discharge, will go to [facility] (2) Hypertension Current Visit: Yes Status: Suspected Assessment and Plan: PPt has a hx of HTN -currently BP is 125/82 -difficult to control Plan: -Nitro drip 1.5mls/hr D/C -nitroglycerin 0.4mg SL q5min prn chest pain -tamsulosin 0.4mg PO daily -toprol 50 mg PO daily (3) CAD (coronary artery disease) Current Visit: No Status: Chronic Assessment and Plan: Pt has MA x3 -PCI to RCA on 01/30, RCA had 70% stenosis -repeat PCI showed severe 3 vessel disease with an EF 45% Pt has multiple risk factors for CAD including HTN, HDL, age, and he is male Plan: -s/p POD #[address] Stoll -continue home meds: brilinta, toprol, Imdur, cholestyramine, aspirin -encourage modification of risk factors, encourage cardiac diet (4) Hyperlipidemia Current Visit: No Status: Chronic Assessment and Plan: Pt has a hx of chronic HDL TG 190, CHolesterol 243, LDL 166, VLDL 38, HDL 39 -pt is on Cholestyramine Plan: -continue home meds - Time Spent with Patient Total time spent is greater than 50% in coordination of care (as documented) at patient's floor/unit and/or counseling patient: less than 15 minutes Plan of Care Discussed with: patient Internal Medicine: Result - Labs CBC & Chem 7: 02/09/18 00:01 02/09/18 00:01 Labs: Short CBC 02/09/18 Range/Units 00:01 WBC 12.0 H (4.3-11.1) K/mcL Hgb 10.7 L (12.9-16.9) g/dL Hct 31.8 L (37.5-50.1) % Plt Count 141 (140-400) K/mcL Neutrophils # 9.8 H (1.6-8.9) K/mcL BMP 02/09/18 00:01 Sodium 137 Potassium 4.4 Chloride 104 Carbon Dioxide 27 BUN 20 Creatinine 0.90 Glucose 137 H Calcium 8.6 - ABG Interpretation ABG results: ABG ABG pH 7.41 pH Units (7.32-7.45) 02/06/18 21:51 ABG pCO2 38 mmHg (35-45) 02/06/18 21:51 ABG pO2 86 mmHg (85-104) 02/06/18 21:51 ABG O2 Saturation 97 % (95-98) 02/06/18 21:51 PT/INR, D-dimer PT 13.9 Seconds (9.4-12.1) H 02/07/18 03:15 - Impressions Impressions Chest X-Ray 02/09/18 00:01 IMPRESSION: Improved pulmonary expansion with decreased basilar atelectasis. Residual streaky opacities favored to reflect residual atelectasis. Small bilateral effusions persist. D/ / Neil Bae / Neil Bae Interpreting Provider: Neil Bae - VTE Documentation of Mechanical Device: Graduated compression elastic hosiery Consult Discharge Plan - Plan Referrals: Jimmy Penaloza MD [Primary Care Provider] - 02/16/18 9:45 am Chela Portillo MD [Partnered Physician] - (Office will call patient at home with follow up appointment) Hao Stoll MD [Partnered Physician] - 03/01/18 1:15 pm <Kishor Lorenzo - Last Filed: 02/09/18 13:02> Hospitalist Progress Note - Encounter Date of Encounter: 02/09/18 - Exam Vitals: Temp Pulse Resp BP Pulse Ox 98.4 F 103 18 137/89 97 02/09/18 11:00 02/09/18 11:00 02/09/18 11:26 02/09/18 11:00 02/09/18 11:26 - Assessment and Plan (1) Hypertension Current Visit: Yes Status: Suspected (2) CAD (coronary artery disease) Current Visit: No Status: Chronic (3) Unstable angina Current Visit: Yes Status: Resolved (4) Hyperlipidemia Current Visit: No Status: Chronic - Time Spent with Patient Total time spent is greater than 50% in coordination of care (as documented) at patient's floor/unit and/or counseling patient: Internal Medicine: Result - Labs CBC & Chem 7: 02/09/18 00:01 02/09/18 00:01 Labs: Short CBC 02/09/18 Range/Units 00:01 WBC 12.0 H (4.3-11.1) K/mcL Hgb 10.7 L (12.9-16.9) g/dL Hct 31.8 L (37.5-50.1) % Plt Count 141 (140-400) K/mcL Neutrophils # 9.8 H (1.6-8.9) K/mcL BMP 02/09/18 00:01 Sodium 137 Potassium 4.4 Chloride 104 Carbon Dioxide 27 BUN 20 Creatinine 0.90 Glucose 137 H Calcium 8.6 - ABG Interpretation ABG results: ABG ABG pH 7.41 pH Units (7.32-7.45) 02/06/18 21:51 ABG pCO2 38 mmHg (35-45) 02/06/18 21:51 ABG pO2 86 mmHg (85-104) 02/06/18 21:51 ABG O2 Saturation 97 % (95-98) 02/06/18 21:51 PT/INR, D-dimer PT 13.9 Seconds (9.4-12.1) H 02/07/18 03:15 - Impressions Impressions Chest X-Ray 02/09/18 00:01 IMPRESSION: Improved pulmonary expansion with decreased basilar atelectasis. Residual streaky opacities favored to reflect residual atelectasis. Small bilateral effusions persist. D/ / Neil Bae / Neil Bae Interpreting Provider: Neil Bae - Attending Attestation I have seen and examined this pt independently. I have discussed with resident physician Dr Stoll regarding the management plan. Agree with the documentation. <Kain Stoll - Last Filed: 02/09/18 10:40> (2) Hypertension Qualifiers: Hypertension type: essential hypertension Qualified Code(s): I10 - Essential (primary) hypertension (3) CAD (coronary artery disease) Qualifiers: Coronary Disease-Associated Artery/Lesion type: [place] artery [place] vs. transplanted heart: [place] heart Associated angina: with unstable angina Qualified Code(s): I25.110 - Atherosclerotic heart disease of [place] coronary artery with unstable angina pectoris (4) Hyperlipidemia Qualifiers: Hyperlipidemia type: unspecified Qualified Code(s): E78.5 - Hyperlipidemia, unspecified <Kishor Lorenzo - Last Filed: 02/09/18 13:02> (1) Hypertension Qualifiers: Hypertension type: essential hypertension Qualified Code(s): I10 - Essential (primary) hypertension (2) CAD (coronary artery disease) Qualifiers: Coronary Disease-Associated Artery/Lesion type: [place] artery [place] vs. transplanted heart: [place] heart Associated angina: with unstable angina Qualified Code(s): I25.110 - Atherosclerotic heart disease of [place] coronary artery with unstable angina pectoris (4) Hyperlipidemia Qualifiers: Hyperlipidemia type: unspecified Qualified Code(s): E78.5 - Hyperlipidemia, unspecified
[2018-02-10] MEDS: *HR* Morphine 2 MG/ML SYRINGE IVP PRN ×2 (01:09→03:03)
[2018-02-10 01:44] LABS: Basophils % 0.3 %; Eosinophils # 0.3 K/mcL (0.0-0.6); Eosinophils % 2.5 %; Hematocrit 29.9 % (37.5-50.1); Immature Granulocytes % 0.4 % (0-4); Lymphocytes # 1.3 K/mcL (0.6-4.6); Lymphocytes % 12.9 %; Mean Corpuscular HGB Conc 33.4 g/dL (31.6-35.5); Mean Corpuscular Hemoglobin 30.4 pg (28.0-33.3); Mean Corpuscular Volume 90.9 fL (83.0-100.0); Mean Platelet Volume 9.7 fL (9.4-12.4); Monocytes # 0.8 K/mcL (0.0-1.3); Monocytes % 7.8 %; Neutrophils # 7.5 K/mcL (1.6-8.9); Platelet Count 205 K/mcL (140-400); Red Blood Count 3.29 M/mcL (4.19-5.50); Red Cell Distribution Width 13.7 % (11.5-14.5); Segmented Neutrophils % 76.1 %
[2018-02-10 02:02] LABS: Alanine Aminotransferase 14 Units/L (7-52); Albumin 3.4 g/dL (3.5-5.7); Albumin/Globulin Ratio 1.4 (1.1-2.2); Alkaline Phosphatase 59 Units/L (34-104); Aspartate Amino Transferase 30 Units/L (13-39); BUN/Creatinine Ratio 22 (6-26); Bilirubin,Total 0.9 mg/dL (0.3-1.0); Blood Urea Nitrogen 20 mg/dL (8-23); Calcium 8.5 mg/dL (8.6-10.3); Carbon Dioxide 23 mEq/L (23-29); Chloride 105 mEq/L (98-107); Globulin 2.5 g/dL (2.4-3.5); Glucose 125 mg/dL (70-105); Osmolality,Calculated 288 (280-300); Potassium 3.5 mEq/L (3.5-5.1); Sodium 137 mEq/L (136-145); Total Protein 5.9 g/dL (6.4-8.9); eGFR For Non-African Americans > 60 (> 60)
[2018-02-10] MEDS: *HR* OxyCODONE/APAP 5/325 TABLET PO PRN ×3 (04:22→20:46)
[2018-02-10] MEDS: *HR* Heparin 5,000 UNIT/ML VIAL SQ SCH ×2 (06:05→17:19)
[2018-02-10] MEDS: Cholestyramine 4 GM POWD.PACK PO SCH (06:07)
--- NOTE | 2018-02-10 07:14 | Cardiothoracic Progress Note ---
Date of Encounter: 02/10/18 Time of Encounter: 07:12 - Assessment and plan (1) Chest pain Current Visit: No Status: Acute The patient remained hemodynamically stable overnight. He will be discharged to an extended care facility as a bridge to home in the next 2-3 days. The assessment and plan as outlined above was discussed with the patient and/or family members who expressed understanding and agreement. All questions were answered. Qualifiers: Chest pain type: unspecified Qualified Code(s): R07.9 - Chest pain, unspecified - Subjective Procedure(s) Performed: POD#4 S/P CABG3 Interval history: The patient remained hemodynamically stable overnight. He is resting comfortably in his hospital bed. He has no complaints. Vital Signs, Last 4 Hours Temp Pulse Resp BP Pulse Ox 02/10/18 07:04 98.5 F 95 18 113/80 93 02/10/18 03:43 18 97 Oxgyen Flow Rate Oxygen Flow Rate (LPM) 2 Clinical Data, last 8 Hours Output, Urine Amount 120 Output, Urine Amount 150 Output, Urine Amount 200 Weight 02/08/18 02/09/18 02/10/18 23:59 23:59 23:59 Weight 81.6 kg 79.2 kg - Physical Examination General: Conversant, No Apparent Distress Neck: No JVD, Normal carotid pulses Cardiac: Reg Rate and Rhythm, Normal S1 and S2, No Murmur Incision: No signs of infection, Dry/intact dressing Sternum: Stable Lungs: Normal Breath Sounds, No Wheeze, Rales, Rhonchi Neuro: Alert and responsive, No focal deficits noted Vascular: Normal capillary refill Extremities: No Clubbing, No Cyanosis, No Edema - Labs 02/10/18 01:28 02/10/18 01:28 Lab Results, Last 24 hours 02/10/18 02/10/18 01:28 01:28 WBC 9.9 Hgb 10.0 L Hct 29.9 L Plt Count 205 Sodium 137 Potassium 3.5 Chloride 105 Carbon Dioxide 23 BUN 20 Creatinine 0.90 Glucose 125 H Calcium 8.5 L Total Bilirubin 0.9 AST 30 ALT 14 Alkaline Phosphatase 59 - VTE Documentation of Mechanical Device: Graduated compression elastic hosiery Consult Discharge Plan - Plan Referrals: Jimmy Penaloza MD [Primary Care Provider] - 02/16/18 9:45 am Chela Portillo MD [Partnered Physician] - (Office will call patient at home with follow up appointment) Hao Stoll MD [Partnered Physician] - 03/01/18 1:15 pm
[2018-02-10] MEDS: Insulin LISPRO 300 UNITS/3 ML VIAL SQ SCH ×4 (07:31→20:50)
[2018-02-10] MEDS: Metoprolol XL (24 HR) Succ 50 MG TAB.ER.24H PO SCH (08:18)
[2018-02-10] MEDS: Multivit/Ca/Min/Fe/FA 1 TAB TABLET PO SCH (08:18)
[2018-02-10] MEDS: *HR* Ticagrelor 90 MG TABLET PO SCH ×2 (08:19→20:46)
[2018-02-10] MEDS: Aspirin Enteric Coated 81 MG Tablet PO SCH (08:19)
[2018-02-10] MEDS: *HR* LORazepam 0.5 MG TABLET PO PRN (08:23)
--- NOTE | 2018-02-10 08:49 | Internal Med Progress Note ---
<Kain Stoll S - Last Filed: 02/10/18 08:47> Hospitalist Progress Note - Encounter Date of Encounter: 02/10/18 Time of Encounter: 07:50 - Subjective Interval History: Pt is seen at the bedside. He has a PMH of HTN, [place], CVA x 1, s/p RCA stent on 01/11- for NSTEMI and then came back for recurrent chest pain. Cath at the readmission showed severe 3 vessel dz with an EF of 45%. He is s/p CABG POD#[address] Stoll, tolerated procedure well. Pt to go to [facility] when stable for discharge. Pt currently has no complains. -states pain is well controlled -dyspnea with deep breathing -chest discomfort secondary to surgery -anxiety level has decreased He denies abd pain, N/V/D, numbness/tingling, edema today. Current BP is 113/80 . He denies headache, visual changes, seeing spots, or dizziness. - Exam Vitals: Temp Pulse Resp BP Pulse Ox 98.5 F 95 16 113/80 95 02/10/18 07:04 02/10/18 07:04 02/10/18 07:55 02/10/18 07:04 02/10/18 07:55 Exam: Gen: no acute distress, A&O x3 Heart: RRR, no murmurs Lungs: decreased breath sounds B/L, no wheeze Abdomen: soft, non-tender, chest tubes removed Extremities: no edema B/L Skin - no open wound - Assessment and Plan (1) Unstable angina Current Visit: Yes Status: Resolved Assessment and Plan: The patient was admitted 01/29 for unstable angina -he was brought to the veterinary laboratory technician on 01/30 and had an LAD stent, PCI to the RCA and was found to have 70% stenosis The pt went home and came back with recurrent chest pain on the -repeat LHC showed severe three vessel disease with an EF of 45% Currently the patient has no chest pain, no complaints of any N/V/D, no abd pain , no SOB, no numbness/tingling -anxiety has decreased CABG POD #[address] Stoll -tolerated procedure well Plan: -restarted brillenta 90 mg PO BID -nitro drip for chest pain d/c -Norepinephrine drip as per cardio d/c -heparin d/c -telemtry monitoring -pain control as per cardiothoracic sx -check CBC/BMP tomorrow -swanz marilin cath and A-line removed 02/07 -yin cath removed 02/08 -chest tubes removed 02/08 -ativan 0.5mg PO TID prn anxiety -when pt is stable for discharge, will go to ECF (2) Hypertension Current Visit: Yes Status: Suspected Assessment and Plan: PPt has a hx of HTN -currently BP is 113/80 -difficult to control Plan: -Nitro drip 1.5mls/hr D/C -nitroglycerin 0.4mg SL q5min prn chest pain -tamsulosin 0.4mg PO daily -toprol 50 mg PO daily (3) CAD (coronary artery disease) Current Visit: No Status: Chronic Assessment and Plan: Pt has [place] x3 -PCI to RCA on 01/30, RCA had 70% stenosis -repeat PCI showed severe 3 vessel disease with an EF 45% Pt has multiple risk factors for CAD including HTN, HDL, age, and he is male Plan: -s/p POD #[address] Stoll -continue home meds: brilinta, toprol, Imdur, cholestyramine, aspirin -encourage modification of risk factors, encourage cardiac diet (4) Hyperlipidemia Current Visit: No Status: Chronic Assessment and Plan: Pt has a hx of chronic HDL TG 190, CHolesterol 243, LDL 166, VLDL 38, HDL 39 -pt is on Cholestyramine Plan: -continue home meds - Time Spent with Patient Total time spent is greater than 50% in coordination of care (as documented) at patient's floor/unit and/or counseling patient: less than 15 minutes Plan of Care Discussed with: patient Internal Medicine: Result - Labs CBC & Chem 7: 02/10/18 01:28 02/10/18 01:28 Labs: Short CBC 02/10/18 Range/Units 01:28 WBC 9.9 (4.3-11.1) K/mcL Hgb 10.0 L (12.9-16.9) g/dL Hct 29.9 L (37.5-50.1) % Plt Count 205 (140-400) K/mcL Neutrophils # 7.5 (1.6-8.9) K/mcL BMP 02/10/18 01:28 Sodium 137 Potassium 3.5 Chloride 105 Carbon Dioxide 23 BUN 20 Creatinine 0.90 Glucose 125 H Calcium 8.5 L Liver Function 02/10/18 Range/Units 01:28 Total Bilirubin 0.9 (0.3-1.0) mg/dL AST 30 (13-39) Units/L ALT 14 (7-52) Units/L Alkaline Phosphatase 59 (34-104) Units/L Albumin 3.4 L (3.5-5.7) g/dL - ABG Interpretation ABG results: ABG ABG pH 7.41 pH Units (7.32-7.45) 02/06/18 21:51 ABG pCO2 38 mmHg (35-45) 02/06/18 21:51 ABG pO2 86 mmHg (85-104) 02/06/18 21:51 ABG O2 Saturation 97 % (95-98) 02/06/18 21:51 PT/INR, D-dimer PT 13.9 Seconds (9.4-12.1) H 02/07/18 03:15 - VTE Documentation of Mechanical Device: Graduated compression elastic hosiery Consult Discharge Plan - Plan Referrals: Jimmy Penaloza MD [Primary Care Provider] - 02/16/18 9:45 am Chela Portillo MD [Partnered Physician] - (Office will call patient at home with follow up appointment) Hao Stoll MD [Partnered Physician] - 03/01/18 1:15 pm <Kishor Lorenzo - Last Filed: 02/10/18 11:47> Hospitalist Progress Note - Encounter Date of Encounter: 02/10/18 - Exam Vitals: Temp Pulse Resp BP Pulse Ox 98.6 F 96 18 120/62 97 02/10/18 11:26 02/10/18 11:26 02/10/18 11:26 02/10/18 11:26 02/10/18 11:26 - Assessment and Plan (1) Hypertension Current Visit: Yes Status: Suspected (2) CAD (coronary artery disease) Current Visit: No Status: Chronic (3) Unstable angina Current Visit: Yes Status: Resolved (4) Hyperlipidemia Current Visit: No Status: Chronic - Time Spent with Patient Total time spent is greater than 50% in coordination of care (as documented) at patient's floor/unit and/or counseling patient: Internal Medicine: Result - Labs CBC & Chem 7: 02/10/18 01:28 02/10/18 01:28 Labs: Short CBC 02/10/18 Range/Units 01:28 WBC 9.9 (4.3-11.1) K/mcL Hgb 10.0 L (12.9-16.9) g/dL Hct 29.9 L (37.5-50.1) % Plt Count 205 (140-400) K/mcL Neutrophils # 7.5 (1.6-8.9) K/mcL BMP 02/10/18 01:28 Sodium 137 Potassium 3.5 Chloride 105 Carbon Dioxide 23 BUN 20 Creatinine 0.90 Glucose 125 H Calcium 8.5 L Liver Function 02/10/18 Range/Units 01:28 Total Bilirubin 0.9 (0.3-1.0) mg/dL AST 30 (13-39) Units/L ALT 14 (7-52) Units/L Alkaline Phosphatase 59 (34-104) Units/L Albumin 3.4 L (3.5-5.7) g/dL - ABG Interpretation ABG results: ABG ABG pH 7.41 pH Units (7.32-7.45) 02/06/18 21:51 ABG pCO2 38 mmHg (35-45) 02/06/18 21:51 ABG pO2 86 mmHg (85-104) 02/06/18 21:51 ABG O2 Saturation 97 % (95-98) 02/06/18 21:51 PT/INR, D-dimer PT 13.9 Seconds (9.4-12.1) H 02/07/18 03:15 - Attending Attestation I have seen and examined this patient independently. I have discussed with resident physician Dr. Stoll regarding the management. Agree with the documentation. <Kain Stoll - Last Filed: 02/10/18 08:47> (2) Hypertension Qualifiers: Hypertension type: essential hypertension Qualified Code(s): I10 - Essential (primary) hypertension (3) CAD (coronary artery disease) Qualifiers: Coronary Disease-Associated Artery/Lesion type: [place] artery [place] vs. transplanted heart: sam[place] heart Associated angina: with unstable angina Qualified Code(s): I25.110 - Atherosclerotic heart disease of [place] coronary artery with unstable angina pectoris (4) Hyperlipidemia Qualifiers: Hyperlipidemia type: unspecified Qualified Code(s): E78.5 - Hyperlipidemia, unspecified <Kishor Lorenzo - Last Filed: 02/10/18 11:47> (1) Hypertension Qualifiers: Hypertension type: essential hypertension Qualified Code(s): I10 - Essential (primary) hypertension (2) CAD (coronary artery disease) Qualifiers: Coronary Disease-Associated Artery/Lesion type: [place] artery [place] vs. transplanted heart: sam[place] heart Associated angina: with unstable angina Qualified Code(s): I25.110 - Atherosclerotic heart disease of [place] coronary artery with unstable angina pectoris (4) Hyperlipidemia Qualifiers: Hyperlipidemia type: unspecified Qualified Code(s): E78.5 - Hyperlipidemia, unspecified
[2018-02-10] MEDS ORDERED: GI Cocktail 40 ML EACH PO PRN ×2 (09:26→10:02)
[2018-02-10] MEDS ORDERED: Pantoprazole 40 MG VIAL IVP SCH (09:30)
[2018-02-10] MEDS ORDERED: Menthol 9.1 MG LOZENGE PO PRN (15:35)
[2018-02-10] MEDS: Acetaminophen 325 MG TABLET PO PRN (22:56)
--- NOTE | 2018-02-11 07:20 | Cardiothoracic Progress Note ---
Date of Encounter: 02/11/18 Time of Encounter: 07:18 - Assessment and plan (1) Chest pain Current Visit: No Status: Acute The patient remained hemodynamically stable overnight. The patient was ambulating in the hallways yesterday without difficulty. He will be discharged to an extended care facility tomorrow morning as a bridge to home. The assessment and plan as outlined above was discussed with the patient and/or family members who expressed understanding and agreement. All questions were answered. Qualifiers: Chest pain type: unspecified Qualified Code(s): R07.9 - Chest pain, unspecified - Subjective Procedure(s) Performed: POD#5 S/P CABG3 Interval history: The patient remained hemodynamically stable overnight. He is resting comfortably in his hospital bed. He was able to walk in the hallways 3 times yesterday without difficulty. He has no complaints. Vital Signs, Last 4 Hours Temp Pulse Resp BP Pulse Ox 02/11/18 04:06 97.9 F 98 18 120/58 97 Oxgyen Flow Rate Oxygen Flow Rate (LPM) 2 Clinical Data, last 8 Hours Output, Urine Amount 0 Output, Urine Amount 200 Output, Urine Amount 100 Weight 02/09/18 02/10/18 02/11/18 23:59 23:59 23:59 Weight 81.6 kg 79.2 kg - Physical Examination General: Conversant, No Apparent Distress Neck: No JVD, Normal carotid pulses Cardiac: Reg Rate and Rhythm, Normal S1 and S2, No Murmur Incision: No signs of infection, Dry/intact dressing Sternum: Stable Lungs: Normal Breath Sounds, No Wheeze, Rales, Rhonchi Neuro: Alert and responsive, No focal deficits noted Vascular: Normal capillary refill Extremities: No Clubbing, No Cyanosis, No Edema - Labs 02/10/18 01:28 02/10/18 01:28 - VTE Documentation of Mechanical Device: Graduated compression elastic hosiery Consult Discharge Plan - Plan Referrals: Jimmy Penaloza MD [Primary Care Provider] - 02/16/18 9:45 am Chela Portillo MD [Partnered Physician] - (Office will call patient at home with follow up appointment) Hao Stoll MD [Partnered Physician] - 03/01/18 1:15 pm
[2018-02-11] MEDS: *HR* Ticagrelor 90 MG TABLET PO SCH ×2 (07:44→20:34)
[2018-02-11] MEDS: *HR* OxyCODONE/APAP 5/325 TABLET PO PRN ×3 (07:44→21:41)
[2018-02-11] MEDS: Multivit/Ca/Min/Fe/FA 1 TAB TABLET PO SCH (07:44)
[2018-02-11] MEDS: Aspirin Enteric Coated 81 MG Tablet PO SCH (07:44)
[2018-02-11] MEDS: Cholestyramine 4 GM POWD.PACK PO SCH (07:45)
[2018-02-11] MEDS: Metoprolol XL (24 HR) Succ 50 MG TAB.ER.24H PO SCH (07:45)
[2018-02-11] MEDS: *HR* Heparin 5,000 UNIT/ML VIAL SQ SCH ×2 (08:00→17:31)
[2018-02-11] MEDS: *HR* Morphine 2 MG/ML SYRINGE IVP PRN ×2 (08:09→10:18)
[2018-02-11] MEDS: Insulin LISPRO 300 UNITS/3 ML VIAL SQ SCH ×4 (08:21→20:46)
--- NOTE | 2018-02-11 08:28 | Internal Med Progress Note ---
<Kain Stoll S - Last Filed: 02/11/18 08:26> Hospitalist Progress Note - Encounter Date of Encounter: 02/11/18 Time of Encounter: 07:55 - Subjective Interval History: Pt is seen at the bedside. He has a PMH of HTN, [place], CVA x 1, s/p RCA stent on 01/11- for NSTEMI and then came back for recurrent chest pain. Cath at the readmission showed severe 3 vessel dz with an EF of 45%. He is s/p CABG POD#[address] Stoll, tolerated procedure well. Pt to go to [facility] when stable for discharge, most likely tomorrow. Pt currently has no complains. -states pain is well controlled -dyspnea with deep breathing -chest discomfort secondary to surgery -anxiety level has decreased He denies abd pain, N/V/D, numbness/tingling, edema today. Current BP is 115/66 . He denies headache, visual changes, seeing spots, or dizziness. - Exam Vitals: Temp Pulse Resp BP Pulse Ox 97.9 F 103 18 115/66 95 02/11/18 07:47 02/11/18 07:47 02/11/18 07:47 02/11/18 07:47 02/11/18 07:47 Exam: Gen: no acute distress, A&O x3 Heart: RRR, no murmurs Lungs: decreased breath sounds B/L, no wheeze Abdomen: soft, non-tender, chest tubes removed Extremities: no edema B/L Skin - no open wound - Assessment and Plan (1) Unstable angina Current Visit: Yes Status: Resolved Assessment and Plan: The patient was admitted 01/29 for unstable angina -he was brought to the 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eterization technician on 01/30 and had an LAD stent, PCI to the RCA and was found to have 70% stenosis The pt went home and came back with recurrent chest pain on the -repeat C showed severe three vessel disease with an EF of 45% Currently the patient has no chest pain, no complaints of any N/V/D, no abd pain , no SOB, no numbness/tingling -anxiety has decreased CABG POD #[address] Stoll -tolerated procedure well Plan: -restarted brillenta 90 mg PO BID -nitro drip for chest pain d/c -Norepinephrine drip as per cardio d/c -heparin d/c -telemtry monitoring -pain control as per cardiothoracic sx -swanz marilin cath and A-line removed 02/07 -yin cath removed 02/08 -chest tubes removed 02/08 -ativan 0.5mg PO TID prn anxiety -pt most likely discharged tomorrow, pending placement at ECF. Possibly monday as tomorrow is holiday (2) Hyperlipidemia Current Visit: No Status: Chronic Assessment and Plan: Pt has a hx of chronic HDL TG 190, CHolesterol 243, LDL 166, VLDL 38, HDL 39 -pt is on Cholestyramine Plan: -continue home meds (3) Hypertension Current Visit: Yes Status: Suspected Assessment and Plan: PPt has a hx of HTN -currently BP is 113/80 -difficult to control Plan: -Nitro drip 1.5mls/hr D/C -nitroglycerin 0.4mg SL q5min prn chest pain -tamsulosin 0.4mg PO daily -toprol 50 mg PO daily (4) CAD (coronary artery disease) Current Visit: No Status: Chronic Assessment and Plan: Pt has [place] x3 -PCI to RCA on 01/30, RCA had 70% stenosis -repeat PCI showed severe 3 vessel disease with an EF 45% Pt has multiple risk factors for CAD including HTN, HDL, age, and he is male Plan: -s/p POD #[address] Stoll -continue home meds: brilinta, toprol, Imdur, cholestyramine, aspirin -encourage modification of risk factors, encourage cardiac diet (5) GERD (gastroesophageal reflux disease) Current Visit: Yes Status: Chronic Assessment and Plan: Pt has c/o GERD -GI cocktail 40mL PO prn -Prilosec 20mg PO BID, pt requests this be given at 0630AM - Time Spent with Patient Total time spent is greater than 50% in coordination of care (as documented) at patient's floor/unit and/or counseling patient: less than 15 minutes Plan of Care Discussed with: patient Internal Medicine: Result - Labs CBC & Chem 7: 02/10/18 01:28 02/10/18 01:28 - ABG Interpretation ABG results: ABG ABG pH 7.41 pH Units (7.32-7.45) 02/06/18 21:51 ABG pCO2 38 mmHg (35-45) 02/06/18 21:51 ABG pO2 86 mmHg (85-104) 02/06/18 21:51 ABG O2 Saturation 97 % (95-98) 02/06/18 21:51 PT/INR, D-dimer PT 13.9 Seconds (9.4-12.1) H 02/07/18 03:15 - VTE Documentation of Mechanical Device: Graduated compression elastic hosiery Consult Discharge Plan - Plan Referrals: Jimmy Penaloza MD [Primary Care Provider] - 02/16/18 9:45 am Chela Portillo MD [Partnered Physician] - (Office will call patient at home with follow up appointment) Hao Stoll MD [Partnered Physician] - 03/01/18 1:15 pm <Kishor Lorenzo - Last Filed: 02/11/18 12:26> Hospitalist Progress Note - Encounter Date of Encounter: 02/11/18 - Exam Vitals: Temp Pulse Resp BP Pulse Ox 98.7 F 96 16 122/72 100 02/11/18 11:23 02/11/18 11:23 02/11/18 12:10 02/11/18 11:23 02/11/18 12:10 - Assessment and Plan (1) Hypertension Current Visit: Yes Status: Suspected (2) CAD (coronary artery disease) Current Visit: No Status: Chronic (3) Unstable angina Current Visit: Yes Status: Resolved (4) Hyperlipidemia Current Visit: No Status: Chronic (5) GERD (gastroesophageal reflux disease) Current Visit: Yes Status: Chronic - Time Spent with Patient Total time spent is greater than 50% in coordination of care (as documented) at patient's floor/unit and/or counseling patient: Internal Medicine: Result - Labs CBC & Chem 7: 02/10/18 01:28 02/10/18 01:28 - ABG Interpretation ABG results: ABG ABG pH 7.41 pH Units (7.32-7.45) 02/06/18 21:51 ABG pCO2 38 mmHg (35-45) 02/06/18 21:51 ABG pO2 86 mmHg (85-104) 02/06/18 21:51 ABG O2 Saturation 97 % (95-98) 02/06/18 21:51 PT/INR, D-dimer PT 13.9 Seconds (9.4-12.1) H 02/07/18 03:15 - Attending Attestation I have seen and examined this patient independently. I have discussed with resident physician Dr. Stoll regarding the management plan. Agree with the documentation. <Kain Stoll - Last Filed: 02/11/18 08:26> (2) Hyperlipidemia Qualifiers: Hyperlipidemia type: unspecified Qualified Code(s): E78.5 - Hyperlipidemia, unspecified (3) Hypertension Qualifiers: Hypertension type: essential hypertension Qualified Code(s): I10 - Essential (primary) hypertension (4) CAD (coronary artery disease) Qualifiers: Coronary Disease-Associated Artery/Lesion type: [place] artery [place] vs. transplanted heart: [place] heart Associated angina: with unstable angina Qualified Code(s): I25.110 - Atherosclerotic heart disease of [place] coronary artery with unstable angina pectoris (5) GERD (gastroesophageal reflux disease) Qualifiers: Esophagitis presence: esophagitis presence not specified Qualified Code(s): K21.9 - Gastro-esophageal reflux disease without esophagitis <Kishor Lorenzo - Last Filed: 02/11/18 12:26> (1) Hypertension Qualifiers: Hypertension type: essential hypertension Qualified Code(s): I10 - Essential (primary) hypertension (2) CAD (coronary artery disease) Qualifiers: Coronary Disease-Associated Artery/Lesion type: [place] artery [place] vs. transplanted heart: [place] heart Associated angina: with unstable angina Qualified Code(s): I25.110 - Atherosclerotic heart disease of [place] coronary artery with unstable angina pectoris (4) Hyperlipidemia Qualifiers: Hyperlipidemia type: unspecified Qualified Code(s): E78.5 - Hyperlipidemia, unspecified (5) GERD (gastroesophageal reflux disease) Qualifiers: Esophagitis presence: esophagitis presence not specified Qualified Code(s): K21.9 - Gastro-esophageal reflux disease without esophagitis
[2018-02-11] MEDS: GI Cocktail 40 ML EACH PO SCH (10:06)
--- NOTE | 2018-02-11 15:40 | Electrocardiograph Report ---
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
[2018-02-12] MEDS: *HR* Morphine 2 MG/ML SYRINGE IVP PRN (02:46)
[2018-02-12] MEDS: Cholestyramine 4 GM POWD.PACK PO SCH (06:26)
[2018-02-12] MEDS: *HR* Heparin 5,000 UNIT/ML VIAL SQ SCH (06:26)
[2018-02-12 07:14] VITALS: BP 130/85
--- NOTE | 2018-02-12 07:53 | Discharge Summary ---
Date of Encounter: 02/12/18 Time of Encounter: 07:49 - Discharge Diagnosis (1) Chest pain Priority: Primary Status: Acute Qualifiers: Chest pain type: unspecified Qualified Code(s): R07.9 - Chest pain, unspecified - Hospital Course Hospital course: Mr. Sharp is a 72 year old hypertensive man with known CAD and known cerebrovascular disease who recently underwent PCI with RCA stent placement. He redeveloped substernal chest pain and had elevated troponin I levels. He underwent 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eterization was found to have severe 3 vessel CAD. He was recommended for CABG; however, was on Brilinta for his previous CVA. This was stopped for 5 days prior to CABG. The patient underwent CABG 3 on 02/06/2018. His postoperative course was uncomplicated. The patient was ambulating in the hallways without difficulty. He was discharged to an inpatient rehabilitation unit as a bridge to home on POD #6. - Time Spent with Patient Total time spent providing and/or coordinating discharge services: - Discharge Medications Prescriptions: OxyCODONE/APAP 5/325 [Percocet 5/325 MG] 1 each PO Q4HR PRN 7 Days #42 tablet PRN Reason: Severe Pain Home Medications: Aspirin [Adult Aspirin Regimen] 81 mg PO DAILY 12/11/17 [History] Multivitamin [Multivitamins] 1 each PO DAILY 01/28/18 [History] Amma-3 Fatty Acids [Fish Oil] 300 mg PO DAILY 01/28/18 [History] Ubidecarenone [Coq10] 50 mg PO DAILY 01/28/18 [History] Cholestyramine 4 gm PO 0700 #30 powd.pack 01/31/18 [Rx] Metoprolol XL (24 HR) Succ [Toprol Xl] 50 mg PO DAILY #30 tab.er.24h 01/31/18 [ Rx] Ticagrelor [Brilinta] 90 mg PO BID #60 tablet 01/31/18 [Rx] OxyCODONE/APAP 5/325 [Percocet 5/325 MG] 1 each PO Q4HR PRN 7 Days #42 tablet [Rx] Allergies/Adverse Reactions: 3 Allergy/AdvReac Type Severity Reaction Status Date / Time niacin Allergy See Verified 01/29/18 10:24 Comments Ekysmkf-Ceh-Qau Reductase Allergy See Verified 01/29/18 10:24 Inhibitor Comments [Statins] Date of admission: 02/02/18 08:46 Primary care physician: Jimmy Penaloza MD Consults: 02/06/18 11:54 Consult to Cardiac Rehabilitation-Phase1 [CONS] Routine Comment: Reason for Consult: Post open heart Call Completed: Yes Consult to Press Operator Meat [CONS] Routine Reason for SW Consult: open heart 02/07/18 15:09 Consult for Pharmacy Education [CONS] Routine Reason for Consult: Post-Op Heart Call Completed: Yes Consult to Occupational Therapy [CONS] Routine Comment: Evaluate, develop and implement POC Reason for Consult: Post-Op Heart Does patient have active BEDREST order?: No Is patient medically & hemodynamically stable?: Yes Patient assessed for mobility or mobilized this visit?: Yes Consult to Physical Therapy [CONS] Routine Comment: Evaluate, develop and implement POC Reason for Consult: Post open heart Does patient have active BEDREST order?: No Is patient medically & hemodynamically stable?: Yes Patient assessed for mobility or mobilized this visit?: Yes Procedure(s) Performed: 1. Cardiac catheterization performed 02/01/2018. 2. CABG 3 (MONTOYA to LAD, SVG to OM1, SVG to PDA) performed 02/06/2018. 3. Endoscopic vein harvesting, greater saphenous vein from right lower extremity performed 02/06/2018. Discharging clinician: Bryant Mason Anticipated date of discharge: 02/12/18 Physical Examination Vital Signs, Last 4 Hours Temp Pulse Resp BP Pulse Ox 02/12/18 07:35 20 98 02/12/18 07:07 98.3 F 96 20 130/85 97 General: Conversant, No Apparent Distress HEENT: Atraumatic, Normocephaly, Trachea midline Neck: No JVD, Normal carotid pulses Cardiac: Reg Rate and Rhythm, Normal S1 and S2, No Murmur Lungs: Normal Breath Sounds, No Wheeze, Rales, Rhonchi Neuro: Alert and responsive, No focal deficits noted Vascular: Normal capillary refill Abdomen: Soft, Non-tender Extremities: No Clubbing, No Cyanosis, No Edema - Patient Status Disposition: Transfer Inpatient Rehab Fac Condition: Good Functional capacity at discharge: independent ambulation Overall status at discharge: patient is progressing back to baseline - Discharge Instructions Follow Up With: Jimmy Penaloza MD [Primary Care Provider] - 02/16/18 9:45 am Chela Portillo MD [Partnered Physician] - (Office will call patient at home with follow up appointment) Hao Stoll MD [Partnered Physician] - 03/01/18 1:15 pm - Diet and Activity Activity: sternal precautions, no driving for four weeks, no lifting greater than 10 pounds for eight weeks Diet: low fat, low cholesterol [facility] Aspirin Cont/Prescribed at DC: Yes Beta [place] Cont/Prescribed at DC: Yes Statin Cont/Prescribed at DC: No Contraindication No Statin at DC: Drug Allergy to All Antithromobic Medications RAVEN/ARB Cont/Prescribed at DC: Not indicated (LVEF greater than 50%) - VTE Documentation of Mechanical Device: Graduated compression elastic hosiery
[2018-02-12] MEDS: *HR* Ticagrelor 90 MG TABLET PO SCH (07:54)
[2018-02-12] MEDS: Aspirin Enteric Coated 81 MG Tablet PO SCH (07:54)
[2018-02-12] MEDS: Metoprolol XL (24 HR) Succ 50 MG TAB.ER.24H PO SCH (07:54)
[2018-02-12] MEDS: Multivit/Ca/Min/Fe/FA 1 TAB TABLET PO SCH (07:54)
[2018-02-12] MEDS: Insulin LISPRO 300 UNITS/3 ML VIAL SQ SCH (07:59)
--- NOTE | 2018-02-12 08:01 | Physician Discharge Referral ---
ExtendedCare Referral Info Transfer To: [facility] Inpatient Rehabilitation Unit Provider in Charge: Hao Stoll MD Provider in Charge after Transfer: PCP Institutional Level of Care: Skilled - Diagnosis (1) Chest pain Priority: Primary Status: Acute - Transfer Medications Prescriptions: OxyCODONE/APAP 5/325 [Percocet 5/325 MG] 1 each PO Q4HR PRN 7 Days #42 tablet PRN Reason: Severe Pain Home Medications: Aspirin [Adult Aspirin Regimen] 81 mg PO DAILY 12/11/17 [History] Multivitamin [Multivitamins] 1 each PO DAILY 01/28/18 [History] [place]-3 Fatty Acids [Fish Oil] 300 mg PO DAILY 01/28/18 [History] Ubidecarenone [Coq10] 50 mg PO DAILY 01/28/18 [History] Cholestyramine 4 gm PO 0700 #30 powd.pack 01/31/18 [Rx] Metoprolol XL (24 HR) Succ [Toprol Xl] 50 mg PO DAILY #30 tab.er.24h 01/31/18 [ Rx] Ticagrelor [Brilinta] 90 mg PO BID #60 tablet 01/31/18 [Rx] OxyCODONE/APAP 5/325 [Percocet 5/325 MG] 1 each PO Q4HR PRN 7 Days #42 tablet [Rx] Allergies/Adverse Reactions: 3 Allergy/AdvReac Type Severity Reaction Status Date / Time niacin Allergy See Verified 01/29/18 10:24 Comments Zuifulp-Gte-Usf Reductase Allergy See Verified 01/29/18 10:24 Inhibitor Comments [Statins] - Respiratory Orders Smoking Cessation: Smoking cessation has been advised. For more information, call the [place] Tobacco Quit Line at 7-744-DSVX-NOW. - Ancillary Orders May use pressure relief devices daily prn - Advance Directives Code Status: Full Code - Mobility Orders Ambulate - Rehabiliation Orders Rehab Potential: Good Rehab Orders: Sternal Precautions, ROM Exercises, Evaluation for Physical Therapy, Evaluation for Occupational Therapy - Treatments Skin tear care topically daily PRN per policy, May check for fecal impaction rectally daily PRN, Fleet enema rectally every other day PRN cleansing purposes - Diet Orders Cardiac CERTIFICATION: I certify that the transfer of the above named patient to an Extended Care Facility is necessary for the continuing treatment of the diagnosis listed. The above information is true and accurate reflection of patient's current condition. Confidential - Redisclosure prohibited without a patient's written consent.
--- NOTE | 2018-02-12 09:02 | Internal Med Progress Note ---
<Kain Stoll S - Last Filed: 02/12/18 09:00> Hospitalist Progress Note - Encounter Date of Encounter: 02/12/18 Time of Encounter: 08:00 - Subjective Interval History: Pt is seen at the bedside. He has a PMH of HTN, NV, CVA x 1, s/p RCA stent on 01/11- for NSTEMI and then came back for recurrent chest pain. Cath at the readmission showed severe 3 vessel dz with an EF of 45%. He is s/p CABG POD#[address] Stoll, tolerated procedure well. Pt to go to ECF when stable for discharge, most likely tomorrow. Pt currently has no complains. -states pain is well controlled -dyspnea with deep breathing -chest discomfort secondary to surgery -anxiety level has decreased He denies abd pain, N/V/D, numbness/tingling, edema today. Current BP is 130/85. He denies headache, visual changes, seeing spots, or dizziness. Pt to be discharged to ECF today as per cardiothoracic surgery - Exam Vitals: Temp Pulse Resp BP Pulse Ox 98.3 F 96 20 130/85 98 02/12/18 07:07 02/12/18 07:07 02/12/18 07:35 02/12/18 07:07 02/12/18 07:35 Exam: Gen: no acute distress, A&O x3 Heart: RRR, no murmurs Lungs: decreased breath sounds B/L, no wheeze Abdomen: soft, non-tender, chest tubes removed Extremities: no edema B/L Skin - no open wound - Assessment and Plan (1) Unstable angina Status: Resolved Assessment and Plan: The patient was admitted 01/29 for unstable angina -he was brought to the label stamper on 01/30 and had an LAD stent, PCI to the RCA and was found to have 70% stenosis The pt went home and came back with recurrent chest pain on the -repeat LHC showed severe three vessel disease with an EF of 45% Currently the patient has no chest pain, no complaints of any N/V/D, no abd pain , no SOB, no numbness/tingling -anxiety has decreased CABG POD #[address] Stoll -tolerated procedure well Plan: -restarted brillenta 90 mg PO BID -nitro drip for chest pain d/c -Norepinephrine drip as per cardio d/c -heparin d/c -telemtry monitoring -pain control as per cardiothoracic sx -swanz marilin cath and A-line removed 02/07 -yin cath removed 02/08 -chest tubes removed 02/08 -ativan 0.5mg PO TID prn anxiety -pt most d/c today paperwork as per cardiothoracic surgery completed. (2) Hyperlipidemia Status: Chronic Assessment and Plan: Pt has a hx of chronic HDL TG 190, CHolesterol 243, LDL 166, VLDL 38, HDL 39 -pt is on Cholestyramine Plan: -continue home meds (3) Hypertension Status: Suspected Assessment and Plan: PPt has a hx of HTN -currently BP is 130/85 -difficult to control Plan: -Nitro drip 1.5mls/hr D/C -nitroglycerin 0.4mg SL q5min prn chest pain -tamsulosin 0.4mg PO daily -toprol 50 mg PO daily (4) CAD (coronary artery disease) Status: Chronic Assessment and Plan: Pt has NV x3 -PCI to RCA on 01/30, RCA had 70% stenosis -repeat PCI showed severe 3 vessel disease with an EF 45% Pt has multiple risk factors for CAD including HTN, HDL, age, and he is male Plan: -s/p POD #[address] Stoll; discharge today to [facility] -continue home meds: brilinta, toprol, Imdur, cholestyramine, aspirin -encourage modification of risk factors, encourage cardiac diet (5) GERD (gastroesophageal reflux disease) Status: Chronic Assessment and Plan: Pt has c/o GERD -GI cocktail 40mL PO prn -Prilosec 20mg PO BID, pt requests this be given at 0630AM - Time Spent with Patient Total time spent is greater than 50% in coordination of care (as documented) at patient's floor/unit and/or counseling patient: less than 15 minutes Plan of Care Discussed with: patient Internal Medicine: Result - Labs CBC & Chem 7: 02/10/18 01:28 02/10/18 01:28 - ABG Interpretation ABG results: ABG ABG pH 7.41 pH Units (7.32-7.45) 02/06/18 21:51 ABG pCO2 38 mmHg (35-45) 02/06/18 21:51 ABG pO2 86 mmHg (85-104) 02/06/18 21:51 ABG O2 Saturation 97 % (95-98) 02/06/18 21:51 PT/INR, D-dimer PT 13.9 Seconds (9.4-12.1) H 02/07/18 03:15 - Impressions Impressions Chest X-Ray 02/11/18 09:48 IMPRESSION: Minimal left basilar airspace disease, improved since 02/09/2018. Interval development mild subsegmental right mid lung atelectasis. D/ / Annie Aaron Cha, MD / Annie Aaron Cha, MD Interpreting Provider: Annie Aaron Cha, MD - VTE Documentation of Mechanical Device: Graduated compression elastic hosiery - AMI Reason for No Statin at DC: Drug Allergy to All Antithromobic Medications Consult Discharge Plan - Plan Instructions: Oxycodone/Acetaminophen (By mouth), Coronary Artery Bypass Graft (DC), Sternal Precautions (GEN) Referrals: Jimmy Penaloza MD [Primary Care Provider] - 02/16/18 9:45 am Chela Portillo MD [Partnered Physician] - (Office will call patient at home with follow up appointment) Hao Stoll MD [Partnered Physician] - 03/01/18 1:15 pm Prescriptions: OxyCODONE/APAP 5/325 [Percocet 5/325 MG] 1 each PO Q4HR PRN 7 Days #42 tablet PRN Reason: Severe Pain <Kishor Lorenzo - Last Filed: 02/12/18 11:52> Hospitalist Progress Note - Encounter Date of Encounter: 02/12/18 - Exam Vitals: Temp Pulse Resp BP Pulse Ox 98.3 F 96 20 130/85 98 02/12/18 07:07 02/12/18 07:07 02/12/18 07:35 02/12/18 07:07 02/12/18 07:35 - Assessment and Plan (1) Hypertension Status: Suspected (2) CAD (coronary artery disease) Status: Chronic (3) Unstable angina Status: Resolved (4) Hyperlipidemia Status: Chronic (5) GERD (gastroesophageal reflux disease) Status: Chronic - Time Spent with Patient Total time spent is greater than 50% in coordination of care (as documented) at patient's floor/unit and/or counseling patient: Internal Medicine: Result - Labs CBC & Chem 7: 02/10/18 01:28 02/10/18 01:28 - ABG Interpretation ABG results: ABG ABG pH 7.41 pH Units (7.32-7.45) 02/06/18 21:51 ABG pCO2 38 mmHg (35-45) 02/06/18 21:51 ABG pO2 86 mmHg (85-104) 02/06/18 21:51 ABG O2 Saturation 97 % (95-98) 02/06/18 21:51 PT/INR, D-dimer PT 13.9 Seconds (9.4-12.1) H 02/07/18 03:15 - Impressions Impressions Chest X-Ray 02/11/18 09:48 IMPRESSION: Minimal left basilar airspace disease, improved since 02/09/2018. Interval development mild subsegmental right mid lung atelectasis. D/ / Annie Aaron Cha, MD / Annie Aaron Cha, MD Interpreting Provider: Annie Aaron Cha, MD - Attending Attestation I have seen and examined this patient independently. I have discussed with resident physician Dr. Stoll regarding the management plan. Agree with the documentation. <Kain Stoll S - Last Filed: 02/12/18 09:00> (2) Hyperlipidemia Qualifiers: Hyperlipidemia type: unspecified Qualified Code(s): E78.5 - Hyperlipidemia, unspecified (3) Hypertension Qualifiers: Hypertension type: essential hypertension Qualified Code(s): I10 - Essential (primary) hypertension (4) CAD (coronary artery disease) Qualifiers: Coronary Disease-Associated Artery/Lesion type: [place] artery [place] vs. transplanted heart: [place] heart Associated angina: with unstable angina Qualified Code(s): I25.110 - Atherosclerotic heart disease of [place] coronary artery with unstable angina pectoris (5) GERD (gastroesophageal reflux disease) Qualifiers: Esophagitis presence: esophagitis presence not specified Qualified Code(s): K21.9 - Gastro-esophageal reflux disease without esophagitis <Kishor Lorenzo - Last Filed: 02/12/18 11:52> (1) Hypertension Qualifiers: Hypertension type: essential hypertension Qualified Code(s): I10 - Essential (primary) hypertension (2) CAD (coronary artery disease) Qualifiers: Coronary Disease-Associated Artery/Lesion type: [place] artery [place] vs. transplanted heart: [place] heart Associated angina: with unstable angina Qualified Code(s): I25.110 - Atherosclerotic heart disease of [place] coronary artery with unstable angina pectoris (4) Hyperlipidemia Qualifiers: Hyperlipidemia type: unspecified Qualified Code(s): E78.5 - Hyperlipidemia, unspecified (5) GERD (gastroesophageal reflux disease) Qualifiers: Esophagitis presence: esophagitis presence not specified Qualified Code(s): K21.9 - Gastro-esophageal reflux disease without esophagitis
[2018-02-12] MEDS: *HR* OxyCODONE/APAP 5/325 TABLET PO PRN (09:18)
[2018-02-12] MEDS: GI Cocktail 40 ML EACH PO SCH (09:48)
== END 2018-02-12 09:50 | DRG 234 ==
LOC: EMEROOARM 08:19 → 3BNU 08:19 → 2NENU 16:27 → SUATTDRO 02-02 08:46 → 2NNU 02-04 07:56 → ICNU 02-06 09:00 → 2NNU 02-07 17:35
PROVIDERS: ADMIT Family Medicine; ATTEND Internal Medicine

== ENCOUNTER 2018-03-03 02:49 | Inpatient (IN) ==
[2018-03-03 03:45] LABS: Basophils # 0.1 K/mcL (0.0-0.2); Basophils % 0.7 %; Eosinophils # 0.7 K/mcL (0.0-0.6); Eosinophils % 5.7 %; Hematocrit 44.1 % (37.5-50.1); Hemoglobin 14.7 g/dL (12.9-16.9); Immature Granulocytes % 0.4 % (0-4); Lymphocytes # 1.8 K/mcL (0.6-4.6); Lymphocytes % 15.1 %; Mean Corpuscular HGB Conc 33.3 g/dL (31.6-35.5); Mean Corpuscular Hemoglobin 29.8 pg (28.0-33.3); Mean Corpuscular Volume 89.3 fL (83.0-100.0); Mean Platelet Volume 8.9 fL (9.4-12.4); Monocytes # 0.8 K/mcL (0.0-1.3); Monocytes % 6.4 %; Neutrophils # 8.6 K/mcL (1.6-8.9); Platelet Count 417 K/mcL (140-400); Red Blood Count 4.94 M/mcL (4.19-5.50); Red Cell Distribution Width 13.2 % (11.5-14.5); Segmented Neutrophils % 71.7 %
[2018-03-03 03:51] LABS: INR 1.1; Prothrombin Time 12.5 Seconds (9.4-12.1)
[2018-03-03 03:55] LABS: Activated Partial Thrombo Time 32.4 Seconds (26.0-36.0)
[2018-03-03 03:57] LABS: BUN/Creatinine Ratio 16 (6-26); Blood Urea Nitrogen 17 mg/dL (8-23); Calcium 9.9 mg/dL (8.6-10.3); Carbon Dioxide 21 mEq/L (23-29); Chloride 103 mEq/L (98-107); Glucose 128 mg/dL (70-105); Osmolality,Calculated 287 (280-300); Potassium 3.8 mEq/L (3.5-5.1); Sodium 137 mEq/L (136-145); eGFR For Non-African Americans > 60 (> 60)
[2018-03-03 03:59] LABS: Troponin I 0.04 ng/mL (< 0.04)
[2018-03-03] MEDS ORDERED: Aspirin 81 MG TAB.CHEW PO ONE (04:02)
[2018-03-03] MEDS ORDERED: Nitroglycerin 0.4 MG TAB.SUBL SL PRN (04:02)
[2018-03-03] MEDS ORDERED: 0.9 % Sodium Chloride 1,000 ML ONE ×3 (04:30→11:45)
--- NOTE | 2018-03-03 04:31 | Emergency Department Note ---
Disposition Clinical Impression: Elevated troponin, CAD (coronary artery disease) Chest pain Qualifiers: Chest pain type: unspecified Qualified Code(s): R07.9 - Chest pain, unspecified Disposition: Admitted As Inpatient Condition: Good Referrals: Jimmy Penaloza MD [Primary Care Provider] - Forms: ED Satisfaction Letter Time of Disposition: 06:56 Chest Pain HPI - General Chief Complaint: ED Chest Pain Stated Complaint: Chest pain Time Seen by Provider: 03/03/18 03:06 Source: patient, EMS Mode of arrival: ambulatory Limitations: no limitations Vital Signs Reviewed: Yes Nursing Notes Reviewed: Yes - History of Present Illness HPI Narrative: 72-year-old male presented to the emergency department with chest pain. He did have a stent placed approximately 3 weeks ago and then underwent triple bypass surgery here by Dr. Stoll. Patient was stable after that he was started on Plavix as well as Coreg and takes a daily baby aspirin. He said that this morning he was constipated he got up and started begin having 6 out of 10 chest pain is located in the left side of the chest pain radiating up into the jaw. Says it did feels semi-similar to his previous heart attack. He said he was mildly nauseous but did not vomit. He describes a dull ache. Patient otherwise has no complaints. He said he was mildly short of breath but was still able to catch his breath. Severity scale (1-10): 5 - Related Data Home Medications Medication Instructions Recorded Confirmed Aspirin [Adult Aspirin Regimen] 81 mg PO DAILY 12/11/17 02/12/18 Multivitamin [Multivitamins] 1 each PO DAILY 01/28/18 02/12/18 [place]-3 Fatty Acids [Fish Oil] 300 mg PO DAILY 01/28/18 02/12/18 Ubidecarenone [Coq10] 50 mg PO DAILY 01/28/18 02/12/18 Previous Rx's Medication Instructions Recorded Cholestyramine 4 gm PO 0700 #30 powd.pack 01/31/18 Metoprolol XL (24 HR) Succ [Toprol 50 mg PO DAILY #30 tab.er.24h 01/31/18 Xl] Ticagrelor [Brilinta] 90 mg PO BID #60 tablet 01/31/18 OxyCODONE/APAP 5/325 [Percocet 1 each PO Q4HR PRN 7 Days #42 02/12/18 5/325 MG] tablet ALPRAZolam [Xanax 0.5 MG Tablet] 0.5 mg PO Q6H PRN 3 Days #12 tablet 02/16/18 Allergies Allergy/AdvReac Type Severity Reaction Status Date / Time niacin Allergy See Verified 03/03/18 02:58 Comments Hcdjvka-Lhx-Ebg Reductase Allergy See Verified 03/03/18 02:58 Inhibitor Comments [Statins] All systems ED: reviewed and negative except as stated. Review of Systems: As Per HPI Constitutional: Denies: fever, chills, weakness, weight change Eyes: Denies: eye pain, eye discharge, vision change ENT ED: Denies: ear pain, throat pain, dental pain, hearing loss, epistaxis, congestion, dysphagia Cardiovascular: Reports: chest pain. Denies: palpitations, dyspnea on exertion , edema, syncope Respiratory: Reports: dyspnea. Denies: cough, wheezes, hemoptysis, stridor Gastrointestinal: Reports: constipation. Denies: abdominal pain, nausea, vomiting, diarrhea, hematemesis, melena, hematochezia Genitourinary: Denies: urgency, dysuria, frequency, hematuria Musculoskeletal: Denies: back pain, neck pain, arthralgia, myalgia Integumentary: Denies: rash, abrasion, lesions Neurological: Denies: headache, weakness, numbness, paresthesias, confusion, abnormal gait, vertigo Psychiatric: Denies: anxiety, depression, suicidal thoughts, homicidal thoughts , auditory hallucinations, visual hallucinations Endocrine: Denies: fatigue Hematological/Lymphatic: Denies: easy bleeding, easy bruising Allergic/Immunologic: Denies: facial swelling, urticaria Chest Pain PMH - Past Medical History Medical history: Reports: CVA, hypertension, myocardial infarction Surgical history: Reports: angioplasty/stent, colostomy, orthopedic, other Psychiatric history: Reports: no psych history - Social History Smoking Status: Never smoker Alcohol use: Reports: none Drug use: Reports: none Physical Exam - General Limitations: no limitations General appearance: alert - Head Head exam: atraumatic, normocephalic, normal inspection - Eye Eye exam: Present: normal appearance, PERRL, EOMI - ENT ENT exam: normal exam, normal oropharynx, mucous membranes moist - Neck Neck exam: Present: normal inspection, full ROM, trachea midline - Chest Chest inspection: Present: normal inspection, symmetric chest wall rise - Respiratory Respiratory exam: Present: normal lung sounds bilaterally - Cardiovascular Cardiovascular exam: Present: regular rate, normal rhythm, normal heart sounds - Abdominal Exam Abdominal exam: Present: soft, Non-Tender, normal bowel sounds. Absent: tenderness, distention, guarding, rebound, rigidity - Extremities Exam Extremities exam: Present: normal inspection, full ROM. Absent: tenderness, pedal edema - Expanded Lower Extremity Exam Neurovascular/Tendon exam: Absent: motor deficit, sensory deficit, tendon deficit - Neurological Exam Neurological exam: Present: alert, oriented X3 - Skin Skin exam: Present: warm, dry, intact, normal color Course Course Narrative: 72-year-old male presents to the emergency department for chest pain. We will do normal chest pain workup including CBC, BMP, troponin as well as coags. We will also give patient nitroglycerin and aspirin. We will get chest x-ray and EKG. Patient's disposition most likely his admission due to cardiac history - Reevaluation(s) Reevaluation #1: Patient was reevaluated after the nitroglycerin his blood pressure did drop in the 60 systolic we did give him IV fluid bolus. That time we did recheck a EKG EKG did have some changes where there was elevations of ST segments in leads V1 and V2 at this time I did consult with the on-call oral surgery assistant sent him pictures. I spoke with Dr. Conley who looked at the images and said that we need to get a stat troponin and heparinize the patient and if the troponin comes back elevated contact him as he may do a catheterization today. Otherwise patient needs to be admitted and followed by cardiology. Time: 04:40 - Consultations Consultation #1: Spoke again with the on-call oral surgery assistant Dr. Conley I sent him a picture EKG told in the elevation of the troponin to 0.13 he says that he would not do catheterization at this time as he does not believe is a STEMI as he would expect more increase in the troponin after 2-1/2 hours. He said he will come down and see the patient within the next half hour but did recommend admission and cardiology would follow he continued the recommendation for heparinization and to control the patient's pain with nitroglycerin. Time: 06:51 Consultation #2: Spoke with the hospice doctor Melia agreed to admit the patient to their service. They did agree accept the patient to their service. Time: 06:52 Vital Signs Temperature 98.3 F 03/03/18 02:53 Pulse Rate 91 03/03/18 02:53 Respiratory Rate 18 03/03/18 02:53 Blood Pressure 181/106 03/03/18 02:53 O2 Sat by Pulse Oximetry 100 03/03/18 02:53 Temperature 98.3 F 03/03/18 02:53 Pulse Rate 89 03/03/18 05:45 Respiratory Rate 16 03/03/18 05:45 Blood Pressure 141/81 03/03/18 05:45 O2 Sat by Pulse Oximetry 98 03/03/18 05:45 Oxygen Delivery Oxygen Delivery Room Air Chest Pain - MDM Narrative Medical decision making narrative: 72-year-old male presents to the emergency department with chest pain. He does have history of triple bypass as well as heart catheterization done 3 weeks ago. Patient's did have one dose of sublingual nitroglycerin after that his blood pressure did drop as he was 60 systolic he did get an IV fluid bolus. We did repeat an EKG at that time we did notice ST elevation so we did consult the oral surgery assistant who looked at it and said that he wanted us to heparinize the patient and to repeat troponin at that time. Repeat troponin came back elevated from 0.04 to 0.13. Patient's chest pain did decrease to 2 out of 10. They said when he moves the chest pain does get worse up to a 4 to 5. We did heparinize the patient and started patient on a low-dose nitroglycerin drip to control his chest pain. Sausage Canner was reconsult it after the elevation in the troponin he said at this time he does not believe this is a STEMI and does not want to take patient to the Foiling Machine Operator he said he will come see him within the next half hour and to continue with the original plan heparinization and controlling chest pain and recommended admission and they will follow in the hospital. Chest x-ray no changes. All other labs had no acute changes. Patient is admitted to the hospitalist in stable condition at this time on a nitroglycerin drip as well as heparin drip. Cardiology consult was placed by cardiology was not called as the oral surgery assistant was contacted. Chest X-Ray 03/03/18 03:34 IMPRESSION: 1. No acute cardiopulmonary disease. D/ / Eliel Alvarez MD / Eliel Alvarez MD Interpreting Provider: Eliel Alvarez MD - Medical Records Medical records reviewed: Yes I reviewed the patient's medical records. - Lab Data Lab results reviewed: Yes I reviewed the patient's lab results. Result diagrams: 03/03/18 03:25 03/03/18 03:25 Lab Results 03/03/18 03/03/18 03/03/18 Range/Units 03:25 03:25 03:25 WBC 12.0 H (4.3-11.1) K/mcL RBC 4.94 (4.19-5.50) M/mcL Hgb 14.7 (12.9-16.9) g/dL Hct 44.1 (37.5-50.1) % MCV 89.3 (83.0-100.0) fL MCH 29.8 (28.0-33.3) pg MCHC 33.3 (31.6-35.5) g/dL RDW 13.2 (11.5-14.5) % Plt Count 417 H (140-400) K/mcL MPV 8.9 L (9.4-12.4) fL Immature Gran % 0.4 (0-4) % Seg Neutrophils % 71.7 % Lymphocytes % 15.1 % Monocytes % 6.4 % Eosinophils % 5.7 % Basophils % 0.7 % Neutrophils # 8.6 (1.6-8.9) K/mcL Lymphocytes # 1.8 (0.6-4.6) K/mcL Monocytes # 0.8 (0.0-1.3) K/mcL Eosinophils # 0.7 H (0.0-0.6) K/mcL Basophils # 0.1 (0.0-0.2) K/mcL PT 12.5 H (9.4-12.1) Seconds INR 1.1 APTT 32.4 (26.0-36.0) Seconds Heparin Anti-Xa, Unfract (0.30-0.70) IU/mL Sodium 137 (136-145) mEq/L Potassium 3.8 (3.5-5.1) mEq/L Chloride 103 (98-107) mEq/L Carbon Dioxide 21 L (23-29) mEq/L BUN 17 (8-23) mg/dL Creatinine 1.05 (0.70-1.30) mg/dL Est GFR ( Amer) > 60 (> 60) Est GFR (Non-Af Amer) > 60 (> 60) BUN/Creatinine Ratio 16 (6-26) Glucose 128 H (70-105) mg/dL Calculated Osmolality 287 (280-300) Calcium 9.9 (8.6-10.3) mg/dL Troponin I 0.04 H* (< 0.04) ng/mL 03/03/18 03/03/18 Range/Units 05:58 05:58 WBC (4.3-11.1) K/mcL RBC (4.19-5.50) M/mcL Hgb (12.9-16.9) g/dL Hct (37.5-50.1) % MCV (83.0-100.0) fL MCH (28.0-33.3) pg MCHC (31.6-35.5) g/dL RDW (11.5-14.5) % Plt Count (140-400) K/mcL MPV (9.4-12.4) fL Immature Gran % (0-4) % Seg Neutrophils % % Lymphocytes % % Monocytes % % Eosinophils % % Basophils % % Neutrophils # (1.6-8.9) K/mcL Lymphocytes # (0.6-4.6) K/mcL Monocytes # (0.0-1.3) K/mcL Eosinophils # (0.0-0.6) K/mcL Basophils # (0.0-0.2) K/mcL PT 12.4 H (9.4-12.1) Seconds INR 1.1 APTT (26.0-36.0) Seconds Heparin Anti-Xa, Unfract 0.05 L (0.30-0.70) IU/mL Sodium (136-145) mEq/L Potassium (3.5-5.1) mEq/L Chloride (98-107) mEq/L Carbon Dioxide (23-29) mEq/L BUN (8-23) mg/dL Creatinine (0.70-1.30) mg/dL Est GFR ( Amer) (> 60) Est GFR (Non-Af Amer) (> 60) BUN/Creatinine Ratio (6-26) Glucose (70-105) mg/dL Calculated Osmolality (280-300) Calcium (8.6-10.3) mg/dL Troponin I 0.13 H* (< 0.04) ng/mL - Radiology Data Radiology results reviewed: Yes I reviewed the patient's radiology results. - EKG Data EKG attestation: Yes I reviewed and interpreted this EKG. EKG results narrative: EKG #1 done at 0 254 review by myself and the attending shows sinus rhythm at a rate of 91, MD interval 141, QRS 90, QTC 404 normal axis. There is no acute ST changes no acute T-wave changes no other signs of ischemia. No heart block, hypertrophy, heart strain. No WPW/B[place]ada/HOCM. When compared with old EKG done 02/06/18 there is no acute changes. EKG #2 done at 0 431 review myself and attending shows sinus rhythm at a rate of 80, MD interval 141, QRS 95, QTC [address] elevations in leads V1 and V2 with reciprocal changes in V4 and V5 and V6. Otherwise no signs of ischemia and no changes from earlier EKG. EKG #3 EKG done at 0636 review myself and attending shows sinus rhythm at a rate of 97, irritable 141, QRS 96, QTC 437 normal axis. No acute T-wave changes there is lessening of the ST elevation in V1 and V2. No other signs of ischemia. No other changes when compared with earlier Heart Score - Score History: Moderately Suspicious EKG: Non Specific repolarisation Disturbance Age: Greater than 65 Risk Factors: Equal/Greater than 3 risk factor or history of atherosclerotic disease Troponin: 1-3x normal limit HEART Score Total: 7 Attestation Statement - Attestation Attestation: I examined this patient and my medical decision-making was reviewed with the Resident Physician. I agree with the documented findings, disposition and treatment plan as described except to the extent set forth below. Patient with multiple risk factors. Presented with chest pain. Recent triple bypass performed here [facility]. Also has history of stent placement. Heart score is 7. We did repeat an EKG after the patient received sublingual nitroglycerin and had subsequent hypotension which is resolved with IV fluids which showed some elevation in V1 and V2. This was not a STEMI at this point however we did alert the on-call oral surgery assistant upon noticing EKG changes. This was present with concurrent elevated troponin at 0.04. Aspirin has been administered, heparinization was started. Interventional cardiology recommending taking the patient the Foiling Machine Operator if second troponin is elevated. Second troponin was subsequently elevated in the oral surgery assistant was immediately notified. The patient will be taken to the Foiling Machine Operator for definitive management. This was a NSTEMI. After subsequent conversations with the interventional cardiologists he has decided that the troponin elevation is not as dramatic as one would expect at this point and as such she would like to evaluate the patient prior to any interventional interventions.
[2018-03-03] MEDS ORDERED: 0.9 % Sodium Chloride 1,000 ML IVC ONE (04:42)
[2018-03-03] MEDS ORDERED: *HR* Heparin 5,000 UNIT/ML VIAL IVP PRN ×2 (04:59)
[2018-03-03] MEDS ORDERED: *HR* Heparin 5,000 UNIT/ML VIAL IVP ONE (04:59)
[2018-03-03] MEDS ORDERED: Heparin 25,000 UNIT/500 ML D5W 25,000 UNIT/500 ML BAG IVC SCH (05:00)
[2018-03-03 06:15] LABS: Heparin anti-factor XA UFH 0.05 IU/mL (0.30-0.70)
[2018-03-03 06:16] LABS: INR 1.1; Prothrombin Time 12.4 Seconds (9.4-12.1)
[2018-03-03] MEDS ORDERED: Nitroglycerin 25 MG/250 ML INFUS..BTL IVC SCH (06:45)
--- NOTE | 2018-03-03 08:08 | Internal Med History&Physical ---
Date of Encounter: 03/03/18 Time of Encounter: 08:05 Internal Medicine - H&P: HPI Admitted From: Home History of present illness: Mr. Sharp is a 72 year old male past medical history of hypertension, hyperlipidemia, CVA, carotid stenosis status post surgery, GERD and coronary artery disease status post CABG on 02/06/18 for triple-vessel disease came with complaint of abdominal discomfort that started around 10:30 after he took Xanax. Patient said he was also trying to adjust to temperature in his room which involved minimal exertion. He event to bathroom as she felt constipated. After returning from bathroom he is abdominal discomfort was relieved however he started having chest discomfort in the center of his chest which was nonradiating. Was about 8/10 in intensity at the maximum, sharp as well as heaviness sensation. He had some nausea and one episode of vomiting. Denied any palpitation, lightheadedness, sweating or any back pain. He decided to come to the ER as he did not relieved. He had chest pain the whole time which was about few hours. Denied any associated shortness of breath. As per patient his blood pressure had been high before the night. He is compliant with all his medication. He does have a recent history of cough and phlegm and was started on Augmentin for bronchitis. On initial evaluation in ER patient had no EKG changes but had mild elevation in troponin of 0.4. He was given nitroglycerin. His blood pressure on presentation was 181/106. However after receiving nitroglycerin patient blood pressure did drop to lowest of 60/40. Repeat EKG was done with some EKG changes concerning of ST elevation as well as his troponin increased to 0.13, however manager of recruiting did not think it was STEMI given not significant increase in troponin and could be explained by the drop in blood pressure. He was started on heparin for treatment of NSTEMI. He received 1 L normal saline bolus. He was started on nitroglycerin drip for chest pain control. On interview patient did not have any chest pain, shortness of breath, abdominal pain, back pain, nausea, vomiting, sweating or palpitation. Denies any diarrhea or urinary complaints. Current vitals include blood pressure of 158/92, HR 100, RR 16, saturating 100% on room air. Past Med Surg Social Fam HX - Past Medical History Medical history: CVA, hypertension, myocardial infarction Additional medical history: Carotid stenosis Psychiatric history: no psych history - Past Surgical History Surgical History: angioplasty/stent, colostomy, orthopedic, other Additional surgical history: LITHOTRIPSY FOR KIDNEY STONES. ORIF LEFT ANKLE. Carotid Surgery. Triple bypass Feb 06, 2018 - Social History Smoking Status: Never smoker Smokeless Tobacco Status: No Alcohol use: none Drug use: none - Family History Father Living Status: Hx Family Cardiac Disorders: Yes (CABG) Internal Medicine - H&P: Meds Aspirin [Adult Aspirin Regimen] 81 mg PO DAILY 12/11/17 [History] Multivitamin [Multivitamins] 1 each PO DAILY 01/28/18 [History] [place]-3 Fatty Acids [Fish Oil] 300 mg PO DAILY 01/28/18 [History] Ubidecarenone [Coq10] 50 mg PO DAILY 01/28/18 [History] Cholestyramine 4 gm PO 0700 #30 powd.pack 01/31/18 [Rx] OxyCODONE/APAP 5/325 [Percocet 5/325 MG] 1 each PO Q4HR PRN 7 Days #42 tablet [Rx] ALPRAZolam [Xanax 0.5 MG Tablet] 0.5 mg PO Q6H PRN 3 Days #12 tablet 02/16/18 [ Rx] Amoxicillin/Clavulanate [Augmentin] 875 mg PO BIDWM 03/03/18 [History] Carvedilol [Coreg] 6.25 mg PO DAILY 03/03/18 [History] Clopidogrel [Plavix] 75 mg PO DAILY 03/03/18 [History] 3 Allergy/AdvReac Type Severity Reaction Status Date / Time niacin Allergy See Verified 03/03/18 02:58 Comments Devuayv-Pzm-Hoq Reductase Allergy See Verified 03/03/18 02:58 Inhibitor Comments [Statins] All Systems PM: A 10-system review of systems was performed and is negative for pertinent findings except as documented above in the HPI. - Constitutional Vitals: Temp Pulse Resp BP Pulse Ox 98.3 F 94 16 163/84 99 03/03/18 02:53 03/03/18 07:00 03/03/18 07:00 03/03/18 07:00 03/03/18 07:00 Exam: Constitutional: Vitals as noted. Conversant. No Apparent Distress. Well grommed. Normal BMI. Eyes exam: Sclera white, conjunctiva clear, no lid lag, PEARLA. ENT exam: Grossly normal hearing. Nasophargeal and Oropharyngeal exam unremarkable. Moist mucus membranes. No JVD, carotid bruit, no cervical lymphadenopathy. no thyromegaly or mass. Respiratory exam: Clear to auscultation bilaterally. No accessory muscle use, rales, rhonchi or wheezes Cardiovascular exam: RRR, +S1, +S2. no murmur, gallop, rubs. No chest wall tenderness, [place] scar noted on chest from recent surgery which is almost healed GI/Abdominal exam: Soft, Non-tender, Non-distended, normal bowel sounds, soft, no peritoneal signs. no orgenomegaly or mass appreciated. no hernia. Musculoskeletal exam: full ROM, no atrophy or deformity noted. no edema or cynosis, warm, pulses palpable 2/4 and symmetrical in UE/LE. no calf tenderness. Neurological exam: AO X3, CN II-XII grossly intact, grossly normal motor and sensory exam. no focal deficits. Skin exam: No skin rash, leseions or ulcers noted. no purpura or ecchymosis. Pych: Good insight and judgement. Intact memory. AOx3. Anxious affect Internal Med - H&P Results - Labs CBC & Chem 7: 03/03/18 03:25 03/03/18 03:25 - Assessment and plan (1) NSTEMI (non-ST elevated myocardial infarction) Current Visit: No Status: Acute Assessment and plan: Chest pain and elevated troponin likely from NSTEMI - Patient started on heparin drip. will continue. - Recently had stenting on 02/01/18 followed by CABG on 02/06/18 for triple- vessel disease(MONTOYA to LAD, SVG to PDA, SVG to OM1) - We will continue home Coreg 6.25 daily, aspirin 81 mg daily, Plavix 75 mg daily. Patient not on statin because of allergy history. - Achieve better blood pressure control as well as heart rate control with IV metoprolol prn. We will discuss with cardiology about increasing beta william dosage. - Cardiology following. (2) Chest pain Current Visit: Yes Status: Acute Assessment and plan: As above Qualifiers: Chest pain type: unspecified Qualified Code(s): R07.9 - Chest pain, unspecified (3) Elevated troponin Current Visit: Yes Status: Acute Assessment and plan: as above (4) CAD (coronary artery disease) Current Visit: Yes Status: Chronic Assessment and plan: as above Qualifiers: Coronary Disease-Associated Artery/Lesion type: [place] artery [place] vs. transplanted heart: [place] heart Associated angina: angina presence unspecified Qualified Code(s): I25.10 - Atherosclerotic heart disease of [place] coronary artery without angina pectoris (5) Hyperlipidemia Current Visit: No Status: Chronic Assessment and plan: - Not on statin because of severe myopathy history from all studies that were tried - Not on niacin due to severe flushing - Continue cholestyramine Qualifiers: Hyperlipidemia type: unspecified Qualified Code(s): E78.5 - Hyperlipidemia , unspecified (6) Hypertension Current Visit: No Status: Suspected Assessment and plan: - Continue home Coreg - Currently blood pressure mildly elevated. Consider IV labetalol if needed. Qualifiers: Hypertension type: essential hypertension Qualified Code(s): I10 - Essential (primary) hypertension (7) Bronchitis Current Visit: Yes Status: Acute Assessment and plan: - Continue Augmentin to finish course to Monday - Time Spent With Patient Total time spent is greater than 50% in coordination of care (as documented) at patient's floor/unit and/or counseling patient:
[2018-03-03] MEDS ORDERED: ALPRAZolam 0.5 MG TABLET PO PRN (08:49)
[2018-03-03] MEDS ORDERED: *HR* OxyCODONE/APAP 5/325 TABLET PO PRN (08:49)
[2018-03-03] MEDS ORDERED: *HR* Metoprolol 5 MG/5 ML VIAL IVP ONE (09:07)
[2018-03-03] MEDS ORDERED: *HR* Labetalol 20 MG/4 ML SYRINGE IVP ONE (09:29)
--- NOTE | 2018-03-03 09:56 | Cardiology Consult Note ---
<Deniz Charlton - Last Filed: 03/03/18 10:53> Date of Encounter: 03/03/18 Time of Encounter: 09:55 Assessment and Plan (1) Elevated troponin Current Visit: Yes Status: Acute Per Cardiology: Peak troponin 0.26 prior to bypass last month. Current troponins noted to be 0.04 and 0.13. Has another troponin pendin-- resulted at 0.24. Discussed and reviewed with Dr. Griffin and Dr. Conley, plan for [facility] if patient and family agreeable. I had multiple lengthy discussions with patient and family regarding further ischemic evaluation, at this point he is evaluating his options. (2) CAD (coronary artery disease) Current Visit: Yes Status: Chronic Per Cardiology: History of catheterization and stenting January 2018 and repeat catheterization January 2018 with subsequent CABG [address] Stoll-- Coronary artery bypass grafting 3 with the left internal mammary artery to the LAD and saphenous vein grafts to the posterior descending branch of the right and obtuse marginal branch #1 of the circumflex. On aspirin, Plavix, beta william, IV heparin drip, IV nitroglycerin drip. Has past intolerance to statins. Currently chest pain-free. Echo January 2018: Impressions: LVEF 60%. Normal appearing LV wall motion. Mild left ventricular diastolic dysfunction. Normal right ventricular structure and function. Mild tricuspid regurgitation. Mild-moderate pulmonic regurgitation. No pulmonary hypertension. Left Ventricular Wall Motion: Rest Echo Findings All wall segments showed normal motion. Qualifiers: Coronary Disease-Associated Artery/Lesion type: [place] artery [place] vs. transplanted heart: [place] heart Associated angina: angina presence unspecified Qualified Code(s): I25.10 - Atherosclerotic heart disease of [place] coronary artery without angina pectoris Discussion w patient/family: The assessment and plan as outlined above was discussed with the patient and/or family members who expressed understanding and agreement. All questions were answered. Thank you for involving us in the care of your patient. Please call with any questions. History of Present Illness Consult date: 03/03/18 Requesting physician: Chin Frazier Consult reason: Elevated Trop Chief complaint: CP History of present illness: Previous medical records reviewed: "Mr. Sharp is a 72 year old male past medical history of hypertension, hyperlipidemia, CVA, carotid stenosis status post surgery, GERD and coronary artery disease status post CABG on 02/06/18 for triple-vessel disease came with complaint of abdominal discomfort that started around 10:30 after he took Xanax. Patient said he was also trying to adjust to temperature in his room which involved minimal exertion. He event to bathroom as she felt constipated. After returning from bathroom he is abdominal discomfort was relieved however he started having chest discomfort in the center of his chest which was nonradiating. Was about 8/10 in intensity at the maximum, sharp as well as heaviness sensation. He had some nausea and one episode of vomiting. Denied any palpitation, lightheadedness, sweating or any back pain. He decided to come to the ER as he did not relieved. He had chest pain the whole time which was about few hours. Denied any associated shortness of breath. As per patient his blood pressure had been high before the night. He is compliant with all his medication. He does have a recent history of cough and phlegm and was started on Augmentin for bronchitis. On initial evaluation in ER patient had no EKG changes but had mild elevation in troponin of 0.4. He was given nitroglycerin. His blood pressure on presentation was 181/106. However after receiving nitroglycerin patient blood pressure did drop to lowest of 60/40. Repeat EKG was done with some EKG changes concerning of ST elevation as well as his troponin increased to 0.13, however entertainment manager did not think it was STEMI given not significant increase in troponin and could be explained by the drop in blood pressure. He was started on heparin for treatment of NSTEMI. He received 1 L normal saline bolus. He was started on nitroglycerin drip for chest pain control. On interview patient did not have any chest pain, shortness of breath, abdominal pain, back pain, nausea, vomiting, sweating or palpitation. Denies any diarrhea or urinary complaints. Current vitals include blood pressure of 158/92, HR 100, RR 16, saturating 100% on room air". Cardiology consult for troponin elevation. Patient seen with family at bedside. He reports had recent left CVA December 2017. Reports recent stenting January 2018. Reports repeat catheterization January 2018 with subsequent bypass surgery. He reports since surgery continues to deal with midsternal chest soreness. Reports also being treated by PCP with antibiotics for sinus drainage. He reports ongoing intermittent issues with constipation since surgery. He reports yesterday evening developed mid sternal chest pressure and burning sensation. The reportedly called the squad and prior to arrival he did have an episode of nausea with vomiting. Currently chest pain-free. He denies any palpitations or dizziness. Denies any active bleeding or blood loss. Reports had Brilinta stopped by his primary entertainment manager switched to Plavix due to concerns of short of breath. Past Med Surg Social Fam HX - Past Medical History Attestation: Yes The following information was validated with the patient. Source: patient, old records reviewed Medical history: CVA, hypertension, myocardial infarction Additional medical history: Carotid stenosis Psychiatric history: no psych history - Past Surgical History Surgical History: angioplasty/stent, colostomy, orthopedic, other Additional surgical history: LITHOTRIPSY FOR KIDNEY STONES. ORIF LEFT ANKLE. Carotid Surgery. Triple bypass Feb 06, 2018 - Social History Smoking Status: Never smoker Smokeless Tobacco Status: No Alcohol use: none Drug use: none - Family History Father Living Status: Hx Family Cardiac Disorders: Yes (CABG) Medications and Allergies Aspirin [Adult Aspirin Regimen] 81 mg PO DAILY 12/11/17 [History] Multivitamin [Multivitamins] 1 each PO DAILY 01/28/18 [History] [place]-3 Fatty Acids [Fish Oil] 300 mg PO DAILY 01/28/18 [History] Ubidecarenone [Coq10] 50 mg PO DAILY 01/28/18 [History] Cholestyramine 4 gm PO 0700 #30 powd.pack 01/31/18 [Rx] OxyCODONE/APAP 5/325 [Percocet 5/325 MG] 1 each PO Q4HR PRN 7 Days #42 tablet [Rx] ALPRAZolam [Xanax 0.5 MG Tablet] 0.5 mg PO Q6H PRN 3 Days #12 tablet 02/16/18 [ Rx] Amoxicillin/Clavulanate [Augmentin] 875 mg PO BIDWM 03/03/18 [History] Carvedilol [Coreg] 6.25 mg PO DAILY 03/03/18 [History] Clopidogrel [Plavix] 75 mg PO DAILY 03/03/18 [History] 3 Allergy/AdvReac Type Severity Reaction Status Date / Time niacin Allergy See Verified 03/03/18 02:58 Comments Ookhivr-Mer-Bvo Reductase Allergy See Verified 03/03/18 02:58 Inhibitor Comments [Statins] All Systems Review: The remainder of the systems were reviewed and are negative - Constitutional Constitutional: fatigue - Cardiovascular Cardiovascular: as per HPI, chest pain at rest, dyspnea on exertion - Gastrointestinal Gastrointestinal: abdominal pain, constipation - Integumentary Integumentary: other (Mid sternal incision site soreness) Physical Examination Vital Signs, Last 4 Hours Temp Pulse Resp BP Pulse Ox 03/03/18 09:03 97.7 F 94 15 158/91 97 03/03/18 08:06 20 158/92 03/03/18 07:00 94 16 163/84 99 General: Conversant, No Apparent Distress HEENT: Atraumatic, Normocephaly, Mucus Membranes Moist Neck: No JVD, Normal carotid pulses Cardiac: Reg Rate and Rhythm, Normal S1 and S2, No Murmur Lungs: Normal Breath Sounds, No Wheeze, Rales, Rhonchi Neuro: Alert and responsive, No focal deficits noted Abdomen: Soft, Non-Tender Skin: No rashes noted on visualized skin, Other (Midsternal incision site well approximated, no erythema, no drainage, sternum stable) Musculoskeletal: No Chest Wall Tenderness Extremities: No Clubbing, No Cyanosis, No Edema, Normal Pulses Results 03/03/18 03:25 03/03/18 03:25 Laboratory Tests 01/29/18 03/03/18 03/03/18 05:02 03:25 03:25 WBC 12.0 H Hgb 14.7 Hct 44.1 INR 1.1 Creatinine Est GFR (Non-Af Amer) Troponin I 0.26 H* 03/03/18 03/03/18 03:25 05:58 WBC Hgb Hct INR Creatinine 1.05 Est GFR (Non-Af Amer) > 60 Troponin I 0.04 H* 0.13 H* ITS Impressions Chest X-Ray 03/03/18 03:34 IMPRESSION: 1. No acute cardiopulmonary disease. D/ / Eliel Alvarez MD / Eliel Alvarez MD Interpreting Provider: Eliel Alvarez MD Active Medications Alprazolam (Xanax) 0.5 mg PO Q6H PRN; Protocol PRN Reason: Anxiety Stop: 09/02/18 08:50 Amoxicillin/Clavulanate Potassium (Augmentin) 875 mg PO BIDWM [facility] Stop: 03/05/18 17:01 Aspirin (Aspirin Ec) 81 mg PO DAILY [facility] Stop: 09/02/18 09:01 Carvedilol (Coreg) 6.25 mg PO DAILY ANMOL PRN Reason: Protocol Stop: 09/02/18 09:01 Cholestyramine Resin (Cholestyramine) 4 gm PO 0700 [facility] Stop: 09/03/18 07:01 Clopidogrel Bisulfate (Plavix) 75 mg PO DAILY [facility] Stop: 09/02/18 09:01 Heparin Sodium (Porcine) (Heparin) 4,000 unit IVP Q6HR PRN PRN Reason: SEE COMMENTS Stop: 09/02/18 05:00 Heparin Sodium (Porcine) (Heparin) 2,000 unit IVP Q6H PRN PRN Reason: SEE COMMENTS Stop: 09/02/18 05:00 Heparin Sodium/Dextrose (Heparin 25,000 Unit/500 Ml D5w) 25,000 unit in 500 mls @ 18.3 mls/hr IVC .Q24H ANMOL; 12 UNIT/KG/HR PRN Reason: Protocol Stop: 09/02/18 05:01 Last Admin: 03/03/18 06:46 Dose: 12 unit/kg/hr, 18.3 mls/hr Nitroglycerin (Nitroglycerin Premix 25 Mg/250 Ml) 25 mg in 250 mls @ 3 mls/hr IVC .Q24H ANMOL; 5 MCG/MIN PRN Reason: Protocol Stop: 09/02/18 06:46 Last Admin: 03/03/18 07:07 Dose: 5 mcg/min, 3 mls/hr Multivitamins/Calcium (Thera M Plus) 1 tab PO DAILY [facility] Stop: 09/02/18 09:01 Nitroglycerin (Nitroglycerin) 0.4 mg SL Q5MIN PRN PRN Reason: Chest Pain Stop: 09/02/18 04:03 Last Admin: 03/03/18 04:23 Dose: 0.4 mg Oxycodone/Acetaminophen (Percocet 5/325) 1 each PO Q4HR PRN PRN Reason: Severe Pain Stop: 09/02/18 08:50 Pharmacy Profile Note (Patient Taking Own Medication) 1 each PO DAILY [facility] Stop: 09/02/18 09:01 Pharmacy Profile Note (Patient Taking Own Medication) 1 each PO DAILY ANMOL Stop: 09/02/18 09:01 - Imaging and Cardiology Echo: report reviewed Cardiac cath: report reviewed - EKG Interpretation EKG results cardiology: personally reviewed (Comparable to baseline), normal ECG , sinus rhythm Consult Discharge Plan - Plan Referrals: Jimmy Penaloza MD [Primary Care Provider] - <EliasMonday A - Last Filed: 03/03/18 17:01> Date of Encounter: 03/03/18 - Attending Attestation I have interviewed and examined the patient [id number] and agree with the documentation and plan of care as outlined above. Assessment and Plan Discussion w patient/family: The assessment and plan as outlined above was discussed with the patient and/or family members who expressed understanding and agreement. All questions were answered. Thank you for involving us in the care of your patient. Please call with any questions. History of Present Illness History of present illness: Mr. Sharp is a 72 year old male All Systems Review: The remainder of the systems were reviewed and are negative Physical Examination Vital Signs, Last 4 Hours Temp Pulse Resp BP Pulse Ox 03/03/18 15:29 97.9 F 89 15 119/75 96 03/03/18 15:23 83 119/75 03/03/18 14:50 89 121/75 03/03/18 14:30 97.9 F 87 16 118/82 96 03/03/18 14:00 98.1 F 86 15 128/89 100 03/03/18 13:30 97.3 F L 86 126/89 100 Results 03/03/18 03:25 03/03/18 03:25
[2018-03-03] MEDS: Aspirin Enteric Coated 81 MG Tablet PO SCH (10:08)
[2018-03-03] MEDS: Multivit/Ca/Min/Fe/FA 1 TAB TABLET PO SCH (10:36)
[2018-03-03] MEDS: (Ubidecarenone [Coq10] 50 MG) PO SCH (10:43)
[2018-03-03] MEDS: (Omega-3 Fatty Acids [Fish Oil] 300 MG) PO SCH (10:43)
--- NOTE | 2018-03-03 11:06 | Pre-Sedation Evaluation ---
Pre-sedation evaluation - Pre-sedation checklist Date of procedure: 03/03/18 Procedure: c Recent Vitals: Last Vital Signs Temp 97.7 F 03/03/18 09:03 Pulse 94 03/03/18 09:03 Resp 15 03/03/18 09:03 BP 119/85 03/03/18 10:38 Pulse Ox 97 03/03/18 09:03 H&P (including ROS) documented in medical record: Yes Previous reaction to sedatives/anesthetics: No Dietary Status: NPO after Midnight Dentition: No loose teeth or bridges ASA Classification *see protocol: CLASS II-Mild systemic disease Cardiac Registry (Cardio Only) - Functional Capacity Functional Capacity: < 4 METS - Clincal Frailty Scale Clinical Frailty Scale: Mildly Frail
--- NOTE | 2018-03-03 11:16 | Event Note ---
Date of Encounter: 03/03/18 Time of Encounter: 11:15 - Cardiology Event Note Patient and family agreeable to left heart catheterization.
[2018-03-03] MEDS ORDERED: *HR* Heparin 10,000 UNIT/10 ML VIAL ONE (11:18)
[2018-03-03] MEDS ORDERED: Heparin 1,000 UNITS/500 mL 500 ML ONE (11:18)
[2018-03-03] MEDS ORDERED: ISOVUE-370 200 ML INFUS..BTL IV ONE (11:18)
[2018-03-03] MEDS ORDERED: Nitroglycerin 1,000 MCG/10 ML VIAL IV ONE (11:19)
[2018-03-03] MEDS ORDERED: *HR* Midazolam HCl 2 MG/2 ML VIAL ONE (11:44)
[2018-03-03] MEDS ORDERED: *HR* FentaNYL (PF) 100 MCG/2 ML VIAL ONE (11:44)
[2018-03-03] MEDS ORDERED: Tirofiban 12.5 MG/250ML 12.5 MG/250 ML BAG ONE (12:16)
[2018-03-03] MEDS ORDERED: Tirofiban 12.5 MG/250ML 12.5 MG/250 ML BAG IVC SCH (13:00)
--- NOTE | 2018-03-03 13:09 | Invasive Diagnostic Lab Proc ---
Name: Jama Sharp Date of Study: 03/03/2018 Date: 1945 Ht: 68.1in Medical Record#: [id number] Age: 72 Wt: 160.94lb Gender: Male BSA: 1.87 Order #: [id number] BMI: 24.39 Physicians Procedure Physician: Clara Conley MD Referring MD: Jimmy Penaloza MD Referring MD: Staff Name Position Time In Sites, Emperatriz RT (R) Monitor 11:55 AM Mercedes Delvalle RT (R) Scrub 11:56 AM Anshul Nelson RN Network Communications Engineer 11:56 AM Indications Indication Non-Stemi Procedures Performed Procedure L HRT ART/GRFT ANGIO PRQ CARD TWAN STENT W/ANGIO 1 VSL Pre-Procedure Checklist Informed consent is complete signed and on chart. H&P is on chart. ID band is on and ID verified with patient. Patient NPO for procedure The procedure was described for the patient and questions were answered. Blood Pressure: 119/85 ECG is on chart. Rhythm: NSR Plan of Care Patient will tolerate the procedure without complications. Adequate level of comfort will be maintained. Hemodynamics will remain stable Patient will recover from procedure without complications. Respiratory function will be maintained. Cardiac rhythm will remain stable. Patient temperature will be maintained. Patient and/or family have verbalized understanding of the procedure. Patient Education Chief Complaint/Reason for Test: Cardiac Cath Developmental Category: Geriatric (65+ years) Developmentally Appropriate for Age: Yes Learning Barriers: None Education Needs: Procedure Education Method: Verbal Information Taught: Cardiac Cath Educational Evaluation: Able to repeat information Intravenous Access Time IV Size Location DC'd Fluid/Drip Rate Units RN 11:34 AM 20g 1 1/4" Patent On Arrival Right forearm 0.9NaCl 25 ml/hr Anshul Nelson RN Allergies Kustyky-Dya-Oil Reductase Inhibitor niacin Vital Signs Time BP (mmHg) HR (bpm) O2 Sat. RR (bpm) LOC 11:31 AM 119 / 85 94 97 % 15 5 = Fully awake and oriented or at pre-proc level 11:56 AM / % 5 = Fully awake and oriented or at pre-proc level 11:52 AM 140 / 93 97 100 % 7 11:57 AM 119 / 77 90 100 % 14 12:02 PM 111 / 81 92 99 % 24 12:07 PM 126 / 69 85 100 % 32 12:13 PM 116 / 71 85 99 % 24 12:19 PM 146 / 94 86 99 % 23 12:23 PM 154 / 103 86 98 % 22 12:28 PM 168 / 105 86 98 % 21 12:33 PM 122 / 79 85 94 % 27 12:38 PM 119 / 85 84 96 % 27 12:43 PM 121 / 79 85 93 % 23 12:48 PM 89 / 64 89 96 % 19 Procedural Medications Time Medication Dose Units Method Given By 11:56 AM Oxygen 2 L/min nasal cannula Anshul Nelson RN 11:58 AM Versed 1 mg Intravenous Anshul Nelson RN 11:58 AM Fentanyl 50 mcg Intravenous Anshul Nelson RN 12:00 PM Lidocaine 2% 10 ml Subcutaneous Clara Conley MD 12:21 PM Aggrastat Bolus: 37.5 ml Intravenous Anshul Nelson RN 12:21 PM Aggrastat 12.5mg/250ml 13 ml Intravenous Anshul Nelson RN 12:21 PM Heparin 3000 units Intravenous Anshul Nelson RN 12:26 PM Fentanyl 25 mcg Intravenous Anshul Nelson RN 12:30 PM Nitroglycerin 200 mcg IntracoronRocky Padilla MD 12:31 PM Nitroglycerin 100 mcg IntracoronRocky Padilla MD 12:40 PM Nitroglycerin 200 mcg Intracoronary Rocky Conley MD 12:45 PM Nitroglycerin 100 mcg IntracoronRocky Padilla MD 12:47 PM Plavix 150 mg Orally Anshul Nelson RN ASA Classification: CLASS II- Mild systemic disease (i.e. well-controlled diabetes, hypertension, asthma, cigarette smoking) Castillo Score Preprocedure Postprocedure Activity 2- Moves 4 extremities sustained head lift Activity 2- Moves 4 extremities sustained head lift Circulation 2- SBP +/= 20 points of pre-anesthetic level Circulation 2- SBP +/= 20 points of pre-anesthetic level Consciousness 2- Awake and alert oriented x 3 Consciousness 2- Awake and alert oriented x 3 O2 Saturation 2- Able to maintain O2 satruation of 92% on room air O2 Saturation 2- Able to maintain O2 satruation of 92% on room air Respiratory 2- Able to deep breathe and cough well Respiratory 2- Able to deep breathe and cough well Total Score 10 Total Score 10 Contrast Agent: Isovue Diagnostic Contrast: 234 ml Total Contrast: 234 ml Fluoro Dose: 76756 mGy Activated Clotting Time Time Seconds to Clot 12:21 PM 161 Procedure Log Time Note Enter By 11:23 AM CathStat 11:52 AM Case Start 11:52 AM Vitals capture started with the following parameters, Patient=Adult, Interval=5 min, Initial Lgxmoxpb=889 mmHg, Deflation Rate=5 mmHg, Cuff placed on Right Arm 11:52 AM HR=97 bpm, NIPE=136/93 mmhg, RjW2=734.0 %, Resp=7 B/min 11:53 AM Recorded ECG: HR=96 Condition=Condition 1 11:55 AM Pt arrived to industrial laborer 2 at 11:55 csmith 11:55 AM Physician arrived 11:55 [facility] 11:55 AM Meet and greet completed csmith 11:55 AM Sign in performed according to hospital policy. csmith 11:55 AM Procedure start 11: [facility] 11:55 AM Emperatriz Garcia RT (R) Position: Monitor [facility] in: :55 [facility] 11:56 AM Mercedes Delvalle RT (R) Position: Scrub Time in: :56 [facility] 11:56 AM Anshul Nelson RN Position: Network Communications Engineer Time in: :56 [facility] 11:56 AM Patient charges- Angio tray pack, Navilyst 3mm J, Pulse Oximetry and ACIST tubing and transducer csmith 11:56 AM Case Delayed No [facility] : AM Time: :56 Oxygen on at 2 L/min per nasal cannula by Anshul Nelson RN [facility] 11:56 AM Time: :56 Patient comfortable and pain free: Yes [facility] 11:56 AM Time: :56LOC: 5 = Fully awake and oriented or at pre-proc level csmith 11:56 AM Clinical Presentation: Unstable angina csmith 11:57 AM HR=90 bpm, UAIV=859/77 mmhg, XqA0=009.0 %, Resp=14 B/min 11:58 AM Time: :58 Versed 1 mg Intravenous Given by Anshul Nelson RN [facility] 11:59 AM Time: :58 Fentanyl 50 mcg Intravenous Given by Anshul Nelson RN [facility] 12:00 PM Time out performed according to hospital policy [facility] 12:00 PM Time: 12:00 10 ml Lidocaine 2% to right groin Subcutaneous Given by Clara Conley MD [facility] 12:01 PM Access obtained by percutaneous puncture. 5Fr 10cm Micro puncture sheath placed in right Femoral artery. [id number] tsites 12:01 PM 3cc of contrast injected into rt fem artery tsites 12:02 PM Sheath exchanged for a 6 Fr 11 cm Terumo Wellpinit sheath [id number] tsites 12:02 PM 5Fr FR 4 catheter inserted over the wire DNC tsites 12:02 PM 0.035 145cm Navilyst 3mmJ wire [id number] tsites 12:02 PM HR=92 bpm, DAXR=634/81 mmhg, SpO2=99.0 %, Resp=24 B/min 12:03 PM SVG to the RPDA angio performed in multiple views. tsites 12:04 PM Recorded Pressure: Ao, HR=86, Condition=Condition 1 (Aorta) Ao 94/70/82 12:05 PM SVG to the 1st Diagonal angio performed in multiple views. tsites 12:06 PM RCA angiography performed in multiple views. tsites 12:07 PM HR=85 bpm, QJPH=393/69 mmhg, WiK9=992 %, Resp=32 B/min 12:10 PM NIBP STAT measurement started. 12:12 PM Left CORY to the LAD angio performed in multiple views. tsites 12:12 PM Vitals capture stopped. 12:12 PM Vitals capture started with the following parameters, Patient=Adult, Interval=5 min, Initial Auyddlrc=251 mmHg, Deflation Rate=5 mmHg, Cuff placed on Right Arm 12:12 PM wire reinserted catheter removed tsites 12:13 PM 5Fr FL 4 catheter inserted over the wire DN tsites 12:13 PM HR=85 bpm, VOSI=704/71 mmhg, SpO2=99 %, Resp=24 B/min 12:16 PM Recorded Pressure: LV, HR=86, Condition=Condition 1 (Left Ventricle) LV 105/14/-5 12:16 PM LCA angiography performed in multiple views. tsites 12:16 PM wire reinserted catheter removed tsites 12:17 PM 5Fr Pigtail catheter inserted over the wire DN tsites 12:17 PM Catheter selectively placed in left ventricle tsites 12:17 PM Bolus angiogram of left Ventricle complete: 10 ml/sec for a total of 30 mls tsites 12:17 PM Recorded Pressure: LV, Ao, HR=87, Condition=Condition 1 (Left Ventricle) LV 95/27/29, (Aorta) Ao 105/77/92 12:18 PM wire reinserted catheter removed tsites 12:18 PM PCI Status Urgent tsites 12:18 PM 6Fr XB LAD 3.5 Runway guide catheter was used to cannulate the PCI vessel successfully. reused? No tsites 12:18 PM Inflation device was opened. tsites 12:19 PM HR=86 bpm, DDEF=310/94 mmhg, SpO2=99.0 %, Resp=23 B/min 12:19 PM Lesion found in distal LADPre Stenosis: 90 Pre RADHA Flow: 2: Partial Flow/Perfusion (> 1 but < 3) tsites 12:19 PM ACT drawn tsites 12:21 PM Time: 12:21 Aggrastat Bolus: 37.5 ml Intravenous Given by Anshul Nelson RN Ruggiero pump tsites 12: PM Time: 12:21 Aggrastat 12.5mg/250ml 13 ml Intravenous Given by Anshul Nelson RN Ruggiero pump tsites 12: PM At 12:21 the ACT was 161 seconds. tsites 12:22 PM Time: 12:21 Heparin 3000 units Intravenous Given by Anshul Nelson RN tsites 12:22 PM .014 BMW Gentry 182cm guide wire across target lesion- successful. reused? No tsites 12:23 PM HR=86 bpm, MWXB=358/103 mmhg, SpO2=98.0 %, Resp=22 B/min 12:24 PM 2.0 mm x 8 mm Emerge Monorail balloon across target lesion- successful. reused? No tsites 12:24 PM Balloon inflated @ 6 yohannes for 8 seconds tsites 12:24 PM Balloon inflated @ 6 yohannes for 8 seconds tsites 12:24 PM Balloon inflated @ 6 yohannes for 7 seconds tsites 12:25 PM Recorded ECG: HR=84 Condition=Condition 1 12:25 PM Balloon catheter removed intact. tsites 12: PM Time: 12: Fentanyl 25 mcg Intravenous Given by Anshul Nelson RN tsites 12:27 PM 2.25mm x 16mm Synergy drug-eluting stent across target lesion- successful Lot #[id number] tsites 12:28 PM Stent deployed @ 8 yohannes for 16 seconds tsites 12:28 PM Stent balloon reinflated @ 9 yohannes for 5 seconds tsites 12:28 PM HR=86 bpm, ICLT=395/105 mmhg, SpO2=98.0 %, Resp=21 B/min 12:28 PM Stent balloon reinflated @ 11 yohannes for 8 seconds tsites 12:29 PM Stent balloon reinflated @ 14 yohannes for 14 seconds tsites 12:30 PM Time: 12:30 Nitroglycerin 200 mcg Intracoronary Given by Rocky Conley MD tsites 12:31 PM Recorded Pressure: Ao, HR=86, Condition=Condition 1 (Aorta) Ao 141/66/96 12:31 PM Time: 12:31 Nitroglycerin 100 mcg Intracoronary Given by Rocky Conley MD tsites 12:31 PM Stent delivery system removed intact. tsites 12:33 PM HR=85 bpm, GOVV=220/79 mmhg, SpO2=94 %, Resp=27 B/min 12:33 PM 2.0x8 emerge balloon reinserted tsites 12:34 PM Balloon inflated @ 8 yohannes for 12 seconds tsites 12:35 PM Balloon inflated @ 10 yohannes for 5 seconds tsites 12:35 PM Balloon inflated @ 12 yohannes for 3 seconds tsites 12:37 PM Balloon catheter removed intact. tsites 12:37 PM 3.0 mm x 12mm NC Emerge balloon across target lesion- successful. reused? No tsites 12:38 PM Balloon inflated @ 18 yohannes for 12 seconds tsites 12:38 PM Balloon inflated @ 18 yohannes for 5 seconds tsites 12:38 PM Lesion found in Mid LAD. Pre Stenosis: 50 Pre RADHA Flow: 2: Partial Flow/Perfusion (> 1 but < 3) tsites 12:38 PM HR=84 bpm, WCCW=883/85 mmhg, SpO2=96 %, Resp=27 B/min 12:39 PM Balloon inflated @ 18 yohannes for 6 seconds tsites 12:39 PM Balloon inflated @ 18 yohannes for 9 seconds tsites 12:40 PM Balloon catheter removed intact. tsites 12:40 PM Time: 12:40 Nitroglycerin 200 mcg Intracoronary Given by Rocky Conley MD tsites 12:42 PM Guide wire removed intact. tsites 12:43 PM HR=85 bpm, WWZM=749/79 mmhg, SpO2=93 %, Resp=23 B/min 12:45 PM Time: 12:45 Nitroglycerin 100 mcg Intracoronary Given by Rocky Conley MD tsites 12:46 PM Guide catheter removed intact. tsites 12:47 PM Time: 12:47 Plavix 150 mg Orally Given by Anshul Nelson RN tsites 12:48 PM Procedure completed at 12:48 03/03/2018 tsites 12:48 PM Did you address RADHA flow and Dominance? Yes tsites 12:48 PM Coronary Dominance: right tsites 12:48 PM Mid/Distal Left Anterior Descending Coronary Artery and diagonal branches with 90% stenosis. If graft is supplying this area, 0 % stenosis tsites 12:48 PM HR=89 bpm, NIBP=89/64 mmhg, SpO2=96 %, Resp=19 B/min 12:48 PM Procedure completed at 12:48 03/03/2018 tsites 12:48 PM Did you address RADHA flow and Dominance? Yes tsites 12:49 PM Sign out completed: Radiation Dose 980 mGy, 07103 cGy/cm2 Fluoro Time: 14.2 Isovue 370 - 200ml contrast 234 ml given by Clara Conley MD. Complications: NoneCardiac Rehab Consult needed: YesConfirmed administered medications: No tsites 12:49 PM Isovue 370 - 200ml,2 Bottle(s) used. tsites 12:50 PM Arterial sheath pulled, Angio-seal closure device used and was Successful [id number] S/N. tsites 12:51 PM Estimated Blood Loss: less than 20cc tsites 12:51 PM Post ECG NSR tsites 12:51 PM Post Blood Pressure 121/79 tsites 12:51 PM 12:51 Post Pulses Bilateral DP & PT 1+ tsites 12:52 PM Information taught Cardiac Cath, PCI, and Angioseal tsites 12:52 PM Education needs Procedure, Plan of Care, and Responsibilities of Patient in Care tsites 12:52 PM Learning barriers :None tsites 12:52 PM Education Methods Verbal tsites 12:52 PM Education evaluation Able to repeat information tsites 12:52 PM Site status No bleeding/hematoma - Rt Groin as reported by Mercedes Delvalle RT (R) at 12:52 tsites 12:52 PM Opsite applied tsites 12:52 PM Plavix, Effient or Brilinta given Yes tsites 12:52 PM Delay to floor No tsites 12:52 PM Patient out of room: 12:52 tsites 12:52 PM Family placed in consult room. tsites 12:53 PM Report given to bunny CHAVEZ Pt taken to E Room #17. 12:52 tsites 12:55 PM Lesion found in Proximal RCA. Pre Stenosis: 25 Pre RADHA Flow: tsites 12:55 PM Lesion found in Distal RCA. Pre Stenosis: 70 Pre RADHA Flow: tsites 12:56 PM Lesion found in Mid Circumflex. Pre Stenosis: 70 Pre RADHA Flow: tsites 12:56 PM Lesion found in 1st Marginal. Pre Stenosis: 70 Pre RADHA Flow: tsites 12:56 PM Lesion found in Right PDA. Pre Stenosis: 100 Pre RADHA Flow: tsites 12:56 PM Circumflex, Obtuse Marginal, Left Posterior Descending, and Left Posterolateral Coronary Arteries with 70 % stenosis. If graft is supplying this area, 0 % stenosis tsites 12:56 PM Right Coronary, Right Posterior Descending Arteries with Right Posterolateral and Acute Marginal branches with 100 % stenosis. If graft is supplying this area, 0 % stenosis tsites Complications Complication None Hemodynamics Pressures Site Systolic/A Wave Diastolic/V Wave Mean AO 94 70 82 LV 105 14 -5 LV 95 27 29 AO 105 77 92 AO 141 66 96 Post Procedure Information Blood Pressure: 121/79 mmHg Rhythm: NSR Post procedural instructions were given Closure Device Time Device Success/Fail 03/03/2018 12:57:00 PM Angio-Seal VIP Successful Site Checks Time Location Status Staff Sheath In? Note 12:52 PM Rt Groin No bleeding/hematoma Mercedes Delvalle RT (R) Pulses Time Site Pre-Procedure Post-Procedure Note 03/03/2018 11:55:00 AM Bilateral DP & PT 1+ 12:51:00 PM Bilateral DP & PT 1+ Updated by Emperatrizmayra Garcia RT (R) on 03/03/2018 1:00:32 PM Emperatriz Garcia RT electronically signed on 03/03/2018 1:01:08 PM with status of Final
[2018-03-03] MEDS ORDERED: Acetaminophen 325 MG TABLET PO PRN (14:45)
[2018-03-03 17:07] LABS: Bilirubin,Urine Negative (Negative); Blood,Urine Large (Negative); Clarity,Urine Cloudy (Clear); Color,Urine Yellow (Yellow); Glucose,Urine (UA) Normal (Normal); Ketones,Urine Negative (Negative); Leukocyte Esterase,Urine Negative (Negative); Nitrite,Urine Negative (Negative); Protein,Urine Negative (Neg-Trace); Specific Gravity,Urine > 1.030 (1.010-1.025); Urobilinogen,Urine Normal (Normal)
[2018-03-03 17:09] LABS: Bacteria,Urine None Seen per hpf (None-Few); Hyaline Casts,Urine None Seen per lpf (None-Few); RBC,Urine TNTC per hpf (0-3); Squamous Epithelial Cell,Urine None Seen per lpf (None-Few); WBC,Urine 0-3 per hpf (0-3)
[2018-03-03] MEDS ORDERED: MOM Conc 10 ML UD.LIQ PO PRN (17:16)
[2018-03-03] MEDS ORDERED: Ondansetron 4 MG/2 ML VIAL IVP PRN (17:17)
[2018-03-03] MEDS: Sennosides/Docusate Sodium TABLET PO SCH (20:21)
[2018-03-04 04:11] LABS: Basophils # 0.1 K/mcL (0.0-0.2); Basophils % 0.5 %; Eosinophils # 0.4 K/mcL (0.0-0.6); Eosinophils % 4.3 %; Hematocrit 38.9 % (37.5-50.1); Hemoglobin 13.3 g/dL (12.9-16.9); Immature Granulocytes % 0.2 % (0-4); Lymphocytes # 1.9 K/mcL (0.6-4.6); Lymphocytes % 21.1 %; Mean Corpuscular HGB Conc 34.2 g/dL (31.6-35.5); Mean Corpuscular Hemoglobin 30.2 pg (28.0-33.3); Mean Corpuscular Volume 88.2 fL (83.0-100.0); Mean Platelet Volume 9.1 fL (9.4-12.4); Monocytes # 0.8 K/mcL (0.0-1.3); Monocytes % 8.6 %; Platelet Count 329 K/mcL (140-400); Red Blood Count 4.41 M/mcL (4.19-5.50); Red Cell Distribution Width 13.4 % (11.5-14.5); Segmented Neutrophils % 65.3 %
[2018-03-04 04:29] LABS: BUN/Creatinine Ratio 14 (6-26); Blood Urea Nitrogen 13 mg/dL (8-23); Calcium 9.2 mg/dL (8.6-10.3); Carbon Dioxide 23 mEq/L (23-29); Chloride 107 mEq/L (98-107); Glucose 113 mg/dL (70-105); Osmolality,Calculated 285 (280-300); Potassium 4.1 mEq/L (3.5-5.1); Sodium 137 mEq/L (136-145); eGFR For Non-African Americans > 60 (> 60)
--- NOTE | 2018-03-04 05:45 | Event Note ---
Date of Encounter: 03/04/18 Time of Encounter: 05:21 Patient's nurse called to notify me regarding this patient. He started to have chest pain that he states is similar to the pain he had prior to having his LHC yesterday. Patient also has recent history of CABG a few weeks ago. Troponins have been trending down, at 4am they were 0.10 down from 0.23 yesterday. He took 1 dose of oxycodone and his pain has resolved. EKG was ordered and it showed T wave changes in V4-V6 that was not there previously. I suspect this is related to his heart cath procedure, I contacted the plant specialist Dr. Conley and notified him of my concerns. He indicated that the EKG change was likely related to the procedure, and with the chest pain now resolved, and decreasing troponin, nothing more needs to be done at this time. Cardiology will round on the patient later in the AM.
[2018-03-04] MEDS: Cholestyramine 4 GM POWD.PACK PO SCH (06:00)
--- NOTE | 2018-03-04 08:35 | Cardiology Progress Note ---
Date of Encounter: 03/04/18 Time of Encounter: 08:35 Assessment and Plan (1) Elevated troponin Current Visit: Yes Status: Acute Per Cardiology: Peak troponin 0.24. Suspect NSTEMI. S/p [facility]: Impressions: There is severe one vessel coronary artery disease. There is moderate to severe segmental LV Dysfunction EF 35% Patient had successful PTCA/Drug-Eluting Stent placement in the distal LAD. S/P CABG 2 of 3 patent bypass grafts. Patient had successful PTCA in the mid LAD. Lesion Findings/Interventions * Left Main Coronary Artery The LMCA is angiographically free of disease. * Left Anterior Descending There is a 12 mm long, 50% stenosis in the Mid LAD. The lesion has a RADHA flow of 2 and has no thrombus present. An intervention was performed on the Mid LAD with a final stenosis of 25%. There were no lesion complications. The final RADHA flow was 3. There is a 16 mm long, 90% stenosis in the Distal LAD. The lesion has a RADHA flow of 2 and has no thrombus present. An intervention was performed on the Distal LAD with a final stenosis of 0%. There were no lesion complications. The final RADHA flow was 3. * Circumflex There is a 70% stenosis in the Mid Circumflex. There is a 70% stenosis in the 1st Marginal. * Right Coronary Artery There is a 25% stenosis in the Proximal RCA. There is a 70% stenosis in the Distal RCA. There is a 100% stenosis in the Right PDA. Additional Findings: Grafts * The saphenous vein graft to the Right PDA is patent. RADHA flow is . * The saphenous vein graft to the 1st Marginal is patent. RADHA flow is . * The left internal mammary graft to the Mid LAD is atretic . On asa, plavix, BB. Intolerant to statins. Echo pending. Currently chest pain- free. Recommend ambulate hallway today. We will continue to follow and monitor. (2) CAD (coronary artery disease) Current Visit: Yes Status: Chronic Per Cardiology: History of catheterization and stenting January 2018 and repeat catheterization January 2018 with subsequent CABG [address] Stoll-- Coronary artery bypass grafting 3 with the left internal mammary artery to the LAD and saphenous vein grafts to the posterior descending branch of the right and obtuse marginal branch #1 of the circumflex. . Qualifiers: Coronary Disease-Associated Artery/Lesion type: [place] artery [place] vs. transplanted heart: [place] heart Associated angina: angina presence unspecified Qualified Code(s): I25.10 - Atherosclerotic heart disease of [place] coronary artery without angina pectoris Discussion w patient/family: The assessment and plan as outlined above was discussed with the patient and/or family members who expressed understanding and agreement. All questions were answered. Thank you for involving us in the care of your patient. Please call with any questions. Subjective Principal diagnosis: NSTEMI, CAD Interval history: Patient denies any chest pain. Reports had some back discomfort this morning with walking to the bathroom currently resolved. Denies any concerns from his right great site. Per nursing staff, patient with hematuria, however not new and already being valuated in outpatient setting by urology. Objective Vital Signs, Last 4 Hours Temp Pulse Resp BP Pulse Ox 03/04/18 06:09 98.2 F 90 15 132/91 95 General: Conversant, No Apparent Distress HEENT: Atraumatic, Normocephaly, Mucus Membranes Moist Neck: No JVD, Normal carotid pulses Cardiac: Reg Rate and Rhythm, Normal S1 and S2, No Murmur Lungs: Normal Breath Sounds, No Wheeze, Rales, Rhonchi Neuro: Alert and responsive, No focal deficits noted Abdomen: Soft, Non-Tender Skin: No rashes noted on visualized skin, Other (Right groin site was intact, no hematoma, no ecchymosis, no bleeding, right PT and DP pulses 1+ palpable) Musculoskeletal: No Chest Wall Tenderness Extremities: No Clubbing, No Cyanosis, No Edema, Normal Pulses Results 03/04/18 04:00 03/04/18 04:00 Lab Results Laboratory Tests 03/03/18 03/03/18 03/03/18 03:25 05:58 09:19 Creatinine Est GFR (Non-Af Amer) Troponin I 0.04 H* 0.13 H* 0.24 H* 03/03/18 03/04/18 03/04/18 10:03 04:00 04:00 Creatinine 0.92 Est GFR (Non-Af Amer) > 60 Troponin I 0.23 H* 0.10 H* Active Medications Acetaminophen (Tylenol) 650 mg PO Q6HR PRN PRN Reason: Analgesia Stop: 09/02/18 14:46 Alprazolam (Xanax) 0.5 mg PO Q6H PRN; Protocol PRN Reason: Anxiety Stop: 09/02/18 08:50 Amoxicillin/Clavulanate Potassium (Augmentin) 875 mg PO BIDWM [facility] Stop: 03/05/18 17:01 Last Admin: 03/03/18 15:17 Dose: 875 mg Aspirin (Aspirin Ec) 81 mg PO DAILY [facility] Stop: 09/02/18 09:01 Last Admin: 03/03/18 10:08 Dose: Not Given Carvedilol (Coreg) 6.25 mg PO DAILY [facility] PRN Reason: Protocol Stop: 09/02/18 09:01 Last Admin: 03/03/18 10:36 Dose: 6.25 mg Cholestyramine Resin (Cholestyramine) 4 gm PO 0700 [facility] Stop: 09/03/18 07:01 Last Admin: 03/04/18 06:00 Dose: 4 gm Clopidogrel Bisulfate (Plavix) 75 mg PO DAILY [facility] Stop: 09/02/18 09:01 Last Admin: 03/03/18 10:36 Dose: 75 mg Guaifenesin (Robitussin/Dm) 10 ml PO Q6HR PRN PRN Reason: Cough Stop: 09/02/18 14:48 Last Admin: 03/04/18 05:19 Dose: 10 ml Heparin Sodium (Porcine) (Heparin) 4,000 unit IVP Q6HR PRN PRN Reason: SEE COMMENTS Stop: 09/02/18 05:00 Heparin Sodium (Porcine) (Heparin) 2,000 unit IVP Q6H PRN PRN Reason: SEE COMMENTS Stop: 09/02/18 05:00 Hydroxyzine HCl (Hydroxyzine) 10 mg PO HS PRN PRN Reason: Insomnia Stop: 09/02/18 14:47 Magnesium Hydroxide (Milk Of Magnesia Conc) 10 ml PO DAILY PRN PRN Reason: Constipation Stop: 09/02/18 17:17 Last Admin: 03/03/18 20:21 Dose: 10 ml Multivitamins/Calcium (Thera M Plus) 1 tab PO DAILY [facility] Stop: 09/02/18 09:01 Last Admin: 03/03/18 10:36 Dose: 1 tab Nitroglycerin (Nitroglycerin) 0.4 mg SL Q5MIN PRN PRN Reason: Chest Pain Stop: 09/02/18 04:03 Last Admin: 03/03/18 04:23 Dose: 0.4 mg Ondansetron HCl (Zofran) 4 mg IVP Q6HR PRN; Protocol PRN Reason: Nausea/Vomiting Stop: 09/02/18 17:18 Oxycodone/Acetaminophen (Percocet 5/325) 1 each PO Q4HR PRN PRN Reason: Severe Pain Stop: 09/02/18 08:50 Last Admin: 03/04/18 04:59 Dose: 1 each Pharmacy Profile Note (Patient Taking Own Medication) 1 each PO DAILY [facility] Stop: 09/02/18 09:01 Last Admin: 03/03/18 10:43 Dose: Not Given Pharmacy Profile Note (Patient Taking Own Medication) 1 each PO DAILY [facility] Stop: 09/02/18 09:01 Last Admin: 03/03/18 10:43 Dose: Not Given Senna/Docusate Sodium (Senna Plus) 1 each PO DAILY AN[facility]OL PRN Reason: Protocol Stop: 03/09/18 21:01 Last Admin: 03/03/18 20:21 Dose: 1 each - Imaging and Cardiology Echo: pending Cardiac cath: report reviewed Consult Discharge Plan - Plan Referrals: Jimmy Penaloza MD [Primary Care Provider] -
[2018-03-04] MEDS: Aspirin Enteric Coated 81 MG Tablet PO SCH (08:48)
[2018-03-04] MEDS: Sennosides/Docusate Sodium TABLET PO SCH (08:49)
[2018-03-04] MEDS: (Omega-3 Fatty Acids [Fish Oil] 300 MG) PO SCH (08:50)
[2018-03-04] MEDS: (Ubidecarenone [Coq10] 50 MG) PO SCH (08:50)
[2018-03-04] MEDS: Multivit/Ca/Min/Fe/FA 1 TAB TABLET PO SCH (08:53)
--- NOTE | 2018-03-04 11:06 | Internal Med Progress Note ---
Hospitalist Progress Note - Encounter Date of Encounter: 03/04/18 Time of Encounter: 11:02 - Subjective Interval History: Patient seen and evaluated at bedside, denies chest pain, shortness of breath. No abdominal pain, nausea or vomiting. Reports that he has chronic hematuria for which he is scheduled to have a CT of the abdomen and pelvis as an outpatient. - Exam Vitals: Temp Pulse Resp BP Pulse Ox 98.2 F 90 15 132/91 95 03/04/18 06:09 03/04/18 06:03/04/18 06:09 03/04/18 06:09 03/04/18 06:09 Exam: General: Alert and oriented 4. Not in acute distress. Skin: Midsternal healed postsurgical scar. HEENT: EOM, pupils equal, round and reactive. Cardiovascular: RRR, Normal S1 & S2, no rubs, murmurs or gallops. JVD about 6cm. Lungs: Clear breath sounds auscultation bilaterally, no wheezes or crackles. Abdomen:Soft, non-tender, no rigidity. Extremities: no edema or tenderness, no joint swelling or clubbing. Neurological: Normal cognition and motor skills. CN II-XII intact. Rest of the physical exam is non contributory - Assessment and Plan (1) NSTEMI (non-ST elevated myocardial infarction) Current Visit: No Status: Acute Assessment and Plan: S/P [facility] Impressions: There is severe one vessel coronary artery disease. There is moderate to severe segmental LV Dysfunction EF 35% Patient had successful PTCA/Drug-Eluting Stent placement in the distal LAD. S/P CABG 2 of 3 patent bypass grafts. Patient had successful PTCA in the mid LAD. Plan continue medical therapy. Patient on Aspirin, Plavix, chlestyramine and beta william will start patient on a low dose Aces inhibitor Will continue to follow cardiology recommendations patient to remain in the hospital for close observation for 24 more hours. (2) Hypertension Current Visit: No Status: Suspected Assessment and Plan: Blood pressure well controlled Plan: continue BP control with carvedilol 6.25mg PO daily. Started on low dose lisinopril 2.5mg/PO daily (3) CAD (coronary artery disease) Current Visit: Yes Status: Chronic Assessment and Plan: Continue aspirin and Plavix (4) Hyperlipidemia Current Visit: No Status: Chronic Assessment and Plan: On cholestyramine. Allergic to statins. (5) Bronchitis Current Visit: Yes Status: Acute Assessment and Plan: Resolving. Denies productive cough. Continue Augmentin for 1 more day. (6) Hematuria Current Visit: Yes Status: Acute Assessment and Plan: Microscopic. Patient is scheduled for outpatient work up. DVT Prophylaxis: On chemical and mechanical DVT prophylaxis. - Summary of Assessment and Plan Summary of Assessment and Plan: Patient to remain in the hospital for close observation status post [facility] - Time Spent with Patient Total time spent is greater than 50% in coordination of care (as documented) at patient's floor/unit and/or counseling patient: 25 - 35 minutes Plan of Care Discussed with: patient (the family and nurse.) Internal Medicine: Result - Labs CBC & Chem 7: 03/04/18 04:00 03/04/18 04:00 Labs: Short CBC 03/04/18 Range/Units 04:00 WBC 9.2 (4.3-11.1) K/mcL Hgb 13.3 (12.9-16.9) g/dL Hct 38.9 (37.5-50.1) % Plt Count 329 (140-400) K/mcL Neutrophils # 6.0 (1.6-8.9) K/mcL BMP 03/04/18 04:00 Sodium 137 Potassium 4.1 Chloride 107 Carbon Dioxide 23 BUN 13 Creatinine 0.92 Glucose 113 H Calcium 9.2 Cardiac Enzymes 03/04/18 Range/Units 04:00 Troponin I 0.10 H* (< 0.04) ng/mL Urine 03/03/18 Range/Units 16:54 Urine Color Yellow (Yellow) Urine Clarity Cloudy A (Clear) Urine pH 6.0 (5.0-8.0) pH Units Ur Specific [place] > 1.030 H (1.010-1.025) Urine Protein Negative (Neg-Trace) mg/dL Urine Glucose (UA) Normal (Normal) mg/dL - ABG Interpretation ABG results: PT/INR, D-dimer PT 12.4 Seconds (9.4-12.1) H 03/03/18 05:58 Consult Discharge Plan - Plan Referrals: Jimmy Penaloza MD [Primary Care Provider] - (2) Hypertension Qualifiers: Hypertension type: essential hypertension Qualified Code(s): I10 - Essential (primary) hypertension (3) CAD (coronary artery disease) Qualifiers: Coronary Disease-Associated Artery/Lesion type: [place] artery [place] vs. transplanted heart: [place] heart Associated angina: angina presence unspecified Qualified Code(s): I25.10 - Atherosclerotic heart disease of [place] coronary artery without angina pectoris (4) Hyperlipidemia Qualifiers: Hyperlipidemia type: unspecified Qualified Code(s): E78.5 - Hyperlipidemia, unspecified (6) Hematuria Qualifiers: Hematuria type: unspecified type Qualified Code(s): R31.9 - Hematuria, unspecified
[2018-03-05 06:20] LABS: Basophils # 0.1 K/mcL (0.0-0.2); Basophils % 0.5 %; Eosinophils # 0.6 K/mcL (0.0-0.6); Eosinophils % 6.2 %; Hematocrit 39.2 % (37.5-50.1); Immature Granulocytes % 0.3 % (0-4); Lymphocytes # 1.8 K/mcL (0.6-4.6); Lymphocytes % 17.6 %; Mean Corpuscular HGB Conc 33.2 g/dL (31.6-35.5); Mean Corpuscular Hemoglobin 29.7 pg (28.0-33.3); Mean Corpuscular Volume 89.7 fL (83.0-100.0); Mean Platelet Volume 9.2 fL (9.4-12.4); Monocytes # 0.9 K/mcL (0.0-1.3); Monocytes % 8.4 %; Neutrophils # 6.8 K/mcL (1.6-8.9); Platelet Count 326 K/mcL (140-400); Red Blood Count 4.37 M/mcL (4.19-5.50); Red Cell Distribution Width 13.5 % (11.5-14.5)
[2018-03-05] MEDS: Cholestyramine 4 GM POWD.PACK PO SCH (06:31)
[2018-03-05 06:32] LABS: BUN/Creatinine Ratio 13 (6-26); Blood Urea Nitrogen 14 mg/dL (8-23); Calcium 9.1 mg/dL (8.6-10.3); Carbon Dioxide 23 mEq/L (23-29); Chloride 107 mEq/L (98-107); Glucose 118 mg/dL (70-105); Magnesium 2.2 mg/dL (1.6-2.6); Osmolality,Calculated 288 (280-300); Phosphorous 3.6 mg/dL (2.7-4.5); Potassium 4.2 mEq/L (3.5-5.1); Sodium 138 mEq/L (136-145); eGFR For Non-African Americans > 60 (> 60)
[2018-03-05 07:39] VITALS: BP 122/77
--- NOTE | 2018-03-05 08:23 | Cardiology Progress Note ---
Date of Encounter: 03/05/18 Time of Encounter: 08:25 Assessment and Plan (1) Elevated troponin Current Visit: Yes Status: Acute Per Cardiology: Peak troponin 0.24. NSTEMI. S/p [facility]: Impressions: There is severe one vessel coronary artery disease. There is moderate to severe segmental LV Dysfunction EF 35% Patient had successful PTCA/Drug-Eluting Stent placement in the distal LAD. S/P CABG 2 of 3 patent bypass grafts. Patient had successful PTCA in the mid LAD. Lesion Findings/Interventions * Left Main Coronary Artery The LMCA is angiographically free of disease. * Left Anterior Descending There is a 12 mm long, 50% stenosis in the Mid LAD. The lesion has a RADHA flow of 2 and has no thrombus present. An intervention was performed on the Mid LAD with a final stenosis of 25%. There were no lesion complications. The final RADHA flow was 3. There is a 16 mm long, 90% stenosis in the Distal LAD. The lesion has a RADHA flow of 2 and has no thrombus present. An intervention was performed on the Distal LAD with a final stenosis of 0%. There were no lesion complications. The final RADHA flow was 3. * Circumflex There is a 70% stenosis in the Mid Circumflex. There is a 70% stenosis in the 1st Marginal. * Right Coronary Artery There is a 25% stenosis in the Proximal RCA. There is a 70% stenosis in the Distal RCA. There is a 100% stenosis in the Right PDA. Additional Findings: Grafts * The saphenous vein graft to the Right PDA is patent. RADHA flow is . * The saphenous vein graft to the 1st Marginal is patent. RADHA flow is . * The left internal mammary graft to the Mid LAD is atretic . On asa, plavix, BB. Intolerant to statins. Echo showed EF "41-46%". Currently chest pain-free. Cardiology signoff, reconsult as needed, follow-up arranged, discussed with primary service. All questions answered. (2) CAD (coronary artery disease) Current Visit: Yes Status: Chronic Per Cardiology: History of catheterization and stenting January 2018 and repeat catheterization January 2018 with subsequent CABG [address] Stoll-- Coronary artery bypass grafting 3 with the left internal mammary artery to the LAD and saphenous vein grafts to the posterior descending branch of the right and obtuse marginal branch #1 of the circumflex. . Qualifiers: Coronary Disease-Associated Artery/Lesion type: [place] artery [place] vs. transplanted heart: [place] heart Associated angina: angina presence unspecified Qualified Code(s): I25.10 - Atherosclerotic heart disease of [place] coronary artery without angina pectoris Discussion w patient/family: The assessment and plan as outlined above was discussed with the patient and/or family members who expressed understanding and agreement. All questions were answered. Thank you for involving us in the care of your patient. Please call with any questions. Subjective Principal diagnosis: NSTEMI, CAD Interval history: Patient seen with at bedside. He denies any new concerns or complaints today. Denies any chest pain. Anxious to go home. Seen with primary service at bedside with discharge pending. Objective Vital Signs, Last 4 Hours Temp Pulse Resp BP Pulse Ox 03/05/18 07:37 98.1 F 86 17 122/77 97 General: Conversant, No Apparent Distress HEENT: Atraumatic, Normocephaly, Mucus Membranes Moist Neck: No JVD, Normal carotid pulses Cardiac: Reg Rate and Rhythm, Normal S1 and S2, No Murmur Lungs: Normal Breath Sounds, No Wheeze, Rales, Rhonchi Neuro: Alert and responsive, No focal deficits noted Abdomen: Soft, Non-Tender Skin: No rashes noted on visualized skin Musculoskeletal: No Chest Wall Tenderness Extremities: No Clubbing, No Cyanosis, No Edema, Normal Pulses Results 03/05/18 05:55 03/05/18 05:55 Lab Results Laboratory Tests 03/03/18 03/03/18 03/03/18 03:25 05:58 09:19 Hgb Hct Creatinine Est GFR (Non-Af Amer) Magnesium Troponin I 0.04 H* 0.13 H* 0.24 H* 03/03/18 03/04/18 03/05/18 10:03 04:00 05:55 Hgb 13.0 Hct 39.2 Creatinine Est GFR (Non-Af Amer) Magnesium Troponin I 0.23 H* 0.10 H* 03/05/18 05:55 Hgb Hct Creatinine 1.05 Est GFR (Non-Af Amer) > 60 Magnesium 2.2 Troponin I Impressions Echocardiogram Limited Views 03/04/18 12:54 Impressions: Normal LV chamber size, wall thickness and function. LVEF 41-46%. Segmental wall motion abnormalities in the LAD distribution No evidence of mechanical complications of ACS Normal right ventricular structure and function. Left Ventricular Wall Motion: Rest Echo Findings The apical inferior, apical anterior, apical septal, mid inferior septal, basal inferior septal, mid anterior septal and basal anterior septal shi were hypokinetic. The apex wall was akinetic. All other wall segments showed normal motion. Findings: Study Quality * Technically adequate exam. ECG Findings * Normal sinus rhythm. Left Ventricle * Normal LV chamber size, wall thickness and function. * Mild-moderate left ventricular systolic dysfunction. * LVEF 41-46%. Right Ventricle * Normal right ventricular structure and function. Left Atrium * Normal left atrial size. Right Atrium * Normal right atrial size. Pericardium * The pericardium appears normal. Mitral Valve * Normal mitral valve structure. Tricuspid Valve * Normal tricuspid valve structure. Interatrial Septum * No evidence of PFO by color Doppler. Aortic Valve * Normal aortic valve structure. Pulmonic Valve * Pulmonic valve not well visualized. Active Medications Acetaminophen (Tylenol) 650 mg PO Q6HR PRN PRN Reason: Analgesia Stop: 09/02/18 14:46 Last Admin: 03/04/18 18:53 Dose: 650 mg Alprazolam (Xanax) 0.5 mg PO Q6H PRN; Protocol PRN Reason: Anxiety Stop: 09/02/18 08:50 Amoxicillin/Clavulanate Potassium (Augmentin) 875 mg PO BIDWM [facility] Stop: 03/05/18 17:01 Last Admin: 03/04/18 16:57 Dose: 875 mg Aspirin (Aspirin Ec) 81 mg PO DAILY [facility] Stop: 09/02/18 09:01 Last Admin: 03/04/18 08:48 Dose: 81 mg Carvedilol (Coreg) 6.25 mg PO DAILY [facility] PRN Reason: Protocol Stop: 09/02/18 09:01 Last Admin: 03/04/18 08:49 Dose: 6.25 mg Cholestyramine Resin (Cholestyramine) 4 gm PO 0700 [facility] Stop: 09/03/18 07:01 Last Admin: 03/05/18 06:31 Dose: 4 gm Clopidogrel Bisulfate (Plavix) 75 mg PO DAILY [facility] Stop: 09/02/18 09:01 Last Admin: 03/04/18 08:49 Dose: 75 mg Guaifenesin (Robitussin/Dm) 10 ml PO Q6HR PRN PRN Reason: Cough Stop: 09/02/18 14:48 Last Admin: 03/04/18 05:19 Dose: 10 ml Heparin Sodium (Porcine) (Heparin) 4,000 unit IVP Q6HR PRN PRN Reason: SEE COMMENTS Stop: 09/02/18 05:00 Heparin Sodium (Porcine) (Heparin) 2,000 unit IVP Q6H PRN PRN Reason: SEE COMMENTS Stop: 09/02/18 05:00 Hydroxyzine HCl (Hydroxyzine) 10 mg PO HS PRN PRN Reason: Insomnia Stop: 09/02/18 14:47 Lisinopril (Zestril) 2.5 mg PO BID [facility] PRN Reason: Protocol Stop: 09/03/18 21:01 Last Admin: 03/04/18 22:35 Dose: 2.5 mg Magnesium Hydroxide (Milk Of Magnesia Conc) 10 ml PO DAILY PRN PRN Reason: Constipation Stop: 09/02/18 17:17 Last Admin: 03/03/18 20:21 Dose: 10 ml Multivitamins/Calcium (Thera M Plus) 1 tab PO DAILY [facility] Stop: 09/02/18 09:01 Last Admin: 03/04/18 08:53 Dose: Not Given Nitroglycerin (Nitroglycerin) 0.4 mg SL Q5MIN PRN PRN Reason: Chest Pain Stop: 09/02/18 04:03 Last Admin: 03/03/18 04:23 Dose: 0.4 mg Ondansetron HCl (Zofran) 4 mg IVP Q6HR PRN; Protocol PRN Reason: Nausea/Vomiting Stop: 09/02/18 17:18 Last Admin: 03/04/18 12:31 Dose: 4 mg Oxycodone/Acetaminophen (Percocet 5/325) 1 each PO Q4HR PRN PRN Reason: Severe Pain Stop: 09/02/18 08:50 Last Admin: 03/04/18 04:59 Dose: 1 each Pharmacy Profile Note (Patient Taking Own Medication) 1 each PO DAILY [facility] Stop: 09/02/18 09:01 Last Admin: 03/04/18 08:50 Dose: Not Given Pharmacy Profile Note (Patient Taking Own Medication) 1 each PO DAILY [facility] Stop: 09/02/18 09:01 Last Admin: 09/23/18 08:50 Dose: Not Given Senna/Docusate Sodium (Senna Plus) 1 each PO DAILY [facility] PRN Reason: Protocol Stop: 03/09/18 21:01 Last Admin: 03/04/18 08:49 Dose: 1 each - Imaging and Cardiology Echo: report reviewed Cardiac cath: report reviewed Consult Discharge Plan - Plan Referrals: Jimmy Penaloza MD [Primary Care Provider] - 03/12/18 1:15 pm
[2018-03-05] MEDS: (Omega-3 Fatty Acids [Fish Oil] 300 MG) PO SCH (08:30)
[2018-03-05] MEDS: (Ubidecarenone [Coq10] 50 MG) PO SCH (08:30)
[2018-03-05] MEDS: Aspirin Enteric Coated 81 MG Tablet PO SCH (08:32)
[2018-03-05] MEDS: Multivit/Ca/Min/Fe/FA 1 TAB TABLET PO SCH (08:32)
[2018-03-05] MEDS: Sennosides/Docusate Sodium TABLET PO SCH (08:33)
--- NOTE | 2018-03-05 09:44 | Discharge Summary ---
- NOTES TO OUTPATIENT PROVIDER Notes to Outpatient Provider: Follow-up with your efficiency clerk within a week of hospital discharge. Orders not resulted at time of discharge: Pending orders 03/03/18 12:54 ECG 12 lead ECG [ECG] Routine 03/04/18 04:53 EKG [ECG 12 lead ECG] [ECG] Stat 03/04/18 07:00 ECG 12 lead ECG [ECG] Routine Date of Encounter: 03/05/18 Time of Encounter: 09:42 - Discharge Diagnosis (1) NSTEMI (non-ST elevated myocardial infarction) Priority: Primary Status: Resolved (2) Hypertension Priority: Secondary Status: Suspected Qualifiers: Hypertension type: essential hypertension Qualified Code(s): I10 - Essential (primary) hypertension (3) CAD (coronary artery disease) Priority: Secondary Status: Chronic Qualifiers: Coronary Disease-Associated Artery/Lesion type: [place] artery [place] vs. transplanted heart: [place] heart Associated angina: angina presence unspecified Qualified Code(s): I25.10 - Atherosclerotic heart disease of [place] coronary artery without angina pectoris (4) Hyperlipidemia Priority: Secondary Status: Chronic Qualifiers: Hyperlipidemia type: unspecified Qualified Code(s): E78.5 - Hyperlipidemia , unspecified (5) Bronchitis Priority: Secondary Status: Resolved (6) Hematuria Priority: Secondary Status: Chronic Qualifiers: Hematuria type: unspecified type Qualified Code(s): R31.9 - Hematuria, unspecified Hospital course: Mr. Sharp is a 72 year old male past medical history of hypertension, hyperlipidemia, CVA, carotid stenosis status post surgery, GERD and coronary artery disease status post CABG on 02/06/18 for triple-vessel disease came with complaint of abdominal discomfort that started around 10:30 after he took Xanax. On these admission patient was diagnosed with a non-STEMI, underwent a left heart cardiac which reported severe 1 vessel coronary artery disease, moderate to severe segmental LV dysfunction with ejection fraction 35%. Patient had successful PTCA dose Rossy stent placement in the distal LAD. Successful PTCA in the mid LAD. Cardiology recommended optimal medical therapy. Patient discharged home on a beta william aspirin and Plavix. Not on an RAVEN inhibitor due to cough. Patient is clinically is stable to be discharged home. - Time Spent with Patient Total time spent providing and/or coordinating discharge services: Greater than 30 minutes - Discharge Medications Home Medications: Aspirin [Adult Aspirin Regimen] 81 mg PO DAILY 12/11/17 [History] Multivitamin [Multivitamins] 1 each PO DAILY 01/28/18 [History] [place]-3 Fatty Acids [Fish Oil] 300 mg PO DAILY 01/28/18 [History] Ubidecarenone [Coq10] 50 mg PO DAILY 01/28/18 [History] Cholestyramine 4 gm PO 0700 #30 powd.pack 01/31/18 [Rx] OxyCODONE/APAP 5/325 [Percocet 5/325 MG] 1 each PO Q4HR PRN 7 Days #42 tablet [Rx] ALPRAZolam [Xanax 0.5 MG Tablet] 0.5 mg PO Q6H PRN 3 Days #12 tablet 02/16/18 [ Rx] Carvedilol [Coreg] 6.25 mg PO DAILY 03/03/18 [History] Clopidogrel [Plavix] 75 mg PO DAILY 03/03/18 [History] Beclomethasone Dip 40mcg REDIH [Qvar 40 Mcg Redihaler] 1 puff IH BID 03/05/18 [ History] Allergies/Adverse Reactions: 3 Allergy/AdvReac Type Severity Reaction Status Date / Time niacin Allergy See Verified 03/03/18 02:58 Comments Hrmqncy-Jss-Wrn Reductase Allergy See Verified 03/03/18 02:58 Inhibitor Comments [Statins] lorazepam [From Ativan] AdvReac Hallucinati Verified 03/03/18 19:42 ng Date of admission: 03/03/18 12:53 Primary care physician: Jimmy Penaloza MD Consults: 03/03/18 12:54 Consult to Cardiac Rehabilitation-Phase1 [CONS] Routine Comment: Reason for Consult: AMI Call Completed: Yes Consult to Nurse Navigator [CONS] Routine Comment: - Constitutional Vitals: Temp Pulse Resp BP Pulse Ox 98.1 F 86 17 122/77 97 03/05/18 07:37 03/05/18 07:37 03/05/18 07:37 03/05/18 07:37 03/05/18 07:37 Exam: General: Alert and oriented 4. Not in acute distress. Skin: Midsternal healed postsurgical scar. Cardiovascular: RRR, Normal S1 & S2, no rubs, murmurs or gallops. JVD about 6cm. Lungs: Clear breath sounds auscultation bilaterally, no wheezes or crackles. Abdomen:Soft, non-tender, no rigidity. Extremities: no edema or tenderness. Neurological: Normal cognitio. CN II-XII intact. Rest of the physical exam is non contributory - Patient Status Disposition: Home, Self-Care Condition: Good Functional capacity at discharge: independent ambulation Overall status at discharge: patient is back to baseline - Discharge Instructions Follow Up With: Jimmy Penaloza MD [Primary Care Provider] - 03/12/18 1:15 pm - Diet and Activity Activity: resume usual activities as tolerated Diet: advance to your usual diet
--- NOTE | 2018-03-05 09:53 | Event Note ---
Date of Encounter: 03/05/18 Time of Encounter: 09:49 Had a conversation with the patient at bedside. He was making false accusations about conversations with we did not have yesterday regarding some of his medications. During my evaluation yesterday, his was and a one of his sisters were in the room. His denied the patient accusations. I believe this accusations come up as patient was mad this morning when I went to evaluate him, because he was not "allow to have a good night sleep" and when he was about to fall sleep again the nurse woke him up this morning to give him "unnecessary medications".
--- NOTE | 2018-03-05 17:26 | Electrocardiograph Report ---
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
--- NOTE | 2018-03-05 17:46 | Electrocardiograph Report ---
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
== END 2018-03-05 12:14 | disposition home or self-care (01) | DRG 247 ==
LOC: EMEROOARM 02:49 → 2NENU 02:49 → SUATTDRO 12:53
PROVIDERS: ADMIT Family Medicine; ATTEND Internal Medicine

== ENCOUNTER 2018-03-06 06:04 | Observation (INO) ==
[2018-03-06] MEDS ORDERED: 0.9 % Sodium Chloride 1,000 ML IVC ONE (06:23)
[2018-03-06] MEDS ORDERED: Ondansetron 4 MG/2 ML VIAL IVP ONE (06:23)
[2018-03-06] MEDS ORDERED: Hyoscyamine 0.5 MG/ML MLS IVP ONE (06:31)
[2018-03-06 06:44] LABS: Basophils # 0.1 K/mcL (0.0-0.2); Basophils % 0.5 %; Eosinophils # 0.8 K/mcL (0.0-0.6); Eosinophils % 6.1 %; Hematocrit 43.5 % (37.5-50.1); Hemoglobin 14.3 g/dL (12.9-16.9); Immature Granulocytes % 0.3 % (0-4); Lymphocytes # 2.4 K/mcL (0.6-4.6); Lymphocytes % 17.8 %; Mean Corpuscular HGB Conc 32.9 g/dL (31.6-35.5); Mean Corpuscular Hemoglobin 29.9 pg (28.0-33.3); Mean Corpuscular Volume 90.8 fL (83.0-100.0); Mean Platelet Volume 9.4 fL (9.4-12.4); Neutrophils # 9.3 K/mcL (1.6-8.9); Platelet Count 406 K/mcL (140-400); Red Blood Count 4.79 M/mcL (4.19-5.50); Red Cell Distribution Width 13.4 % (11.5-14.5); Segmented Neutrophils % 68.3 %
--- NOTE | 2018-03-06 06:53 | Emergency Department Note ---
Disposition Clinical Impression: Ureterolithiasis Chest pain Qualifiers: Chest pain type: unspecified Qualified Code(s): R07.9 - Chest pain, unspecified Disposition: Admitted As Inpatient Abdominal Pain HPI - General Chief Complaint: ED Abdominal Pain Stated Complaint: "Right Flank Pain/Hx of Kidney Stones" Time Seen by Provider: 03/06/18 06:18 Source: patient, family Mode of arrival: private vehicle Limitations: no limitations Nursing Notes Reviewed: Yes Vital Signs Reviewed: Yes - History of Present Illness Pt Subjective Complaint: abdominal pain Onset (ago): hour(s) Consistency: constant Location: RLQ Pain Severity: severe Pain Scale: 10 Quality: stabbing, sharp Radiation: none Migration to: other (right groin) Improves with: nothing Worsens with: nothing Context: history of similar episodes Associated symptoms: Reports: nausea, constipation. Denies: vomiting, diarrhea , fever, chills, dysuria, hematemesis, hematochezia, melena, hematuria, anorexia , syncope Treatments prior to arrival: none - Related Data Home Medications Medication Instructions Recorded Confirmed Aspirin [Adult Aspirin Regimen] 81 mg PO DAILY 12/11/17 03/06/18 Multivitamin [Multivitamins] 1 each PO DAILY 01/28/18 03/06/18 [place]-3 Fatty Acids [Fish Oil] 300 mg PO DAILY 01/28/18 03/06/18 Ubidecarenone [Coq10] 50 mg PO DAILY 01/28/18 03/06/18 Carvedilol [Coreg] 6.25 mg PO DAILY 03/03/18 03/06/18 Clopidogrel [Plavix] 75 mg PO DAILY 03/03/18 03/06/18 Beclomethasone Dip 40mcg REDIH 1 puff IH BID 03/05/18 03/06/18 [Qvar 40 Mcg Redihaler] Previous Rx's Medication Instructions Recorded Cholestyramine 4 gm PO 0700 #30 powd.pack 01/31/18 OxyCODONE/APAP 5/325 [Percocet 1 each PO Q4HR PRN 7 Days #42 02/12/18 5/325 MG] tablet ALPRAZolam [Xanax 0.5 MG Tablet] 0.5 mg PO Q6H PRN 3 Days #12 tablet 02/16/18 Allergies Allergy/AdvReac Type Severity Reaction Status Date / Time niacin Allergy See Verified 03/06/18 06:15 Comments Hjcrcuq-Xhp-Eyy Reductase Allergy See Verified 03/06/18 06:15 Inhibitor Comments [Statins] lorazepam [From Ativan] AdvReac Hallucinati Verified 03/06/18 06:15 ng All systems ED: reviewed and negative except as stated. Review of Systems: As Per HPI Constitutional: Denies: fever, chills, weakness Cardiovascular: Denies: chest pain, palpitations, dyspnea on exertion, orthopnea , edema, syncope Respiratory: Denies: cough, dyspnea Gastrointestinal: Reports: as per HPI, abdominal pain, nausea, constipation ( patient states that he has taken percocet recently and that always causes constipation in him). Denies: vomiting, diarrhea, hematemesis, melena, hematochezia Genitourinary: Reports: hematuria. Denies: urgency, dysuria, frequency, discharge, testicular pain, testicular mass, genital lesions Musculoskeletal: Denies: back pain, neck pain, joint swelling, arthralgia, myalgia Integumentary: Denies: rash Neurological: Denies: weakness, numbness, paresthesias, confusion, vertigo Hematological/Lymphatic: Denies: easy bleeding, easy bruising, lymphadenopathy Abdominal Pain PMH - Past Medical History Medical history: Reports: CVA, hypertension, kidney stones, myocardial infarction Reports: kidney stone Male Surgical History: Reports: other Psychiatric history: Reports: no psych history - Social History Smoking status: Never smoker Alcohol use: Reports: none Drug use: Reports: none Physical Exam - General Limitations: no limitations General appearance: alert, in no apparent distress - Head Head exam: atraumatic, normocephalic, normal inspection - Eye Eye exam: Present: normal appearance, PERRL. Absent: scleral icterus, conjunctival injection, periorbital swelling - ENT ENT exam: mucous membranes dry - Neck Neck exam: Present: normal inspection, full ROM, trachea midline. Absent: tenderness, meningismus, lymphadenopathy - Chest Chest inspection: Present: normal inspection - Respiratory Respiratory exam: Absent: respiratory distress - Cardiovascular Cardiovascular exam: Present: regular rate, normal rhythm, normal heart sounds - Abdominal Exam Abdominal exam: Present: soft, Non-Tender. Absent: distention, guarding, rebound, rigidity, ascites, mass, pulsatile mass - Extremities Exam Extremities exam: Present: normal capillary refill - Back Exam Back exam: Present: normal inspection. Absent: CVA tenderness (R), CVA tenderness (L) - Neurological Exam Neurological exam: Present: alert, oriented X3, CN II-XII intact, normal gait - Psychiatric Psychiatric exam: Present: normal affect, normal mood - Skin Skin exam: Present: warm, dry, intact, normal color Course Course Narrative: Patient presents from home with his for evaluation of right lower quadrant abdominal pain. He actually points more to the right groin as the site of pain. He states that it feels similar to when he has had kidney stones in the past. He has required lithotripsy in the past. He has not established with a urologist here. He has had nausea but no vomiting, no fever or chills. No urinary retention. He has had recent constipation second to taking pain medication. He was recently discharged from here after an episode of chest pain. He had triple bypass done February 06 of this year at this facility. Meds, fluids and labs ordered. CT will be ordered as well. Case discussed with Dr. Willard. He has had [id number]-[id number] time with the patient , is familiar with the patient, and agrees with the assessment and plan. - Reevaluation(s) Reevaluation #1: Patient stated to the nurse that his right lower quadrant pain was not improved and now he is having chest pain. An EKG was ordered. EKG shows [address] depression anteriorly, otherwise normal. EKG was reviewed by Dr. Willard as well. Time: 07:38 Reevaluation #2: Chest pain was alleviated by the morphine. Kidney stone pain. Also significantly improved. After approximately 90 minutes, the chest pain returned. Patient's blood pressure also increased. He is currently 190/100. Current patient condition discussed with Dr. Willard. He recommends starting a nitroglycerin drip as the patient is unable to tolerate sublingual nitroglycerin. He also recommends admission to the hospitalist. - Consultations Consultation #1: Case discussed with Dr. Calvert. He states that he will see the patient on the floor. Time: 09:44 Consultation #2: Case discussed with Dr. Hooper. He will see the patient on the floor. Time: 10:00 Vital Signs Temperature 98.1 F 03/06/18 06:12 Pulse Rate 86 03/06/18 06:12 Respiratory Rate 16 03/06/18 06:12 Blood Pressure 193/94 03/06/18 06:12 O2 Sat by Pulse Oximetry 99 03/06/18 06:12 Temperature 98.1 F 03/06/18 06:12 Pulse Rate 90 03/06/18 11:26 Respiratory Rate 16 03/06/18 11:26 Blood Pressure 148/93 03/06/18 11:26 O2 Sat by Pulse Oximetry 95 03/06/18 11:26 Oxygen Delivery Oxygen Delivery Room Air Abdominal Pain - Medical Records Medical records reviewed: Yes I reviewed the patient's medical records. - Lab Data Lab results reviewed: Yes I reviewed the patient's lab results. Lab results narrative: Laboratory Last Values WBC 13.7 K/mcL (4.3-11.1) H 03/06/18 06:23 RBC 4.79 M/mcL (4.19-5.50) 03/06/18 06:23 Hgb 14.3 g/dL (12.9-16.9) 03/06/18 06:23 Hct 43.5 % (37.5-50.1) 03/06/18 06:23 MCV 90.8 fL (83.0-100.0) 03/06/18 06:23 MCH 29.9 pg (28.0-33.3) 03/06/18 06:23 MCHC 32.9 g/dL (31.6-35.5) 03/06/18 06:23 RDW 13.4 % (11.5-14.5) 03/06/18 06:23 Plt Count 406 K/mcL (140-400) H 03/06/18 06:23 MPV 9.4 fL (9.4-12.4) 03/06/18 06:23 Immature Gran % 0.3 % (0-4) 03/06/18 06:23 Seg Neutrophils % 68.3 % 03/06/18 06:23 Lymphocytes % 17.8 % 03/06/18 06:23 Monocytes % 7.0 % 03/06/18 06:23 Eosinophils % 6.1 % 03/06/18 06:23 Basophils % 0.5 % 03/06/18 06:23 Neutrophils # 9.3 K/mcL (1.6-8.9) H 03/06/18 06:23 Lymphocytes # 2.4 K/mcL (0.6-4.6) 03/06/18 06:23 Monocytes # 1.0 K/mcL (0.0-1.3) 03/06/18 06:23 Eosinophils # 0.8 K/mcL (0.0-0.6) H 03/06/18 06:23 Basophils # 0.1 K/mcL (0.0-0.2) 03/06/18 06:23 Specimen Rejected Hemolyzed 03/06/18 06:25 Result diagrams: 03/06/18 06:23 03/06/18 08:21 - Radiology Data Radiology results reviewed: Yes I reviewed the patient's radiology results. - EKG Data EKG attestation: Yes I reviewed and interpreted this EKG. EKG shows normal: sinus rhythm Rate: normal Rhythm: NSR [place]/QRS: normal ST segment depression in: v6 When compared to previous EKG there are: no significant changes (Not significantly different from 03/[address] Willard) Interpretation: unchanged when compared to prior tracing (date) (Not significantly different from 03/[address] Willard), nonspecific ST-T wave changes Attestation Statement - Attestation Attestation: I examined this patient and my medical decision-making was reviewed with the Resident Physician. I agree with the documented findings, disposition and treatment plan as described except to the extent set forth below. Kidney stone , obstructive uropathy, elevated troponin in the setting of known CAD. We will admit for further management cardiac consultation as well as urology consultation.
[2018-03-06] MEDS ORDERED: *HR* Morphine 2 MG/ML SYRINGE IVP ONE ×2 (07:36→09:31)
[2018-03-06 09:05] LABS: BUN/Creatinine Ratio 14 (6-26); Blood Urea Nitrogen 17 mg/dL (8-23); Calcium 9.2 mg/dL (8.6-10.3); Carbon Dioxide 19 mEq/L (23-29); Chloride 104 mEq/L (98-107); Glucose 147 mg/dL (70-105); Osmolality,Calculated 284 (280-300); Potassium 4.3 mEq/L (3.5-5.1); Sodium 135 mEq/L (136-145); eGFR For Non-African Americans 57 (> 60)
[2018-03-06 09:13] LABS: Troponin I 0.04 ng/mL (< 0.04)
[2018-03-06 09:16] LABS: Bilirubin,Urine Negative (Negative); Blood,Urine Large (Negative); Clarity,Urine Clear (Clear); Color,Urine Yellow (Yellow); Glucose,Urine (UA) Normal (Normal); Ketones,Urine Trace mg/dL (Negative); Leukocyte Esterase,Urine Negative (Negative); Nitrite,Urine Negative (Negative); Protein,Urine Trace mg/dL (Neg-Trace); Urobilinogen,Urine Normal (Normal)
[2018-03-06 09:19] LABS: Hyaline Casts,Urine None Seen per lpf (None-Few); Squamous Epithelial Cell,Urine None Seen per lpf (None-Few); WBC,Urine 0-3 per hpf (0-3)
[2018-03-06] MEDS ORDERED: Nitroglycerin 25 MG/250 ML INFUS..BTL IVC SCH (10:00)
[2018-03-06 10:01] LABS: Mucus,Urine Moderate (Few); RBC,Urine 50-100 per hpf (0-3)
[2018-03-06 10:02] LABS: Bacteria,Urine Few per hpf (None-Few)
[2018-03-06] MEDS ORDERED: Aspirin 325 MG TABLET PO ONE (10:04)
[2018-03-06] MEDS ORDERED: Naloxone 0.4 MG/ML INJ IVP PRN (10:21)
[2018-03-06] MEDS ORDERED: ALPRAZolam 0.5 MG TABLET PO PRN (10:43)
[2018-03-06] MEDS ORDERED: *HR* OxyCODONE/APAP 5/325 TABLET PO PRN (10:43)
--- NOTE | 2018-03-06 10:57 | Internal Med History&Physical ---
Date of Encounter: 03/06/18 Time of Encounter: 10:52 Internal Medicine - H&P: HPI Chief complaint: Abdominal Pain Admitted From: Home Plans for Post Hospital Care: Home History of present illness: Mr. Sharp is a 72 year old male with past history of recent CABG who presented to the emergency department chief complaint of acute right-sided abdominal pain. Patient states that he was awoken from sleep this morning with severe right-sided abdominal pain that radiated to his back. Patient states that he had associated nausea. Patient presented to the emergency department had CAT scan of his abdomen performed which revealed a 7 mm obstructing calculus causing right hydroureternphrosis with perinephric stranding. Patient was given analgesics and antiemetics which improved his pain and nausea. During the patient's emergency department the patient developed chest pain that he states is very total of his recent chest pain. The patient recently has had multiple PCI's with stent placements and recent CABG and was just sent home yesterday. Patient states that morphine relieved his chest pain and currently he denies chest pain, palpitations, nausea, vomiting, diarrhea, melena, hematochezia, blurry vision, double vision, headache. Emergency department provider spoke to urologist and science education professor who will see the patient on the floor. Past Med Surg Social Fam HX - Past Medical History Medical history: CVA, hypertension, kidney stones, myocardial infarction Additional medical history: Carotid stenosis Psychiatric history: no psych history - Past Surgical History Surgical History: angioplasty/stent, colostomy, orthopedic, other Additional surgical history: LITHOTRIPSY. ORIF LEFT ANKLE. Carotid Surgery. Triple bypass Feb 06, 2018. cardiac stents - Social History Smoking Status: Never smoker Smokeless Tobacco Status: No Alcohol use: none Drug use: none - Family History Father Living Status: Hx Family Cardiac Disorders: Yes (CABG) Internal Medicine - H&P: Meds Aspirin [Adult Aspirin Regimen] 81 mg PO DAILY 12/11/17 [History] Multivitamin [Multivitamins] 1 each PO DAILY 01/28/18 [History] [place]-3 Fatty Acids [Fish Oil] 300 mg PO DAILY 01/28/18 [History] Ubidecarenone [Coq10] 50 mg PO DAILY 01/28/18 [History] Cholestyramine 4 gm PO 0700 #30 powd.pack 01/31/18 [Rx] OxyCODONE/APAP 5/325 [Percocet 5/325 MG] 1 each PO Q4HR PRN 7 Days #42 tablet [Rx] ALPRAZolam [Xanax 0.5 MG Tablet] 0.5 mg PO Q6H PRN 3 Days #12 tablet 02/16/18 [ Rx] Carvedilol [Coreg] 6.25 mg PO DAILY 03/03/18 [History] Clopidogrel [Plavix] 75 mg PO DAILY 03/03/18 [History] Beclomethasone Dip 40mcg REDIH [Qvar 40 Mcg Redihaler] 1 puff IH BID 03/05/18 [ History] 3 Allergy/AdvReac Type Severity Reaction Status Date / Time niacin Allergy See Verified 03/06/18 06:15 Comments Qwlugzv-Jey-Kfz Reductase Allergy See Verified 03/06/18 06:15 Inhibitor Comments [Statins] lorazepam [From Ativan] AdvReac Hallucinati Verified 03/06/18 06:15 ng All Systems PM: A 10-system review of systems was performed and is negative for pertinent findings except as documented above in the HPI. Review of systems: 10 point review of systems is otherwise negative other than described in history of present illness - Constitutional Vitals: Temp Pulse Resp BP Pulse Ox 98.1 F 93 22 174/95 98 03/06/18 06:12 03/06/18 09:41 03/06/18 09:41 03/06/18 09:41 03/06/18 09:41 Exam: Constitutional: Mild discomfort due to intermittent abdominal pain Psych: AAO x 3 HEENT: NCAT, EOMI Neck: supple, no JVD Cardio: regular rate and rhythm, +s1s2, no murmurs/rubs/gallops, no JVD Chest: well healing mid sterum incision with no surrounding erythema Resp: clear to ascultation bilaterally, no wheezes/rales/ronchi Abd: soft, non tender/non distended, positive bowel sounds, no gaurding/reboud/ ridgitity Extremities: no clubbing/cyanosis/edema appreciated Neuro: no focal deficits appreciated Lymph: no cervical adenopahty apprecitated Internal Med - H&P Results - Labs CBC & Chem 7: 03/06/18 06:23 03/06/18 08:21 - Assessment and plan (1) Abdominal pain Current Visit: Yes Status: Acute Assessment and plan: -acute abdominal pain due to right sided 7mm obstructing nephrolithiasis causing hydroureternephrosis -some perinephric stranding likely reactive; no wbc or bacteria in urine -no need for current antibiotics -analgesia -urology consulted; contacted by ED provider -matthew for now Qualifiers: Abdominal location: right lower quadrant Qualified Code(s): R10.31 - Right lower quadrant pain (2) Hydronephrosis with obstructing calculus Current Visit: Yes Status: Acute Assessment and plan: -as above -analgesia -urology consulted (3) Chest pain Current Visit: Yes Status: Acute Assessment and plan: -episode of chest pain in ED typical of his recent chest pain -relieved by morphine -currently chest pain free -troponin 0.04 but improved from 2 days prior -hold off on heparin gtt unless troponins rise -cardiology consulted; contacted by ED provider -josseline clark -no significant change in ECG from 2 days prior Qualifiers: Chest pain type: unspecified Qualified Code(s): R07.9 - Chest pain, unspecified (4) CAD (coronary artery disease) Current Visit: Yes Status: Chronic Assessment and plan: -significant CAD with recent CABG and multiple PCIs with ICM -continue current meds -cardiology recs Qualifiers: Coronary Disease-Associated Artery/Lesion type: [place] artery [place] vs. transplanted heart: [place] heart Associated angina: angina presence unspecified Qualified Code(s): I25.10 - Atherosclerotic heart disease of [place] coronary artery without angina pectoris (5) Leukocytosis Current Visit: Yes Status: Acute Assessment and plan: -likely reactive due to obstructing nephrolithiasis -monitor Qualifiers: Leukocytosis type: unspecified Qualified Code(s): D72.829 - Elevated white blood cell count, unspecified (6) Thrombocytosis Current Visit: Yes Status: Acute Assessment and plan: -Likely reactive due to obstructing nephrolithiasis -monitor (7) HTN (hypertension) Current Visit: Yes Status: Acute Assessment and plan: -continue coreg -recently taken off RAVEN inhibitor due to cough -will not allow myself to start any new medications; only wants new meds through cardiology Qualifiers: Hypertension type: essential hypertension Qualified Code(s): I10 - Essential (primary) hypertension (8) HLD (hyperlipidemia) Current Visit: Yes Status: Acute Assessment and plan: -intolerant of statin -continue cholestyramine Qualifiers: Hyperlipidemia type: mixed hyperlipidemia Qualified Code(s): E78.2 - Mixed hyperlipidemia (9) DVT prophylaxis Current Visit: Yes Status: Acute Assessment and plan: -hep sq - Time Spent With Patient Total time spent is greater than 50% in coordination of care (as documented) at patient's floor/unit and/or counseling patient: Greater than 35 minutes
--- NOTE | 2018-03-06 11:14 | Cardiology Consult Note ---
Date of Encounter: 03/06/18 Time of Encounter: 11:15 Assessment and Plan (1) Hydronephrosis with obstructing calculus Current Visit: Yes Status: Acute Per Cardiology: Pending urology evaluation. Suspect cause of his pain and discomfort as well as elevated blood pressures. (2) Elevated troponin Current Visit: No Status: Acute Per Cardiology: Just seen this past weekend for recent non-STEMI with peak troponin 0.24. S/p [facility]: Impressions: There is severe one vessel coronary artery disease. There is moderate to severe segmental LV Dysfunction EF 35% Patient had successful PTCA/Drug-Eluting Stent placement in the distal LAD. S/P CABG 2 of 3 patent bypass grafts. Patient had successful PTCA in the mid LAD. Lesion Findings/Interventions * Left Main Coronary Artery The LMCA is angiographically free of disease. * Left Anterior Descending There is a 12 mm long, 50% stenosis in the Mid LAD. The lesion has a RADHA flow of 2 and has no thrombus present. An intervention was performed on the Mid LAD with a final stenosis of 25%. There were no lesion complications. The final RADHA flow was 3. There is a 16 mm long, 90% stenosis in the Distal LAD. The lesion has a RADHA flow of 2 and has no thrombus present. An intervention was performed on the Distal LAD with a final stenosis of 0%. There were no lesion complications. The final RADHA flow was 3. * Circumflex There is a 70% stenosis in the Mid Circumflex. There is a 70% stenosis in the 1st Marginal. * Right Coronary Artery There is a 25% stenosis in the Proximal RCA. There is a 70% stenosis in the Distal RCA. There is a 100% stenosis in the Right PDA. Additional Findings: Grafts * The saphenous vein graft to the Right PDA is patent. RADHA flow is . * The saphenous vein graft to the 1st Marginal is patent. RADHA flow is . * The left internal mammary graft to the Mid LAD is atretic . Troponin now noted to be 0.04, suspect downward trend from recent event. Do not recommend cycling of the other troponins this time unless clinical condition changes. Discontinue IV nitroglycerin glycerin drip. Recommend resume home asa, plavix, BB. Past past intolerance to statins. Echo from a few days ago EF "41-46%". Currently chest pain-free. Cardiology will signoff, re- consult as needed, follow-up already arranged, discussed with primary service. All questions answered. Patient must remain on aspirin and Plavix for at least 1 year. (3) CAD (coronary artery disease) Current Visit: Yes Status: Chronic Per Cardiology: History of catheterization and stenting January 2018 and repeat catheterization January 2018 with subsequent CABG [address] Stoll-- Coronary artery bypass grafting 3 with the left internal mammary artery to the LAD and saphenous vein grafts to the posterior descending branch of the right and obtuse marginal branch #1 of the circumflex. Recent cath as above. Discussion w patient/family: The assessment and plan as outlined above was discussed with the patient and/or family members who expressed understanding and agreement. All questions were answered. Thank you for involving us in the care of your patient. Please call with any questions. History of Present Illness Consult date: 03/06/18 Requesting physician: Nico Mccartney Consult reason: CP Chief complaint: Right sided/back pain History of present illness: The relevant past mental history of hypertension, hyperlipidemia, CVA, PAD with CVA, GERD, CAD with recent stenting and CABG. Just seen by cardiology this past weekend and underwent repeat catheterization with subsequent stenting. Patient signed off on yesterday and subsequently discharged home by primary service. Patient apparently developed acute onset of right-sided flank/abdominal pain. Cardiology now consult for surgery chest pressure and severe pain with hypertension and troponin elevation. Patient seen his at bedside. He reports right-sided abdominal back pain. He does report some chest pressure relieved with Percocet. Currently chest pain -free. Reports still somewhat anxious regarding his right-sided discomfort. He denies any palpitations. Denies any dizziness, syncope, falls. Reports compliance with medications. Has not been seen by urology. Past Med Surg Social Fam HX - Past Medical History Attestation: Yes The following information was validated with the patient. Source: patient, old records reviewed, obtained from family Medical history: CVA, hypertension, kidney stones, myocardial infarction Additional medical history: Carotid stenosis Psychiatric history: no psych history - Past Surgical History Surgical History: angioplasty/stent, colostomy, orthopedic, other Additional surgical history: LITHOTRIPSY. ORIF LEFT ANKLE. Carotid Surgery. Triple bypass Feb 06, 2018. cardiac stents - Social History Smoking Status: Never smoker Smokeless Tobacco Status: No Alcohol use: none Drug use: none - Family History Father Living Status: Hx Family Cardiac Disorders: Yes (CABG) Medications and Allergies Aspirin [Adult Aspirin Regimen] 81 mg PO DAILY 12/11/17 [History] Multivitamin [Multivitamins] 1 each PO DAILY 01/28/18 [History] [place]-3 Fatty Acids [Fish Oil] 300 mg PO DAILY 01/28/18 [History] Ubidecarenone [Coq10] 50 mg PO DAILY 01/28/18 [History] Cholestyramine 4 gm PO 0700 #30 powd.pack 01/31/18 [Rx] OxyCODONE/APAP 5/325 [Percocet 5/325 MG] 1 each PO Q4HR PRN 7 Days #42 tablet [Rx] ALPRAZolam [Xanax 0.5 MG Tablet] 0.5 mg PO Q6H PRN 3 Days #12 tablet 02/16/18 [ Rx] Carvedilol [Coreg] 6.25 mg PO DAILY 03/03/18 [History] Clopidogrel [Plavix] 75 mg PO DAILY 03/03/18 [History] Beclomethasone Dip 40mcg REDIH [Qvar 40 Mcg Redihaler] 1 puff IH BID 03/05/18 [ History] 3 Allergy/AdvReac Type Severity Reaction Status Date / Time niacin Allergy See Verified 03/06/18 06:15 Comments Akoodoj-Bub-Ehr Reductase Allergy See Verified 03/06/18 06:15 Inhibitor Comments [Statins] lorazepam [From Ativan] AdvReac Hallucinati Verified 03/06/18 06:15 ng All Systems Review: The remainder of the systems were reviewed and are negative - Cardiovascular Cardiovascular: as per HPI, chest pain at rest - Gastrointestinal Gastrointestinal: abdominal pain Physical Examination Vital Signs, Last 4 Hours Resp BP 03/06/18 10:50 16 161/95 Selected Entries 03/06/18 07:19 03/06/18 08:06 Pulse Rate 100 Blood Pressure 178/95 O2 Sat by Pulse Oximetry 100 Oxygen Delivery Method Room Air General: Conversant, No Apparent Distress HEENT: Atraumatic, Normocephaly, Mucus Membranes Moist Neck: No JVD, Normal carotid pulses Cardiac: Reg Rate and Rhythm, Normal S1 and S2, No Murmur Lungs: Normal Breath Sounds, No Wheeze, Rales, Rhonchi Neuro: Alert and responsive, No focal deficits noted Abdomen: Soft, Non-Tender, Other (Right flank pain and discomfort to palpation) Skin: No rashes noted on visualized skin Musculoskeletal: No Chest Wall Tenderness Extremities: No Clubbing, No Cyanosis, No Edema, Normal Pulses Results 03/06/18 06:23 03/06/18 08:21 Laboratory Tests 03/06/18 08:21 Creatinine 1.24 Est GFR (Non-Af Amer) 57 L Troponin I 0.04 H* ITS Impressions Abdomen/Pelvis CT 03/06/18 07:35 IMPRESSION: 1. Mild-moderate right hydroureteronephrosis due to an obstructing 7 mm calculus at the ureteropelvic junction. D/ / 03/06/2018 08:39:54 Bernard Delatorre MD / Linda Ashraf Interpreting Provider: Bernard Delatorre MD Active Medications Alprazolam (Xanax) 0.5 mg PO Q6H PRN; Protocol PRN Reason: Anxiety Stop: 09/05/18 10:44 Aspirin (Aspirin Ec) 81 mg PO DAILY ANMOL Stop: 09/05/18 10:46 Carvedilol (Coreg) 6.25 mg PO DAILY ANMOL PRN Reason: Protocol Stop: 09/05/18 10:46 Cholestyramine Resin (Cholestyramine) 4 gm PO 0700 [facility] Stop: 09/06/18 07:01 Clopidogrel Bisulfate (Plavix) 75 mg PO DAILY [facility] Stop: 09/05/18 10:46 Heparin Sodium (Porcine) (Heparin) 5,000 unit SQ Q8HCO [facility] Stop: 09/05/18 14:01 Nitroglycerin (Nitroglycerin Premix 25 Mg/250 Ml) 25 mg in 250 mls @ 3 mls/hr IVC .Q24H ANMOL; 5 MCG/MIN PRN Reason: Protocol Stop: 09/05/18 10:01 Last Admin: 03/06/18 10:37 Dose: 5 mcg/min, 3 mls/hr Naloxone HCl (Narcan) 0.4 mg IVP Q2MIN PRN PRN Reason: SEE COMMENTS Stop: 09/05/18 10:22 Non-Formulary Medication (Beclomethasone Dip 40mcg Redih) 1 puff IH BID [facility] Stop: 09/05/18 21:01 Oxycodone/Acetaminophen (Percocet 5/325) 1 each PO Q4HR PRN PRN Reason: Severe Pain Stop: 09/05/18 10:44 - Imaging and Cardiology Echo: report reviewed Cardiac cath: report reviewed - EKG Interpretation EKG results cardiology: personally reviewed (Comparable to baseline ECG), other (Signs rhythm on telemetry) Consult Discharge Plan - Plan Referrals: Jimmy Penaloza MD [Primary Care Provider] -
[2018-03-06] MEDS: Aspirin Enteric Coated 81 MG Tablet PO SCH (12:04)
[2018-03-06] MEDS: *HR* Heparin 5,000 UNIT/ML VIAL SQ SCH ×2 (12:10→19:49)
[2018-03-06] MEDS ORDERED: Acetaminophen 325 MG TABLET PO PRN (12:42)
--- NOTE | 2018-03-06 12:42 | Urology - Consult Note ---
<Trinity Mchugh N - Last Filed: 03/06/18 12:40> Date of Encounter: 03/06/18 Time of Encounter: 12:40 - Assessment and Plan (1) Hydronephrosis with obstructing calculus Current Visit: Yes Status: Acute Assessment and plan: Patient is a 72 year old male who presents with a history of right proximal 7mm ureteral stone. Discussed need for cardiac clearance and anesthesia evaluation. Discussed risks and benefits of right ureterscopic stone extracton, with or without holmium laser lithotripsy, basket retrieval, and right ureteral stent placement. Patient verbalized understanding, consent has been signed, and he is aware stone extraction may require more than one procedure. Patient will continue with cardiac diet and remain NPO after midnight. Urology CN:HPI Consult date: 03/06/18 Reason for consult Urology: Other (right UPJ stone) History of present illness: Patient is a 72 year old male who presents with right flank pain and nausea. Patient recently underwent catheterization and stenting January 2018 and repeat catheterization January 2018 with subsequent CABG January 2018. Patient has longstanding history of renal stones and underwent ESWL in the past. Patient states his last stone was approximately 10 years ago. Patient denies known family history of renal stones. Patient reports right flank pain that is currently under control, nausea, and gross hematuria. Patient denies fever, chills, chest pain, dyspnea, diaphoresis. Past Med Surg Social Fam HX - Past Medical History Medical history: CVA, hypertension, kidney stones, myocardial infarction Additional medical history: Carotid stenosis Psychiatric history: no psych history - Past Surgical History Surgical History: angioplasty/stent, colostomy, orthopedic, other Additional surgical history: LITHOTRIPSY. ORIF LEFT ANKLE. Carotid Surgery. Triple bypass Feb 06, 2018. cardiac stents - Social History Smoking Status: Never smoker Smokeless Tobacco Status: No Alcohol use: none Drug use: none - Family History Father Living Status: Hx Family Cardiac Disorders: Yes (CABG) Medications and Allergies Aspirin [Adult Aspirin Regimen] 81 mg PO DAILY 12/11/17 [History] Multivitamin [Multivitamins] 1 each PO DAILY 01/28/18 [History] [place]-3 Fatty Acids [Fish Oil] 300 mg PO DAILY 01/28/18 [History] Ubidecarenone [Coq10] 50 mg PO DAILY 01/28/18 [History] Cholestyramine 4 gm PO 0700 #30 powd.pack 01/31/18 [Rx] OxyCODONE/APAP 5/325 [Percocet 5/325 MG] 1 each PO Q4HR PRN 7 Days #42 tablet [Rx] ALPRAZolam [Xanax 0.5 MG Tablet] 0.5 mg PO Q6H PRN 3 Days #12 tablet 02/16/18 [ Rx] Carvedilol [Coreg] 6.25 mg PO DAILY 03/03/18 [History] Clopidogrel [Plavix] 75 mg PO DAILY 03/03/18 [History] Beclomethasone Dip 40mcg REDIH [Qvar 40 Mcg Redihaler] 1 puff IH BID 03/05/18 [ History] 3 Allergy/AdvReac Type Severity Reaction Status Date / Time niacin Allergy See Verified 03/06/18 06:15 Comments Smlzshw-Tpv-Ola Reductase Allergy See Verified 03/06/18 06:15 Inhibitor Comments [Statins] lorazepam [From Ativan] AdvReac Hallucinati Verified 03/06/18 06:15 ng Review of Systems - Constitutional no chills, no fatigue, no fever(s) - EENT Nose, mouth and throat: no dizziness, no headache(s) - Cardiovascular no chest pain, no diaphoresis, no dyspnea - Gastrointestinal abdominal pain, nausea, no vomiting - Genitourinary flank pain, hematuria, no difficulty urinating, no dysuria, no urinary frequency , no urinary hesitancy, no urinary urgency - Musculoskeletal back pain, no muscle weakness - Integumentary no rash, no swelling - Neurological no confusion, no syncope - Psychiatric no anxiety, no confusion - Hematologic/Lymphatic easy bleeding, easy bruising - Allergic/Immunologic no throat swelling, no wheezing Exam Initial Vital Signs Temp Pulse Resp BP Pulse Ox 98.1 F 86 16 193/94 99 03/06/18 06:12 03/06/18 06:12 03/06/18 06:12 03/06/18 06:12 03/06/18 06:12 - General physical appearance Present: well developed, no distress, no pain - Eyes Present: PERRL, normal ocular movement - ENT Present: normal nares, no hearing loss, no congestion - Neck Present: no masses, trachea midline - Respiratory Present: normal respiratory effort - Cardiovascular Cardiovascular exam IM: RRR - Abdomen Abdomen: Present: soft, non tender, surgical scars. Absent: guarding, distended - Integumentary Present: no rash, no abnormal pigmentation - Neurologic Present: normal coordination. Absent: disoriented - Musculoskeletal Present: other (no pedal edema ) Urology Results - Labs 03/06/18 06:23 03/06/18 08:21 Abnormal lab results WBC 13.7 K/mcL (4.3-11.1) H 03/06/18 06:23 Plt Count 406 K/mcL (140-400) H 03/06/18 06:23 Neutrophils # 9.3 K/mcL (1.6-8.9) H 03/06/18 06:23 Eosinophils # 0.8 K/mcL (0.0-0.6) H 03/06/18 06:23 Sodium 135 mEq/L (136-145) L 03/06/18 08:21 Carbon Dioxide 19 mEq/L (23-29) L 03/06/18 08:21 Est GFR (Non-Af Amer) 57 (> 60) L 03/06/18 08:21 Glucose 147 mg/dL (70-105) H 03/06/18 08:21 Troponin I 0.04 ng/mL (< 0.04) H* 03/06/18 08:21 Urine Ketones Trace mg/dL (Negative) H 03/06/18 09:25 Urine Blood Large (Negative) H 03/06/18 09:25 Urine Microscopic RBC 50-100 per hpf (0-3) H 03/06/18 09:25 Urine Mucus Moderate (Few) H 03/06/18 09:25 All other labs normal. - Imaging CT scan - abdomen: report reviewed, image reviewed CT scan - pelvis: report reviewed, image reviewed Consult Discharge Plan - Plan Referrals: Jimmy Penaloza MD [Primary Care Provider] - <Romero Calvert - Last Filed: 03/06/18 20:14> Date of Encounter: 03/06/18 - Assessment and Plan (1) Hydronephrosis with obstructing calculus Current Visit: Yes Status: Acute Assessment and plan: Patient seen in conjunction with physician assistant terminal manager. Plan to proceed with a ureteroscopic stone extraction tomorrow was discussed with the patient earlier. Patient expressed concern regarding his anticoagulation and unstable heart disease. I discussed that it is appropriate to perform a ureteroscopic stone extraction while on anticoagulation. This is his only surgical option because he is unable to stop anticoagulation. His unstable heart disease is somewhat of a concern however there are limited options except for trial of passage. We discussed that the stone is larger and proximal which will make it more difficult to spontaneously pass. He reports that he has passed multiple stones in the past and may wish to hold off on the stone extraction and manage as an outpatient. He will assess his pain overnight and make a decision in the morning. We will evaluate the patient in the morning. He has tentatively been scheduled for stone extraction. I failed outpatient management is reasonable because he is not septic or experiencing significant renal insufficiency. Exam Initial Vital Signs Temp Pulse Resp BP Pulse Ox 98.1 F 86 16 193/94 99 03/06/18 06:12 03/06/18 06:12 03/06/18 06:12 03/06/18 06:12 03/06/18 06:12 Urology Results - Labs 03/06/18 06:23 03/06/18 08:21 Abnormal lab results WBC 13.7 K/mcL (4.3-11.1) H 03/06/18 06:23 Plt Count 406 K/mcL (140-400) H 03/06/18 06:23 Neutrophils # 9.3 K/mcL (1.6-8.9) H 03/06/18 06:23 Eosinophils # 0.8 K/mcL (0.0-0.6) H 03/06/18 06:23 Sodium 135 mEq/L (136-145) L 03/06/18 08:21 Carbon Dioxide 19 mEq/L (23-29) L 03/06/18 08:21 Est GFR (Non-Af Amer) 57 (> 60) L 03/06/18 08:21 Glucose 147 mg/dL (70-105) H 03/06/18 08:21 Troponin I 0.04 ng/mL (< 0.04) H* 03/06/18 08:21 Urine Ketones Trace mg/dL (Negative) H 03/06/18 09:25 Urine Blood Large (Negative) H 03/06/18 09:25 Urine Microscopic RBC 50-100 per hpf (0-3) H 03/06/18 09:25 Urine Mucus Moderate (Few) H 03/06/18 09:25 All other labs normal.
[2018-03-06] MEDS: Beclomethasone 40mcg REDIHALER IH SCH (19:26)
[2018-03-07] MEDS: *HR* Heparin 5,000 UNIT/ML VIAL SQ SCH ×3 (05:10→21:03)
[2018-03-07 06:37] LABS: Hematocrit 37.3 % (37.5-50.1); Immature Granulocytes % 0.4 % (0-4); Lymphocytes % 17.7 %; Mean Corpuscular HGB Conc 33.2 g/dL (31.6-35.5); Mean Corpuscular Volume 90.3 fL (83.0-100.0); Mean Platelet Volume 9.3 fL (9.4-12.4); Platelet Count 306 K/mcL (140-400); Red Blood Count 4.13 M/mcL (4.19-5.50); Red Cell Distribution Width 13.5 % (11.5-14.5); Segmented Neutrophils % 69.1 %
[2018-03-07 06:38] LABS: Basophils # 0.1 K/mcL (0.0-0.2); Basophils % 0.6 %; Eosinophils # 0.4 K/mcL (0.0-0.6); Eosinophils % 4.8 %; Lymphocytes # 1.5 K/mcL (0.6-4.6); Monocytes # 0.6 K/mcL (0.0-1.3); Monocytes % 7.4 %; Neutrophils # 5.9 K/mcL (1.6-8.9)
[2018-03-07 06:41] LABS: Hemoglobin 12.4 g/dL (12.9-16.9)
[2018-03-07 06:54] LABS: BUN/Creatinine Ratio 16 (6-26); Blood Urea Nitrogen 17 mg/dL (8-23); Carbon Dioxide 21 mEq/L (23-29); Chloride 109 mEq/L (98-107); Glucose 108 mg/dL (70-105); Magnesium 2.3 mg/dL (1.6-2.6); Osmolality,Calculated 292 (280-300); Phosphorous 3.4 mg/dL (2.7-4.5); Potassium 4.5 mEq/L (3.5-5.1); Sodium 140 mEq/L (136-145); eGFR For Non-African Americans > 60 (> 60)
[2018-03-07] MEDS ORDERED: Cholestyramine 4 GM POWD.PACK PO SCH (07:00)
--- NOTE | 2018-03-07 07:41 | Urology Progress Note ---
Date of Encounter: 03/07/18 Time of Encounter: 07:39 - Assessment and Plan (1) Hydronephrosis with obstructing calculus Current Visit: Yes Status: Acute Assessment and plan: after discussion this AM he now is leaning towards proceeding with the stone extraction. will have anesthesia assess. pt understands the procedure and risk of bleeding, injury to urinary tract, stricture, inability to reach stone and extraction which would require staged procedure. Progress Note Narrative: minimal pain. some brief chest pain but feels OK Objective Initial Vital Signs Temp Pulse Resp BP Pulse Ox 98.1 F 86 16 193/94 99 03/06/18 06:12 03/06/18 06:12 03/06/18 06:12 03/06/18 06:12 03/06/18 06:12 - General physical appearance Present: no distress - Labs 03/07/18 05:51 03/07/18 05:51 Diabetes panel 03/07/18 Range/Units 05:51 Sodium 140 (136-145) mEq/L Potassium 4.5 (3.5-5.1) mEq/L Chloride 109 H (98-107) mEq/L Carbon Dioxide 21 L (23-29) mEq/L BUN 17 (8-23) mg/dL Creatinine 1.05 (0.70-1.30) mg/dL Glucose 108 H (70-105) mg/dL Calcium 9.0 (8.6-10.3) mg/dL Calcium panel 03/07/18 Range/Units 05:51 Calcium 9.0 (8.6-10.3) mg/dL Phosphorus 3.4 (2.7-4.5) mg/dL Pituitary panel 03/07/18 Range/Units 05:51 Sodium 140 (136-145) mEq/L Potassium 4.5 (3.5-5.1) mEq/L Chloride 109 H (98-107) mEq/L Carbon Dioxide 21 L (23-29) mEq/L BUN 17 (8-23) mg/dL Creatinine 1.05 (0.70-1.30) mg/dL Glucose 108 H (70-105) mg/dL Calcium 9.0 (8.6-10.3) mg/dL Adrenal panel 03/07/18 Range/Units 05:51 Sodium 140 (136-145) mEq/L Potassium 4.5 (3.5-5.1) mEq/L Chloride 109 H (98-107) mEq/L Carbon Dioxide 21 L (23-29) mEq/L BUN 17 (8-23) mg/dL Creatinine 1.05 (0.70-1.30) mg/dL Glucose 108 H (70-105) mg/dL Calcium 9.0 (8.6-10.3) mg/dL Consult Discharge Plan - Plan Referrals: Jimmy Penaloza MD [Primary Care Provider] -
[2018-03-07] MEDS: Aspirin Enteric Coated 81 MG Tablet PO SCH (08:07)
--- NOTE | 2018-03-07 09:19 | Anesthesia Evaluation PreOp ---
Date of Encounter: 03/07/18 Time of Encounter: 09:17 - Past History Planned Operation: right USE Cardiac History: ID, HTN, Hyperlipidemia, Cardiac Surgery (triple CABG 01-27), Cardiac Stent (recent NSTEMI with stent placed distal LAD) Pulmonary History: Denies Any Significant HX HOME HEALTH OCCUPATIONAL THERAPIST History: Other (neuropathy feet) Other Medical History: Denies Any Significant HX Anesthesia History: No Prior Anesthetic Complications, Past Anesthesia Alcohol Use: none Drug use: none Medications and Allergies Aspirin [Adult Aspirin Regimen] 81 mg PO DAILY 12/11/17 [History] Multivitamin [Multivitamins] 1 each PO DAILY 01/28/18 [History] [place]-3 Fatty Acids [Fish Oil] 300 mg PO DAILY 01/28/18 [History] Ubidecarenone [Coq10] 50 mg PO DAILY 01/28/18 [History] Cholestyramine 4 gm PO 0700 #30 powd.pack 01/31/18 [Rx] OxyCODONE/APAP 5/325 [Percocet 5/325 MG] 1 each PO Q4HR PRN 7 Days #42 tablet [Rx] ALPRAZolam [Xanax 0.5 MG Tablet] 0.5 mg PO Q6H PRN 3 Days #12 tablet 02/16/18 [ Rx] Carvedilol [Coreg] 6.25 mg PO DAILY 03/03/18 [History] Clopidogrel [Plavix] 75 mg PO DAILY 03/03/18 [History] Beclomethasone Dip 40mcg REDIH [Qvar 40 Mcg Redihaler] 1 puff IH BID 03/05/18 [ History] 3 Allergy/AdvReac Type Severity Reaction Status Date / Time niacin Allergy See Verified 03/06/18 06:15 Comments Eylcsql-Bld-Kaa Reductase Allergy See Verified 03/06/18 06:15 Inhibitor Comments [Statins] lorazepam [From Ativan] AdvReac Hallucinati Verified 03/06/18 06:15 ng - Meds/Allergy Pre-op Review Medications Reviewed: Yes Allergies Reviewed: Yes Beta Blockers on Current Med List: Yes If Beta Blockers taken, Date/Time (Last Dose taken): today 806 Anesthesia Results - Labs 03/07/18 05:51 03/07/18 05:51 - Imaging EKG: report reviewed (SINUS RHYTHM ST DEVIATION AND MODERATE T-WAVE ABNORMALITY , CONSIDER ANTEROLATERAL ISCHEMIA ST DEVIATION AND MODERATE T-WAVE ABNORMALITY, CONSIDER INFERIOR ISCHEMIA) Additional studies: echo 03-04-18: Impressions: Normal LV chamber size, wall thickness and function. LVEF 41-46%. Segmental wall motion abnormalities in the LAD distribution No evidence of mechanical complications of ACS Normal right ventricular structure and function. cath 03-03-18: Indications: Non-Stemi ACS <= 24 hrs Impressions: There is severe one vessel coronary artery disease. There is moderate to severe segmental LV Dysfunction EF 35% Patient had successful PTCA/Drug-Eluting Stent placement in the distal LAD. S/P CABG 2 of 3 patent bypass grafts. Patient had successful PTCA in the mid LAD. Anesthesia Exam Selected Entries 03/07/18 08:13 Temperature 97.8 F Pulse Rate 92 Respiratory Rate 16 Blood Pressure 138/74 O2 Sat by Pulse Oximetry 98 Oxygen Delivery Method Room Air Weight: 75kg NPO (# of Hours): 8 - HEENT Pupil (Motor): EOMI Mallampati: III Teeth: Normal Oral Opening: Less than or equal to 3 - HOME HEALTH OCCUPATIONAL THERAPIST LOC: Oriented HOME HEALTH OCCUPATIONAL THERAPIST Motor: Normal RUE, Normal LUE, Normal RLE, Normal LLE, Normal Face HOME HEALTH OCCUPATIONAL THERAPIST Sensory: Normal: RUE, LUE, RLE, LLE, Face - Cardiac Rhythm: Regular Murmur: None - Pulmonary Breath Sounds: bilateral Clear Respiratory Effort: Symmetrical Anesthesia Assess/Plan ASA Score: 4 Modified Newton Scale for Level of Consciousness: Cooperative, oriented, and tranquil Anesthetic Plan: General Monitoring Plan: Standard Monitors Recovery Plan: PACU (agrees to GA)
[2018-03-07] MEDS ORDERED: Ondansetron 4 MG/2 ML VIAL ONE (10:19)
[2018-03-07] MEDS ORDERED: *HR* FentaNYL (PF) 100 MCG/2 ML VIAL ONE (10:19)
[2018-03-07] MEDS ORDERED: *HR* Propofol 200 MG/20 ML VIAL IVP ONE (10:19)
[2018-03-07] MEDS ORDERED: Dexamethasone 4 MG/ML VIAL ONE (10:19)
[2018-03-07] MEDS ORDERED: Lidocaine -MPF 2% 2 ML VIAL ONE (10:19)
[2018-03-07] MEDS ORDERED: Isovue-300 50 ML VIAL IVP ONE (11:51)
[2018-03-07] MEDS ORDERED: ceFAZolin 2,000 MG in Water for inj. (sterile) 20 ML 10 ML IVP ONE (12:10)
[2018-03-07] MEDS ORDERED: Acetaminophen IV 1,000 MG/100 ML INFUS..BTL IVPB ONE (13:38)
[2018-03-07] MEDS ORDERED: *HR* Promethazine 25 MG/ML VIAL ONE (13:40)
--- NOTE | 2018-03-07 13:42 | Operative Note ---
Date of procedure: 03/07/18 Pre-op diagnosis: right 7 mm proximal ureteral stone Post-op diagnosis: same Procedure: Right ureteroscopic stone extraction with holmium laser Right retrograde pyelogram Right ureteral stent placement Anesthesia: GETA Surgeon: Romero Calvert Was there an assistant credit manager present: No Estimated blood loss (cc): 0 Specimen: stone fragments Condition: stable Disposition: PACU Procedure in Detail: PROCEDURE IN DETAIL: Patient was taken back to the operating room, positioned supine on the operating table. Anesthesia was applied without complication. They were moved into dorsal lithotomy. Careful attention was maintained to cushion all pressure points for patient's safety. They were prepped and draped in sterile fashion. Time-out was performed with the proper patient and procedure. A 21-Sudanese rigid cystoscope was inserted into the bladder without difficulty. Systematic examination of bladder revealed no abnormalities. The ureteral orifice was cannulated using a 5-Sudanese ureteral Catheter and a retrograde pyelogram was performed using Isovue. A filling defect was identified which corresponded to the stone. At that point, a zip wire was placed through the 5-Sudanese and confirmed in the renal pelvis with fluoroscopy. An 8-10 dilator was then placed over the zip wire to passively dilate the ureteral orifice. I was unable to place the flexible ureteroscope over the zip wire. I then proceeded to place an 11 x 13 access sheath which did pass without resistance. I was able to guide the flexible ureteroscope up to the level of the stone.. At that point, the stone was encountered and I felt that it required fragmentation for safe extraction. A 200 micron holmium laser fiber on a setting of 8 and 800 was used to fragment the stone into multiple pieces. The fragments were individually basketed out of the ureter with a 1.9 tipless basket. All stone in the ureter was removed. There were a few minute fragments in the upper pole system after the laser lithotripsy but these were all less than 1 mm and unable to be grasped with the basket. A 4.8 x 26 ureteral stent was placed over the zip wire under fluoroscopy without complication. The stone fragments were sent for specimen. No string was left attached to the stent. Minimal bleeding was seen during the procedure despite his Plavix.
[2018-03-07] MEDS: *HR* Promethazine 25 MG/ML VIAL IVP PRN ×2 (13:43→13:52)
[2018-03-07] MEDS: *HR* Labetalol 20 MG/4 ML SYRINGE IVP PRN ×4 (13:44→14:33)
--- NOTE | 2018-03-07 14:10 | Event Note ---
Date of Encounter: 03/07/18 Time of Encounter: 14:08 The kidney stone was successfully extracted. Stent is in place without a string attached. Patient should expect increased urgency, frequency, burning on urination, light to moderate blood in the urine. Patient can be discharged today if doing well. My office will arrange an outpatient cystoscopy and stent removal.
[2018-03-07] MEDS ORDERED: *HR* Promethazine 25 MG/ML VIAL IVP ONE (14:29)
--- NOTE | 2018-03-07 14:56 | Anesthesia Evaluation Post Op ---
Date of Encounter: 03/07/18 Time of Encounter: 14:53 - Vital Signs Vital Signs: Vital Signs/O2 Sat, Most Current Temp Pulse Resp BP Pulse Ox 98.9 F 90 16 151/97 98 03/07/18 14:48 03/07/18 14:48 03/07/18 14:48 03/07/18 14:48 03/07/18 14:48 - Lungs Lungs: Clear Ascult./Percussion - Airway Airway: Non-obstructed - Cardiovascular Regular Rate - Mental Status Mental Status: Alert & Oriented, Answers Appropriately - Pain Pain Scale: 5 Pain Scale used: Numeric (1 - 10) - Nausea Vomiting Nausea Vomiting: Responds to treatment with IV Meds - Hydration Hydration: Ice chips, Able to void Notes: 03/07/18 14:55 Pt has fully recovered from anesthesia. BP now stable after labetolol and hydralazine. VSS. Neuro exam intact. - Discharge PostOp Status: Transfer Patient to floor
[2018-03-07] MEDS ORDERED: ALPRAZolam 0.5 MG TABLET PO PRN (15:07)
[2018-03-07] MEDS ORDERED: Acetaminophen 325 MG TABLET PO PRN (15:07)
[2018-03-07] MEDS ORDERED: *HR* OxyCODONE/APAP 5/325 TABLET PO PRN ×2 (15:07→16:45)
[2018-03-07] MEDS ORDERED: Naloxone 0.4 MG/ML INJ IVP PRN (15:07)
[2018-03-07] MEDS: Beclomethasone 40mcg REDIHALER IH SCH ×2 (16:04→23:19)
--- NOTE | 2018-03-07 16:51 | Internal Med Progress Note ---
Hospitalist Progress Note - Encounter Date of Encounter: 03/07/18 Time of Encounter: 16:30 - Subjective Interval History: Mr. Sharp is a 72 year old male with past history of recent CABG who presented to the emergency department chief complaint of acute right-sided abdominal pain. Patient states that he was awoken from sleep this morning with severe right-sided abdominal pain that radiated to his back. Patient states that he had associated nausea. Patient presented to the emergency department had CAT scan of his abdomen performed which revealed a 7 mm obstructing calculus causing right hydroureternphrosis with perinephric stranding. Patient was given analgesics and antiemetics which improved his pain and nausea. During the patient's emergency department the patient developed chest pain that he states is very total of his recent chest pain. The patient recently has had multiple PCI's with stent placements and recent CABG and was just sent home yesterday. Patient states that morphine relieved his chest pain and currently he denies chest pain, palpitations, nausea, vomiting, diarrhea, melena, hematochezia, blurry vision, double vision, headache. Emergency department provider spoke to urologist and 911 emergency dispatcher who will see the patient on the floor. 03/07: Pt returned from OR. Complaining of intense pain right flank and is aksing for more pain meds. States pain is so bad his breahting is labored. No CP, No N/V/D. Also stating he has to urinate immediately. - Exam Vitals: Temp Pulse Resp BP Pulse Ox 98.9 F 90 16 151/97 98 03/07/18 14:48 03/07/18 14:48 03/07/18 14:48 03/07/18 14:48 03/07/18 14:48 Exam: Constitutional: Mild discomfort due to intermittent abdominal pain Psych: AAO x 3, anxious, uncomfortable HEENT: NCAT, EOMI Neck: supple, no JVD Cardio: regular rate and rhythm, +s1s2, no murmurs/rubs/gallops, no JVD Chest: well healing mid sterum incision with no surrounding erythema Resp: clear to ascultation bilaterally, no wheezes/rales/ronchi Abd: soft, non tender/non distended, positive bowel sounds, no gaurding/reboud/ ridgitity. Right flank discomfort per pt (I did not palpate as just back from procedure) Extremities: no clubbing/cyanosis/edema appreciated Neuro: no focal deficits appreciated - Assessment and Plan (1) CAD (coronary artery disease) Current Visit: Yes Status: Chronic Assessment and Plan: -significant CAD with recent CABG and multiple PCIs with ICM -continue current meds -cardiology recs 03/07: Cardiology eval noted, following their reccs (2) Chest pain Current Visit: Yes Status: Acute Assessment and Plan: -episode of chest pain in ED typical of his recent chest pain -relieved by morphine -currently chest pain free -troponin 0.04 but improved from 2 days prior -hold off on heparin gtt unless troponins rise -cardiology consulted; contacted by ED provider -josseline clark -no significant change in ECG from 2 days prior 03/07: no further CP, reccs as per cardiology (3) Abdominal pain Current Visit: Yes Status: Acute Assessment and Plan: -acute abdominal pain due to right sided 7mm obstructing nephrolithiasis causing hydroureternephrosis -some perinephric stranding likely reactive; no wbc or bacteria in urine -no need for current antibiotics -analgesia -urology consulted; contacted by ED provider -npo for now 03/07: s/p right uretral stone extraction (4) Hydronephrosis with obstructing calculus Current Visit: Yes Status: Acute Assessment and Plan: -as above -analgesia -urology consulted 03/07: Post op, see urology notes (5) Leukocytosis Current Visit: Yes Status: Acute Assessment and Plan: -likely reactive due to obstructing nephrolithiasis -monitor 03/07: Improved today (6) Thrombocytosis Current Visit: Yes Status: Acute Assessment and Plan: -Likely reactive due to obstructing nephrolithiasis -monitor 03/07: plts now nml (7) HTN (hypertension) Current Visit: Yes Status: Acute Assessment and Plan: -continue coreg -recently taken off RAVEN inhibitor due to cough -will not allow myself to start any new medications; only wants new meds through cardiology 03/07: continue current rx, Present BP elev likely due to pain/discomfort (8) HLD (hyperlipidemia) Current Visit: Yes Status: Acute Assessment and Plan: -intolerant of statin -continue cholestyramine (9) DVT prophylaxis Current Visit: Yes Status: Acute Assessment and Plan: -hep sq - Time Spent with Patient Total time spent is greater than 50% in coordination of care (as documented) at patient's floor/unit and/or counseling patient: 25 - 35 minutes Plan of Care Discussed with: patient Internal Medicine: Result - Labs CBC & Chem 7: 03/07/18 05:51 03/07/18 05:51 Labs: Short CBC 03/07/18 Range/Units 05:51 WBC 8.5 (4.3-11.1) K/mcL Hgb 12.4 L D (12.9-16.9) g/dL Hct 37.3 L (37.5-50.1) % Plt Count 306 (140-400) K/mcL Neutrophils # 5.9 (1.6-8.9) K/mcL BMP 03/07/18 05:51 Sodium 140 Potassium 4.5 Chloride 109 H Carbon Dioxide 21 L BUN 17 Creatinine 1.05 Glucose 108 H Calcium 9.0 - Impressions Impressions Retrograde Pyelogram 03/07/18 12:20 IMPRESSION: Intraprocedural fluoroscopic spot images as above. See separate procedure report for more information. D/ / Tushar Peterson / Tushar Peterson Interpreting Provider: Tushar Peterson Consult Discharge Plan - Plan Referrals: Jimmy Penaloza MD [Primary Care Provider] - (1) CAD (coronary artery disease) Qualifiers: Coronary Disease-Associated Artery/Lesion type: [place] artery [place] vs. transplanted heart: [place] heart Associated angina: angina presence unspecified Qualified Code(s): I25.10 - Atherosclerotic heart disease of [place] coronary artery without angina pectoris (2) Chest pain Qualifiers: Chest pain type: unspecified Qualified Code(s): R07.9 - Chest pain, unspecified (3) Abdominal pain Qualifiers: Abdominal location: right lower quadrant Qualified Code(s): R10.31 - Right lower quadrant pain (5) Leukocytosis Qualifiers: Leukocytosis type: unspecified Qualified Code(s): D72.829 - Elevated white blood cell count, unspecified (7) HTN (hypertension) Qualifiers: Hypertension type: essential hypertension Qualified Code(s): I10 - Essential (primary) hypertension (8) HLD (hyperlipidemia) Qualifiers: Hyperlipidemia type: mixed hyperlipidemia Qualified Code(s): E78.2 - Mixed hyperlipidemia
[2018-03-07] MEDS: 0.9 % Sodium Chloride 1,000 ML IVC SCH (18:38)
[2018-03-07] MEDS: Ondansetron 4 MG/2 ML VIAL IVP PRN (18:41)
[2018-03-08] MEDS: 0.9 % Sodium Chloride 1,000 ML IVC SCH (03:23)
[2018-03-08] MEDS: Ondansetron 4 MG/2 ML VIAL IVP PRN ×2 (03:23→11:37)
[2018-03-08] MEDS: *HR* Heparin 5,000 UNIT/ML VIAL SQ SCH (06:17)
[2018-03-08] MEDS ORDERED: Cholestyramine 4 GM POWD.PACK PO SCH (07:00)
[2018-03-08 07:03] VITALS: BP 166/96
[2018-03-08] MEDS: Beclomethasone 40mcg REDIHALER IH SCH (07:36)
--- NOTE | 2018-03-08 08:00 | Urology Progress Note ---
Date of Encounter: 03/08/18 Time of Encounter: 07:58 - Assessment and Plan (1) Hydronephrosis with obstructing calculus Current Visit: Yes Status: Resolved Assessment and plan: my office will schedule cystoscopy and stent removal and contact patient. ok with discharge per standpoint. Progress Note Subjective: feels better Narrative: some stent discomfort but feels better. Objective Initial Vital Signs Temp Pulse Resp BP Pulse Ox 98.1 F 86 16 193/94 99 03/06/18 06:12 03/06/18 06:12 03/06/18 06:12 03/06/18 06:12 03/06/18 06:12 - General physical appearance Present: no distress - Labs 03/07/18 05:51 03/07/18 05:51 Consult Discharge Plan - Plan Referrals: Jimmy Penaloza MD [Primary Care Provider] -
[2018-03-08] MEDS ORDERED: Aspirin Enteric Coated 81 MG Tablet PO SCH (09:00)
--- NOTE | 2018-03-08 10:13 | Discharge Summary ---
<Cristian Cordova - Last Filed: 03/08/18 13:52> Orders not resulted at time of discharge: Pending orders 03/07/18 13:07 Calculi (stone) Analysis Routine Surgical Pathology [PTH] Routine 03/07/18 13:33 EKG [ECG 12 lead ECG] [ECG] Stat Date of Encounter: 03/08/18 - Discharge Diagnosis (1) CAD (coronary artery disease) Status: Chronic Qualifiers: Coronary Disease-Associated Artery/Lesion type: [place] artery [place] vs. transplanted heart: [place] heart Associated angina: angina presence unspecified Qualified Code(s): I25.10 - Atherosclerotic heart disease of [place] coronary artery without angina pectoris (2) Chest pain Status: Acute Qualifiers: Chest pain type: unspecified Qualified Code(s): R07.9 - Chest pain, unspecified (3) Hydronephrosis with obstructing calculus Status: Resolved (4) Leukocytosis Status: Acute Qualifiers: Leukocytosis type: unspecified Qualified Code(s): D72.829 - Elevated white blood cell count, unspecified (5) Thrombocytosis Status: Acute (6) HTN (hypertension) Status: Acute Qualifiers: Hypertension type: essential hypertension Qualified Code(s): I10 - Essential (primary) hypertension (7) HLD (hyperlipidemia) Status: Acute Qualifiers: Hyperlipidemia type: mixed hyperlipidemia Qualified Code(s): E78.2 - Mixed hyperlipidemia Hospital course: Mr. Sharp is a 72 year old male - Time Spent with Patient Total time spent providing and/or coordinating discharge services: - Discharge Medications Prescriptions: OxyCODONE/APAP 5/325 [Percocet 5/325 MG] 1 each PO Q6HR PRN 4 Days #20 tablet PRN Reason: Severe Pain Ondansetron HCl [Zofran] 4 mg PO Q8HR PRN 5 Days #20 tab PRN Reason: Nausea Phenazopyridine [Pyridium] 200 mg PO TID PRN 10 Days #30 tablet PRN Reason: See Comments Home Medications: Aspirin [Adult Aspirin Regimen] 81 mg PO DAILY 12/11/17 [History] Multivitamin [Multivitamins] 1 each PO DAILY 01/28/18 [History] [place]-3 Fatty Acids [Fish Oil] 300 mg PO DAILY 01/28/18 [History] Ubidecarenone [Coq10] 50 mg PO DAILY 01/28/18 [History] Cholestyramine 4 gm PO 0700 #30 powd.pack 01/31/18 [Rx] ALPRAZolam [Xanax 0.5 MG Tablet] 0.5 mg PO Q6H PRN 3 Days #12 tablet 02/16/18 [ Rx] Carvedilol [Coreg] 6.25 mg PO DAILY 03/03/18 [History] Clopidogrel [Plavix] 75 mg PO DAILY 03/03/18 [History] Beclomethasone Dip 40mcg REDIH [Qvar 40 Mcg Redihaler] 1 puff IH BID 03/05/18 [ History] Ondansetron HCl [Zofran] 4 mg PO Q8HR PRN 5 Days #20 tab 03/08/18 [Rx] OxyCODONE/APAP 5/325 [Percocet 5/325 MG] 1 each PO Q6HR PRN 4 Days #20 tablet [Rx] Phenazopyridine [Pyridium] 200 mg PO TID PRN 10 Days #30 tablet 03/08/18 [Rx] Allergies/Adverse Reactions: 3 Allergy/AdvReac Type Severity Reaction Status Date / Time niacin Allergy See Verified 03/06/18 06:15 Comments Uqwhkbp-Oeg-Mya Reductase Allergy See Verified 03/06/18 06:15 Inhibitor Comments [Statins] lorazepam [From Ativan] AdvReac Hallucinati Verified 03/06/18 06:15 ng Date of admission: 03/06/18 10:34 Primary care physician: Jimmy Penaloza MD Consults: 03/06/18 10:49 Consult to Cardiology [CONS] Routine Comment: call completed by ED Consulting Provider: [facility] [place] Reason for Consult: chest pain, recent CABG with multiple PCIs Call Completed: Yes Consult to Urology [CONS] Routine Consulting Provider: [facility] [place] Reason for Consult: Obstructing nephrolithiais Call Completed: Yes 03/06/18 11:43 Consult to Technical Assistance Consultant [CONS] Routine Reason for SW Consult: HOME HEATLH PLANNING FOR THERAPY - Constitutional Vitals: Temp Pulse Resp BP Pulse Ox 98.2 F 94 16 166/96 92 03/08/18 06:54 03/08/18 06:54 03/08/18 07:36 03/08/18 06:54 03/08/18 07:36 - Patient Status Disposition: Home, Self-Care Condition: Good - Discharge Instructions Instructions: Ondansetron (By mouth), Chest Pain (DC), Kidney Stones (DC), Cystoscopy (DC), Leukocytosis (DC), Hydronephrosis (DC) Follow Up With: Jimmy Penaloza MD [Primary Care Provider] - (please follow up with primary care in 1 week, call for appt ) Romero Calvert MD [Partnered Physician] - (Office will call you to schedule follow up appt ) - Attending Attestation Patient did well overnight. He is no longer nauseous she is tolerating a full diet. Pain is controlled. She was stable for discharge. He has urology follow -up in place. Exam: NAD, AAOx3 skin warm and dry lung ctab ht rrr abd - soft +bs, mild right flank ttp-improved ext no edema <Nba Cade - Last Filed: 03/08/18 14:45> - NOTES TO OUTPATIENT PROVIDER Notes to Outpatient Provider: Mr. Sharp was admitted on 03/06 for right sided flank pain. CT abdomen pelvis showed mild-moderate right hydroureteronephrosis due to an obstructing 7mm calculus at the ureteropelvic junction. He underwent a right ureteroscopic stone extraction with holmium laser, retrograde pyelogram , and right ureteral stent placement with Dr. Calvert on 03/07. At the time of discharge, the pt was having no difficulty urinating. Stone fragment pathology still pending. Orders not resulted at time of discharge: Pending orders 03/07/18 13:07 Calculi (stone) Analysis Routine Surgical Pathology [PTH] Routine 03/07/18 13:33 EKG [ECG 12 lead ECG] [ECG] Stat Date of Encounter: 03/08/18 Time of Encounter: 10:13 - Discharge Diagnosis (1) CAD (coronary artery disease) Priority: Secondary Status: Chronic Assessment and Plan: significant CAD with recent CABG and multiple PCIs with ICM continue home ASA, plavix, and coreg Continue cholestyramine since allergic to Statins and niacin Qualifiers: Coronary Disease-Associated Artery/Lesion type: [place] artery [place] vs. transplanted heart: [place] heart Associated angina: angina presence unspecified Qualified Code(s): I25.10 - Atherosclerotic heart disease of [place] coronary artery without angina pectoris (2) Chest pain Priority: Secondary Status: Acute Assessment and Plan: episode of chest pain in ED typical of his recent chest pain which was relieved by morphine No significant EKG changes Cardiology consulted and recommended continue medical management Chest pain free currently Qualifiers: Chest pain type: unspecified Qualified Code(s): R07.9 - Chest pain, unspecified (3) Hydronephrosis with obstructing calculus Priority: Primary Status: Resolved Assessment and Plan: Admitted for right sided flank pain CT abdomen pelvis showed mild-moderate right hydroureteronephrosis due to an obstructing 7mm calculus at the ureteropelvic junction Underwent a right ureteroscopic stone extraction with holmium laser, retrograde pyelogram, and right ureteral stent placement with Dr. Calvert on 03/07 Dr. Calvert's office to call pt with follow up appointment. Percocet 5/325 for breakthrough pain Pyridium for pain (4) Leukocytosis Priority: Secondary Status: Resolved Assessment and Plan: Likely reactive due to obstructing nephrolithiasis Resolved to WBC 8.5 on 03/07 Qualifiers: Leukocytosis type: unspecified Qualified Code(s): D72.829 - Elevated white blood cell count, unspecified (5) Thrombocytosis Priority: Secondary Status: Resolved Assessment and Plan: Likely reactive due to obstructing nephrolithiasis Platelet count normal at 306 on 03/07 (6) HTN (hypertension) Priority: Secondary Status: Acute Assessment and Plan: Continue coreg BP 166/96 today, likely elevated due to pain/discomfort Qualifiers: Hypertension type: essential hypertension Qualified Code(s): I10 - Essential (primary) hypertension (7) HLD (hyperlipidemia) Priority: Secondary Status: Acute Assessment and Plan: Experienced adverse reactions with statins and niacin Continue cholestyramine Qualifiers: Hyperlipidemia type: mixed hyperlipidemia Qualified Code(s): E78.2 - Mixed hyperlipidemia Hospital course: Mr. Sharp is a 72 year old male Discharge discussed with: patient, family, process improvement consultant - Time Spent with Patient Total time spent providing and/or coordinating discharge services: Date of admission: 03/06/18 10:34 Primary care physician: Jimmy Penaloza MD Consults: 03/06/18 10:49 Consult to Cardiology [CONS] Routine Comment: call completed by ED Consulting Provider: [facility] [place] Reason for Consult: chest pain, recent CABG with multiple PCIs Call Completed: Yes Consult to Urology [CONS] Routine Consulting Provider: [facility] [place] Reason for Consult: Obstructing nephrolithiais Call Completed: Yes 03/06/18 11:43 Consult to Technical Assistance Consultant [CONS] Routine Reason for SW Consult: HOME HEATLH PLANNING FOR THERAPY Discharging clinician: Nba Cade - Constitutional Vitals: Temp Pulse Resp BP Pulse Ox 98.2 F 94 16 166/96 92 03/08/18 06:54 03/08/18 06:54 03/08/18 07:36 03/08/18 06:54 03/08/18 07:36 General appearance: Present: A&O X 3, pleasant, no acute distress, answers questions appropriately Exam: Constitutional: alert, well developed, well nourished, no acute distress Head: normocephalic and atraumatic Eyes: PERRL, EOMI, no scleral icterus Neck: supple, trachea midline, no lymphadenopathy Lungs: CTA bilaterally. non-labored breathing. No wheezes, rales, or rhonchi Heart: RRR. +S1 +S2. No murmurs, clicks, or rubs. GI: abdomen soft, non-tender, non-distended Extremities: warm. no edema, clubbing, or cyanosis Neuro: A&Ox3. no focal deficits. no speech difficulties or abnormalities Skin: warm, dry, and intact - Patient Status Functional capacity at discharge: independent ambulation Overall status at discharge: patient is progressing back to baseline - Diet and Activity Activity: increase activity as tolerated, resume usual activities as tolerated Diet: low fat, low cholesterol, low salt diet
--- NOTE | 2018-03-08 10:41 | Discharge Summary ---
Orders not resulted at time of discharge: Pending orders 03/07/18 13:07 Calculi (stone) Analysis Routine Surgical Pathology [PTH] Routine 03/07/18 13:33 EKG [ECG 12 lead ECG] [ECG] Stat 03/08/18 09:05 BMP [Basic Metabolic Panel] Routine Complete Blood Count [HEME] Routine Date of Encounter: 03/08/18 Time of Encounter: 08:30 - Discharge Diagnosis (1) CAD (coronary artery disease) Status: Chronic Qualifiers: Coronary Disease-Associated Artery/Lesion type: [place] artery [place] vs. transplanted heart: [place] heart Associated angina: angina presence unspecified Qualified Code(s): I25.10 - Atherosclerotic heart disease of [place] coronary artery without angina pectoris (2) Chest pain Status: Acute Qualifiers: Chest pain type: unspecified Qualified Code(s): R07.9 - Chest pain, unspecified (3) Abdominal pain Status: Acute Qualifiers: Abdominal location: right lower quadrant Qualified Code(s): R10.31 - Right lower quadrant pain (4) Hydronephrosis with obstructing calculus Status: Resolved (5) Leukocytosis Status: Acute Qualifiers: Leukocytosis type: unspecified Qualified Code(s): D72.829 - Elevated white blood cell count, unspecified (6) Thrombocytosis Status: Acute (7) HTN (hypertension) Status: Acute Qualifiers: Hypertension type: essential hypertension Qualified Code(s): I10 - Essential (primary) hypertension (8) HLD (hyperlipidemia) Status: Acute Qualifiers: Hyperlipidemia type: mixed hyperlipidemia Qualified Code(s): E78.2 - Mixed hyperlipidemia (9) DVT prophylaxis Status: Acute Hospital course: Mr. Sharp is a 72 year old male - Time Spent with Patient Total time spent providing and/or coordinating discharge services: - Discharge Medications Home Medications: Aspirin [Adult Aspirin Regimen] 81 mg PO DAILY 12/11/17 [History] Multivitamin [Multivitamins] 1 each PO DAILY 01/28/18 [History] [place]-3 Fatty Acids [Fish Oil] 300 mg PO DAILY 01/28/18 [History] Ubidecarenone [Coq10] 50 mg PO DAILY 01/28/18 [History] Cholestyramine 4 gm PO 0700 #30 powd.pack 01/31/18 [Rx] OxyCODONE/APAP 5/325 [Percocet 5/325 MG] 1 each PO Q4HR PRN 7 Days #42 tablet [Rx] ALPRAZolam [Xanax 0.5 MG Tablet] 0.5 mg PO Q6H PRN 3 Days #12 tablet 02/16/18 [ Rx] Carvedilol [Coreg] 6.25 mg PO DAILY 03/03/18 [History] Clopidogrel [Plavix] 75 mg PO DAILY 03/03/18 [History] Beclomethasone Dip 40mcg REDIH [Qvar 40 Mcg Redihaler] 1 puff IH BID 03/05/18 [ History] Allergies/Adverse Reactions: 3 Allergy/AdvReac Type Severity Reaction Status Date / Time niacin Allergy See Verified 03/06/18 06:15 Comments Gwhszyi-Ijv-Poz Reductase Allergy See Verified 03/06/18 06:15 Inhibitor Comments [Statins] lorazepam [From Ativan] AdvReac Hallucinati Verified 03/06/18 06:15 ng Date of admission: 03/06/18 10:34 Primary care physician: Jimmy Penaloza MD Consults: 03/06/18 10:49 Consult to Cardiology [CONS] Routine Comment: call completed by ED Consulting Provider: Cardiology [place] Reason for Consult: chest pain, recent CABG with multiple PCIs Call Completed: Yes Consult to Urology [CONS] Routine Consulting Provider: [facility] [place] Reason for Consult: Obstructing nephrolithiais Call Completed: Yes 03/06/18 11:43 Consult to Supervisor [employer] [CONS] Routine Reason for SW Consult: HOME HEATLH PLANNING FOR THERAPY - Constitutional Vitals: Temp Pulse Resp BP Pulse Ox 98.2 F 94 16 166/96 92 03/08/18 06:54 03/08/18 06:54 03/08/18 07:36 03/08/18 06:54 03/08/18 07:36 - Discharge Instructions Follow Up With: Jimmy Penaloza MD [Primary Care Provider] -
--- NOTE | 2018-03-08 13:31 | Physician Discharge Referral ---
Home Health/Hosp Referral Info Transfer to: Home Health Attending Provider: Dr. Cordova Provider in Charge Post Discharge: PCP - Diagnosis (1) CAD (coronary artery disease) Priority: Secondary Status: Chronic (2) Chest pain Priority: Secondary Status: Acute (3) Hydronephrosis with obstructing calculus Priority: Primary Status: Resolved (4) Leukocytosis Priority: Secondary Status: Acute (5) Thrombocytosis Priority: Secondary Status: Acute (6) HTN (hypertension) Priority: Secondary Status: Acute (7) HLD (hyperlipidemia) Priority: Secondary Status: Acute - Respiratory Orders Smoking Cessation: Smoking cessation has been advised. For more information, call the [place] Tobacco Quit Line at 1-636-XODZ-NOW. - Diet/Nutrition Diet/Nutrition Orders: Cardiac - Activity Activity Orders: Ambulate - Services Needed Following services are medically necessary services: Nursing, Physical Therapy, Occupational Therapy - Transfer Medications Prescriptions: OxyCODONE/APAP 5/325 [Percocet 5/325 MG] 1 each PO Q6HR PRN 4 Days #20 tablet PRN Reason: Severe Pain Ondansetron HCl [Zofran] 4 mg PO Q8HR PRN 5 Days #20 tab PRN Reason: Nausea Phenazopyridine [Pyridium] 200 mg PO TID PRN 10 Days #30 tablet PRN Reason: See Comments Home Medications: Aspirin [Adult Aspirin Regimen] 81 mg PO DAILY 12/11/17 [History] Multivitamin [Multivitamins] 1 each PO DAILY 01/28/18 [History] Fletcher-3 Fatty Acids [Fish Oil] 300 mg PO DAILY 01/28/18 [History] Ubidecarenone [Coq10] 50 mg PO DAILY 01/28/18 [History] Cholestyramine 4 gm PO 0700 #30 powd.pack 01/31/18 [Rx] ALPRAZolam [Xanax 0.5 MG Tablet] 0.5 mg PO Q6H PRN 3 Days #12 tablet 02/16/18 [ Rx] Carvedilol [Coreg] 6.25 mg PO DAILY 03/03/18 [History] Clopidogrel [Plavix] 75 mg PO DAILY 03/03/18 [History] Beclomethasone Dip 40mcg REDIH [Qvar 40 Mcg Redihaler] 1 puff IH BID 03/05/18 [ History] Ondansetron HCl [Zofran] 4 mg PO Q8HR PRN 5 Days #20 tab 03/08/18 [Rx] OxyCODONE/APAP 5/325 [Percocet 5/325 MG] 1 each PO Q6HR PRN 4 Days #20 tablet [Rx] Phenazopyridine [Pyridium] 200 mg PO TID PRN 10 Days #30 tablet 03/08/18 [Rx] Allergies/Adverse Reactions: 3 Allergy/AdvReac Type Severity Reaction Status Date / Time niacin Allergy See Verified 03/06/18 06:15 Comments Vjsfnlg-Jpm-Alw Reductase Allergy See Verified 03/06/18 06:15 Inhibitor Comments [Statins] lorazepam [From Ativan] AdvReac Hallucinati Verified 03/06/18 06:15 ng Certification: Further, I certify that my clinical findings support that this patient is homebound (i.e. absences from home require considerable and taxing effort and are for medical reasons or rastafarian services or infrequently or short duration when for other reasons) because: Homebound Reason: Post-surgery restriction and or conditions limit ability to leave home Attestation: My signature below is to certify that this patient is under my care and that I, or nurse practitioner, or a physician's blood and plasma laboratory assistant working with me, has a face-to -face encounter with this patient.
[2018-03-12 11:55] LABS: Calculi Mass 23 mg
== END 2018-03-08 11:50 | disposition home or self-care (01) ==
LOC: EMEROOARM 06:04 → 2SOUTHHOLD 06:04
PROVIDERS: ADMIT Internal Medicine; ATTEND Internal Medicine

== ENCOUNTER 2018-03-28 22:48 | Observation (INO) ==
--- NOTE | 2018-03-28 22:53 | Emergency Department Note ---
Disposition Clinical Impression: Chest pain Qualifiers: Chest pain type: unspecified Qualified Code(s): R07.9 - Chest pain, unspecified Disposition: Admitted As Inpatient Condition: Good Time of Disposition: 00:27 Chest Pain HPI - General Chief Complaint: ED Chest Pain Stated Complaint: chest pain Time Seen by Provider: 03/28/18 22:53 Source: patient, EMS Mode of arrival: EMS Limitations: no limitations Vital Signs Reviewed: Yes Nursing Notes Reviewed: Yes - History of Present Illness HPI Narrative: Patient is a 72-year-old male with significant past medical history of FL, stent placement 3, CABG last month, HTN, HLD. He presents today via EMS due to chest discomfort. He states that twice today, he had chest discomfort. First episode was several hours ago, second episode was around 6 PM, approximately 4-5 hours prior to arrival. He states that both of these occurred while at rest, described as centered chest discomfort described as a dull burning/ache that radiates to his back. He says that this feels similar to previous heart attack pain. States that this lasted for about 15 minutes and then went away. He did not get up during this episode, unsure if worsened with exertion. Denies any shortness breath, nausea, vomiting, fevers, sweating , abdominal pain, diarrhea, constipation. No dysuria or hematuria. No numbness , tingling, weakness. He states that last month, he had an FL, stent placement , had a come back for CABG and then had a CABG complication. He is currently on daily aspirin and Plavix, took both pripr to arrival. He received 3 additional baby aspirin while in route. Did not receive any nitroglycerin prior to arrival. Continues to rate his pain as 0 out of 10 at this time. - Related Data Home Medications Medication Instructions Recorded Confirmed Aspirin [Adult Aspirin Regimen] 81 mg PO DAILY 12/11/17 03/29/18 Clopidogrel [Plavix] 75 mg PO DAILY 03/03/18 03/29/18 Ondansetron ODT [Zofran ODT] 4 mg SL Q6HR PRN 03/29/18 03/29/18 Previous Rx's Medication Instructions Recorded ALPRAZolam [Xanax 0.5 MG Tablet] 0.5 mg PO Q6H PRN 3 Days #12 tablet 02/16/18 Allergies Allergy/AdvReac Type Severity Reaction Status Date / Time niacin Allergy See Verified 03/06/18 06:15 Comments Lffxcxf-Tpr-Phc Reductase Allergy See Verified 03/06/18 06:15 Inhibitor Comments [Statins] lorazepam [From Ativan] AdvReac Hallucinati Verified 03/06/18 06:15 ng All systems ED: reviewed and negative except as stated. Constitutional: Denies: fever Cardiovascular: Reports: chest pain Respiratory: Denies: dyspnea Gastrointestinal: Denies: abdominal pain, nausea, vomiting, diarrhea Integumentary: Denies: rash Neurological: Denies: headache, weakness, numbness, paresthesias Chest Pain PMH - Past Medical History Medical history: Reports: arthritis, coronary artery disease, CVA, GERD, hyperlipidemia, hypertension, kidney stones, myocardial infarction, osteoporosis Surgical history: Reports: angioplasty/stent, colostomy, orthopedic, other Psychiatric history: Reports: no psych history - Social History Smoking Status: Never smoker Alcohol use: Reports: none Drug use: Reports: none Physical Exam - General Limitations: no limitations General appearance: alert, in no apparent distress - Head Head exam: atraumatic, normocephalic, normal inspection - Eye Eye exam: Present: normal appearance, PERRL, EOMI - ENT ENT exam: normal exam, normal oropharynx, mucous membranes moist - Neck Neck exam: Present: normal inspection, full ROM, trachea midline - Chest Chest inspection: Present: symmetric chest wall rise, other (midline scar, well healed) - Respiratory Respiratory exam: Present: normal lung sounds bilaterally - Cardiovascular Cardiovascular exam: Present: regular rate, normal rhythm, normal heart sounds - Abdominal Exam Abdominal exam: Present: soft, Non-Tender. Absent: tenderness, distention, guarding, rebound, rigidity - Extremities Exam Extremities exam: Present: normal inspection, full ROM. Absent: tenderness, pedal edema - Neurological Exam Neurological exam: Present: alert, oriented X3 - Psychiatric Psychiatric exam: Present: normal affect, normal mood - Skin Skin exam: Present: warm, dry, intact, normal color Course Course Narrative: Patient mildly hypertensive. Otherwise, the rest of vitals within normal limits. EKG shows sinus rhythm with no acute ST elevation or depression. He does have improvement and T-wave inversions compared to previous EKG on 2017. No STEMI criteria at this time. We will obtain basic blood work, troponin, chest x-ray. With significant cardiac history, patient will require admission for observation overnight, trending troponins. Patient agreeable with this plan. Pain is currently a 0 out of 10. We will hold nitroglycerin at this time. 00:15 chest x-ray was negative. EKG as above. Troponin level negative. Patient continues to have no chest pain or shortness of breath at this time. Again, patient has significant cardiac history and will need to be admitted at this time for further observation and trending troponins. Patient agreeable with this plan. Chest X-Ray 03/28/18 22:53 IMPRESSION: Negative portable study as above. D/ / Annie Aaron Cha, MD / Annie Aaron Cha, MD Interpreting Provider: Annie Aaron Cha, MD Vital Signs Temperature 97.9 F 03/28/18 23:01 Pulse Rate 95 03/28/18 23:01 Respiratory Rate 18 03/28/18 23:01 Blood Pressure 162/93 03/28/18 23:01 O2 Sat by Pulse Oximetry 98 03/28/18 23:01 Temperature 97.9 F 03/28/18 23:01 Pulse Rate 86 03/29/18 00:58 Respiratory Rate 18 03/29/18 01:09 Blood Pressure 141/96 03/29/18 01:09 O2 Sat by Pulse Oximetry 99 03/29/18 00:58 Oxygen Delivery Oxygen Delivery Room Air Chest Pain - MDM Narrative Medical decision making narrative: Patient mildly hypertensive. Otherwise, the rest of vitals within normal limits. EKG shows sinus rhythm with no acute ST elevation or depression. He does have improvement and T-wave inversions compared to previous EKG on 2017. No STEMI criteria at this time. We will obtain basic blood work, troponin, chest x-ray. With significant cardiac history, patient will require admission for observation overnight, trending troponins. Patient agreeable with this plan. Pain is currently a 0 out of 10. We will hold nitroglycerin at this time. 00:15 chest x-ray was negative. EKG as above. Troponin level negative. Patient continues to have no chest pain or shortness of breath at this time. Again, patient has significant cardiac history and will need to be admitted at this time for further observation and trending troponins. Patient agreeable with this plan. - Medical Records Medical records reviewed: Yes I reviewed the patient's medical records. - Lab Data Lab results reviewed: Yes I reviewed the patient's lab results. Result diagrams: 03/28/18 23:03 03/28/18 23:03 Lab Results 03/28/18 03/28/18 03/28/18 Range/Units 22:53 23:03 23:03 WBC 7.3 (4.3-11.1) K/mcL RBC 4.54 (4.19-5.50) M/mcL Hgb 13.5 (12.9-16.9) g/dL Hct 40.1 (37.5-50.1) % MCV 88.3 (83.0-100.0) fL MCH 29.7 (28.0-33.3) pg MCHC 33.7 (31.6-35.5) g/dL RDW 13.4 (11.5-14.5) % Plt Count 315 (140-400) K/mcL MPV 9.3 L (9.4-12.4) fL Immature Gran % 0.3 (0-4) % Seg Neutrophils % 48.4 % Lymphocytes % 35.3 % Monocytes % 7.5 % Eosinophils % 7.5 % Basophils % 1.0 % Neutrophils # 3.5 (1.6-8.9) K/mcL Lymphocytes # 2.6 (0.6-4.6) K/mcL Monocytes # 0.6 (0.0-1.3) K/mcL Eosinophils # 0.6 (0.0-0.6) K/mcL Basophils # 0.1 (0.0-0.2) K/mcL PT 11.6 (9.4-12.1) Seconds INR 1.0 APTT 32.4 (26.0-36.0) Seconds Sodium 138 (136-145) mEq/L Potassium 3.7 (3.5-5.1) mEq/L Chloride 104 (98-107) mEq/L Carbon Dioxide 25 (23-29) mEq/L BUN 23 (8-23) mg/dL Creatinine 0.96 (0.70-1.30) mg/dL Est GFR ( Amer) > 60 (> 60) Est GFR (Non-Af Amer) > 60 (> 60) BUN/Creatinine Ratio 24 (6-26) Glucose 145 H (70-105) mg/dL Calculated Osmolality 292 (280-300) Calcium 9.3 (8.6-10.3) mg/dL Troponin I < 0.03 (< 0.04) ng/mL - Radiology Data Radiology results reviewed: Yes I reviewed the patient's radiology results. Chest X-Ray 03/28/18 22:53 IMPRESSION: Negative portable study as above. D/ / Annie Aaron Cha, MD / Annie Aaron Cha, MD Interpreting Provider: Annie Aaron Cha, MD - EKG Data EKG attestation: Yes I reviewed and interpreted this EKG. EKG results narrative: 03/28/2018 at 22:52. Normal sinus rhythm. Rate 98. MS 136. QRS 90. QTC 382. Normal axis. No acute ST elevation. Mild T wave flattening in V4 through V6, improved from previous EKG on 03/04/2018. Heart Score - Score History: Moderately Suspicious EKG: Non Specific repolarisation Disturbance Age: Greater than 65 Risk Factors: Equal/Greater than 3 risk factor or history of atherosclerotic disease Troponin: Less than normal limit HEART Score Total: 6 S.B.A.R. - S.B.A.R. Situation: Demographics, MOA Background: Presenting Complaint, Relevant PMH, Meds, & Allergies Assessment: Vital Signs, Course and respsone to treatment, Exam Concerns, Patient/Family Expectation, Pertinant Lab Results Recommendation: Barrier(s) to disposition, Recommendation based on pending studies, treatments, or consults S.B.A.R. Report Given to: Dr. Cárdenas S.B.A.RMaxim Repor Time: 00:27 Attestation Statement - Attestation Attestation: Dr. Berger note: Patient seen in conjunction with resident Dr. Cook. Please see his charting for complete documentation. I spent [id number] time with the patient and I agree with the patient's treatment and disposition. Troponin and x-ray have been reviewed. No diaphoresis when he did have chest pain a couple hours prior to arrival. Pain-free on arrival. No symptoms at the time of admission. Accepted by the hospitalist. No acute changes noted on EKG. Baseline EKG even from last month was abnormal. Nonspecific ST segment changes at baseline
[2018-03-28 23:37] LABS: Basophils # 0.1 K/mcL (0.0-0.2); Eosinophils # 0.6 K/mcL (0.0-0.6); Eosinophils % 7.5 %; Hematocrit 40.1 % (37.5-50.1); Hemoglobin 13.5 g/dL (12.9-16.9); Immature Granulocytes % 0.3 % (0-4); Lymphocytes # 2.6 K/mcL (0.6-4.6); Lymphocytes % 35.3 %; Mean Corpuscular HGB Conc 33.7 g/dL (31.6-35.5); Mean Corpuscular Hemoglobin 29.7 pg (28.0-33.3); Mean Corpuscular Volume 88.3 fL (83.0-100.0); Mean Platelet Volume 9.3 fL (9.4-12.4); Monocytes # 0.6 K/mcL (0.0-1.3); Monocytes % 7.5 %; Neutrophils # 3.5 K/mcL (1.6-8.9); Platelet Count 315 K/mcL (140-400); Red Blood Count 4.54 M/mcL (4.19-5.50); Red Cell Distribution Width 13.4 % (11.5-14.5); Segmented Neutrophils % 48.4 %
[2018-03-28 23:44] LABS: Prothrombin Time 11.6 Seconds (9.4-12.1)
[2018-03-28 23:46] LABS: Activated Partial Thrombo Time 32.4 Seconds (26.0-36.0)
[2018-03-28 23:56] LABS: BUN/Creatinine Ratio 24 (6-26); Blood Urea Nitrogen 23 mg/dL (8-23); Calcium 9.3 mg/dL (8.6-10.3); Carbon Dioxide 25 mEq/L (23-29); Chloride 104 mEq/L (98-107); Glucose 145 mg/dL (70-105); Osmolality,Calculated 292 (280-300); Potassium 3.7 mEq/L (3.5-5.1); Sodium 138 mEq/L (136-145); eGFR For Non-African Americans > 60 (> 60)
[2018-03-28 23:57] LABS: Troponin I < 0.03 ng/mL (< 0.04)
[2018-03-29] MEDS ORDERED: Naloxone 0.4 MG/ML INJ IVP PRN (01:36)
--- NOTE | 2018-03-29 01:43 | Internal Med History&Physical ---
Date of Encounter: 03/29/18 Time of Encounter: 01:17 Internal Medicine - H&P: HPI Chief complaint: Chest pain Admitted From: Emergency Dept Plans for Post Hospital Care: Home History of present illness: Mr. Sharp is a 72 year old male Patient presented to the emergency room after experiencing two episodes of chest pain earlier on the day of his admission. He states that he was at rest during both events. He describes the pain as sharp with occasional stabbing pain, as well as pain with deep inhalation. He tried during his first episode to sit down, and the pain improved. During his second episode he was laying dowin, and the pain started. He tried to stay still as he was worried that it may be worsened with exertion. He eventually called EMS to bring him into the hospital. He recently had a CABG procedure about 1 month ago, and similar chest pain like this prior to that surgery. By the time EMS arrived his chest pain had improved. In the emergency room, patient's troponin was undetectable, CBC was within normal limits, BMP was also within normal limits. Chest x-ray showed no acute abnormalities. EKG showed no ST changes and improved T-wave inversions. He did not meet STEMI criteria. He was admitted to the hospital for further monitoring. Upon my assessment, the patient states that he is pain free, is resting comfortably in the hospital bed. He states that he had tried percocet at home during his first episode which seemed to help. He denies vomiting but did have some nausea which has persisted since his recent CABG surgery. He denies diarrhea, constipation and abdominal pain. Past Med Surg Social Fam HX - Past Medical History Medical history: arthritis, coronary artery disease, CVA, GERD, hyperlipidemia, hypertension, kidney stones, myocardial infarction, osteoporosis Additional medical history: Carotid stenosis Psychiatric history: no psych history - Past Surgical History Surgical History: angioplasty/stent, colostomy, orthopedic, other Additional surgical history: kidney stone removal - Social History Smoking Status: Never smoker Smokeless Tobacco Status: No Alcohol use: none Drug use: none - Family History Father Adopted: No Family Member Ethnicity: Non- Living Status: Hx Family Cardiac Disorders: Yes (CABG,[place]) Hx Family Respiratory Disorders: No Hx Family Cancer: Yes (colon CA) Hx Family GI Disorders: No Hx Family Endocrine Disorder: No Hx Family Neuromuscular Disorders: No Hx Family Neurologic Disorders: Yes (CVA aphasic) Hx Family HEENT Disorders: No Hx Family Autoimmune Disorders: No Internal Medicine - H&P: Meds Aspirin [Adult Aspirin Regimen] 81 mg PO DAILY 12/11/17 [History] ALPRAZolam [Xanax 0.5 MG Tablet] 0.5 mg PO Q6H PRN 3 Days #12 tablet 02/16/18 [Rx] Clopidogrel [Plavix] 75 mg PO DAILY 03/03/18 [History] Cholestyramine 4 gm PO DAILY 03/29/18 [History] Diltiazem [Cardizem] 30 mg PO QID 03/29/18 [History] Multivit-Min/FA/Lycopen/Lutein [A Th[employer] Multivit Tab] 1 tab PO DAILY 03/29/18 [History] Ondansetron ODT [Zofran ODT] 4 mg SL Q6HR PRN 03/29/18 [History] OxyCODONE/APAP 5/325 [Percocet 5/325 MG] 1 each PO Q6HR PRN 7 Days #10 tablet 03/29/18 [Rx] Pantoprazole Sodium 40 mg PO DAILY 03/29/18 [History] Polyethylene Glycol 3350 17 gm PO DAILY 03/29/18 [History] Ubidecarenone [Co Q-10] 100 mg PO DAILY 03/29/18 [History] Allergy/AdvReac Type Severity Reaction Status Date / Time niacin Allergy See Verified 03/06/18 06:15 Comments Hvtbflb-Olf-Ciy Reductase Allergy See Verified 03/06/18 06:15 Inhibitor Comments [Statins] lorazepam [From Ativan] AdvReac Hallucinati Verified 03/06/18 06:15 ng All Systems PM: A 10-system review of systems was performed and is negative for pertinent findings except as documented above in the HPI. - Constitutional Vitals: Temp Pulse Resp BP Pulse Ox 97.9 F 86 18 141/96 99 03/28/18 23:01 03/29/18 00:58 03/29/18 01:09 03/29/18 01:09 03/29/18 00:58 General appearance: Present: cooperative, A&O X 3, pleasant, no acute distress, answers questions appropriately Exam: As above - Head Head exam: Present: normal inspection - Eye Eye exam: Present: EOMI, normal appearance - Neck Neck exam general surgery: Present: full ROM - Respiratory Respiratory exam: Present: chest wall tenderness, CTAB. Absent: decreased breath sounds, respiratory distress, wheezes - Cardiovascular Cardiovascular exam: Present: RRR. Absent: diastolic murmur, systolic murmur - GI/Abdominal GI/Abdominal exam: Present: normal bowel sounds, soft. Absent: tenderness - Extremities Exam Extremities exam: Present: warm, radial pulses palpable and symmetrical. Absent: calf tenderness, pedal edema, tenderness - Neurological Exam Neurological exam: Present: no focal deficits, strengths equal and symetr throughout. Absent: motor sensory deficit, facial droop, speech deficit - Psychiatric Psychiatric exam: Present: normal mood - Skin Skin exam: Present: dry, normal color, warm Internal Med - H&P Results - Labs CBC & Chem 7: 03/28/18 23:03 03/28/18 23:03 - Assessment and plan (1) Chest pain Status: Acute Assessment and plan: Patient had two episodes of chest pain the day of his admission. Currently chest pain is resolved. Patient recently had a CABG with triple bypass about 1 month ago. 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 Qualifiers: Chest pain type: other chest pain Qualified Code(s): R07.89 - Other chest pain; R07.8 - Other chest pain (2) CAD (coronary artery disease) Status: Chronic Assessment and plan: Patient is status post CABG. Continue to monitor Continue home meds Qualifiers: Coronary Disease-Associated Artery/Lesion type: [place] artery [place] vs. transplanted heart: [place] heart Associated angina: angina presence un specified Qualified Code(s): I25.10 - Atherosclerotic heart disease of [place] coronary artery without angina pectoris (3) S/P CABG x 3 Status: Acute Assessment and plan: CABG 1 month ago. Will request cardiology consult in AM. - Time Spent With Patient Total time spent is greater than 50% in coordination of care (as documented) at patient's floor/unit and/or counseling patient: Greater than 35 minutes
[2018-03-29 01:54] VITALS: BP 169/89
[2018-03-29] MEDS ORDERED: Cholestyramine 4 GM POWD.PACK PO ONE ×3 (10:20→14:48)
[2018-03-29] MEDS ORDERED: Aspirin Enteric Coated 81 MG Tablet PO ONE ×2 (10:20→14:48)
[2018-03-29] MEDS ORDERED: Ondansetron ODT 4 MG TAB.RAPDIS SL PRN ×2 (12:01→14:24)
[2018-03-29] MEDS ORDERED: *HR* OxyCODONE/APAP 5/325 TABLET PO PRN (12:02)
--- NOTE | 2018-03-29 12:35 | Event Note ---
Date of Encounter: 03/29/18 Time of Encounter: 09:15 - Cardiology Event Note [employer] system down today, please see full consult on the chart. Troponin negative 1. Continue to cycle troponins. Well known to cardiology, atypical symptoms. Recommend continue home medication regimen. 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 Cardiology will sign off, reconsult as needed, call if any concerning troponins. Follow-up appointment made. Discussed with Dr. Ramsey Portillo. All questions answered.
--- NOTE | 2018-03-29 13:41 | Electrocardiograph Report ---
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
[2018-03-29] MEDS ORDERED: ALPRAZolam 0.5 MG TABLET PO PRN (14:24)
--- NOTE | 2018-03-29 14:33 | Discharge Summary ---
- NOTES TO OUTPATIENT PROVIDER Notes to Outpatient Provider: Mr. Jama Sharp is a 72-year-old male that was admitted through the emergency room for chest pain. His ER course consisted of admission for observation where he is ECG showed a normal sinus rhythm borderline reported conversation abnormality. Troponins were negative 1. Chest x-ray was negative. He has a positive past medical history for a CABG 3 vessels in 1 month ago, left carotid endarterectomy in November 2017. He stated that prior to his admission he had a busy day that day and that he had gone up and down ladders helping for replace the roof on his home. Hs stay on the observation unit was non-eventful and we will discharge him home back to cardiology as well as primary care there were no medication changes in his regimen. Orders not resulted at time of discharge: Pending orders 03/29/18 04:00 Basic Metabolic Panel AM 0400 Complete Blood Count w/o Diff [HEME] AM 0400 03/29/18 05:00 Troponin I Q6H 03/29/18 11:00 Troponin I Q6H Date of Encounter: 03/29/18 Time of Encounter: 09:00 - Discharge Diagnosis (1) Chest pain Priority: Primary Status: Acute Assessment and Plan: EKG is normal troponins have trended normal 1. Patient denies any chest pain shortness of breath, swelling of her legs. He is requesting to go home today and will be discharged as he is back to baseline and in stable condition Qualifiers: Chest pain type: other chest pain Qualified Code(s): R07.89 - Other chest pain; R07.8 - Other chest pain (2) DVT prophylaxis Priority: Secondary Status: Acute Assessment and Plan: Will be discharged on his current medication regimen which includes Plavix there are no changes to his home meds. Hospital course: Mr. Sharp is a 72 year old male that was admitted through the emergency room for chest pain. His ER course consisted of admission for observation. Where he is ECG showed a normal sinus rhythm borderline reported conversation abnormality. Troponins were negative 1. Chest x-ray was negative. He has a positive past medical history for a CABG 3 vessels in 1 month ago, left carotid endarterectomy in November 2017. He stated that prior to his admission he had a busy day yesterday States that he had gone up and down ladders helping for a reject opener whome was working on his roof . Denies being on the roof, just going up and down the ladder, handing him "tools" His stay on the observation unit was non-eventful and we will discharge him home. 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 There were no medication changes in his regimen. He is encouraged to continue with his cardiac rehab, on out patient basis . Discharge discussed with: patient Time spent discussing smoking cessation with patient: 3 to 10 minutes - Time Spent with Patient Total time spent providing and/or coordinating discharge services: Less than 30 minutes (continue all home medications. Schedule cardiology consult appointment for follow up. Follow up with PCP .) - Discharge Medications Home Medications: Aspirin [Adult Aspirin Regimen] 81 mg PO DAILY 12/11/17 [History] ALPRAZolam [Xanax 0.5 MG Tablet] 0.5 mg PO Q6H PRN 3 Days #12 tablet 02/16/18 [Rx] Clopidogrel [Plavix] 75 mg PO DAILY 03/03/18 [History] Cholestyramine 4 gm PO DAILY 03/29/18 [History] Diltiazem [Cardizem] 30 mg PO QID 03/29/18 [History] Multivit-Min/FA/Lycopen/Lutein [A Thru Z Select Multivit Tab] 1 tab PO DAILY 03/29/18 [History] Ondansetron ODT [Zofran ODT] 4 mg SL Q6HR PRN 03/29/18 [History] OxyCODONE/APAP 5/325 [Percocet 5/325 MG] 1 each PO Q6HR PRN 7 Days #10 tablet 03/29/18 [Rx] Pantoprazole Sodium 40 mg PO DAILY 03/29/18 [History] Polyethylene Glycol 3350 17 gm PO DAILY 03/29/18 [History] Ubidecarenone [Co Q-10] 100 mg PO DAILY 03/29/18 [History] Allergies/Adverse Reactions: Allergy/AdvReac Type Severity Reaction Status Date / Time niacin Allergy See Verified 03/06/18 06:15 Comments Roggrrf-Hoi-Xwe Reductase Allergy See Verified 03/06/18 06:15 Inhibitor Comments [Statins] lorazepam [From Ativan] AdvReac Hallucinati Verified 03/06/18 06:15 ng Date of admission: 03/29/18 00:40 Primary care physician: Jimmy Penaloza MD Consults: 03/29/18 01:38 Consult to Cardiology [CONS] Routine Comment: Consulting Provider: Cardiology Saida Reason for Consult: Chest pain, recent CABG Call Completed: No Discharging clinician: Natali Soto Anticipated date of discharge: 03/29/18 - Constitutional Vitals: Temp Pulse Resp BP Pulse Ox 97.7 F 88 16 169/89 98 03/29/18 01:51 03/29/18 01:51 03/29/18 01:51 03/29/18 01:51 03/29/18 01:51 General appearance: Present: cooperative, A&O X 3, pleasant, no acute distress, answers questions appropriately Exam: Resting comfortably in no acute distress - Head Head exam: Present: atraumatic, normocephalic - Eye Eye exam: Present: PERRL, conjuntiva pink, sclera anicteric Pupils: Present: PERRL - Neck Neck exam general surgery: Present: supple, trachea midline. Absent: lymphadenopathy - Respiratory Respiratory exam: Present: CTAB. Absent: accessory muscle use, rales, rhonchi, wheezes - Cardiovascular Cardiovascular exam: Present: RRR, +S1, +S2. Absent: diastolic murmur, gallop, rubs, systolic murmur - GI/Abdominal GI/Abdominal exam: Present: normal bowel sounds, soft, no peritoneal signs. Absent: distended, tenderness - Extremities Exam Extremities exam: Present: warm, radial pulses palpable and symmetrical. Absent: calf tenderness, cyanotic, pedal edema - Neurological Exam Neurological exam: Present: CN II-XII intact, oriented X3, no focal deficits. Absent: pronater drift, facial droop, speech deficit - Skin Skin exam: Present: dry, intact - Patient Status Disposition: Home, Self-Care Condition: Good Functional capacity at discharge: independent ambulation - Discharge Instructions Instructions: Chest Pain (DC) Follow Up With: Jimmy Penaloza MD [Primary Care Provider] - (YOUR APPOINTMENT HAS BEEN REQUESTED. OUR OFFICES WILL CALL YOU WITH AN APPOINTMENT TIME AND DATE. ) - Diet and Activity Activity: as per the cardiac rehab (continue with scheduled cardiac rehab )
[2018-03-29] MEDS ORDERED: Cholestyramine 4 GM POWD.PACK PO SCH (21:00)
[2018-03-30] MEDS ORDERED: Aspirin Enteric Coated 81 MG Tablet PO SCH (09:00)
[2018-03-30] MEDS ORDERED: Aspirin 81 MG TAB.CHEW PO SCH (09:00)
[2018-03-30] MEDS ORDERED: Cholestyramine 4 GM POWD.PACK PO SCH (09:00)
[2018-03-30] MEDS ORDERED: Multivit/Ca/Min/Fe/FA 1 TAB TABLET PO SCH (09:00)
== END 2018-03-29 14:49 | disposition home or self-care (01) ==
LOC: EMEROOARM 22:48 → 3BNU 22:48
PROVIDERS: ADMIT Family Medicine; ATTEND Family Medicine

== ENCOUNTER 2020-08-05 09:40 | Observation (INO) ==
[2020-08-05 10:07] LABS: Basophils # 0.1 K/mcL (0.0-0.2); Basophils % 0.6 %; Eosinophils # 0.3 K/mcL (0.0-0.6); Hematocrit 48.8 % (37.5-50.1); Hemoglobin 16.4 g/dL (12.9-16.9); Immature Granulocytes % 1.5 % (0-4); Lymphocytes # 2.8 K/mcL (0.6-4.6); Mean Corpuscular HGB Conc 33.6 g/dL (31.6-35.5); Mean Corpuscular Hemoglobin 30.9 pg (28.0-33.3); Mean Corpuscular Volume 92.1 fL (83.0-100.0); Monocytes # 0.8 K/mcL (0.0-1.3); Monocytes % 6.5 %; Neutrophils # 8.1 K/mcL (1.6-8.9); Platelet Count 327 K/mcL (140-400); Red Cell Distribution Width 13.2 % (11.5-14.5); Segmented Neutrophils % 66.4 %; White Blood Count 12.2 K/mcL (4.3-11.1)
[2020-08-05 10:27] LABS: BUN/Creatinine Ratio 21 (6-26); Blood Urea Nitrogen 27 mg/dL (8-23); Calcium 9.2 mg/dL (8.6-10.3); Carbon Dioxide 25 mEq/L (23-29); Chloride 103 mEq/L (98-107); Glucose 132 mg/dL (70-105); Osmolality,Calculated 293 (280-300); Potassium 3.9 mEq/L (3.5-5.1); Sodium 138 mEq/L (136-145); Troponin I < 0.03 ng/mL (< 0.04); eGFR For African Americans > 60 (> 60); eGFR For Non-African Americans 56 (> 60)
[2020-08-05] MEDS ORDERED: Aspirin 325 MG TABLET PO ONE (11:04)
[2020-08-05] MEDS ORDERED: Naloxone 0.4 MG/ML INJ IVP PRN ×2 (11:39→11:40)
[2020-08-05] MEDS ORDERED: Acetaminophen 325 MG TABLET PO PRN (11:40)
[2020-08-05] MEDS ORDERED: Ondansetron 4 MG/2 ML VIAL IVP PRN (11:40)
[2020-08-05] MEDS ORDERED: Ipratropium/Albuterol Neb 3 ML IH PRN (12:16)
[2020-08-06 04:48] LABS: Hematocrit 48.6 % (37.5-50.1); Hemoglobin 16.5 g/dL (12.9-16.9); Mean Corpuscular Hemoglobin 31.6 pg (28.0-33.3); Mean Corpuscular Volume 93.1 fL (83.0-100.0); Mean Platelet Volume 9.4 fL (9.4-12.4); Platelet Count 286 K/mcL (140-400); Red Blood Count 5.22 M/mcL (4.19-5.50); Red Cell Distribution Width 13.2 % (11.5-14.5); White Blood Count 10.7 K/mcL (4.3-11.1)
[2020-08-06 05:08] LABS: BUN/Creatinine Ratio 25 (6-26); Blood Urea Nitrogen 28 mg/dL (8-23); Carbon Dioxide 19 mEq/L (23-29); Chloride 108 mEq/L (98-107); Chol/HDL Ratio 5.5 (0-4.9); Cholesterol 240 mg/dL (< 200); Glucose 96 mg/dL (70-105); HDL Cholesterol 44 mg/dL (40-59); LDL Cholesterol,Calculated 163 mg/dL (< 100); Magnesium 1.7 mg/dL (1.6-2.6); Osmolality,Calculated 291 (280-300); Potassium 4.2 mEq/L (3.5-5.1); Sodium 138 mEq/L (136-145); Triglycerides 165 mg/dL (< 150); eGFR For African Americans > 60 (> 60); eGFR For Non-African Americans > 60 (> 60)
[2020-08-06] MEDS ORDERED: Regadenoson 0.4 MG/5 ML SYRINGE IVP ONE (06:08)
[2020-08-06] MEDS ORDERED: Aspirin Enteric Coated 81 MG Tablet PO SCH (09:00)
[2020-08-06 09:12] LABS: Estimated Average Glucose 128 mg/dl; Hemoglobin A1C 6.1 %
[2020-08-06] MEDS: Budesonide/Formoterol 80/4.5 1 PUFF INH IH SCH ×2 (09:49→10:03)
[2020-08-06 10:58] VITALS: BP 117/70
== END 2020-08-06 14:52 | disposition home or self-care (01) ==
LOC: 3BNU 09:40 → EMEROOARM 09:40 → SUATTDRO 11:37 → 3BNU 12:09
PROVIDERS: ADMIT Internal Medicine; ATTEND Internal Medicine